=== PATIENT | female | born 1945 | race Caucasian/White ===

== ENCOUNTER 2018-12-01 14:40 | Inpatient (IN) | payer OTHER ==
[2018-12-01] MEDS ORDERED: ACETAMINOPHEN 1000 MG/100 ML VIAL (NON FORMULARY) IVPB ONE (16:19)
[2018-12-01] MEDS ORDERED: SODIUM CHLORIDE 0.9% 500 ML INFUS.BAG IV ONE (16:19)
--- NOTE | 2018-12-01 16:27 | PDOC ---
History of Present Illness - General Chief Complaint: Headache Stated Complaint: Headache Time Seen by Provider: 12/01/18 16:02 History Source: Patient Exam Limitations: No Limitations - History of Present Illness Initial Comments: 12/01/18 16:21 [id number] with h/o colon CA (s/p resection in 2003, last f/u colonoscopy with Dr. Pritchard 3 years ago was normal), HTN (on metoprolol 50 mg irregularly and did take it this morning), HLD, and prior abdominal surgeries (nothing recently) who p/w progressive nighttime headache worsening over the past 2 months. She notes the pain increases to 10/10 at the top right portion of her head and is particularly worse when she lays down flat. Denies any recent f/c/n/v/d/c, chest pain, SOB, abdominal pain, bloody/black stool, back pain, weight loss, swollen lymph nodes, or other sxs. Has not taken medication today for the pain. Currently has minimal residual headache but nowhere near as bad as overnight. Past History - Past Medical History Allergies/Adverse Reactions: Allergies Allergy/AdvReac Type Severity Reaction Status Date / Time No Known Allergies Allergy Verified 12/01/18 15:54 Home Medications: Ambulatory Orders Metoprolol Succinate [Toprol Xl] 50 mg PO DAILY 12/01/18 Simvastatin 1 tab PO HS 12/01/18 COPD: No HTN: Yes - Suicide/Smoking/Psychosocial Hx Smoking History: Never smoked Have you smoked in the past 12 months: No Information on smoking cessation initiated: No Hx Alcohol Use: No Drug/Substance Use Hx: No Review of Systems - Review of Systems Able to Perform ROS?: Yes Comments:: 12/01/18 16:28 GEN: no fever, chills, malaise, generalized weakness, or weight change HEENT: no ear pain, sore throat, vision change, or eye pain CV: no chest pain, palpitations, lightheadedness, syncope, or edema RESP: no cough, wheezing, or SOB GI: no abdominal pain, nausea, vomiting, diarrhea, constipation, or white/black/ bloody stool : no dysuria, hematuria, incontinence, retention, bleeding, or discharge MSK: no neck/back pain, muscle weakness/pain, or joint swelling/pain NEURO: headache, no seizure, vertigo, numbness, tingling, or focal weakness PSYCH: no substance use, no behavior change SKIN: no jaundice, no rash ROS otherwise negative except as noted in HPI *Physical Exam - Vital Signs Last Vital Signs Temp Pulse Resp BP Pulse Ox 98.3 F 73 16 205/111 H 100 12/01/18 15:50 12/01/18 15:50 12/01/18 15:50 12/01/18 15:50 12/01/18 15:50 - Physical Exam Comments: 12/01/18 16:28 GENERAL: very pleasant, thin, nontoxic-appearing, A/Ox4, no distress, answers questions appropriately although very tangential, a bit pressured speech and forgetful HEENT: PERRLA, EOMI, moist mucous membranes NECK/BACK: no midline ttp, no spinal stepoff or deformity, no hematoma, full ROM , neck supple CARDIOVASCULAR: regular rate/rhythm, normal S1S2, no MGR, strong peripheral pulses, capillary refill <2 seconds, extremities wwp, no edema LUNGS/RESPIRATORY: no respiratory distress, CTAB GI/ABDOMEN: symmetric [id number], normoactive BS, soft, no ttp, no midline pulsatile masses : no CVA tenderness EXTREMITIES: no muscle atrophy, no acute deformity SKIN: warm and dry, no pallor, no jaundice, no rash, no bruising, no skin breakdown, no cuts, no lesions NEUROLOGICAL: GCS 15, CN II-XII grossly intact, 5/5 strength proximally and distally, no facial droop ED Treatment Course - LABORATORY CBC & Chemistry Diagram: 12/05/18 07:30 12/05/18 07:30 - RADIOLOGY Radiology Studies Ordered: Category Date Time Status HEAD CT WITHOUT CONTRAST [CT] Stat CT Scan 12/01/18 16:19 Ordered Medical Decision Making - Medical Decision Making 12/01/18 16:25 Elderly Pt p/w headache, no reported mechanism for injury, no new red flag symptoms (see HPI). JACK not worse on awakening in the AM, no B symptoms, trauma, fever, vision loss, syncope, n/t/w focally, sudden onset, etc. Initial Vital Signs Temp Pulse Resp BP Pulse Ox 98.3 F 73 16 205/111 H 100 12/01/18 15:50 12/01/18 15:50 12/01/18 15:50 12/01/18 15:50 12/01/18 15:50 Exam: As noted in Physical Exam section. DDX IBNLT: Concern is for malignancy or other intracranial process given the fact that this is progressive and mostly present at night. Primary JACK syndrome ( tension/cluster/migraine), trigeminal neuralgia, zoster, SAH (mali. sudden onset) , subdural or epidural hematoma (mali. after trauma), ruptured/acutely expanded aneurysm, encephalitis, meningitis, glaucoma, atypical PNA, idiopathic intracranial hypertension (uncommon in males), GCA (mlai. new onset JACK >50 yo female), mass lesion, brain metastasis (mali. known CA patients and/or JACK with increasing severity/frequency), brain abscess (mali. immunocompromised patients) , other infection (e.g. UTI/pyelonephritis), DKA, etc W/U ordered: Head CT, EKG, labs as noted below TX ordered: Ofirmev, IVF, Reglan, Benadryl, Metoprolol 12/01/18 16:27 EKG: Reviewed; results as noted in ECG Review section. Head CT: Laboratory Tests 12/01/18 12/01/18 12/01/18 16:43 16:43 16:43 WBC 7.6 RBC 3.47 L Hgb 8.6 L Hct 26.1 L MCV 75.2 L MCH 24.8 L MCHC 33.0 RDW 17.1 H Plt Count 178 MPV 7.3 L Absolute Neuts (auto) 5.6 Neutrophils % 74.0 Lymphocytes % 15.8 Monocytes % 7.9 Eosinophils % 1.4 Basophils % 0.9 Nucleated RBC % 0 ESR 37 H Sodium 136 Potassium 3.9 Chloride 100 Carbon Dioxide 29 Anion Gap 7 L BUN 39.9 H Creatinine 2.9 H Est GFR (CKD-EPI)AfAm 17.62 Est GFR (CKD-EPI)NonAf 15.20 Random Glucose 96 Calcium 8.7 Total Bilirubin 1.0 AST 11 L ALT 9 L Alkaline Phosphatase 97 Troponin I 0.04 Total Protein 6.5 Albumin 3.3 L Urine Color Urine Appearance Urine pH Ur Specific Sheridan Urine Protein Urine Glucose (UA) Urine Ketones Urine Blood Urine Nitrite Urine Bilirubin Urine Urobilinogen Ur Leukocyte Esterase Urine WBC (Auto) Urine RBC (Auto) Urine Casts (Auto) U Epithel Cells (Auto) Urine Bacteria (Auto) 12/01/18 17:33 WBC RBC Hgb Hct MCV MCH MCHC RDW Plt Count MPV Absolute Neuts (auto) Neutrophils % Lymphocytes % Monocytes % Eosinophils % Basophils % Nucleated RBC % ESR Sodium Potassium Chloride Carbon Dioxide Anion Gap BUN Creatinine Est GFR (CKD-EPI)AfAm Est GFR (CKD-EPI)NonAf Random Glucose Calcium Total Bilirubin AST ALT Alkaline Phosphatase Troponin I Total Protein Albumin Urine Color Yellow Urine Appearance Clear Urine pH 7.5 Ur Specific Sheridan 1.012 Urine Protein 2+ H Urine Glucose (UA) Negative Urine Ketones Negative Urine Blood Trace Urine Nitrite Negative Urine Bilirubin Negative Urine Urobilinogen 0.2 Ur Leukocyte Esterase Trace Urine WBC (Auto) 35 Urine RBC (Auto) 4 Urine Casts (Auto) 4 U Epithel Cells (Auto) 0.1 Urine Bacteria (Auto) 1483.3 CT/HEAD CT WITHOUT CONTRAST Cranial CT without contrast Clinical information: headache Multiplanar imaging was performed. Intravenous contrast was not administered. No prior imaging studies are available at this facility for direct comparison. No intraparenchymal hemorrhage is seen. There is no CT evidence of acute subarachnoid hemorrhage. Correlate clinically. No extra-axial fluid collection is noted. There is no obvious mass lesion on noncontrast imaging. No discrete infarct is identified within the limitations of CT. Mild to moderate periventricular and subcortical white matter low-attenuation is noted probably on the basis of microvascular ischemic gliosis given the patient' s chronologic age. Correlate clinically. The ventricles and cisterns appear unremarkable. A partly empty sella turcica is visualized which is usually of no clinical significance. No discrete calvarial defect is noted. The partially imaged paranasal sinuses demonstrate no opacification. A 2 x 1.3 cm left occipital subcutaneous partially calcified structure is seen probably representing a sebaceous cyst. A similar smaller right parietal subcutaneous structure is also visualized. Impression: No definite CT evidence of acute intracranial pathology. Mild to moderate bilateral periventricular and subcortical white matter hypodensity is seen without mass effect probably on the basis of chronic microvascular ischemic changes. Correlate clinically. Patient states minimal residual pain. Vital Signs Temperature 98.0 F 12/01/18 17:47 Pulse Rate 72 12/01/18 17:47 Respiratory Rate 16 12/01/18 17:47 Blood Pressure 205/98 H 12/01/18 17:47 O2 Sat by Pulse Oximetry (%) 98 12/01/18 17:47 12/01/18 18:44 Second IV Push metoprolol 5 mg is ordered. The Pt is unsafe for discharge at this time. They require further hospital observation, workup, and treatment. Microblog sent to [facility] for admission. Blank Decision to Admit order is placed per ED protocol. 12/01/18 19:05 Spoke with admitting team promotional representative, in agreement Pt to be admitted. Decision to Admit order corrected with Dr. Vera's name. *DC/Admit/Observation/Transfer Diagnosis at time of Disposition: GENOVEVA (acute kidney injury), Headache, High blood pressure, UTI (urinary tract infection) - Discharge Dispostion Condition at time of disposition: Guarded Decision to Admit order: Yes - Referrals - Patient Instructions - Post Discharge Activity
[2018-12-01] MEDS ORDERED: ACETAMINOPHEN INJECTION 100 ML IVPB ONE (16:53)
[2018-12-01] MEDS ORDERED: METOPROLOL TARTRATE 5 MG/5 ML VIAL IVPUSH ONE ×2 (16:56→18:48)
[2018-12-01 17:06] LABS: BASO % 0.9 % (0-2.0); EOS % 1.4 % (0-4.5); HEMATOCRIT 26.1 % (32.4-45.2); HEMOGLOBIN 8.6 GM/dL (10.7-15.3); LYMPH % 15.8 % (8-40); MCH 24.8 pg (25.7-33.7); MEAN CELL VOLUME 75.2 fl (80-96); MEAN PLT VOLUME 7.3 fl (7.5-11.1); MONO % 7.9 % (3.8-10.2); PLATELET COUNT 178 K/MM3 (134-434); RBC 3.47 M/mm3 (3.60-5.2); RDW 17.1 % (11.6-15.6); WHITE BLOOD COUNT 7.6 K/mm3 (4.0-10.0)
[2018-12-01] MEDS ORDERED: METOPROLOL TARTRATE 5 MG/5 ML VIAL ONE ×2 (17:15→18:57)
[2018-12-01 17:27] LABS: ALBUMIN 3.3 g/dl (3.4-5.0); BLOOD UREA NITROGEN 39.9 mg/dL (7-18); CALCIUM 8.7 mg/dL (8.5-10.1); CREATININE 2.9 mg/dL (0.55-1.3); POTASSIUM 3.9 mmol/L (3.5-5.1); TOT PROT 6.5 g/dl (6.4-8.2)
--- NOTE | 2018-12-01 17:31 | PDOC ---
Documentation entered by Allen Whaley SCRIBE, acting as scribe for Joanie Atkins MD. Joanie Atkins MD: This documentation has been prepared by the Judd moraes Joel, SCRIBE, under my direction and personally reviewed by me in its entirety. I confirm that the documentation accurately reflects all work, treatment, procedures, and medical decision making performed by me. Attending Attestation - Resident Resident Name: Laure James - ED Attending Attestation I have performed the following: I have examined & evaluated the patient, The case was reviewed & discussed with the resident, I agree w/resident's findings & plan, Exceptions are as noted - HPI HPI: 12/01/18 17:10 The patient is a 73 year old female with a significant PMH of colon CA (s/p resection), HTN, and hyperlipidemia who presents to the emergency department for evaluation of a worsening nighttime headache over the past 2 months. She describes her headache as an intermittent pain localized in the right upper region, which is aggravated by lying down. The patient denies any blurry vision or dizziness. The patient denies chest pain and shortness of breath. Denies fever, chills, nausea, vomit, diarrhea and constipation. Denies dysuria, frequency, urgency and hematuria. Allergies: NKA Past surgical history: None reported. Social history: No reported cigarette, alcohol, or drug use. PCP: Dr. Goff - Physicial Exam PE: GENERAL: Awake, alert, and fully oriented, in no acute distress HEAD: No signs of trauma EYES: PERRLA, EOMI, sclera anicteric, conjunctiva clear ENT: Auricles normal inspection, hearing grossly normal, nares patent, oropharynx clear without exudates. Moist mucosa NECK: Normal ROM, supple, no lymphadenopathy, JVD, or masses LUNGS: Breath sounds equal, clear to auscultation bilaterally. No wheezes, and no crackles HEART: Regular rate and rhythm, normal S1 and S2, no murmurs, rubs or gallops ABDOMEN: Soft, nontender, normoactive bowel sounds. No guarding, no rebound. No masses EXTREMITIES: Normal range of motion, no edema. No clubbing or cyanosis. No cords, erythema, or tenderness NEUROLOGICAL: Cranial nerves II through XII grossly intact. Normal speech, normal gait. Motor and sensation intact SKIN: Warm, dry, normal turgor, no rashes or lesions noted. - Medical Decision Making No neuro deficits on exam, however, the complaint is concerning for poss mass. CTH obtained-without contrast, as she has renal insufficiency- unclear if acute or chronic. No acute findings on CT. Labs show renal insufficiency and UTI. Will admit.
[2018-12-01 17:51] LABS: EPI CELLS 0.1 /HPF (0-5/HPF); HYALINE CASTS 4 /lpf (0-8); PH,URINE 7.5 (5.0-8.0); URINE APPEARANCE CLEAR; URINE BACTERIA 1483.3 /hpf (NEGATIVE); URINE BILIRUBIN NEGATIVE (NEGATIVE); URINE COLOR YELLOW; URINE GLUCOSE (UA) NEGATIVE (NEGATIVE); URINE KETONE NEGATIVE (NEGATIVE); URINE LEUK ESTERASE TRACE (NEGATIVE); URINE NITRITE NEGATIVE (NEGATIVE); URINE PROTEIN 2+ (NEGATIVE); URINE RBC 4 /hpf (0-4); URINE UROBILINOGEN 0.2 mg/dL (0.2-1.0); URINE WBC 35 /hpf (0-5)
[2018-12-01] MEDS ORDERED: CEFTRIAXONE 1,000 MG in DEXTROSE 5%-WATER - 50 ML IVPB ONE (18:43)
[2018-12-01] MEDS ORDERED: CEFTRIAXONE 1 GM/50 ML BAG ONE (18:48)
[2018-12-01] MEDS ORDERED: POLYETHYLENE GLYCOL 3350 119 GM BTL PO PRN (19:06)
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
[2018-12-01] MEDS ORDERED: hydrALAZINE HCL 10 MG TABLET PO SCH (22:00)
[2018-12-01] MEDS: DOCUSATE SODIUM 100 MG CAPSULE (FP) PO SCH (22:38)
[2018-12-01] MEDS: SENNOSIDES 8.6MG TABLET (FP) PO SCH (22:38)
[2018-12-01] MEDS ORDERED: DOCUSATE SODIUM 100 MG CAPSULE (FP) PO ONE (22:41)
[2018-12-02] MEDS ORDERED: hydrALAZINE HCL 25 MG TABLET (FP) PO ONE (01:16)
[2018-12-02] MEDS: HEPARIN NA (PORCINE) 5,000 UNITS/ML 1ML VIAL SQ SCH ×3 (06:25→21:24)
[2018-12-02] MEDS: hydrALAZINE HCL 25 MG TABLET (FP) PO SCH ×3 (06:25→21:24)
[2018-12-02 07:59] LABS: BASO % 0.9 % (0-2.0); EOS % 2.7 % (0-4.5); HEMATOCRIT 25.4 % (32.4-45.2); HEMOGLOBIN 8.3 GM/dL (10.7-15.3); LYMPH % 18.2 % (8-40); MCH 24.7 pg (25.7-33.7); MCHC 32.7 g/dl (32.0-36.0); MEAN CELL VOLUME 75.8 fl (80-96); MEAN PLT VOLUME 7.5 fl (7.5-11.1); MONO % 9.5 % (3.8-10.2); NEUT % 68.7 % (42.8-82.8); RBC 3.35 M/mm3 (3.60-5.2); RDW 17.1 % (11.6-15.6); WHITE BLOOD COUNT 5.9 K/mm3 (4.0-10.0)
[2018-12-02 08:10] LABS: INR 1.03 (0.83-1.09); PROTHROMBIN TIME (PATIENT) 12.2 SEC (9.7-13.0)
[2018-12-02 08:12] LABS: ACTIVATED PTT 29.4 SECONDS (25.2-36.5)
[2018-12-02] MEDS: DOCUSATE SODIUM 100 MG CAPSULE (FP) PO SCH (09:10)
[2018-12-02 09:25] LABS: ALBUMIN 2.8 g/dl (3.4-5.0); BILIRUBIN,TOTAL 0.5 mg/dL (0.2-1); BLOOD UREA NITROGEN 40.1 mg/dL (7-18); CALCIUM 8.2 mg/dL (8.5-10.1); CREATININE 2.8 mg/dL (0.55-1.3); MAGNESIUM 2.1 mg/dL (1.8-2.4); N-TERMINAL BNP 83396.4 pg/ml (5-450); POTASSIUM 3.6 mmol/L (3.5-5.1); TOT PROT 5.8 g/dl (6.4-8.2)
--- NOTE | 2018-12-02 09:33 | PN ---
Progress Note, Physician - Current Medication List Current Medications: Active Medications Acetaminophen (Tylenol -) 650 mg PO Q6H PRN PRN Reason: PAIN LEVEL 4 - 6 Docusate Sodium (Colace -) 100 mg PO BID [facility] Last Admin: 12/02/18 09:10 Dose: 100 mg Heparin Sodium (Porcine) (Heparin -) 5,000 unit SQ TID [facility] Last Admin: 12/02/18 06:25 Dose: 5,000 unit Hydralazine HCl (Apresoline -) 25 mg PO TID [facility] Last Admin: 12/02/18 06:25 Dose: 25 mg Metoprolol Succinate (Toprol Xl -) 50 mg PO DAILY [facility] Pantoprazole Sodium (Protonix -) 20 mg PO DAILY [facility] Last Admin: 12/02/18 09:10 Dose: 20 mg Polyethylene Glycol (Miralax (For Daily Use) -) 17 gm PO DAILY PRN PRN Reason: CONSTIPATION Senna (Senna -) 2 tab PO [facility] Last Admin: 12/01/18 22:38 Dose: 2 tab - Objective Vital Signs: Vital Signs Temperature 98.0 F 12/02/18 06:00 Pulse Rate 61 12/02/18 06:00 Respiratory Rate 18 12/02/18 06:00 Blood Pressure 198/82 H 12/02/18 06:00 O2 Sat by Pulse Oximetry (%) 100 12/01/18 23:50 Cardiovascular: Yes: Regular Rate and Rhythm Respiratory: Yes: Regular, CTA Bilaterally Gastrointestinal: Yes: Normal Bowel Sounds, Soft. No: Tenderness Neurological: Yes: Alert, Oriented Labs: CBC, BMP 12/02/18 07:05 INR, PTT INR 1.03 (0.83-1.09) 12/02/18 07:05 Problem List - Problems (1) Hypertensive urgency Assessment/Plan: - -start norvasc 10 now - hydralazine 10mg TID - continue toprol XL 50mg - Echo ordered -cards consult Code(s): I16.0 - HYPERTENSIVE URGENCY (2) Anemia Assessment/Plan: bowel regimen with senna and colace SC heparin TID with close monitoring of cbc PPI once daily tylenol PRN pain trend H/H send stool for hemoccult gi consult Code(s): D64.9 - ANEMIA, UNSPECIFIED (3) Colon cancer Code(s): C18.9 - MALIGNANT NEOPLASM OF COLON, UNSPECIFIED (4) GENOVEVA (acute kidney injury) Assessment/Plan: -renal sono ordered - renal consulted -trend creatinine and electrolytes -monitor intake and output Code(s): N17.9 - ACUTE KIDNEY FAILURE, UNSPECIFIED
[2018-12-02 09:35] LABS: PLATELET COUNT 159 K/MM3 (134-434)
[2018-12-02] MEDS: amLODIPine BESYLATE 10 MG TABLET (FP) PO SCH (09:44)
[2018-12-02] MEDS ORDERED: PANTOPRAZOLE 20 MG TABLET (FP) PO SCH (10:00)
--- NOTE | 2018-12-02 13:29 | CONSULT ---
Consult Consult Specialty:: Nephrology Reason for Consultation:: GENOVEVA - History of Present Illness Chief Complaint: headache History of Present Illness: Pt is a 73 year old female with pmhx of colon cancer, htn, and hld who presents to the ER complaining of headaches. She was found to have elevated creatinine and I was called to evaluate her. She denies chest pain or shortness of breath. She denies dysuria or hematuria. She denies history of CKD. She denies nsaid use. She feels that her headache is improved. - History Source History Provided By: Patient, Medical Record - Past Medical History Cardio/Vascular: Yes: HTN, Hyperlipdemia Musculoskeletal: Yes: Other (right elbow bursitis) - Alcohol/Substance Use Hx Alcohol Use: No History of Substance Use: reports: None - Smoking History Smoking history: Former smoker Have you smoked in the past 12 months: No If you are a former smoker, when did you quit?: 20 years ago - Social History ADL: Independent History of Recent Travel: No Home Medications - Allergies Allergies/Adverse Reactions: Allergies Allergy/AdvReac Type Severity Reaction Status Date / Time No Known Allergies Allergy Verified 12/01/18 15:54 - Home Medications Home Medications: Ambulatory Orders Metoprolol Succinate [Toprol Xl] 50 mg PO DAILY 12/01/18 Simvastatin 1 tab PO HS 12/01/18 Family Disease History - Family Disease History Family Disease History: Other: Father ( (78) CAD), Mother ( (80 ) rectal cancer), Brother ( (88) resp failure), Sister (alive (90)) Other Family History: brother (92) unknown cause Review of Systems - Review of Systems Constitutional: reports: Malaise Eyes: reports: No Symptoms HENT: reports: No Symptoms Neck: reports: No Symptoms Cardiovascular: reports: No Symptoms Respiratory: reports: No Symptoms Gastrointestinal: reports: No Symptoms Genitourinary: reports: No Symptoms Musculoskeletal: reports: No Symptoms Integumentary: reports: No Symptoms Neurological: reports: Headache Endocrine: reports: No Symptoms Hematology/Lymphatic: reports: No Symptoms Psychiatric: reports: No Symptoms Physical Exam Vital Signs: Vital Signs Temperature 98.0 F 12/02/18 10:00 Pulse Rate 60 12/02/18 10:00 Respiratory Rate 18 12/02/18 10:00 Blood Pressure 204/100 H 12/02/18 10:00 O2 Sat by Pulse Oximetry (%) 100 12/02/18 09:00 Constitutional: Yes: Calm Eyes: Yes: Conjunctiva Clear HENT: Yes: Atraumatic Neck: Yes: Supple Cardiovascular: Yes: S1, S2 Respiratory: Yes: CTA Bilaterally Gastrointestinal: Yes: Soft Renal/: Yes: WNL Musculoskeletal: Yes: WNL Edema: No Neurological: Yes: Oriented Psychiatric: Yes: Oriented Labs: CBC, BMP 12/02/18 07:05 12/02/18 07:05 Imaging - Results Cat Scan: Report Reviewed Ultrasound: Report Reviewed Problem List - Problems (1) GENOVEVA (acute kidney injury) Code(s): N17.9 - ACUTE KIDNEY FAILURE, UNSPECIFIED (2) Colon cancer Code(s): C18.9 - MALIGNANT NEOPLASM OF COLON, UNSPECIFIED (3) Headache Code(s): R51 - HEADACHE Assessment/Plan Current Medications Generic Name Dose Route Start Last Admin Trade Name Freq PRN Reason Stop Dose Admin Acetaminophen 650 mg 12/01/18 19:06 Tylenol - PO Q6H PRN PAIN LEVEL 4 - 6 Amlodipine Besylate 10 mg 12/02/18 10:00 12/02/18 09:44 Norvasc - PO 10 mg DAILY NILAM Administration Docusate Sodium 100 mg 12/01/18 22:00 12/02/18 09:10 Colace - PO 100 mg BID NILAM Administration Heparin Sodium (Porcine) 5,000 unit 12/02/18 06:00 12/02/18 13:26 Heparin - SQ 5,000 unit TID NLIAM Administration Hydralazine HCl 25 mg 12/02/18 06:00 12/02/18 13:26 Apresoline - PO 25 mg TID NILAM Administration Metoprolol Succinate 50 mg 12/02/18 12:00 12/02/18 11:40 Toprol Xl - PO 50 mg DAILY NILAM Administration Pantoprazole Sodium 20 mg 12/02/18 10:00 12/02/18 09:10 Protonix - PO 20 mg DAILY NILAM Administration Polyethylene Glycol 17 gm 12/01/18 19:06 Miralax (For Daily Use) - PO DAILY PRN CONSTIPATION Senna 2 tab 12/01/18 22:00 12/01/18 22:38 Senna - PO 2 tab HS NILAM Administration Impression 1. GENOVEVA 2. HTN uncontrolled 3. HLD 4. headache Plan - renal ultrasound reviewed - check ua - repeat bp is 160/92 - cont with metoprolol, hydralazine and amlodipine - can tritrate up the dose of metoprolol or hydralazine as needed - follow echo report - will need to obtain outpt labs to evaluate baseline ultrasound supervisor
--- NOTE | 2018-12-02 14:41 | EKG ---
Test Reason : Blood Pressure : / mmHG Vent. Rate : 067 BPM Atrial Rate : 067 BPM P-R Int : 148 ms QRS Dur : 080 ms QT Int : 448 ms P-R-T Axes : 052 -14 137 degrees QTc Int : 473 ms SINUS RHYTHM WITH OCCASIONAL PREMATURE VENTRICULAR COMPLEXES MINIMAL VOLTAGE CRITERIA FOR LVH, MAY BE NORMAL VARIANT NONSPECIFIC T WAVE ABNORMALITY PROLONGED QT ABNORMAL ECG WHEN COMPARED WITH ECG OF 01-DEC-2018 20:14, PREMATURE VENTRICULAR COMPLEXES ARE NOW PRESENT Confirmed by Edson Boo MD ([id number]) on 12/02/2018 2:40:55 PM Referred By: Eligio HOFFMAN Confirmed By:Edson Boo MD
--- NOTE | 2018-12-02 14:43 | EKG ---
Test Reason : Blood Pressure : / mmHG Vent. Rate : 072 BPM Atrial Rate : 072 BPM P-R Int : 148 ms QRS Dur : 078 ms QT Int : 400 ms P-R-T Axes : 049 -14 059 degrees QTc Int : 438 ms NORMAL SINUS RHYTHM POSSIBLE LEFT ATRIAL ENLARGEMENT LEFT VENTRICULAR HYPERTROPHY NONSPECIFIC ST AND T WAVE ABNORMALITY ABNORMAL ECG WHEN COMPARED WITH ECG OF 03-SEP-2006 19:00, NONSPECIFIC T WAVE ABNORMALITY, IMPROVED IN INFERIOR LEADS Confirmed by Edson Boo MD ([id number]) on 12/02/2018 2:43:01 PM Referred By: Confirmed By:Edson Boo MD
--- NOTE | 2018-12-02 16:07 | ECHO ---
Version: 1 Name: LE MEHTA Exam: Adult Echocardiogram Study Date: 12/02/2018, 10:47 AM Age: 73 Years MMode/2D Measurements & Calculations IVSd: 0.91 cm LVIDs: 3.7 cm LVIDd: 5.5 cm LVPWd: 0.83 cm LVOT diam: 1.94 cm Ao root diam: 2.9 cm LA dimension: 3.7 cm Doppler Measurements & Calculations MV E max armando: 45.5 cm/sec Med E/e': 12.8 MV A max armando: 92.2 cm/sec Med Peak E' Armando: 3.5 cm/sec MV E/A: 0.49 Lat E/e': 13.1 Lat Peak E' Armando: 3.5 cm/sec MR max P.8 mmHg Ao max P.8 mmHg MATTHEW(I,D): 2.33 cm Ao mean P.4 mmHg LV V1 mean: 65.4 cm/sec Ao V2 max: 130.3 cm/sec LV V1 mean P.91 mmHg AI P1/2t: 478.6 msec TR max armando: 241.8 cm/sec TR max P.4 mmHg Left Ventricle The left ventricle is borderline dilated. Left ventricular systolic function is low normal. Ejection Fraction = 50-55. E/A reversal consistent with but not diagnostic of poor LV compliance. Right Ventricle The right ventricle is normal in size and function. Atria Normal left and right atrial size and function. Mitral Valve There is mild mitral annular calcification. There is mild mitral regurgitation. Tricuspid Valve The tricuspid valve is not well visualized, but is grossly normal. There is mild to moderate tricusp id regurgitation. Aortic Valve There is moderate aortic sclerosis.;. No hemodynamically significant valvular aortic stenosis. Pulmonic Valve The pulmonic valve is not well visualized. Great Vessels The aortic root is normal size. Pericardium/Pleura There is no pericardial effusion. Summary Statements The left ventricle is borderline dilated. Left ventricular systolic function is low normal. Ejection Fraction = 50-55. The right ventricle is normal in size and function. Normal left and right atrial size and function. There is moderate aortic sclerosis.; No hemodynamically significant valvular aortic stenosis. There is mild mitral annular calcification. There is mild mitral regurgitation. 12/02/2018, 3:06 MD Annie Butts PM Ordering Physician: Graciela Palafox Referring Physician: WILL CALLOWAY Performed By: Priscilla Ortiz
--- NOTE | 2018-12-02 16:07 | CON.CARD ---
Consult Consult Specialty:: Cardiology Referred by:: Chuy Reason for Consultation:: HTN - History of Present Illness Chief Complaint: Headaches History of Present Illness: 73 year old female with a pmhx of colon cancer s/p resection, htn, and hld presenting with headaches for 2 months. BP elevated on admission. Cr 2.9. Ex-tobacco use. No chest pain, sob, or palpitations. No pnd, orthopnea, or edema. CXR no chf CT head neg EKG: sinus rhythm, pvc's, nonspecific T wave abnormalities. - Past Medical History Cardio/Vascular: Yes: HTN, Hyperlipdemia Musculoskeletal: Yes: Other (right elbow bursitis) - Alcohol/Substance Use Hx Alcohol Use: No History of Substance Use: reports: None - Smoking History Smoking history: Former smoker Have you smoked in the past 12 months: No If you are a former smoker, when did you quit?: 20 years ago - Social History ADL: Independent History of Recent Travel: No Home Medications - Allergies Allergies/Adverse Reactions: Allergies Allergy/AdvReac Type Severity Reaction Status Date / Time No Known Allergies Allergy Verified 12/01/18 15:54 - Home Medications Home Medications: Ambulatory Orders Metoprolol Succinate [Toprol Xl] 50 mg PO DAILY 12/01/18 Simvastatin 1 tab PO HS 12/01/18 Family Disease History - Family Disease History Family Disease History: Other: Father ( (78) CAD), Mother ( (80 ) rectal cancer), Brother ( (88) resp failure), Sister (alive (90)) Other Family History: brother (92) unknown cause Vital Signs: Vital Signs Temperature 98.0 F 12/02/18 14:11 Pulse Rate 75 12/02/18 14:11 Respiratory Rate 18 12/02/18 14:11 Blood Pressure 163/93 12/02/18 14:11 O2 Sat by Pulse Oximetry (%) 100 12/02/18 09:00 Constitutional: Yes: No Distress Neck: Yes: Supple Respiratory: Yes: CTA Bilaterally Gastrointestinal: Yes: Soft Cardiovascular: Yes: Regular Rate and Rhythm JVD: No Carotid Bruit: No PMI: Non-Displaced Heart Sounds: Yes: S1, S2 Murmur: No: Systolic Murmur Musculoskeletal: Yes: WNL Extremities: Yes: WNL Edema: No - Other Data Labs, Other Data: CBC, BMP 12/02/18 07:05 12/02/18 07:05 INR, PTT INR 1.03 (0.83-1.09) 12/02/18 07:05 Troponin, BNP 12/01/18 12/02/18 16:43 07:05 Troponin I 0.04 0.04 B-Natriuretic Peptide 42271.4 H Troponin, BNP 12/01/18 12/02/18 16:43 07:05 Troponin I 0.04 0.04 B-Natriuretic Peptide 52856.4 H Imaging - Results Chest X-ray: Report Reviewed EKG: Image Reviewed Problem List - Problems (1) High blood pressure Code(s): I10 - ESSENTIAL (PRIMARY) HYPERTENSION Assessment/Plan 73 year old female with a pmhx of colon cancer s/p resection, htn, and hld presenting with headaches for 2 months. BP elevated on admission. Cr 2.9. Ex-tobacco use. No chest pain, sob, or palpitations. No pnd, orthopnea, or edema. CXR no chf CT head neg EKG: sinus rhythm, pvc's, nonspecific T wave abnormalities 1) HTN possibly causing headaches Continued on home metoprolol xl Started on amlodipine today by pmd. BP improving. Will trend bp. Planned for echo.
[2018-12-02] MEDS: ACETAMINOPHEN 325 MG TABLET (FP) PO PRN (17:12)
[2018-12-02 17:19] LABS: EPI CELLS 22.2 /HPF (0-5/HPF); HYALINE CASTS 11 /lpf (0-8); URINE APPEARANCE TURBID; URINE BACTERIA 118.9 /hpf (NEGATIVE); URINE BILIRUBIN NEGATIVE (NEGATIVE); URINE COLOR YELLOW; URINE GLUCOSE (UA) NEGATIVE (NEGATIVE); URINE KETONE NEGATIVE (NEGATIVE); URINE LEUK ESTERASE 3+ (NEGATIVE); URINE NITRITE NEGATIVE (NEGATIVE); URINE PROTEIN 2+ (NEGATIVE); URINE UROBILINOGEN 0.2 mg/dL (0.2-1.0); URINE WBC 488 /hpf (0-5)
--- NOTE | 2018-12-02 17:32 | CON.GI ---
Consult Consult Specialty:: Gastroenterology Referred by:: Dr Vera Reason for Consultation:: Anemia - History of Present Illness Chief Complaint: Progressively worsening headaches History of Present Illness: 73F is admitted for progressively worsening headaches and for management of hypertension. She is found to have a microcytic anemia but denies any overt GI bleeding or bowel difficulties. She had a Ouray A colon cancer resected by Dr Polo at [facility] in 2002. Her mother of rectal cancer at age 85. Gale had a colonosocpy with Dr Pritchard on 10/09/16 when a rectal tubulovillous adenoma was removed. She had an EGD and a colonoscopy with im in 2005 when a descending colon villotubular adenomas was removed. Her EGD revealed a mild H. pylori gastritis. She does take aspirin and NSAIDs semiregularly but denies abdominal pain, early satiety, dysphagia or narrowed stools. - History Source History Provided By: Patient Limitations to Obtaining History: Poor Historian - Past Medical History Cardio/Vascular: Yes: HTN, Hyperlipdemia Gastrointestinal: Yes: Cancer (Ouray A colon cancer resected 2002), Gastritis ( H. pylori gastritis 2005 on EGD), Other (colon adenomas removed 2005, 2016) Renal/: Yes: Renal Inusuff Heme/Onc: Yes: Anemia (h/o pernicious anemia) Musculoskeletal: Yes: Other (right elbow bursitis, recent right ankle fracture repair) - Past Surgical History Past Surgical History: Yes: Colectomy (partial colectomy for Ouray A cancer), Colonoscopy, Hysterectomy, Tonsillectomy, Upper Endoscopy Additional Surgical History: right ankle fracture surgery - Alcohol/Substance Use Hx Alcohol Use: Yes (on holidays) History of Substance Use: reports: None - Smoking History Smoking history: Former smoker Have you smoked in the past 12 months: No If you are a former smoker, when did you quit?: 1984 - Social History Usual Living Arrangement: Alone (never ) ADL: Independent Occupation: retired fom recording industry Place of : [employer] History of Recent Travel: No Home Medications - Allergies Allergies/Adverse Reactions: Allergies Allergy/AdvReac Type Severity Reaction Status Date / Time No Known Allergies Allergy Verified 12/01/18 15:54 - Home Medications Home Medications: Ambulatory Orders Metoprolol Succinate [Toprol Xl] 50 mg PO DAILY 12/01/18 Simvastatin 1 tab PO HS 12/01/18 Family Disease History - Family Disease History Family Disease History: Other: Father ( (78) CAD), Mother ( (80 ) rectal cancer), Brother ( (88) resp failure), Sister (alive (90)) Other Family History: brother (92) unknown cause Review of Systems - Review of Systems Constitutional: reports: No Symptoms Eyes: reports: No Symptoms HENT: reports: No Symptoms Neck: reports: No Symptoms Cardiovascular: reports: No Symptoms Respiratory: reports: No Symptoms Gastrointestinal: reports: No Symptoms Genitourinary: reports: No Symptoms Musculoskeletal: reports: Joint Pain (right ankle) Neurological: reports: Headache Physical Exam-GI Vital Signs: Vital Signs Temperature 98.0 F 12/02/18 14:11 Pulse Rate 75 12/02/18 14:11 Respiratory Rate 18 12/02/18 14:11 Blood Pressure 163/93 12/02/18 14:11 O2 Sat by Pulse Oximetry (%) 100 12/02/18 09:00 CBC,CMP WBC 5.9 K/mm3 (4.0-10.0) 12/02/18 07:05 RBC 3.35 M/mm3 (3.60-5.2) L 12/02/18 07:05 Hgb 8.3 GM/dL (10.7-15.3) L 12/02/18 07:05 Hct 25.4 % (32.4-45.2) L 12/02/18 07:05 MCV 75.8 fl (80-96) L 12/02/18 07:05 MCH 24.7 pg (25.7-33.7) L 12/02/18 07:05 MCHC 32.7 g/dl (32.0-36.0) 12/02/18 07:05 RDW 17.1 % (11.6-15.6) H 12/02/18 07:05 Plt Count 159 K/MM3 (134-434) 12/02/18 07:05 MPV 7.5 fl (7.5-11.1) 12/02/18 07:05 Absolute Neuts (auto) 4.0 K/mm3 (1.5-8.0) 12/02/18 07:05 Neutrophils % 68.7 % (42.8-82.8) 12/02/18 07:05 Lymphocytes % 18.2 % (8-40) 12/02/18 07:05 Monocytes % 9.5 % (3.8-10.2) 12/02/18 07:05 Eosinophils % 2.7 % (0-4.5) D 12/02/18 07:05 Basophils % 0.9 % (0-2.0) 12/02/18 07:05 Nucleated RBC % 0 % (0-0) 12/02/18 07:05 ESR 37 mm/hr (0-30) H 12/01/18 16:43 Sodium 138 mmol/L (136-145) 12/02/18 07:05 Potassium 3.6 mmol/L (3.5-5.1) 12/02/18 07:05 Chloride 103 mmol/L (98-107) 12/02/18 07:05 Carbon Dioxide 29 mmol/L (21-32) 12/02/18 07:05 Anion Gap 6 MMOL/L (8-16) L 12/02/18 07:05 BUN 40.1 mg/dL (7-18) H 12/02/18 07:05 Creatinine 2.8 mg/dL (0.55-1.3) H 12/02/18 07:05 Est GFR (CKD-EPI)AfAm 18.38 12/02/18 07:05 Est GFR (CKD-EPI)NonAf 15.86 12/02/18 07:05 Random Glucose 80 mg/dL (74-106) 12/02/18 07:05 Hemoglobin A1c % < 5.0 % (4.2-6.3) 12/02/18 07:05 Calcium 8.2 mg/dL (8.5-10.1) L 12/02/18 07:05 Phosphorus 4.0 mg/dL (2.5-4.9) 12/02/18 07:05 Magnesium 2.1 mg/dL (1.8-2.4) 12/02/18 07:05 Total Bilirubin 0.5 mg/dL (0.2-1) 12/02/18 07:05 AST 9 U/L (15-37) L 12/02/18 07:05 ALT 8 U/L (13-61) L 12/02/18 07:05 Alkaline Phosphatase 87 U/L (45-117) 12/02/18 07:05 Creatine Kinase 28 U/L (26-192) 12/02/18 07:05 Troponin I 0.04 ng/ml (0.00-0.05) 12/02/18 07:05 B-Natriuretic Peptide 52550.4 pg/ml (5-450) H 12/02/18 07:05 Total Protein 5.8 g/dl (6.4-8.2) L 12/02/18 07:05 Albumin 2.8 g/dl (3.4-5.0) L 12/02/18 07:05 Triglycerides 67 mg/dL (0-150) 12/02/18 07:05 Cholesterol 124 mg/dL (50-200) 12/02/18 07:05 Total LDL Cholesterol 59 mg/dL (5-100) 12/02/18 07:05 HDL Cholesterol 51 mg/dL (40-60) 12/02/18 07:05 TSH 1.95 uIU/ml (0.358-3.74) 12/02/18 07:05 Current Medications Generic Name Dose Route Start Last Admin Trade Name Freq PRN Reason Stop Dose Admin Acetaminophen 650 mg 12/01/18 19:06 12/02/18 17:12 Tylenol - PO 650 mg Q6H PRN Administration PAIN LEVEL 4 - 6 Amlodipine Besylate 10 mg 12/02/18 10:00 12/02/18 09:44 Norvasc - PO 10 mg DAILY NILAM Administration Docusate Sodium 100 mg 12/01/18 22:00 12/02/18 09:10 Colace - PO 100 mg BID NILAM Administration Heparin Sodium (Porcine) 5,000 unit 12/02/18 06:00 12/02/18 13:26 Heparin - SQ 5,000 unit TID NILAM Administration Hydralazine HCl 25 mg 12/02/18 06:00 12/02/18 13:26 Apresoline - PO 25 mg TID NILAM Administration Metoprolol Succinate 50 mg 12/02/18 12:00 12/02/18 11:40 Toprol Xl - PO 50 mg DAILY NILAM Administration Pantoprazole Sodium 20 mg 12/02/18 10:00 12/02/18 09:10 Protonix - PO 20 mg DAILY NILAM Administration Polyethylene Glycol 17 gm 12/01/18 19:06 Miralax (For Daily Use) - PO DAILY PRN CONSTIPATION Senna 2 tab 07/15/19 22:00 12/01/18 22:38 Senna - PO 2 tab HS NILAM Administration Constitutional: Yes: Anxious Eyes: Yes: Conjunctiva Clear HENT: Yes: Atraumatic Neck: Yes: Supple Cardiovascular: Yes: Regular Rate and Rhythm Respiratory: Yes: CTA Bilaterally Gastrointestinal Inspection: Yes: Scars (healed vertical right suprapubic incision) ...Auscultate: Yes: Normoactive Bowel Sounds ...Palpate: Yes: Soft, Other (nontender) ...Rectal Exam: Yes: Guaiac Negative (no masses, brown guaiac negative stool) Labs: CBC, BMP 12/02/18 07:05 12/02/18 07:05 INR, PTT INR 1.03 (0.83-1.09) 12/02/18 07:05 Problem List - Problems (1) Anemia Code(s): D64.9 - ANEMIA, UNSPECIFIED Qualifiers: Iron deficiency anemia type: unspecified iron deficiency (2) Colon cancer Code(s): C18.9 - MALIGNANT NEOPLASM OF COLON, UNSPECIFIED (3) Renal insufficiency Code(s): N28.9 - DISORDER OF KIDNEY AND URETER, UNSPECIFIED (4) Colon adenomas Code(s): D12.6 - BENIGN NEOPLASM OF COLON, UNSPECIFIED (5) History of Helicobacter pylori infection Code(s): Z86.19 - PERSONAL HISTORY OF OTHER INFECTIOUS AND PARASITIC DISEASES (6) Gastritis due to Helicobacter species Code(s): K29.70 - GASTRITIS, UNSPECIFIED, WITHOUT BLEEDING; B96.81 - HELICOBACTER PYLORI [facility] (7) Headache Code(s): R51 - HEADACHE (8) High blood pressure Code(s): I10 - ESSENTIAL (PRIMARY) HYPERTENSION Assessment/Plan Assessment: -- Microcytic anemia suggest indolent GI blood loss. Given her h/o colon cancer , recurring colon adenomas, HP gastritis and NSAID usage I have proposed that Chitra undergo both an EGD and a colonoscopy. I have discussed both procedures in detail and informed her of the potential for such complications as perforation and hemorrhage. She has granted an informed consent. I have scheduled them for 12/05 to allow for BP management and a bowel prep. -- Personal h/o pernicious anemia Plan: -- I will check iron/TBC, ferritin, retic and Vit B12 levels -- PPI empirically -- Bowel prep for EGD and colonoscopy on 12/05
[2018-12-02 19:01] LABS: URINE RBC 6.2 /hpf (0-4)
[2018-12-02] MEDS: SENNOSIDES 8.6MG TABLET (FP) PO SCH ×2 (21:24→21:27)
[2018-12-02] MEDS: POLYETHYLENE GLYCOL 3350 119 GM BTL PO SCH ×2 (21:25→21:26)
[2018-12-03] MEDS: ACETAMINOPHEN 325 MG TABLET (FP) PO PRN ×2 (03:52→15:41)
[2018-12-03] MEDS: hydrALAZINE HCL 25 MG TABLET (FP) PO SCH ×3 (06:39→23:36)
[2018-12-03] MEDS: HEPARIN NA (PORCINE) 5,000 UNITS/ML 1ML VIAL SQ SCH ×3 (06:39→23:36)
[2018-12-03] MEDS: POLYETHYLENE GLYCOL 3350 119 GM BTL PO SCH ×3 (06:39→23:35)
--- NOTE | 2018-12-03 08:27 | PN ---
Progress Note, Physician - Current Medication List Current Medications: Active Medications Acetaminophen (Tylenol -) 650 mg PO Q6H PRN PRN Reason: PAIN LEVEL 4 - 6 Last Admin: 12/03/18 03:52 Dose: 650 mg Amlodipine Besylate (Norvasc -) 10 mg PO DAILY [facility] Last Admin: 12/02/18 09:44 Dose: 10 mg Bisacodyl (Dulcolax -) 20 mg PO ONCE ONE Stop: 12/04/18 18:01 Heparin Sodium (Porcine) (Heparin -) 5,000 unit SQ TID [facility] Last Admin: 12/03/18 06:39 Dose: 5,000 unit Hydralazine HCl (Apresoline -) 50 mg PO TID [facility] Metoprolol Succinate (Toprol Xl -) 50 mg PO DAILY [facility] Last Admin: 12/02/18 11:40 Dose: 50 mg Pantoprazole Sodium (Protonix -) 40 mg PO DAILY [facility] Polyethylene Glycol (Miralax (For Daily Use) -) 17 gm PO TID [facility] Last Admin: 12/03/18 06:39 Dose: Not Given Polyethylene Glycol/Electrolytes (Golytely Solution -) 4,000 ml PO ONCE ONE Stop: 12/04/18 09:01 Senna (Senna -) 2 tab PO HS [facility] Last Admin: 12/02/18 21:27 Dose: Not Given - Objective Vital Signs: Vital Signs Temperature 97.7 F 12/03/18 06:00 Pulse Rate 76 12/03/18 06:00 Respiratory Rate 20 12/03/18 06:00 Blood Pressure 165/91 12/03/18 06:00 O2 Sat by Pulse Oximetry (%) 98 12/02/18 21:00 Cardiovascular: Yes: Regular Rate and Rhythm Respiratory: Yes: Regular, CTA Bilaterally Gastrointestinal: Yes: Normal Bowel Sounds, Soft. No: Tenderness Labs: INR, PTT INR 1.03 (0.83-1.09) 12/02/18 07:05 Problem List - Problems (1) Hypertensive urgency Assessment/Plan: - - norvasc 10 now - hydralazine 50 mg TID - continue toprol XL 50mg - Echo noted -cards consult noted Code(s): I16.0 - HYPERTENSIVE URGENCY (2) Anemia Assessment/Plan: bowel regimen with senna and colace SC heparin TID with close monitoring of cbc PPI once daily tylenol PRN pain trend H/H send stool for hemoccult gi consult--EGD AND COLON Code(s): D64.9 - ANEMIA, UNSPECIFIED Qualifiers: Iron deficiency anemia type: unspecified iron deficiency (3) Colon cancer Code(s): C18.9 - MALIGNANT NEOPLASM OF COLON, UNSPECIFIED (4) GENOVEVA (acute kidney injury) Assessment/Plan: -renal sono ordered - renal consulted -trend creatinine and electrolytes -monitor intake and output Code(s): N17.9 - ACUTE KIDNEY FAILURE, UNSPECIFIED
[2018-12-03 08:31] LABS: BASO % 0.5 % (0-2.0); EOS % 2.5 % (0-4.5); HEMATOCRIT 26.3 % (32.4-45.2); HEMOGLOBIN 8.6 GM/dL (10.7-15.3); LYMPH % 13.6 % (8-40); MCH 24.8 pg (25.7-33.7); MCHC 32.7 g/dl (32.0-36.0); MEAN PLT VOLUME 7.5 fl (7.5-11.1); MONO % 5.4 % (3.8-10.2); PLATELET COUNT 188 K/MM3 (134-434); RBC 3.46 M/mm3 (3.60-5.2); RDW 16.9 % (11.6-15.6); WHITE BLOOD COUNT 7.8 K/mm3 (4.0-10.0)
[2018-12-03 09:18] LABS: ALBUMIN 2.8 g/dl (3.4-5.0); BILIRUBIN,TOTAL 0.4 mg/dL (0.2-1); BLOOD UREA NITROGEN 40.8 mg/dL (7-18); CALCIUM 8.2 mg/dL (8.5-10.1); CREATININE 2.8 mg/dL (0.55-1.3); TOT PROT 5.7 g/dl (6.4-8.2)
[2018-12-03 10:04] LABS: RATIO URIN PROTEIN/URIN CREAT 1.8 MG/DL
[2018-12-03] MEDS: amLODIPine BESYLATE 10 MG TABLET (FP) PO SCH (10:27)
[2018-12-03] MEDS: PANTOPRAZOLE 20 MG TABLET (FP) PO SCH (10:27)
--- NOTE | 2018-12-03 12:16 | PN ---
Progress Note, Physician History of Present Illness: Pt seen and examined at bedside. She is awake and alert. She denies shortness of breath. She denies dysuria. - Current Medication List Current Medications: Active Medications Acetaminophen (Tylenol -) 650 mg PO Q6H PRN PRN Reason: PAIN LEVEL 4 - 6 Last Admin: 12/03/18 03:52 Dose: 650 mg Amlodipine Besylate (Norvasc -) 10 mg PO DAILY [facility] Last Admin: 12/03/18 10:27 Dose: 10 mg Bisacodyl (Dulcolax -) 20 mg PO ONCE ONE Stop: 12/04/18 18:01 Heparin Sodium (Porcine) (Heparin -) 5,000 unit SQ TID [facility] Last Admin: 12/03/18 06:39 Dose: 5,000 unit Hydralazine HCl (Apresoline -) 50 mg PO TID [facility] Metoprolol Succinate (Toprol Xl -) 50 mg PO DAILY [facility] Last Admin: 12/03/18 10:27 Dose: 50 mg Pantoprazole Sodium (Protonix -) 40 mg PO DAILY [facility] Last Admin: 12/03/18 10:27 Dose: 40 mg Polyethylene Glycol (Miralax (For Daily Use) -) 17 gm PO TID [facility] Last Admin: 12/03/18 06:39 Dose: Not Given Polyethylene Glycol/Electrolytes (Golytely Solution -) 4,000 ml PO ONCE ONE Stop: 12/04/18 09:01 Senna (Senna -) 2 tab PO HS [facility] Last Admin: 12/02/18 21:27 Dose: Not Given - Objective Vital Signs: Vital Signs Temperature 97.6 F 12/03/18 09:00 Pulse Rate 76 12/03/18 09:00 Respiratory Rate 20 12/03/18 09:00 Blood Pressure 188/100 H 12/03/18 09:00 O2 Sat by Pulse Oximetry (%) 98 12/02/18 21:00 Constitutional: Yes: Calm Eyes: Yes: Conjunctiva Clear HENT: Yes: Atraumatic Neck: Yes: Supple Cardiovascular: Yes: S1, S2 Respiratory: Yes: CTA Bilaterally Gastrointestinal: Yes: Soft Genitourinary: Yes: WNL Musculoskeletal: Yes: WNL Edema: No Neurological: Yes: Oriented Psychiatric: Yes: Oriented Labs: CBC, BMP 12/03/18 07:30 12/03/18 07:30 INR, PTT INR 1.03 (0.83-1.09) 12/02/18 07:05 Problem List - Problems (1) GENOVEVA (acute kidney injury) Code(s): N17.9 - ACUTE KIDNEY FAILURE, UNSPECIFIED (2) Colon cancer Code(s): C18.9 - MALIGNANT NEOPLASM OF COLON, UNSPECIFIED (3) Headache Code(s): R51 - HEADACHE Assessment/Plan Current Medications Generic Name Dose Route Start Last Admin Trade Name Freq PRN Reason Stop Dose Admin Acetaminophen 650 mg 12/01/18 19:06 12/03/18 03:52 Tylenol - PO 650 mg Q6H PRN Administration PAIN LEVEL 4 - 6 Amlodipine Besylate 10 mg 12/02/18 10:00 12/03/18 10:27 Norvasc - PO 10 mg DAILY [facility] Administration Bisacodyl 20 mg 12/04/18 18:00 Dulcolax - PO 12/04/18 18:01 ONCE ONE Heparin Sodium (Porcine) 5,000 unit 12/02/18 06:00 12/03/18 06:39 Heparin - SQ 5,000 unit TID [facility] Administration Hydralazine HCl 50 mg 12/03/18 14:00 Apresoline - PO TID [facility] Metoprolol Succinate 50 mg 12/02/18 12:00 12/03/18 10:27 Toprol Xl - PO 50 mg DAILY [facility] Administration Pantoprazole Sodium 40 mg 12/02/18 17:59 12/03/18 10:27 Protonix - PO 40 mg DAILY [facility] Administration Polyethylene Glycol 17 gm 12/02/18 22:00 12/03/18 06:39 Miralax (For Daily Use) - PO Not Given TID [facility] Polyethylene Glycol/Electrolytes 4,000 ml 12/04/18 09:00 Golytely Solution - PO 12/04/18 09:01 ONCE ONE Senna 2 tab 12/01/18 22:00 12/02/18 21:27 Senna - PO Not Given [facility] Laboratory Tests 12/03/18 09:00 Protein/Creatinin Ratio 1.800 Selected Entries 12/03/18 12/03/18 12/03/18 03:56 06:00 09:00 Blood Pressure 170/96 165/91 188/100 H Impression 1. GENOVEVA 2. HTN uncontrolled 3. HLD 4. headache 5. proteinuria Plan - renal function is not changed - monitor bp - titrate up metoprolol as needed - cont to monitor renal function - will send prelim renal workup, however will need outpt follow up
--- NOTE | 2018-12-03 14:40 | PN ---
Progress Note (short form) - Note Progress Note: PULMONARY CONSULTATION DICTATED 12/03/18 IMP HYPERTENSIVE URGENCY HEADACHES ANEMIA ACUTE ON CHRONIC KIDNEY DISEASE H/O COLON CA S/P RESECTION H/O PULMONARY NODULE H/O TOBACCO USE PLAN TITRATE BP MEDS MONITOR RENAL FUNCTION,H+H NORMAL TRANSFUSION THRESHOLD CHEST CT GI W/U IN PROGRESS DR ZEPEDA Problem List - Problems (1) [id number] kidney injury Code(s): N17.9 - ACUTE KIDNEY FAILURE, UNSPECIFIED; N18.9 - CHRONIC KIDNEY DISEASE, UNSPECIFIED (2) GENOVEVA (acute kidney injury) Code(s): N17.9 - ACUTE KIDNEY FAILURE, UNSPECIFIED (3) Colon adenomas Code(s): D12.6 - BENIGN NEOPLASM OF COLON, UNSPECIFIED (4) Headache Code(s): R51 - HEADACHE (5) Hypertensive urgency Code(s): I16.0 - HYPERTENSIVE URGENCY (6) Renal insufficiency Code(s): N28.9 - DISORDER OF KIDNEY AND URETER, UNSPECIFIED (7) Pulmonary nodule Code(s): R91.1 - SOLITARY PULMONARY NODULE (8) History of smoking at least 1 pack per day for at least 30 years Code(s): Z87.891 - PERSONAL HISTORY OF NICOTINE DEPENDENCE
--- NOTE | 2018-12-03 15:18 | PN ---
Progress Note, Physician Chief Complaint: No complaints History of Present Illness: 73 year old female with a pmhx of colon cancer s/p resection, htn, and hld presenting with headaches for 2 months. BP elevated on admission. Cr 2.9. Ex-tobacco use. No chest pain, sob, or palpitations. No pnd, orthopnea, or edema. CXR no chf CT head neg EKG: sinus rhythm, pvc's, nonspecific T wave abnormalities. - Current Medication List Current Medications: Active Medications Acetaminophen (Tylenol -) 650 mg PO Q6H PRN PRN Reason: PAIN LEVEL 4 - 6 Last Admin: 12/03/18 03:52 Dose: 650 mg Amlodipine Besylate (Norvasc -) 10 mg PO DAILY [facility] Last Admin: 12/03/18 10:27 Dose: 10 mg Bisacodyl (Dulcolax -) 20 mg PO ONCE ONE Stop: 12/04/18 18:01 Heparin Sodium (Porcine) (Heparin -) 5,000 unit SQ TID [facility] Last Admin: 12/03/18 06:39 Dose: 5,000 unit Hydralazine HCl (Apresoline -) 50 mg PO TID [facility] Metoprolol Succinate (Toprol Xl -) 50 mg PO DAILY [facility] Last Admin: 12/03/18 10:27 Dose: 50 mg Pantoprazole Sodium (Protonix -) 40 mg PO DAILY [facility] Last Admin: 12/03/18 10:27 Dose: 40 mg Polyethylene Glycol (Miralax (For Daily Use) -) 17 gm PO TID [facility] Last Admin: 12/03/18 06:39 Dose: Not Given Polyethylene Glycol/Electrolytes (Golytely Solution -) 4,000 ml PO ONCE ONE Stop: 12/04/18 09:01 Senna (Senna -) 2 tab PO HS [facility] Last Admin: 12/02/18 21:27 Dose: Not Given - Objective Vital Signs: Vital Signs Temperature 97.6 F 12/03/18 09:00 Pulse Rate 76 12/03/18 09:00 Respiratory Rate 20 12/03/18 09:00 Blood Pressure 188/100 H 12/03/18 09:00 O2 Sat by Pulse Oximetry (%) 98 12/02/18 21:00 Constitutional: Yes: No Distress Neck: Yes: Trachea Midline Cardiovascular: Yes: Regular Rate and Rhythm. No: JVD Respiratory: Yes: CTA Bilaterally Gastrointestinal: Yes: Soft Edema: No Labs: CBC, BMP 12/03/18 07:30 12/03/18 07:30 INR, PTT INR 1.03 (0.83-1.09) 12/02/18 07:05 Problem List - Problems (1) High blood pressure Code(s): I10 - ESSENTIAL (PRIMARY) HYPERTENSION Assessment/Plan 73 year old female with a pmhx of colon cancer s/p resection, htn, and hld presenting with headaches for 2 months. BP elevated on admission. Cr 2.9. Ex-tobacco use. No chest pain, sob, or palpitations. No pnd, orthopnea, or edema. CXR no chf CT head neg EKG: sinus rhythm, pvc's, nonspecific T wave abnormalities 1) HTN possibly causing headaches Continued on home metoprolol xl Started on amlodipine today by pmd. BP improving. Increase hydralazine as needed LVEF 50-55% with mild MR Will sign off at this time. Please call with questions
--- NOTE | 2018-12-03 18:00 | CONS ---
PULMONARY CONSULTATION DATE OF CONSULTATION: 12/03/2018 REFERRING PHYSICIAN: Jeff Vera MD HISTORY: The patient is a 73-year-old white female with past medical history of colon CA status post resection years ago, hypertension, hyperlipidemia, longstanding history of tobacco use approximately 2-3 packs for many years, quit many years ago. Admitted to [facility] with complaint of persistent headaches for 2 months. Patient on admission was noted to be markedly hypertensive with a blood pressure of 201/90. She was admitted with the above. She was started on antihypertensive medications. Of note, she was also noted to be anemic as well as likely acute on chronic kidney failure. She was evaluated by Dr. Gilliam for Renal consultation and Dr. Becker for GI consultation. Patient was scheduled to undergo colonoscopy, EGD this Saturday. Patient hospitalization, patient denies any complaint of shortness of breath, chest pains, chronic cough, or hemoptysis. Denies any weight loss or night sweats. Denies any history of COPD or asthma in the past. There is no recent travel. There is no history of occupational exposure to chemicals or fumes. PAST MEDICAL HISTORY: Again includes colon CA status post resection, hypertension, hyperlipidemia, anemia likely chronic, chronic kidney disease. REVIEW OF SYSTEMS: No orthopnea, no PND. Positive headache. No chest pain, no palpitations, no shortness of breath, no hemoptysis, no cough, no wheezing, no abdominal pain, no lower extremity edema. CURRENT MEDICATIONS: Include metoprolol, heparin subcutaneous, MiraLAX, GoLYTELY, Senna, Norvasc, Apresoline, and Protonix. PHYSICAL EXAMINATION: General: The patient is an elderly white female awake, alert in no acute distress. Vital Signs: She is currently afebrile. Blood pressure 188/100, respiratory rate is 20, heart rate is 106, O2 saturation is 98% on room air. HEENT: Normocephalic, atraumatic. Neck: Supple. Heart: Regular with S1, S2. Chest: Clear. Abdomen: Soft. Bowel sounds are positive. Extremities: No cyanosis or edema. LABORATORIES: WBCs 7.8, hemoglobin 8.6, hematocrit 26.3 with a platelet count of 188,000, BUN 40.8, creatinine 2.8. BNP 83,396. Chest x-ray: No infiltrates, no effusions. Chest CT from 2017 reveals a tiny right lower lobe nodule and tiny pleural-based nodule in the right middle lobe. IMPRESSION: 1. hypertensive urgency. 2. Headaches, likely secondary to severe hypertension. 3. Anemia, rule out possible recurrent colon cancer. 4. Acute on chronic kidney disease. 5. History of colon cancer status post resection. 6. History of pulmonary nodule. 7. History of tobacco abuse. PLAN: Titrate BP medications as per Cardiology and Renal. Monitor renal function, hemoglobin and hematocrit. Normal transfusion threshold. Obtain CT scan of the chest. GI workup in progress. ALDO ZEPEDA M.D. [facility]/[id number]
--- NOTE | 2018-12-03 19:04 | PN.GI ---
GI Progress Note Subjective: GI NOte: No overt bleeding. No pain - Objective Vital Signs: Vital Signs Temperature 98.3 F 12/03/18 18:00 Pulse Rate 78 12/03/18 18:00 Respiratory Rate 20 12/03/18 18:00 Blood Pressure 155/74 12/03/18 18:00 O2 Sat by Pulse Oximetry (%) 98 12/03/18 09:00 Laboratory Tests 12/02/18 12/03/18 12/03/18 07:05 07:30 07:30 Hgb 8.3 L 8.6 L Hct 25.4 L 26.3 L Retic Count 1.55 H Constitutional: Calm ...Auscultate: Yes: Normoactive Bowel Sounds ...Palpate: Yes: Soft, Other (nontender) Labs: CBC, BMP 12/03/18 07:30 12/03/18 07:30 INR, PTT INR 1.03 (0.83-1.09) 12/02/18 07:05 Assessment/Plan Assessment: -- Microcytic anemia suggests indolent GI blood loss. Given her h/o colon cancer , recurring colon adenomas, HP gastritis and NSAID usage both an EGD and a colonoscopy will be undertaken. I have scheduled them for 12/05 to allow for BP management and a bowel prep. -- Personal h/o pernicious anemia Plan: -- Pending iron/TBC, ferritin and Vit B12 levels. Retic is 1.5 only -- PPI empirically -- Bowel prep for EGD and colonoscopy on 12/05 Problem List - Problems (1) Anemia Code(s): D64.9 - ANEMIA, UNSPECIFIED Qualifiers: Iron deficiency anemia type: unspecified iron deficiency (2) Colon cancer Code(s): C18.9 - MALIGNANT NEOPLASM OF COLON, UNSPECIFIED (3) Renal insufficiency Code(s): N28.9 - DISORDER OF KIDNEY AND URETER, UNSPECIFIED (4) Colon adenomas Code(s): D12.6 - BENIGN NEOPLASM OF COLON, UNSPECIFIED (5) History of Helicobacter pylori infection Code(s): Z86.19 - PERSONAL HISTORY OF OTHER INFECTIOUS AND PARASITIC DISEASES (6) Gastritis due to Helicobacter species Code(s): K29.70 - GASTRITIS, UNSPECIFIED, WITHOUT BLEEDING; B96.81 - HELICOBACTER PYLORI THE CAUSE OF DISEASES CLASSD ELSWHR (7) Headache Code(s): R51 - HEADACHE (8) High blood pressure Code(s): I10 - ESSENTIAL (PRIMARY) HYPERTENSION
[2018-12-03] MEDS: SENNOSIDES 8.6MG TABLET (FP) PO SCH (23:35)
[2018-12-04] MEDS: ACETAMINOPHEN 325 MG TABLET (FP) PO PRN ×2 (04:06→15:36)
[2018-12-04] MEDS: hydrALAZINE HCL 25 MG TABLET (FP) PO SCH ×3 (06:50→22:00)
[2018-12-04] MEDS: POLYETHYLENE GLYCOL 3350 119 GM BTL PO SCH ×3 (06:50→21:59)
[2018-12-04] MEDS: HEPARIN NA (PORCINE) 5,000 UNITS/ML 1ML VIAL SQ SCH (06:50)
[2018-12-04 08:06] LABS: SERUM IRON SATURATION 11 % (15-55); TOTAL IRON BINDING CAPACITY 187 ug/dL (250-450)
--- NOTE | 2018-12-04 08:13 | PN ---
Progress Note, Physician - Current Medication List Current Medications: Active Medications Acetaminophen (Tylenol -) 650 mg PO Q6H PRN PRN Reason: PAIN LEVEL 4 - 6 Last Admin: 12/04/18 04:06 Dose: 650 mg Bisacodyl (Dulcolax -) 20 mg PO ONCE ONE Stop: 12/04/18 18:01 Heparin Sodium (Porcine) (Heparin -) 5,000 unit SQ TID [facility] Last Admin: 12/04/18 06:50 Dose: 5,000 unit Hydralazine HCl (Apresoline -) 50 mg PO TID [facility] Last Admin: 12/04/18 06:50 Dose: 50 mg Pantoprazole Sodium (Protonix -) 40 mg PO DAILY [facility] Last Admin: 12/03/18 10:27 Dose: 40 mg Polyethylene Glycol (Miralax (For Daily Use) -) 17 gm PO TID [facility] Last Admin: 12/04/18 06:50 Dose: Not Given Polyethylene Glycol/Electrolytes (Golytely Solution -) 4,000 ml PO ONCE ONE Stop: 12/04/18 09:01 Senna (Senna -) 2 tab PO HS [facility] Last Admin: 12/03/18 23:35 Dose: Not Given - Objective Vital Signs: Vital Signs Temperature 98.2 F 12/04/18 06:00 Pulse Rate 82 12/04/18 06:00 Respiratory Rate 20 12/04/18 06:00 Blood Pressure 180/98 H 12/04/18 06:00 O2 Sat by Pulse Oximetry (%) 98 12/03/18 21:00 Cardiovascular: Yes: Regular Rate and Rhythm Respiratory: Yes: Regular, CTA Bilaterally Gastrointestinal: Yes: Normal Bowel Sounds, Soft Labs: CBC, BMP 12/03/18 07:30 12/03/18 07:30 INR, PTT INR 1.03 (0.83-1.09) 12/02/18 07:05 Problem List - Problems (1) Hypertensive urgency Assessment/Plan: - - norvasc 10 --DC START PROCARDIA 60 - hydralazine 50 mg TID - continue toprol XL 50mg--TO BID - Echo noted -cards consult noted Code(s): I16.0 - HYPERTENSIVE URGENCY (2) Anemia Assessment/Plan: bowel regimen with senna and colace SC heparin TID with close monitoring of cbc PPI once daily tylenol PRN pain trend H/H send stool for hemoccult gi consult--EGD AND COLON Code(s): D64.9 - ANEMIA, UNSPECIFIED Qualifiers: Iron deficiency anemia type: unspecified iron deficiency (3) Colon cancer Code(s): C18.9 - MALIGNANT NEOPLASM OF COLON, UNSPECIFIED (4) GENOVEVA (acute kidney injury) Assessment/Plan: -renal sono ordered - renal consulted -trend creatinine and electrolytes -monitor intake and output Code(s): N17.9 - ACUTE KIDNEY FAILURE, UNSPECIFIED
[2018-12-04] MEDS ORDERED: PEG 3350/NA SULF BICARB CL/KCL 4000 ML SOLN.RECON PO ONE (09:00)
--- NOTE | 2018-12-04 09:29 | PN ---
Progress Note (short form) - Note Progress Note: PULMONARY VSS/AFEBRILE ANICTERIC CLEAR BILATERAL BREATH SOUNDS S1S2 BS+ NONTENDER NO EDEMA LABS/MEDS/NOTES/IMAGES REVIEWED IMP HYPERTENSIVE URGENCY HEADACHES ANEMIA ACUTE ON CHRONIC KIDNEY DISEASE H/O COLON CA S/P RESECTION H/O PULMONARY NODULE H/O TOBACCO USE PLAN TITRATE BP MEDS MONITOR RENAL FUNCTION,H+H NORMAL TRANSFUSION THRESHOLD CHEST CT PENDING GI W/U IN PROGRESS Anil AGUILAR MD
[2018-12-04] MEDS: PANTOPRAZOLE 20 MG TABLET (FP) PO SCH (09:57)
[2018-12-04] MEDS ORDERED: NIFEdipine E.R 60 MG TABLET (UD) PO SCH (10:00)
[2018-12-04] MEDS ORDERED: NIFEdipine E.R. 90 MG TABLET (FP) PO SCH (14:59)
--- NOTE | 2018-12-04 14:59 | PN ---
Progress Note, Physician History of Present Illness: Pt seen and examined at bedside. She is awake and appears comfortable. - Current Medication List Current Medications: Active Medications Acetaminophen (Tylenol -) 650 mg PO Q6H PRN PRN Reason: PAIN LEVEL 4 - 6 Last Admin: 12/04/18 04:06 Dose: 650 mg Bisacodyl (Dulcolax -) 20 mg PO ONCE ONE Stop: 12/04/18 18:01 Heparin Sodium (Porcine) (Heparin -) 5,000 unit SQ TID [facility] Last Admin: 12/04/18 06:50 Dose: 5,000 unit Hydralazine HCl (Apresoline -) 50 mg PO TID [facility] Last Admin: 12/04/18 13:13 Dose: 50 mg Metoprolol Succinate (Toprol Xl -) 50 mg PO BID [facility] Last Admin: 12/04/18 09:56 Dose: 50 mg Nifedipine (Procardia Xl -) 60 mg PO DAILY [facility] Last Admin: 12/04/18 09:58 Dose: 60 mg Pantoprazole Sodium (Protonix -) 40 mg PO DAILY [facility] Last Admin: 12/04/18 09:57 Dose: 40 mg Polyethylene Glycol (Miralax (For Daily Use) -) 17 gm PO TID [facility] Last Admin: 12/04/18 13:11 Dose: Not Given Senna (Senna -) 2 tab PO HS [facility] Last Admin: 12/03/18 23:35 Dose: Not Given - Objective Vital Signs: Vital Signs Temperature 97.6 F 12/04/18 09:17 Pulse Rate 82 12/04/18 09:17 Respiratory Rate 20 12/04/18 09:17 Blood Pressure 189/94 H 12/04/18 09:17 O2 Sat by Pulse Oximetry (%) 99 12/04/18 09:00 Constitutional: Yes: Calm Eyes: Yes: Conjunctiva Clear HENT: Yes: Atraumatic Cardiovascular: Yes: S1, S2 Respiratory: Yes: CTA Bilaterally Gastrointestinal: Yes: Soft Genitourinary: Yes: WNL Musculoskeletal: Yes: WNL Edema: No Integumentary: Yes: WNL Neurological: Yes: Oriented Labs: CBC, BMP 12/03/18 07:30 12/03/18 07:30 INR, PTT INR 1.03 (0.83-1.09) 12/02/18 07:05 Problem List - Problems (1) GENOVEVA (acute kidney injury) Code(s): N17.9 - ACUTE KIDNEY FAILURE, UNSPECIFIED (2) Colon cancer Code(s): C18.9 - MALIGNANT NEOPLASM OF COLON, UNSPECIFIED (3) Headache Code(s): R51 - HEADACHE Assessment/Plan Current Medications Generic Name Dose Route Start Last Admin Trade Name Freq PRN Reason Stop Dose Admin Acetaminophen 650 mg 12/01/18 19:06 12/04/18 04:06 Tylenol - PO 650 mg Q6H PRN Administration PAIN LEVEL 4 - 6 Bisacodyl 20 mg 12/04/18 18:00 Dulcolax - PO 12/04/18 18:01 ONCE ONE Heparin Sodium (Porcine) 5,000 unit 12/02/18 06:00 12/04/18 06:50 Heparin - SQ 5,000 unit TID [facility] Administration Hydralazine HCl 50 mg 12/03/18 14:00 12/04/18 13:13 Apresoline - PO 50 mg TID [facility] Administration Metoprolol Succinate 50 mg 12/04/18 10:00 12/04/18 09:56 Toprol Xl - PO 50 mg BID [facility] Administration Nifedipine 60 mg 12/04/18 10:00 12/04/18 09:58 Procardia Xl - PO 60 mg DAILY [facility] Administration Pantoprazole Sodium 40 mg 12/02/18 17:59 12/04/18 09:57 Protonix - PO 40 mg DAILY [facility] Administration Polyethylene Glycol 17 gm 12/02/18 22:00 12/04/18 13:11 Miralax (For Daily Use) - PO Not Given TID [facility] Senna 2 tab 12/01/18 22:00 12/03/18 23:35 Senna - PO Not Given HS [facility] Impression 1. GENOVEVA 2. HTN uncontrolled 3. HLD 4. headache 5. 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
[2018-12-04 15:09] LABS: TRANSGLUTAMINASE IGA < 2 U/mL (0-3); TRANSGLUTAMINASE IGG < 2 U/mL (0-5)
--- NOTE | 2018-12-04 16:10 | EKG ---
Test Reason : Blood Pressure : / mmHG Vent. Rate : 051 BPM Atrial Rate : 051 BPM P-R Int : 150 ms QRS Dur : 078 ms QT Int : 484 ms P-R-T Axes : 043 -12 035 degrees QTc Int : 446 ms SINUS BRADYCARDIA NONSPECIFIC ST AND T WAVE ABNORMALITY ABNORMAL ECG WHEN COMPARED WITH ECG OF 01-DEC-2018 15:56, INVERTED T WAVES HAVE REPLACED NONSPECIFIC T WAVE ABNORMALITY IN INFERIOR LEADS INVERTED T WAVES HAVE REPLACED NONSPECIFIC T WAVE ABNORMALITY IN LATERAL LEADS Confirmed by MARYBEL DEE MD ([id number]) on 12/04/2018 4:10:08 PM Referred By: Confirmed By:MARYBEL DEE MD
[2018-12-04] MEDS ORDERED: BISACODYL 5 MG TABLET.DR (FP) PO ONE (18:00)
--- NOTE | 2018-12-04 21:50 | PN.GI ---
GI Progress Note Subjective: GI NOte: Chitra tells me that she completed her Golytely but now has nausea and dry heaving. - Objective Vital Signs: Vital Signs Temperature 97.8 F 12/04/18 18:00 Pulse Rate 89 12/04/18 18:00 Respiratory Rate 20 12/04/18 18:00 Blood Pressure 124/77 12/04/18 18:00 O2 Sat by Pulse Oximetry (%) 99 12/04/18 09:00 Constitutional: Anxious ...Auscultate: Yes: Hyperactive Bowel Sounds ...Palpate: Yes: Soft, Other (nontender) Labs: CBC, BMP 12/03/18 07:30 12/03/18 07:30 INR, PTT INR 1.03 (0.83-1.09) 12/02/18 07:05 Assessment/Plan Assessment: -- Microcytic anemia suggests indolent GI blood loss. Given her h/o colon cancer , recurring colon adenomas, HP gastritis and NSAID usage both an EGD and a colonoscopy will be undertaken. I have scheduled them for 12/05 to allow for BP management and a bowel prep. -- Personal h/o pernicious anemia Plan: --Reglan tonight -- Pending iron/TBC, ferritin and Vit B12 levels. Retic is 1.5 only -- PPI empirically -- For EGD and colonoscopy tomorrow Problem List - Problems (1) Anemia Code(s): D64.9 - ANEMIA, UNSPECIFIED Qualifiers: Iron deficiency anemia type: unspecified iron deficiency (2) Colon cancer Code(s): C18.9 - MALIGNANT NEOPLASM OF COLON, UNSPECIFIED (3) Renal insufficiency Code(s): N28.9 - DISORDER OF KIDNEY AND URETER, UNSPECIFIED (4) Colon adenomas Code(s): D12.6 - BENIGN NEOPLASM OF COLON, UNSPECIFIED (5) History of Helicobacter pylori infection Code(s): Z86.19 - PERSONAL HISTORY OF OTHER INFECTIOUS AND PARASITIC DISEASES (6) Gastritis due to Helicobacter species Code(s): K29.70 - GASTRITIS, UNSPECIFIED, WITHOUT BLEEDING; B96.81 - HELICOBACTER PYLORI THE CAUSE OF DISEASES CLASSD ELSWHR (7) Headache Code(s): R51 - HEADACHE (8) High blood pressure Code(s): I10 - ESSENTIAL (PRIMARY) HYPERTENSION
[2018-12-04] MEDS: SENNOSIDES 8.6MG TABLET (FP) PO SCH (21:59)
[2018-12-05] MEDS: ACETAMINOPHEN 325 MG TABLET (FP) PO PRN ×2 (01:22→21:40)
[2018-12-05] MEDS: hydrALAZINE HCL 25 MG TABLET (FP) PO SCH ×3 (06:17→21:41)
[2018-12-05] MEDS: POLYETHYLENE GLYCOL 3350 119 GM BTL PO SCH ×3 (06:17→21:41)
[2018-12-05 08:07] LABS: BASO % 0.4 % (0-2.0); EOS % 0.4 % (0-4.5); HEMOGLOBIN 8.3 GM/dL (10.7-15.3); LYMPH % 14.5 % (8-40); MCH 24.9 pg (25.7-33.7); MCHC 33.2 g/dl (32.0-36.0); MEAN CELL VOLUME 74.9 fl (80-96); MONO % 5.8 % (3.8-10.2); NEUT % 78.9 % (42.8-82.8); PLATELET COUNT 236 K/MM3 (134-434); RBC 3.34 M/mm3 (3.60-5.2); RDW 17.9 % (11.6-15.6); WHITE BLOOD COUNT 7.9 K/mm3 (4.0-10.0)
[2018-12-05 08:27] LABS: ALBUMIN 2.7 g/dl (3.4-5.0); BILIRUBIN,TOTAL 0.4 mg/dL (0.2-1); BLOOD UREA NITROGEN 40.7 mg/dL (7-18); CALCIUM 8.5 mg/dL (8.5-10.1); CREATININE 2.9 mg/dL (0.55-1.3); POTASSIUM 3.2 mmol/L (3.5-5.1); TOT PROT 5.6 g/dl (6.4-8.2)
[2018-12-05] MEDS ORDERED: POTASSIUM CHLORIDE TABS 20 MEQ TABLET.ER (FP) PO ONE (08:51)
[2018-12-05] MEDS: PANTOPRAZOLE 20 MG TABLET (FP) PO SCH (11:31)
[2018-12-05] MEDS: NIFEdipine E.R 60 MG TABLET (UD) PO SCH (11:33)
[2018-12-05] MEDS: FERROUS SO4 325 MG TABLET (FP) PO SCH ×2 (11:33→21:41)
--- NOTE | 2018-12-05 11:39 | PN ---
Progress Note, Physician Chief Complaint: GENOVEVA Anemia History of Present Illness: Previous notes and events reviewed awake and alert NAD patient returned from EGD/Colonoscopy today--denies complaints of pain - Current Medication List Current Medications: Active Medications Acetaminophen (Tylenol -) 650 mg PO Q6H PRN PRN Reason: PAIN LEVEL 4 - 6 Last Admin: 12/05/18 01:22 Dose: 650 mg Ferrous Sulfate (Feosol -) 325 mg PO BID [facility] Heparin Sodium (Porcine) (Heparin -) 5,000 unit SQ TID [facility] Last Admin: 12/04/18 06:50 Dose: 5,000 unit Hydralazine HCl (Apresoline -) 50 mg PO TID [facility] Last Admin: 12/05/18 06:17 Dose: Not Given Metoprolol Succinate (Toprol Xl -) 50 mg PO BID [facility] Last Admin: 12/04/18 22:00 Dose: 50 mg Nifedipine (Procardia Xl -) 60 mg PO DAILY [facility] Pantoprazole Sodium (Protonix -) 40 mg PO DAILY [facility] Last Admin: 12/04/18 09:57 Dose: 40 mg Polyethylene Glycol (Miralax (For Daily Use) -) 17 gm PO TID [facility] Last Admin: 12/05/18 06:17 Dose: Not Given Senna (Senna -) 2 tab PO HS [facility] Last Admin: 12/04/18 21:59 Dose: 2 tab - Objective Vital Signs: Vital Signs Temperature 98.9 F 12/05/18 11:19 Pulse Rate 82 12/05/18 11:19 Respiratory Rate 14 12/05/18 11:19 Blood Pressure 158/75 12/05/18 11:19 O2 Sat by Pulse Oximetry (%) 100 12/05/18 11:19 Constitutional: Yes: No Distress, Calm Eyes: Yes: Conjunctiva Clear HENT: Yes: Atraumatic Cardiovascular: Yes: Regular Rate and Rhythm Respiratory: Yes: Regular, CTA Bilaterally Gastrointestinal: Yes: Normal Bowel Sounds, Soft Genitourinary: Yes: Incontinence Musculoskeletal: Yes: Muscle Weakness Extremities: Yes: WNL Edema: No Neurological: Yes: Alert, Oriented Psychiatric: Yes: Alert, Oriented Labs: CBC, BMP 12/05/18 07:30 12/05/18 07:30 INR, PTT INR 1.03 (0.83-1.09) 12/02/18 07:05 Microbiology 12/01/18 17:33 Urine - Urine Clean Catch Urine Culture - Final Escherichia Coli Problem List - Problems (1) GENOVEVA (acute kidney injury) Assessment/Plan: -Renal on board -BUN/Cr 4.07/2.9 -monitor renal function daily -Renal US shows no hydronephrosis, left kidney appears small measuring 8.3cm Code(s): N17.9 - ACUTE KIDNEY FAILURE, UNSPECIFIED (2) Anemia Assessment/Plan: -Hg 8.3 -monitor Hg daily -transfuse for Hg <7.0 -s/p EGD and Colonoscopy with polpectomy -GI on board -Pantoprazole -Ferrous Sulfate Code(s): D64.9 - ANEMIA, UNSPECIFIED Qualifiers: Iron deficiency anemia type: unspecified iron deficiency (3) Colon cancer Assessment/Plan: -GI on board -s/p colonoscopy with polypectomy Code(s): C18.9 - MALIGNANT NEOPLASM OF COLON, UNSPECIFIED (4) HTN (hypertension) Assessment/Plan: -Nifedipine, MEtoprolol, Hydralazine -low Na diet Code(s): I10 - ESSENTIAL (PRIMARY) HYPERTENSION Assessment/Plan see problem list dvt ppx
--- NOTE | 2018-12-05 12:28 | PN ---
Progress Note (short form) - Note Progress Note: GI Procedures Note: Please see EGD and colonoscopy reports. EGD was unremarkable. Colonoscopy led to the removal of multiple polyps including a large friable rectal polyp that I suspect was the cause of her anemia. No recurrence of cancer was found at her anastomosis. No GI objections to discharge. Avoid anticoagulants for 10 days. Problem List - Problems (1) Anemia Code(s): D64.9 - ANEMIA, UNSPECIFIED Qualifiers: Iron deficiency anemia type: unspecified iron deficiency (2) Colon cancer Code(s): C18.9 - MALIGNANT NEOPLASM OF COLON, UNSPECIFIED (3) Renal insufficiency Code(s): N28.9 - DISORDER OF KIDNEY AND URETER, UNSPECIFIED (4) Colon adenomas Code(s): D12.6 - BENIGN NEOPLASM OF COLON, UNSPECIFIED (5) History of Helicobacter pylori infection Code(s): Z86.19 - PERSONAL HISTORY OF OTHER INFECTIOUS AND PARASITIC DISEASES (6) Gastritis due to Helicobacter species Code(s): K29.70 - GASTRITIS, UNSPECIFIED, WITHOUT BLEEDING; B96.81 - HELICOBACTER PYLORI THE CAUSE OF DISEASES CLASSD ELSWHR (7) Headache Code(s): R51 - HEADACHE (8) High blood pressure Code(s): I10 - ESSENTIAL (PRIMARY) HYPERTENSION
--- NOTE | 2018-12-05 13:19 | PN ---
Progress Note (short form) - Note Progress Note: PULMONARY VSS/AFEBRILE APPESRS STABLE POST COLONOSCOPY ANICTERIC CLEAR BILATERAL BREATH SOUNDS S1S2 BS+ NONTENDER NO EDEMA LABS/MEDS/NOTES/IMAGES REVIEWED IMP HYPERTENSIVE URGENCY RESOLVED HEADACHES ANEMIA 2/2 LARGE FRIABLE RECTAL POLYP ACUTE ON CHRONIC KIDNEY DISEASE H/O COLON CA S/P RESECTION H/O PULMONARY NODULE H/O TOBACCO USE PLAN BP MEDS MONITOR RENAL FUNCTION,H+H NORMAL TRANSFUSION THRESHOLD CHEST CT REVIEWED/WILL NEED OUTPATIENT REPEAT TESTING Anil AGUILAR MD
--- NOTE | 2018-12-05 15:52 | PN ---
Progress Note, Physician History of Present Illness: Pt seen and examined at bedside. She is awake and alert. She denies shortness of breath. She went for endoscopy today. - Current Medication List Current Medications: Active Medications Acetaminophen (Tylenol -) 650 mg PO Q6H PRN PRN Reason: PAIN LEVEL 4 - 6 Last Admin: 12/05/18 01:22 Dose: 650 mg Ferrous Sulfate (Feosol -) 325 mg PO BID [facility] Last Admin: 12/05/18 11:33 Dose: 325 mg Heparin Sodium (Porcine) (Heparin -) 5,000 unit SQ TID [facility] Last Admin: 12/04/18 06:50 Dose: 5,000 unit Hydralazine HCl (Apresoline -) 50 mg PO TID [facility] Last Admin: 12/05/18 14:14 Dose: 50 mg Metoprolol Succinate (Toprol Xl -) 50 mg PO BID [facility] Last Admin: 12/05/18 11:33 Dose: 50 mg Nifedipine (Procardia Xl -) 60 mg PO DAILY [facility] Last Admin: 12/05/18 11:33 Dose: 60 mg Pantoprazole Sodium (Protonix -) 40 mg PO DAILY [facility] Last Admin: 12/05/18 11:31 Dose: 40 mg Polyethylene Glycol (Miralax (For Daily Use) -) 17 gm PO TID [facility] Last Admin: 12/05/18 14:15 Dose: Not Given Senna (Senna -) 2 tab PO HS [facility] Last Admin: 12/04/18 21:59 Dose: 2 tab - Objective Vital Signs: Vital Signs Temperature 97.5 F L 12/05/18 14:00 Pulse Rate 95 H 12/05/18 14:00 Respiratory Rate 18 12/05/18 14:00 Blood Pressure 115/69 12/05/18 14:00 O2 Sat by Pulse Oximetry (%) 100 12/05/18 11:19 Constitutional: Yes: Calm Eyes: Yes: Conjunctiva Clear HENT: Yes: Atraumatic Cardiovascular: Yes: S1, S2 Respiratory: Yes: CTA Bilaterally Gastrointestinal: Yes: Soft Genitourinary: Yes: WNL Musculoskeletal: Yes: WNL Edema: No Neurological: Yes: Oriented Psychiatric: Yes: Oriented Labs: CBC, BMP 12/05/18 07:30 12/05/18 07:30 INR, PTT INR 1.03 (0.83-1.09) 12/02/18 07:05 Problem List - Problems (1) GENOVEVA (acute kidney injury) Code(s): N17.9 - ACUTE KIDNEY FAILURE, UNSPECIFIED (2) Colon cancer Code(s): C18.9 - MALIGNANT NEOPLASM OF COLON, UNSPECIFIED (3) Headache Code(s): R51 - HEADACHE Assessment/Plan Current Medications Generic Name Dose Route Start Last Admin Trade Name Freq PRN Reason Stop Dose Admin Acetaminophen 650 mg 12/01/18 19:06 12/05/18 01:22 Tylenol - PO 650 mg Q6H PRN Administration PAIN LEVEL 4 - 6 Ferrous Sulfate 325 mg 12/05/18 10:00 12/05/18 11:33 Feosol - PO 325 mg BID NILAM Administration Heparin Sodium (Porcine) 5,000 unit 12/02/18 06:00 12/04/18 06:50 Heparin - SQ 5,000 unit TID NILAM Administration Hydralazine HCl 50 mg 12/03/18 14:00 12/05/18 14:14 Apresoline - PO 50 mg TID NILAM Administration Metoprolol Succinate 50 mg 12/04/18 10:00 12/05/18 11:33 Toprol Xl - PO 50 mg BID NILAM Administration Nifedipine 60 mg 12/05/18 07:30 12/05/18 11:33 Procardia Xl - PO 60 mg DAILY [facility] Administration Pantoprazole Sodium 40 mg 12/02/18 17:59 12/05/18 11:31 Protonix - PO 40 mg DAILY [facility] Administration Polyethylene Glycol 17 gm 12/02/18 22:00 12/05/18 14:15 Miralax (For Daily Use) - PO Not Given TID NILAM Senna 2 tab 12/01/18 22:00 12/04/18 21:59 Senna - PO 2 tab HS NILAM Administration Laboratory Tests 12/02/18 12/03/18 12/03/18 16:10 07:30 09:00 Urine Protein 2+ H Protein/Creatinin Ratio 1.800 YO M-Sav Not observed HARSHA Screen c-ANCA Proteinase 3 (PR3) p-ANCA Atypical p-ANCA Myeloperoxidase Ab Double Strand DNA Ab Glomerular Base Memb Ab 12/04/18 12/05/18 07:30 13:15 Urine Protein Protein/Creatinin Ratio YO M-Sav HARSHA Screen Pending c-ANCA Pending Proteinase 3 (PR3) Pending p-ANCA Pending Atypical p-ANCA Pending Myeloperoxidase Ab Pending Double Strand DNA Ab Pending Glomerular Base Memb Ab Pending Impression 1. GENOVEVA 2. HTN uncontrolled 3. HLD 4. headache 5. 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
[2018-12-05] MEDS: SENNOSIDES 8.6MG TABLET (FP) PO SCH (21:41)
[2018-12-06] MEDS: POLYETHYLENE GLYCOL 3350 119 GM BTL PO SCH ×3 (06:23→22:44)
[2018-12-06] MEDS: hydrALAZINE HCL 25 MG TABLET (FP) PO SCH ×3 (06:27→22:45)
[2018-12-06] MEDS: PANTOPRAZOLE 20 MG TABLET (FP) PO SCH (09:09)
[2018-12-06] MEDS: FERROUS SO4 325 MG TABLET (FP) PO SCH ×2 (09:09→22:45)
[2018-12-06] MEDS: NIFEdipine E.R 60 MG TABLET (UD) PO SCH (09:10)
--- NOTE | 2018-12-06 11:19 | PN ---
Progress Note, Physician Chief Complaint: AWAKE ALERT EVENTS AND NOTES REVIEWED TOLERATED BREAKFAST - Current Medication List Current Medications: Active Medications Acetaminophen (Tylenol -) 650 mg PO Q6H PRN PRN Reason: PAIN LEVEL 4 - 6 Last Admin: 12/05/18 21:40 Dose: 650 mg Ferrous Sulfate (Feosol -) 325 mg PO BID [facility] Last Admin: 12/06/18 09:09 Dose: 325 mg Heparin Sodium (Porcine) (Heparin -) 5,000 unit SQ TID [facility] Last Admin: 12/04/18 06:50 Dose: 5,000 unit Hydralazine HCl (Apresoline -) 50 mg PO TID [facility] Last Admin: 12/06/18 06:27 Dose: 50 mg Metoprolol Succinate (Toprol Xl -) 50 mg PO BID [facility] Last Admin: 12/06/18 09:09 Dose: 50 mg Nifedipine (Procardia Xl -) 60 mg PO DAILY [facility] Last Admin: 12/06/18 09:10 Dose: 60 mg Pantoprazole Sodium (Protonix -) 40 mg PO DAILY [facility] Last Admin: 12/06/18 09:09 Dose: 40 mg Polyethylene Glycol (Miralax (For Daily Use) -) 17 gm PO TID [facility] Last Admin: 12/06/18 06:23 Dose: Not Given Senna (Senna -) 2 tab PO HS [facility] Last Admin: 12/05/18 21:41 Dose: 2 tab - Objective Vital Signs: Vital Signs Temperature 98.6 F 12/06/18 08:59 Pulse Rate 94 H 12/06/18 08:59 Respiratory Rate 20 12/06/18 08:59 Blood Pressure 177/92 H 12/06/18 08:59 O2 Sat by Pulse Oximetry (%) 96 12/05/18 21:00 Constitutional: Yes: No Distress Eyes: Yes: WNL HENT: Yes: WNL Neck: Yes: WNL Cardiovascular: Yes: Regular Rate and Rhythm Respiratory: Yes: WNL Gastrointestinal: Yes: Normal Bowel Sounds Genitourinary: Yes: WNL Musculoskeletal: Yes: Muscle Weakness Extremities: Yes: WNL Edema: No Peripheral Pulses WNL: Yes Integumentary: Yes: WNL Wound/Incision: Yes: Clean/Dry Neurological: Yes: Pre-Existing Deficit Psychiatric: Yes: Other Labs: CBC, BMP 12/05/18 07:30 12/05/18 07:30 INR, PTT INR 1.03 (0.83-1.09) 12/02/18 07:05 Problem List - Problems (1) [id number] kidney injury Code(s): N17.9 - ACUTE KIDNEY FAILURE, UNSPECIFIED; N18.9 - CHRONIC KIDNEY DISEASE, UNSPECIFIED (2) Anemia Code(s): D64.9 - ANEMIA, UNSPECIFIED Qualifiers: Iron deficiency anemia type: unspecified iron deficiency (3) Colon adenomas Code(s): D12.6 - BENIGN NEOPLASM OF COLON, UNSPECIFIED (4) Colon cancer Code(s): C18.9 - MALIGNANT NEOPLASM OF COLON, UNSPECIFIED (5) Elevated serum creatinine Code(s): R79.89 - OTHER SPECIFIED ABNORMAL FINDINGS OF BLOOD CHEMISTRY (6) HTN (hypertension) Code(s): I10 - ESSENTIAL (PRIMARY) HYPERTENSION (7) Headache Code(s): R51 - HEADACHE (8) History of smoking at least 1 pack per day for at least 30 years Code(s): Z87.891 - PERSONAL HISTORY OF NICOTINE DEPENDENCE (9) Hypertensive urgency Code(s): I16.0 - HYPERTENSIVE URGENCY Assessment/Plan BP SLOWLY BEING CONTROLLED CONTINUE MEDS MONITOR H/H REPEAT CBC/BMP ORDERED PT EVAL OOB TO CHAIR TOLERATING MEALS PPI AC ON HOLD FOR 10 DAYS PER GI DVT BOOTS
[2018-12-06 12:10] LABS: HEMATOCRIT 27.1 % (32.4-45.2); HEMOGLOBIN 8.7 GM/dL (10.7-15.3); MCH 24.5 pg (25.7-33.7); MCHC 32.2 g/dl (32.0-36.0); MEAN CELL VOLUME 76.1 fl (80-96); MEAN PLT VOLUME 6.8 fl (7.5-11.1); PLATELET COUNT 272 K/MM3 (134-434); RBC 3.56 M/mm3 (3.60-5.2); RDW 17.9 % (11.6-15.6); WHITE BLOOD COUNT 10.4 K/mm3 (4.0-10.0)
[2018-12-06 12:37] LABS: BLOOD UREA NITROGEN 41.9 mg/dL (7-18); CALCIUM 8.4 mg/dL (8.5-10.1); CREATININE 3.2 mg/dL (0.55-1.3); MAGNESIUM 1.9 mg/dL (1.8-2.4); PHOSPHOROUS 2.6 mg/dL (2.5-4.9); POTASSIUM 3.7 mmol/L (3.5-5.1)
--- NOTE | 2018-12-06 13:05 | PN ---
Progress Note (short form) - Note Progress Note: Resting in NAD. No acute events overnight. Intake & Output 12/03/18 12/04/18 12/05/18 12/06/18 23:59 23:59 23:59 23:59 Intake Total 770 1080 1035 100 Balance 770 1080 1035 100 Weight 106 lb Last Vital Signs Temp Pulse Resp BP Pulse Ox 98.6 F 94 H 20 177/92 H 96 12/06/18 08:59 12/06/18 08:59 12/06/18 08:59 12/06/18 08:59 12/05/18 21:00 Active Medications Acetaminophen (Tylenol -) 650 mg PO Q6H PRN PRN Reason: PAIN LEVEL 4 - 6 Last Admin: 12/05/18 21:40 Dose: 650 mg Ferrous Sulfate (Feosol -) 325 mg PO BID [facility] Last Admin: 12/06/18 09:09 Dose: 325 mg Hydralazine HCl (Apresoline -) 50 mg PO TID [facility] Last Admin: 12/06/18 06:27 Dose: 50 mg Metoprolol Succinate (Toprol Xl -) 50 mg PO BID [facility] Last Admin: 12/06/18 09:09 Dose: 50 mg Nifedipine (Procardia Xl -) 60 mg PO DAILY [facility] Last Admin: 12/06/18 09:10 Dose: 60 mg Pantoprazole Sodium (Protonix -) 40 mg PO DAILY [facility] Last Admin: 12/06/18 09:09 Dose: 40 mg Polyethylene Glycol (Miralax (For Daily Use) -) 17 gm PO TID [facility] Last Admin: 12/06/18 06:23 Dose: Not Given Senna (Senna -) 2 tab PO HS [facility] Last Admin: 12/05/18 21:41 Dose: 2 tab Constitutional: Yes: No Distress Eyes: Yes: WNL HENT: Yes: WNL Neck: Yes: WNL Cardiovascular: Yes: Regular Rate and Rhythm Respiratory: Yes: WNL Gastrointestinal: Yes: Normal Bowel Sounds Genitourinary: Yes: WNL Musculoskeletal: Yes: Muscle Weakness Extremities: Yes: WNL Edema: No Peripheral Pulses WNL: Yes Integumentary: Yes: WNL Wound/Incision: Yes: Clean/Dry Neurological: Yes: Pre-Existing Deficit Psychiatric: Yes: Other Labs: Laboratory Results - last 24 hr 12/04/18 12/06/1819 07:30 11:55 11:55 WBC 10.4 H RBC 3.56 L Hgb 8.7 L Hct 27.1 L MCV 76.1 L MCH 24.5 L MCHC 32.2 RDW 17.9 H Plt Count 272 MPV 6.8 L Sodium 136 Potassium 3.7 Chloride 100 Carbon Dioxide 29 Anion Gap 7 L BUN 41.9 H Creatinine 3.2 H Est GFR (CKD-EPI)AfAm 15.64 Est GFR (CKD-EPI)NonAf 13.49 Random Glucose 117 H Calcium 8.4 L Phosphorus 2.6 Magnesium 1.9 HARSHA Screen Negative Problem List - Problems (1) Ekleo-by-dwltktu kidney injury Code(s): N17.9 - ACUTE KIDNEY FAILURE, UNSPECIFIED; N18.9 - CHRONIC KIDNEY DISEASE, UNSPECIFIED (2) GENOVEVA (acute kidney injury) Code(s): N17.9 - ACUTE KIDNEY FAILURE, UNSPECIFIED (3) Colon adenomas Code(s): D12.6 - BENIGN NEOPLASM OF COLON, UNSPECIFIED (4) Headache Code(s): R51 - HEADACHE (5) Hypertensive urgency Code(s): I16.0 - HYPERTENSIVE URGENCY (6) Renal insufficiency Code(s): N28.9 - DISORDER OF KIDNEY AND URETER, UNSPECIFIED (7) Pulmonary nodule Code(s): R91.1 - SOLITARY PULMONARY NODULE (8) History of smoking at least 1 pack per day for at least 30 years Code(s): Z87.891 - PERSONAL HISTORY OF NICOTINE DEPENDENCE IMP HYPERTENSIVE URGENCY HEADACHES ANEMIA ACUTE ON CHRONIC KIDNEY DISEASE H/O COLON CA S/P RESECTION H/O PULMONARY NODULE H/O TOBACCO USE PLAN TITRATE BP MEDS MONITOR RENAL FUNCTION NORMAL TRANSFUSION THRESHOLD WILL NEED FOLLOW UP CHEST CT AN OUTPATIENT DR FLYNN
[2018-12-06] MEDS: ACETAMINOPHEN 325 MG TABLET (FP) PO PRN (15:31)
[2018-12-06] MEDS: SENNOSIDES 8.6MG TABLET (FP) PO SCH (22:45)
[2018-12-07] MEDS: ACETAMINOPHEN 325 MG TABLET (FP) PO PRN ×3 (02:07→19:17)
[2018-12-07] MEDS ORDERED: PT OWN MED DRAWER 7, Y5N ONE (04:43)
[2018-12-07] MEDS: POLYETHYLENE GLYCOL 3350 119 GM BTL PO SCH ×3 (06:53→21:42)
[2018-12-07] MEDS: hydrALAZINE HCL 25 MG TABLET (FP) PO SCH ×3 (06:54→21:41)
[2018-12-07 07:37] LABS: HEMATOCRIT 26.4 % (32.4-45.2); HEMOGLOBIN 8.5 GM/dL (10.7-15.3); MCH 24.7 pg (25.7-33.7); MCHC 32.4 g/dl (32.0-36.0); MEAN CELL VOLUME 76.3 fl (80-96); MEAN PLT VOLUME 7.1 fl (7.5-11.1); PLATELET COUNT 267 K/MM3 (134-434); RBC 3.46 M/mm3 (3.60-5.2); RDW 18.1 % (11.6-15.6); WHITE BLOOD COUNT 9.4 K/mm3 (4.0-10.0)
--- NOTE | 2018-12-07 07:54 | PN ---
Progress Note, Physician Chief Complaint: AWAKE CONFUSED BASELINE UNEVENTFUL OVERNIGHT - Current Medication List Current Medications: Active Medications Acetaminophen (Tylenol -) 650 mg PO Q6H PRN PRN Reason: PAIN LEVEL 4 - 6 Last Admin: 12/07/18 02:07 Dose: 650 mg Ferrous Sulfate (Feosol -) 325 mg PO BID [facility] Last Admin: 12/06/18 22:45 Dose: 325 mg Hydralazine HCl (Apresoline -) 50 mg PO TID [facility] Last Admin: 12/07/18 06:54 Dose: 50 mg Metoprolol Succinate (Toprol Xl -) 50 mg PO BID [facility] Last Admin: 12/06/18 22:45 Dose: 50 mg Nifedipine (Procardia Xl -) 60 mg PO DAILY [facility] Last Admin: 12/06/18 09:10 Dose: 60 mg Pantoprazole Sodium (Protonix -) 40 mg PO DAILY [facility] Last Admin: 12/06/18 09:09 Dose: 40 mg Polyethylene Glycol (Miralax (For Daily Use) -) 17 gm PO TID [facility] Last Admin: 12/07/18 06:53 Dose: Not Given Senna (Senna -) 2 tab PO HS [facility] Last Admin: 12/06/18 22:45 Dose: Not Given - Objective Vital Signs: Vital Signs Temperature 98.9 F 12/07/18 06:55 Pulse Rate 91 H 12/07/18 06:55 Respiratory Rate 20 12/07/18 06:55 Blood Pressure 165/68 12/07/18 06:55 O2 Sat by Pulse Oximetry (%) 96 12/06/18 21:00 Constitutional: Yes: No Distress Cardiovascular: Yes: Regular Rate and Rhythm Respiratory: Yes: WNL Gastrointestinal: Yes: Soft Genitourinary: Yes: Incontinence Musculoskeletal: Yes: Muscle Weakness Edema: No Integumentary: Yes: WNL Neurological: Yes: Pre-Existing Deficit Psychiatric: Yes: Other Labs: CBC, BMP 12/07/18 07:00 INR, PTT INR 1.03 (0.83-1.09) 12/02/18 07:05 Problem List - Problems (1) [id number] kidney injury Code(s): N17.9 - ACUTE KIDNEY FAILURE, UNSPECIFIED; N18.9 - CHRONIC KIDNEY DISEASE, UNSPECIFIED (2) Anemia Code(s): D64.9 - ANEMIA, UNSPECIFIED Qualifiers: Iron deficiency anemia type: unspecified iron deficiency (3) Colon adenomas Code(s): D12.6 - BENIGN NEOPLASM OF COLON, UNSPECIFIED (4) Colon cancer Code(s): C18.9 - MALIGNANT NEOPLASM OF COLON, UNSPECIFIED (5) Elevated serum creatinine Code(s): R79.89 - OTHER SPECIFIED ABNORMAL FINDINGS OF BLOOD CHEMISTRY (6) HTN (hypertension) Code(s): I10 - ESSENTIAL (PRIMARY) HYPERTENSION (7) Headache Code(s): R51 - HEADACHE (8) History of smoking at least 1 pack per day for at least 30 years Code(s): Z87.891 - PERSONAL HISTORY OF NICOTINE DEPENDENCE (9) Hypertensive urgency Code(s): I16.0 - HYPERTENSIVE URGENCY Assessment/Plan BP SLOWLY BEING CONTROLLED CONTINUE MEDS MONITOR H/H REPEAT CBC/BMP ORDERED PT EVAL OOB TO CHAIR TOLERATING MEALS PPI AC ON HOLD FOR 10 DAYS PER GI FROM 12/03/18 -12/12/18 DVT PATRICIA HUGHES PLANNING TOMORROW
[2018-12-07 08:01] LABS: CALCIUM 8.1 mg/dL (8.5-10.1); CREATININE 3.3 mg/dL (0.55-1.3); POTASSIUM 4.3 mmol/L (3.5-5.1)
[2018-12-07] MEDS: PANTOPRAZOLE 20 MG TABLET (FP) PO SCH (09:05)
[2018-12-07] MEDS: NIFEdipine E.R 60 MG TABLET (UD) PO SCH (09:06)
[2018-12-07] MEDS: FERROUS SO4 325 MG TABLET (FP) PO SCH ×2 (09:06→21:41)
[2018-12-07 10:07] LABS: EPI CELLS 0.8 /HPF (0-5/HPF); HYALINE CASTS 1 /lpf (0-8); URINE APPEARANCE CLEAR; URINE BACTERIA 3.4 /hpf (NEGATIVE); URINE BILIRUBIN NEGATIVE (NEGATIVE); URINE COLOR YELLOW; URINE GLUCOSE (UA) NEGATIVE (NEGATIVE); URINE KETONE NEGATIVE (NEGATIVE); URINE LEUK ESTERASE NEGATIVE (NEGATIVE); URINE NITRITE NEGATIVE (NEGATIVE); URINE PROTEIN 1+ (NEGATIVE); URINE RBC 1 /hpf (0-4); URINE UROBILINOGEN 0.2 mg/dL (0.2-1.0); URINE WBC 2 /hpf (0-5)
--- NOTE | 2018-12-07 12:22 | PN ---
Progress Note (short form) - Note Progress Note: Resting in NAD. Confused. No acute events overnight. Intake & Output 12/04/18 12/05/18 12/06/18 12/07/18 23:59 23:59 23:59 23:59 Intake Total 1080 1035 100 Balance 1080 1035 100 Weight 104 lb 12.8 oz Last Vital Signs Temp Pulse Resp BP Pulse Ox 98.4 F 90 21 H 151/91 93 L 12/07/18 09:55 12/07/18 09:55 12/07/18 09:55 12/07/18 09:55 12/07/18 08:05 Active Medications Acetaminophen (Tylenol -) 650 mg PO Q6H PRN PRN Reason: PAIN LEVEL 4 - 6 Last Admin: 12/07/18 02:07 Dose: 650 mg Ferrous Sulfate (Feosol -) 325 mg PO BID [facility] Last Admin: 12/07/18 09:06 Dose: 325 mg Hydralazine HCl (Apresoline -) 50 mg PO TID [facility] Last Admin: 12/07/18 06:54 Dose: 50 mg Metoprolol Succinate (Toprol Xl -) 50 mg PO BID [facility] Last Admin: 12/07/18 09:05 Dose: 50 mg Nifedipine (Procardia Xl -) 60 mg PO DAILY [facility] Last Admin: 12/07/18 09:06 Dose: 60 mg Pantoprazole Sodium (Protonix -) 40 mg PO DAILY [facility] Last Admin: 12/07/18 09:05 Dose: 40 mg Polyethylene Glycol (Miralax (For Daily Use) -) 17 gm PO TID [facility] Last Admin: 12/07/18 06:53 Dose: Not Given Senna (Senna -) 2 tab PO HS [facility] Last Admin: 12/06/18 22:45 Dose: Not Given Constitutional: Yes: No Distress Eyes: Yes: WNL HENT: Yes: WNL Neck: Yes: WNL Cardiovascular: Yes: Regular Rate and Rhythm Respiratory: Yes: few rhonchi Gastrointestinal: Yes: Normal Bowel Sounds Genitourinary: Yes: WNL Musculoskeletal: Yes: Muscle Weakness Extremities: Yes: WNL Edema: No Peripheral Pulses WNL: Yes Integumentary: Yes: WNL Wound/Incision: Yes: Clean/Dry Neurological: Yes: Pre-Existing Deficit Psychiatric: Yes: Other Labs: Laboratory Results - last 24 hr 12/06/18 12/06/18 12/07/18 11:55 11:55 07:00 WBC 10.4 H 9.4 RBC 3.56 L 3.46 L Hgb 8.7 L 8.5 L Hct 27.1 L 26.4 L MCV 76.1 L 76.3 L MCH 24.5 L 24.7 L MCHC 32.2 32.4 RDW 17.9 H 18.1 H Plt Count 272 267 MPV 6.8 L 7.1 L Sodium 136 Potassium 3.7 Chloride 100 Carbon Dioxide 29 Anion Gap 7 L BUN 41.9 H Creatinine 3.2 H Est GFR (CKD-EPI)AfAm 15.64 Est GFR (CKD-EPI)NonAf 13.49 Random Glucose 117 H Calcium 8.4 L Phosphorus 2.6 Magnesium 1.9 Urine Color Urine Appearance Urine pH Ur Specific [place] Urine Protein Urine Glucose (UA) Urine Ketones Urine Blood Urine Nitrite Urine Bilirubin Urine Urobilinogen Ur Leukocyte Esterase Urine WBC (Auto) Urine RBC (Auto) Urine Casts (Auto) U Epithel Cells (Auto) Urine Bacteria (Auto) 12/07/18 12/07/18 07:00 09:00 WBC RBC Hgb Hct MCV MCH MCHC RDW Plt Count MPV Sodium 139 Potassium 4.3 Chloride 104 Carbon Dioxide 25 Anion Gap 10 BUN 55.0 H Creatinine 3.3 H Est GFR (CKD-EPI)AfAm 15.07 Est GFR (CKD-EPI)NonAf 13.00 Random Glucose 103 Calcium 8.1 L Phosphorus Magnesium Urine Color Yellow Urine Appearance Clear Urine pH 8.0 Ur Specific [place] 1.012 Urine Protein 1+ H Urine Glucose (UA) Negative Urine Ketones Negative Urine Blood Negative Urine Nitrite Negative Urine Bilirubin Negative Urine Urobilinogen 0.2 Ur Leukocyte Esterase Negative Urine WBC (Auto) 2 Urine RBC (Auto) 1 Urine Casts (Auto) 1 U Epithel Cells (Auto) 0.8 Urine Bacteria (Auto) 3.4 Problem List - Problems (1) Daepw-cg-ylocndc kidney injury Code(s): N17.9 - ACUTE KIDNEY FAILURE, UNSPECIFIED; N18.9 - CHRONIC KIDNEY DISEASE, UNSPECIFIED (2) GENOVEVA (acute kidney injury) Code(s): N17.9 - ACUTE KIDNEY FAILURE, UNSPECIFIED (3) Colon adenomas Code(s): D12.6 - BENIGN NEOPLASM OF COLON, UNSPECIFIED (4) Headache Code(s): R51 - HEADACHE (5) Hypertensive urgency Code(s): I16.0 - HYPERTENSIVE URGENCY (6) Renal insufficiency Code(s): N28.9 - DISORDER OF KIDNEY AND URETER, UNSPECIFIED (7) Pulmonary nodule Code(s): R91.1 - SOLITARY PULMONARY NODULE (8) History of smoking at least 1 pack per day for at least 30 years Code(s): Z87.891 - PERSONAL HISTORY OF NICOTINE DEPENDENCE IMP HYPERTENSIVE URGENCY HEADACHES ANEMIA ACUTE ON CHRONIC KIDNEY DISEASE H/O COLON CA S/P RESECTION H/O PULMONARY NODULE H/O TOBACCO USE PLAN TITRATE BP MEDS MONITOR RENAL FUNCTION NORMAL TRANSFUSION THRESHOLD CAN FOLLOW CHEST CT AN OUTPATIENT DR FLYNN
[2018-12-07] MEDS: SENNOSIDES 8.6MG TABLET (FP) PO SCH (21:42)
[2018-12-08] MEDS: POLYETHYLENE GLYCOL 3350 119 GM BTL PO SCH ×3 (06:28→21:28)
[2018-12-08] MEDS: hydrALAZINE HCL 25 MG TABLET (FP) PO SCH ×3 (06:35→21:28)
[2018-12-08 07:15] LABS: HEMATOCRIT 27.2 % (32.4-45.2); HEMOGLOBIN 8.8 GM/dL (10.7-15.3); MCH 24.6 pg (25.7-33.7); MCHC 32.5 g/dl (32.0-36.0); MEAN CELL VOLUME 75.8 fl (80-96); MEAN PLT VOLUME 6.8 fl (7.5-11.1); PLATELET COUNT 319 K/MM3 (134-434); RBC 3.59 M/mm3 (3.60-5.2); RDW 18.4 % (11.6-15.6); WHITE BLOOD COUNT 8.4 K/mm3 (4.0-10.0)
[2018-12-08 07:42] LABS: CALCIUM 8.5 mg/dL (8.5-10.1); CREATININE 3.1 mg/dL (0.55-1.3); POTASSIUM 3.8 mmol/L (3.5-5.1)
[2018-12-08 10:07] LABS: ANTIGLOMERULAR BASEMENT MEN.AB 4 units (0-20)
--- NOTE | 2018-12-08 10:37 | PN ---
Progress Note, Physician Chief Complaint: GENOVEVA Anemia History of Present Illness: Previous notes and events reviewed awake and alert NAD denies complaints chest pain or SOB UC prelim positive needs PT eval - Current Medication List Current Medications: Active Medications Acetaminophen (Tylenol -) 650 mg PO Q6H PRN PRN Reason: PAIN LEVEL 4 - 6 Last Admin: 12/07/18 19:17 Dose: 650 mg Ferrous Sulfate (Feosol -) 325 mg PO BID [facility] Last Admin: 12/07/18 21:41 Dose: 325 mg Hydralazine HCl (Apresoline -) 50 mg PO TID [facility] Last Admin: 12/08/18 06:35 Dose: 50 mg Metoprolol Succinate (Toprol Xl -) 50 mg PO BID [facility] Last Admin: 12/07/18 21:41 Dose: 50 mg Nifedipine (Procardia Xl -) 60 mg PO DAILY [facility] Last Admin: 12/07/18 09:06 Dose: 60 mg Pantoprazole Sodium (Protonix -) 40 mg PO DAILY [facility] Last Admin: 12/07/18 09:05 Dose: 40 mg Polyethylene Glycol (Miralax (For Daily Use) -) 17 gm PO TID [facility] Last Admin: 12/08/18 06:28 Dose: Not Given Senna (Senna -) 2 tab PO HS [facility] Last Admin: 12/07/18 21:42 Dose: Not Given - Objective Vital Signs: Vital Signs Temperature 98.1 F 12/08/18 06:00 Pulse Rate 85 12/08/18 06:00 Respiratory Rate 20 12/08/18 06:00 Blood Pressure 164/90 12/08/18 06:00 O2 Sat by Pulse Oximetry (%) 95 12/07/18 21:00 Constitutional: Yes: No Distress, Calm Eyes: Yes: Conjunctiva Clear HENT: Yes: Atraumatic Cardiovascular: Yes: Regular Rate and Rhythm Respiratory: Yes: Regular, CTA Bilaterally Gastrointestinal: Yes: Normal Bowel Sounds, Soft Musculoskeletal: Yes: Muscle Weakness Extremities: Yes: WNL Edema: No Neurological: Yes: Alert, Oriented Psychiatric: Yes: Alert, Oriented Labs: CBC, BMP 12/08/18 06:46 12/08/18 06:46 INR, PTT INR 1.03 (0.83-1.09) 12/02/18 07:05 Microbiology 12/07/18 09:00 Urine - Urine Clean Catch Urine Culture - Preliminary Group D Strep Or Entero Coccus Staphylococcus Species 12/01/18 17:33 Urine - Urine Clean Catch Urine Culture - Final Escherichia Coli Problem List - Problems (1) GENOVEVA (acute kidney injury) Assessment/Plan: -Renal on board -BUN/Cr 49/3.1 -monitor renal function daily -Renal US shows no hydronephrosis, left kidney appears small measuring 8.3cm Code(s): N17.9 - ACUTE KIDNEY FAILURE, UNSPECIFIED (2) Anemia Assessment/Plan: -Hg 8.8 -monitor Hg daily -transfuse for Hg <7.0 -s/p EGD and Colonoscopy with polpectomy -GI on board -Pantoprazole -Ferrous Sulfate -AC on hold for 10 days s/p colonoscopy, will resume on 12/12/18 Code(s): D64.9 - ANEMIA, UNSPECIFIED Qualifiers: Iron deficiency anemia type: unspecified iron deficiency (3) Colon cancer Assessment/Plan: -GI on board -s/p colonoscopy with polypectomy Code(s): C18.9 - MALIGNANT NEOPLASM OF COLON, UNSPECIFIED (4) HTN (hypertension) Assessment/Plan: -Nifedipine, MEtoprolol, Hydralazine -low Na diet Code(s): I10 - ESSENTIAL (PRIMARY) HYPERTENSION (5) UTI (urinary tract infection) Assessment/Plan: -UC prelim positive -ID consult -no leukocytosis -afebrile Code(s): N39.0 - URINARY TRACT INFECTION, SITE NOT SPECIFIED Assessment/Plan see problem list dvt ppx needs PT eval prior to discharge--SNF vs home care services
[2018-12-08] MEDS: FERROUS SO4 325 MG TABLET (FP) PO SCH ×2 (11:01→21:28)
[2018-12-08] MEDS: NIFEdipine E.R 60 MG TABLET (UD) PO SCH (11:01)
[2018-12-08] MEDS: PANTOPRAZOLE 20 MG TABLET (FP) PO SCH (11:01)
[2018-12-08] MEDS: ACETAMINOPHEN 325 MG TABLET (FP) PO PRN ×2 (11:02→21:27)
[2018-12-08 11:34] VITALS: BMI 20.2
--- NOTE | 2018-12-08 12:18 | PN ---
Progress Note (short form) - Note Progress Note: ID consult dictated imp/reccd 73 yo female admitted 12/01 with headache, uncontrolled HTN , GENOVEVA asked to see for positive urine culture denies fevers, dysuria, no suprapubic or back pain UA is negative for WBC urine culture with low colony count 2 different organsims, suggestive of contamination no need to treat no need to repeat ua or urine culture at this time please call back if needed Problem List - Problems (1) Contamination of urine culture Code(s): R82.90 - UNSPECIFIED ABNORMAL FINDINGS IN URINE
--- NOTE | 2018-12-08 13:00 | PN ---
Progress Note, Physician History of Present Illness: PULMONARY ALERT,OOB-CHAIR,-CP,-SOB - Current Medication List Current Medications: Active Medications Acetaminophen (Tylenol -) 650 mg PO Q6H PRN PRN Reason: PAIN LEVEL 4 - 6 Last Admin: 12/08/18 11:02 Dose: 650 mg Ferrous Sulfate (Feosol -) 325 mg PO BID [facility] Last Admin: 12/08/18 11:01 Dose: 325 mg Hydralazine HCl (Apresoline -) 50 mg PO TID [facility] Last Admin: 12/08/18 06:35 Dose: 50 mg Metoprolol Succinate (Toprol Xl -) 50 mg PO BID [facility] Last Admin: 12/08/18 11:01 Dose: 50 mg Nifedipine (Procardia Xl -) 60 mg PO DAILY [facility] Last Admin: 12/08/18 11:01 Dose: 60 mg Pantoprazole Sodium (Protonix -) 40 mg PO DAILY [facility] Last Admin: 12/08/18 11:01 Dose: 40 mg Polyethylene Glycol (Miralax (For Daily Use) -) 17 gm PO TID [facility] Last Admin: 12/08/18 06:28 Dose: Not Given Senna (Senna -) 2 tab PO HS [facility] Last Admin: 12/07/18 21:42 Dose: Not Given - Objective Vital Signs: Vital Signs Temperature 98.5 F 12/08/18 10:55 Pulse Rate 89 12/08/18 10:55 Respiratory Rate 20 12/08/18 10:55 Blood Pressure 161/96 12/08/18 10:55 O2 Sat by Pulse Oximetry (%) 95 12/07/18 21:00 Constitutional: Yes: Calm Eyes: Yes: WNL HENT: Yes: WNL Neck: Yes: WNL Cardiovascular: Yes: Regular Rate and Rhythm, S1, S2 Respiratory: Yes: CTA Bilaterally Gastrointestinal: Yes: Normal Bowel Sounds, Soft Extremities: Yes: WNL Edema: No Labs: CBC, BMP 12/08/18 06:46 12/08/18 06:46 INR, PTT INR 1.03 (0.83-1.09) 12/02/18 07:05 Problem List - Problems (1) Qnkqk-ka-fcxpqrr kidney injury Code(s): N17.9 - ACUTE KIDNEY FAILURE, UNSPECIFIED; N18.9 - CHRONIC KIDNEY DISEASE, UNSPECIFIED (2) GENOVEVA (acute kidney injury) Code(s): N17.9 - ACUTE KIDNEY FAILURE, UNSPECIFIED (3) Colon adenomas Code(s): D12.6 - BENIGN NEOPLASM OF COLON, UNSPECIFIED (4) Headache Code(s): R51 - HEADACHE (5) Hypertensive urgency Code(s): I16.0 - HYPERTENSIVE URGENCY (6) Renal insufficiency Code(s): N28.9 - DISORDER OF KIDNEY AND URETER, UNSPECIFIED (7) Pulmonary nodule Code(s): R91.1 - SOLITARY PULMONARY NODULE (8) History of smoking at least 1 pack per day for at least 30 years Code(s): Z87.891 - PERSONAL HISTORY OF NICOTINE DEPENDENCE Assessment/Plan IMP S/P HYPERTENSIVE URGENCY HEADACHES IMPROVED ANEMIA ACUTE ON CHRONIC KIDNEY DISEASE H/O COLON CA S/P RESECTION PULMONARY NODULES H/O TOBACCO USE PLAN TITRATE BP MEDS MONITOR RENAL FUNCTION,H+H F/U CHEST CT OUTPATIENT DR ZEPEDA Problem List - Problems (1) Mbxnj-bp-lwbggix kidney injury Code(s): N17.9 - ACUTE KIDNEY FAILURE, UNSPECIFIED; N18.9 - CHRONIC KIDNEY DISEASE, UNSPECIFIED (2) GENOVEVA (acute kidney injury) Code(s): N17.9 - ACUTE KIDNEY FAILURE, UNSPECIFIED (3) Colon adenomas Code(s): D12.6 - BENIGN NEOPLASM OF COLON, UNSPECIFIED (4) Headache Code(s): R51 - HEADACHE (5) Hypertensive urgency Code(s): I16.0 - HYPERTENSIVE URGENCY (6) Renal insufficiency Code(s): N28.9 - DISORDER OF KIDNEY AND URETER, UNSPECIFIED (7) Pulmonary nodule Code(s): R91.1 - SOLITARY PULMONARY NODULE (8) History of smoking at least 1 pack per day for at least 30 years Code(s): Z87.891 - PERSONAL HISTORY OF NICOTINE DEPENDENCE
--- NOTE | 2018-12-08 16:33 | PN ---
Progress Note, Physician History of Present Illness: Pt seen and examined at bedside. She is awake and alert. She denies shortness of breath. - Current Medication List Current Medications: Active Medications Acetaminophen (Tylenol -) 650 mg PO Q6H PRN PRN Reason: PAIN LEVEL 4 - 6 Last Admin: 12/08/18 11:02 Dose: 650 mg Ferrous Sulfate (Feosol -) 325 mg PO BID [facility] Last Admin: 12/08/18 11:01 Dose: 325 mg Hydralazine HCl (Apresoline -) 50 mg PO TID [facility] Last Admin: 12/08/18 14:43 Dose: 50 mg Metoprolol Succinate (Toprol Xl -) 50 mg PO BID [facility] Last Admin: 12/08/18 11:01 Dose: 50 mg Nifedipine (Procardia Xl -) 60 mg PO DAILY [facility] Last Admin: 12/08/18 11:01 Dose: 60 mg Pantoprazole Sodium (Protonix -) 40 mg PO DAILY [facility] Last Admin: 12/08/18 11:01 Dose: 40 mg Polyethylene Glycol (Miralax (For Daily Use) -) 17 gm PO TID [facility] Last Admin: 12/08/18 14:43 Dose: Not Given Senna (Senna -) 2 tab PO HS [facility] Last Admin: 12/07/18 21:42 Dose: Not Given - Objective Vital Signs: Vital Signs Temperature 98.1 F 12/08/18 14:38 Pulse Rate 85 12/08/18 14:38 Respiratory Rate 20 12/08/18 14:38 Blood Pressure 130/70 12/08/18 14:38 O2 Sat by Pulse Oximetry (%) 95 12/07/18 21:00 Constitutional: Yes: Calm Eyes: Yes: Conjunctiva Clear HENT: Yes: Atraumatic Neck: Yes: Supple Cardiovascular: Yes: S1, S2 Respiratory: Yes: CTA Bilaterally Gastrointestinal: Yes: Normal Bowel Sounds, Soft Genitourinary: Yes: WNL Musculoskeletal: Yes: WNL Edema: No Neurological: Yes: Oriented Psychiatric: Yes: Oriented Labs: CBC, BMP 12/08/18 06:46 12/08/18 06:46 INR, PTT INR 1.03 (0.83-1.09) 12/02/18 07:05 Problem List - Problems (1) GENOVEVA (acute kidney injury) Code(s): N17.9 - ACUTE KIDNEY FAILURE, UNSPECIFIED (2) Colon cancer Code(s): C18.9 - MALIGNANT NEOPLASM OF COLON, UNSPECIFIED (3) Headache Code(s): R51 - HEADACHE Assessment/Plan Current Medications Generic Name Dose Route Start Last Admin Trade Name Esther PRN Reason Stop Dose Admin Acetaminophen 650 mg 12/01/18 19:06 12/08/18 11:02 Tylenol - PO 650 mg Q6H PRN Administration PAIN LEVEL 4 - 6 Ferrous Sulfate 325 mg 12/05/18 10:00 12/08/18 11:01 Feosol - PO 325 mg BID [facility] Administration Hydralazine HCl 50 mg 12/03/18 14:00 12/08/18 14:43 Apresoline - PO 50 mg TID [facility] Administration Metoprolol Succinate 50 mg 12/04/18 10:00 12/08/18 11:01 Toprol Xl - PO 50 mg BID [facility] Administration Nifedipine 60 mg 12/05/18 07:30 12/08/18 11:01 Procardia Xl - PO 60 mg DAILY [facility] Administration Pantoprazole Sodium 40 mg 12/02/18 17:59 12/08/18 11:01 Protonix - PO 40 mg DAILY [facility] Administration Polyethylene Glycol 17 gm 12/02/18 22:00 12/08/18 14:43 Miralax (For Daily Use) - PO Not Given TID [facility] Senna 2 tab 12/01/18 22:00 12/07/18 21:42 Senna - PO Not Given HS [facility] Laboratory Tests 12/03/18 12/03/18 12/04/18 07:30 09:00 07:30 Protein/Creatinin Ratio 1.800 YO M-Sav Not observed HARSHA Screen Negative c-ANCA Proteinase 3 (PR3) p-ANCA Atypical p-ANCA Myeloperoxidase Ab Double Strand DNA Ab Glomerular Base Memb Ab 12/05/18 13:15 Protein/Creatinin Ratio YO M-Sav HARSHA Screen c-ANCA Pending Proteinase 3 (PR3) Pending p-ANCA Pending Atypical p-ANCA Pending Myeloperoxidase Ab Pending Double Strand DNA Ab 1 Glomerular Base Memb Ab 4 Impression 1. GENOVEVA 2. HTN uncontrolled 3. HLD 4. headache 5. 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
--- NOTE | 2018-12-08 20:30 | CONS ---
INFECTIOUS DISEASE CONSULTATION DATE OF CONSULTATION: DATE OF DICTATION: 12/08/2018 REQUESTING PHYSICIAN: Jeff Vera MD This is a 73-year-old woman who was originally admitted December 01 with headache. She was noted to have uncontrolled hypertension and acute kidney injury. She has been evaluated for this in the hospital. She was noted to have a positive urine culture; for which, we are being asked to see her. In the course of admission, she has been evaluated by Cardiology as well as Nephrology for her kidney illness. She was seen by GI, and she underwent a colonoscopy as well. She has no dysuria. She has no fevers or chills. She has no nausea or vomiting. She is feeling well and eating lunch. She has no suprapubic or back pain. PAST MEDICAL HISTORY: Notable for a history of hypertension, hyperlipidemia, colon cancer resected in 2002, gastritis, renal insufficiency, anemia. She has had right elbow bursitis. SURGICAL HISTORY: Notable for a right ankle fracture repair. She has had a partial colectomy for colon cancer. She has had a hysterectomy, tonsillectomy in the past as well. SOCIAL HISTORY: She lives alone. She is independent. She was [place] She is a former smoker. She quit in 1984 and rarely drinks any alcohol. No history of substance use. ALLERGIES: She has no known drug allergies. MEDICATIONS: She takes metoprolol and simvastatin as an outpatient. FAMILY HISTORY: Notable for coronary artery disease. REVIEW OF SYSTEMS: She has no fevers or chills. No dysuria. No hematuria. She is voiding well. PHYSICAL EXAMINATION: General: She is awake and alert. Vital Signs: Temperature is 98.5. Pulse 89. Blood pressure 161/96. Respiratory rate is 20. She is saturating 95%. HEENT: She is normocephalic. Her eyes are anicteric. Neck: Supple. Lungs: Clear to auscultation. Heart: Regular rate and rhythm. Abdomen: Soft, nontender. Extremities: Without edema. She has a well-healed scar on her right ankle. LABORATORY DATA: Her labs are notable for a white count of 8.4, hemoglobin 8.8, platelets are 319. BUN is 49 and creatinine 3. LFTs are normal. Urinalysis has 2 white cells, and urine culture is growing group D enterococcus and staphylococcus, both at 30,000-40,000 colony forming units. In summary, this is a 73-year-old woman with headache, uncontrolled hypertension, acute kidney injury, and anemia, who has a positive urine culture that is consistent with contamination. The UA is negative for white cells. There is no need to treat her. There is also no need to repeat a UA or urine culture at this time. Please call back if needed. MARCO GUDINO M.D. [id number]
[2018-12-08 21:07] LABS: HEP B CORE AB, TOT Negative (Negative)
[2018-12-08] MEDS: SENNOSIDES 8.6MG TABLET (FP) PO SCH (21:28)
[2018-12-09] MEDS: hydrALAZINE HCL 25 MG TABLET (FP) PO SCH ×2 (06:22→14:31)
[2018-12-09] MEDS: POLYETHYLENE GLYCOL 3350 119 GM BTL PO SCH ×2 (06:22→14:31)
[2018-12-09 07:39] LABS: HEMATOCRIT 27.6 % (32.4-45.2); MCH 24.8 pg (25.7-33.7); MCHC 32.5 g/dl (32.0-36.0); MEAN CELL VOLUME 76.3 fl (80-96); MEAN PLT VOLUME 6.9 fl (7.5-11.1); PLATELET COUNT 346 K/MM3 (134-434); RBC 3.62 M/mm3 (3.60-5.2); RDW 18.7 % (11.6-15.6); WHITE BLOOD COUNT 7.7 K/mm3 (4.0-10.0)
[2018-12-09 08:18] LABS: POTASSIUM 4.1 mmol/L (3.5-5.1)
--- NOTE | 2018-12-09 08:29 | DS ---
Physical Examination Vital Signs: Vital Signs Temperature 98.3 F 12/09/18 08:19 Pulse Rate 88 12/09/18 08:19 Respiratory Rate 21 H 12/09/18 08:19 Blood Pressure 165/104 H 12/09/18 08:19 O2 Sat by Pulse Oximetry (%) 95 12/08/18 21:00 Cardiovascular: Yes: Regular Rate and Rhythm Respiratory: Yes: Regular, CTA Bilaterally Gastrointestinal: Yes: Normal Bowel Sounds Musculoskeletal: Yes: Muscle Weakness Edema: No Neurological: Yes: Alert, Oriented, Unsteady Gait, Weakness Labs: CBC, BMP 12/09/18 06:25 12/09/18 06:25 Discharge Summary Reason For Visit: ACUTE KIDNEY INJURY Current Active Problems GENOVEVA (acute kidney injury) (Acute) Uilaz-kv-cprmllk kidney injury (Acute) Anemia (Acute) Asymptomatic bacteriuria (Acute) Colon adenomas (Acute) Colon cancer (Acute) Contamination of urine culture (Acute) Elevated serum creatinine (Acute) Gastritis due to Helicobacter species (Acute) HTN (hypertension) (Acute) Headache (Acute) High blood pressure (Acute) History of Helicobacter pylori infection (Acute) History of smoking at least 1 pack per day for at least 30 years (Acute) Hypertensive urgency (Acute) Prophylactic measure (Acute) Pulmonary nodule (Acute) Renal insufficiency (Acute) UTI (urinary tract infection) (Acute) Hospital Course: - Problems (1) GENOVEVA (acute kidney injury) Assessment/Plan: -Renal on board -BUN/Cr 49/3.1 -monitor renal function daily -Renal US shows no hydronephrosis, left kidney appears small measuring 8.3cm Code(s): N17.9 - ACUTE KIDNEY FAILURE, UNSPECIFIED (2) Anemia Assessment/Plan: -Hg 8.8 -monitor Hg daily -transfuse for Hg <7.0 -s/p EGD and Colonoscopy with polpectomy -GI on board -Pantoprazole -Ferrous Sulfate -AC on hold for 10 days s/p colonoscopy, will resume on 12/12/18 Code(s): D64.9 - ANEMIA, UNSPECIFIED Qualifiers: Iron deficiency anemia type: unspecified iron deficiency (3) Colon cancer Assessment/Plan: -GI on board -s/p colonoscopy with polypectomy Code(s): C18.9 - MALIGNANT NEOPLASM OF COLON, UNSPECIFIED (4) HTN (hypertension) Assessment/Plan: -Nifedipine, MEtoprolol, Hydralazine -low Na diet Code(s): I10 - ESSENTIAL (PRIMARY) HYPERTENSION (5) UTI (urinary tract infection) Assessment/Plan: -UC prelim positive -ID consult -no leukocytosis -afebrile Code(s): N39.0 - URINARY TRACT INFECTION, SITE NOT SPECIFIED Assessment/Plan see problem list dvt ppx needs PT and--SNF D/W PT Condition: Stable - Instructions Disposition: [facility] - Home Medications Comprehensive Discharge Medication List: Ambulatory Orders Simvastatin 1 tab PO HS 12/01/18 Acetaminophen [Tylenol .Regular Strength -] 650 mg PO Q6H PRN tablet 12/09/18 Ferrous Sulfate [Feosol] 325 mg PO BID ud 12/09/18 Metoprolol Succinate [Toprol XL -] 50 mg PO BID tab.sr.24h 12/09/18 Nifedipine ER [Procardia XL -] 60 mg PO DAILY tab.er.24 12/09/18 Pantoprazole Sodium [Protonix -] 40 mg PO DAILY tablet.ec 12/09/18 Polyethylene Glycol 3350 [Miralax 119 gm Btl -] 17 gm PO TID bottle 12/09/18 Sennosides [Senna -] 2 tab PO HS tablet 12/09/18 hydrALAZINE HCL [Apresoline -] 50 mg PO TID tablet 12/09/18
[2018-12-09 08:48] LABS: ALBUMIN 2.6 g/dl (3.4-5.0); BILIRUBIN,TOTAL 0.3 mg/dL (0.2-1); BLOOD UREA NITROGEN 54.6 mg/dL (7-18); TOT PROT 5.8 g/dl (6.4-8.2)
[2018-12-09 08:59] LABS: CALCIUM 8.6 mg/dL (8.5-10.1)
[2018-12-09] MEDS: PANTOPRAZOLE 20 MG TABLET (FP) PO SCH (10:59)
[2018-12-09] MEDS: NIFEdipine E.R 60 MG TABLET (UD) PO SCH (10:59)
[2018-12-09] MEDS: FERROUS SO4 325 MG TABLET (FP) PO SCH (11:17)
--- NOTE | 2018-12-09 12:40 | PN ---
Progress Note, Physician History of Present Illness: pulmonary alert,comfortable,-resp distress - Current Medication List Current Medications: Active Medications Acetaminophen (Tylenol -) 650 mg PO Q6H PRN PRN Reason: PAIN LEVEL 4 - 6 Last Admin: 12/08/18 21:27 Dose: 650 mg Ferrous Sulfate (Feosol -) 325 mg PO BID [facility] Last Admin: 12/09/18 11:17 Dose: 325 mg Hydralazine HCl (Apresoline -) 50 mg PO TID [facility] Last Admin: 12/09/18 06:22 Dose: 50 mg Metoprolol Succinate (Toprol Xl -) 50 mg PO BID [facility] Last Admin: 12/09/18 11:16 Dose: 50 mg Nifedipine (Procardia Xl -) 60 mg PO DAILY [facility] Last Admin: 12/09/18 10:59 Dose: 60 mg Pantoprazole Sodium (Protonix -) 40 mg PO DAILY [facility] Last Admin: 12/09/18 10:59 Dose: 40 mg Polyethylene Glycol (Miralax (For Daily Use) -) 17 gm PO TID [facility] Last Admin: 12/09/18 06:22 Dose: Not Given Senna (Senna -) 2 tab PO HS [facility] Last Admin: 12/08/18 21:28 Dose: Not Given - Objective Vital Signs: Vital Signs Temperature 98.3 F 12/09/18 08:19 Pulse Rate 88 12/09/18 08:19 Respiratory Rate 21 H 12/09/18 08:19 Blood Pressure 165/104 H 12/09/18 08:19 O2 Sat by Pulse Oximetry (%) 96 12/09/18 09:00 Constitutional: Yes: Calm, Thin Eyes: Yes: WNL HENT: Yes: WNL Neck: Yes: WNL Cardiovascular: Yes: Regular Rate and Rhythm, S1, S2 Respiratory: Yes: CTA Bilaterally Gastrointestinal: Yes: Normal Bowel Sounds, Soft Extremities: Yes: WNL Edema: No Labs: CBC, BMP 12/09/18 06:25 12/09/18 06:25 INR, PTT INR 1.03 (0.83-1.09) 12/02/18 07:05 Problem List - Problems (1) Mkrmo-jd-sfpanlv kidney injury Code(s): N17.9 - ACUTE KIDNEY FAILURE, UNSPECIFIED; N18.9 - CHRONIC KIDNEY DISEASE, UNSPECIFIED (2) GENOVEVA (acute kidney injury) Code(s): N17.9 - ACUTE KIDNEY FAILURE, UNSPECIFIED (3) Colon adenomas Code(s): D12.6 - BENIGN NEOPLASM OF COLON, UNSPECIFIED (4) Headache Code(s): R51 - HEADACHE (5) Hypertensive urgency Code(s): I16.0 - HYPERTENSIVE URGENCY (6) Renal insufficiency Code(s): N28.9 - DISORDER OF KIDNEY AND URETER, UNSPECIFIED (7) Pulmonary nodule Code(s): R91.1 - SOLITARY PULMONARY NODULE (8) History of smoking at least 1 pack per day for at least 30 years Code(s): Z87.891 - PERSONAL HISTORY OF NICOTINE DEPENDENCE Assessment/Plan IMP S/P HYPERTENSIVE URGENCY HEADACHES IMPROVED ANEMIA ACUTE ON CHRONIC KIDNEY DISEASE H/O COLON CA S/P RESECTION PULMONARY NODULES H/O TOBACCO USE PLAN TITRATE BP MEDS MONITOR RENAL FUNCTION,H+H F/U CHEST CT OUTPATIENT DR ZEPEDA Problem List - Problems (1) Fnwrl-rv-pjqpfcz kidney injury Code(s): N17.9 - ACUTE KIDNEY FAILURE, UNSPECIFIED; N18.9 - CHRONIC KIDNEY DISEASE, UNSPECIFIED (2) GENOVEVA (acute kidney injury) Code(s): N17.9 - ACUTE KIDNEY FAILURE, UNSPECIFIED (3) Colon adenomas Code(s): D12.6 - BENIGN NEOPLASM OF COLON, UNSPECIFIED (4) Headache Code(s): R51 - HEADACHE (5) Hypertensive urgency Code(s): I16.0 - HYPERTENSIVE URGENCY (6) Renal insufficiency Code(s): N28.9 - DISORDER OF KIDNEY AND URETER, UNSPECIFIED (7) Pulmonary nodule Code(s): R91.1 - SOLITARY PULMONARY NODULE (8) History of smoking at least 1 pack per day for at least 30 years Code(s): Z87.891 - PERSONAL HISTORY OF NICOTINE DEPENDENCE
--- NOTE | 2018-12-09 13:12 | PN ---
Progress Note (short form) - Note Progress Note: Renal follow up for GENOVEVA/CKD Pt seen and examined at the bedside awake and alert offers no acute complaints making urine no sob, cp, abd pain, fever or chills has preserved appetite Vital Signs Temperature 98.3 F 12/09/18 08:19 Pulse Rate 88 12/09/18 08:19 Respiratory Rate 21 H 12/09/18 08:19 Blood Pressure 165/104 H 12/09/18 08:19 O2 Sat by Pulse Oximetry (%) 96 12/09/18 09:00 Intake & Output 12/06/18 12/07/18 12/08/18 12/09/18 23:59 23:59 23:59 23:59 Intake Total 100 410 640 Balance 100 410 640 Weight 47.536 kg NAD awake and alert RRR CTA no LE edema CBC, BMP 12/09/18 06:25 12/09/18 06:25 Current Medications Acetaminophen (Tylenol -) 650 mg PO Q6H PRN PRN Reason: PAIN LEVEL 4 - 6 Last Admin: 12/08/18 21:27 Dose: 650 mg Ferrous Sulfate (Feosol -) 325 mg PO BID [facility] Last Admin: 12/09/18 11:17 Dose: 325 mg Hydralazine HCl (Apresoline -) 50 mg PO TID [facility] Last Admin: 12/09/18 06:22 Dose: 50 mg Metoprolol Succinate (Toprol Xl -) 50 mg PO BID [facility] Last Admin: 12/09/18 11:16 Dose: 50 mg Nifedipine (Procardia Xl -) 60 mg PO DAILY [facility] Last Admin: 12/09/18 10:59 Dose: 60 mg Pantoprazole Sodium (Protonix -) 40 mg PO DAILY [facility] Last Admin: 12/09/18 10:59 Dose: 40 mg Polyethylene Glycol (Miralax (For Daily Use) -) 17 gm PO TID [facility] Last Admin: 12/09/18 06:22 Dose: Not Given Senna (Senna -) 2 tab PO HS [facility] Last Admin: 12/08/18 21:28 Dose: Not Given 73 year old woman with history of hypertension, hyperlipideima presented with headaches and found to have GENOVEVA/CKD with Cr ~3 and uncontrolled hypertension. #GENOVEVA/CKD #Anemia #Hypertension Renal function stable thus far this admission Urine studies show subnephrotic proteinura w/o active urinary sediment Renal US showed no obstruction in flow Hgb stable Serologic studies noted, SPEP is pending stable for discharge with outpatient follow up continue Metoprolol, nifedpine Thee Tse DO
[2018-12-09 15:12] LABS: ATYPICAL pANCA <1:20 titer (Neg:<1:20); C-ANCA <1:20 titer (Neg:<1:20)
--- NOTE | 2018-12-09 15:31 | PATH ---
Surgical Pathology Report Patient Name: LE MEHTA [facility]. Rec. #: [id number] /Age/Gender: 1945 (Age: 73) / F Account: [id number] Location: [address] [place] [address] Taken: 12/05/2018 Received: 12/05/2018 Reported: 12/09/2018 Physicians: Terry Becker M.D. Specimen(s) Received A: SECOND PORTION OF DUODENUM AND DUODENAL BULB B: ANTRUM C: DISTAL ESOPHAGUS D: RECTAL POLYP E: ANASTOMOSIS F: PROXIMAL TRANSVERSE COLON POLYPS (3) G: SIGMOID POLPS (2) Clinical History Anemia, occult GI bleed, history of colon cancer Postoperative diagnosis: Hiatal hernia, colon polyps Final Diagnosis A. SECOND PORTION OF DUODENUM AND DUODENAL BULB, BIOPSY: DUODENAL MUCOSA WITH NO PATHOLOGIC FINDINGS. B. ANTRUM, BIOPSY: MODERATE CHRONIC GASTRITIS WITH INTESTINAL METAPLASIA. IMMUNOSTAIN IS NEGATIVE FOR H. PYLORI ORGANISMS. C. DISTAL ESOPHAGUS, BIOPSY: ESOPHAGEAL (SQUAMOUS) MUCOSA WITH NO PATHOLOGIC FINDINGS. NO COLUMNAR EPITHELIUM/INTESTINAL METAPLASIA IS IDENTIFIED. D. RECTAL POLYP, POLYPECTOMY: TUBULAR ADENOMA. E. ANASTOMOSIS, BIOPSY: A. COLONIC MUCOSA WITH NO PATHOLOGIC FINDINGS. F. PROXIMAL TRANSVERSE COLON, POLYPS (3), POLYPECTOMY: TUBULAR ADENOMAS (3). G. SIGMOID, POLYPS (2): TUBULAR ADENOMAS (2). Electronically Signed Mireille Mcguire M.D. Gross Description A. Received in formalin, labeled "biopsy second portion of duodenum and duodenal bulb" are 3 kan, irregular portions of soft tissue averaging 0.4 cm. in greatest dimension. The specimens are submitted in toto in one cassette. B. Received in formalin, labeled "biopsy antrum" are 2 kan, irregular portions of soft tissue measuring 0.2 and 0.5 cm. in greatest dimension. The specimens are submitted in toto in one cassette. C. Received in formalin, labeled "biopsy distal esophagus" are 2 kan, irregular portions of soft tissue measuring 0.2 and 0.4 cm. in greatest dimension. The specimens are submitted in toto in one cassette. D. Received in formalin labeled "rectal polyp," is a 0.8 x 0.6 x 0.6 cm kan, polypoid portion of soft tissue. The specimen is bisected and entirely submitted in one cassette. E. Received in formalin, labeled "biopsy anastomosis" are 4 kan, irregular portions of soft tissue ranging from 0.3-0.5] cm. in greatest dimension. The specimens are submitted in toto in one cassette. F. Received in formalin, labeled "biopsy proximal transverse colon polyps" are 4 kan, irregular portions of soft tissue ranging from 0.2-0.5 cm. in greatest dimension. The specimens are submitted in toto in one cassette. G. Received in formalin, labeled "biopsy sigmoid polyps" are 2 kan, irregular portions of soft tissue measuring 0.2 and 0.3 cm. in greatest dimension. The specimens are submitted in toto in one cassette. 12/05/2018 [facility]12/05/2018
--- NOTE | 2018-12-09 17:28 | PN.GI ---
GI Progress Note Subjective: GI NOte: Informed Chayo and her niece Rose Mary that the anastomosis biopsies revealed no cancer and that all of her polyps were tubular adenomas without malignant change. Advised repeat colonoscopy in 2 years - Objective Vital Signs: Vital Signs Temperature 98.6 F 12/09/18 13:00 Pulse Rate 94 H 12/09/18 13:00 Respiratory Rate 18 12/09/18 13:00 Blood Pressure 140/69 12/09/18 13:00 O2 Sat by Pulse Oximetry (%) 96 12/09/18 09:00 Laboratory Tests 12/08/18 12/09/18 12/09/18 06:46 06:25 06:25 Hgb 8.8 L 9.0 L Total Bilirubin 0.3 AST 23 ALT 34 Alkaline Phosphatase 97 Constitutional: Calm ...Auscultate: Yes: Normoactive Bowel Sounds ...Palpate: Yes: Soft, Other (nontender) Labs: CBC, BMP 12/09/18 06:25 12/09/18 06:25 INR, PTT INR 1.03 (0.83-1.09) 12/02/18 07:05 Assessment/Plan Assessment: -- Microcytic anemia suggested indolent GI blood loss but now appears to be due to CKD. -- Personal h/o colon cancer -- Recurring colon adenomas. -- Personal h/o pernicious anemia Plan: -- No GI objections to discharge. -- F/U in our office to consider capsule endoscopy if occult bleeding persists after the removal of multiple adenomas Problem List - Problems (1) Colon adenomas Assessment/Plan: Recurring multiples adenomas mandate repeat colonoscopy in 2 years Code(s): D12.6 - BENIGN NEOPLASM OF COLON, UNSPECIFIED (2) Anemia Code(s): D64.9 - ANEMIA, UNSPECIFIED Qualifiers: Iron deficiency anemia type: unspecified iron deficiency (3) Colon cancer Code(s): C18.9 - MALIGNANT NEOPLASM OF COLON, UNSPECIFIED (4) Renal insufficiency Code(s): N28.9 - DISORDER OF KIDNEY AND URETER, UNSPECIFIED (5) History of Helicobacter pylori infection Code(s): Z86.19 - PERSONAL HISTORY OF OTHER INFECTIOUS AND PARASITIC DISEASES (6) Gastritis due to Helicobacter species Code(s): K29.70 - GASTRITIS, UNSPECIFIED, WITHOUT BLEEDING; B96.81 - HELICOBACTER PYLORI THE CAUSE OF DISEASES CLASSD [id number] (7) Headache Code(s): R51 - HEADACHE (8) High blood pressure Code(s): I10 - ESSENTIAL (PRIMARY) HYPERTENSION
[2018-12-09] MEDS: ACETAMINOPHEN 325 MG TABLET (FP) PO PRN (17:47)
[2018-12-09 18:03] VITALS: BP 114/66; PULSE 86; TEMP 98.4
== END 2018-12-09 20:20 | DRG 683 ==
LOC: JER 14:40 → JERBED 18:46 → J5S 12-02 00:39
PROVIDERS: ADMIT Family Medicine; ATTEND Family Medicine
PROC: 0DB68ZX Excision of Stomach, Via Natural or Artificial Opening Endoscopic, Diagnostic (ICD-10-PCS; 2018-12-05)
PROC: 0DBP8ZX Excision of Rectum, Via Natural or Artificial Opening Endoscopic, Diagnostic (ICD-10-PCS; 2018-12-05)
PROC: 0DBL8ZX Excision of Transverse Colon, Via Natural or Artificial Opening Endoscopic, Diagnostic (ICD-10-PCS; 2018-12-05)
PROC: 0DB58ZX Excision of Esophagus, Via Natural or Artificial Opening Endoscopic, Diagnostic (ICD-10-PCS; principal; 2018-12-05 09:30)
DX: N17.9 Acute kidney failure, unspecified (principal); R64 Cachexia; I16.0 Hypertensive urgency; E78.5 Hyperlipidemia, unspecified; M71.521 Other bursitis, not elsewhere classified, right elbow; R79.89 Other specified abnormal findings of blood chemistry; D50.9 Iron deficiency anemia, unspecified; R80.9 Proteinuria, unspecified; R91.1 Solitary pulmonary nodule; I12.9 Hypertensive chronic kidney disease with stage 1 through stage 4 chronic kidney disease, or unspecified chronic kidney disease; N18.9 Chronic kidney disease, unspecified; R26.81 Unsteadiness on feet; K21.9 Gastro-esophageal reflux disease without esophagitis; D12.6 Benign neoplasm of colon, unspecified; K44.9 Diaphragmatic hernia without obstruction or gangrene; D63.8 Anemia in other chronic diseases classified elsewhere; K57.30 Diverticulosis of large intestine without perforation or abscess without bleeding; D12.3 Benign neoplasm of transverse colon; K62.1 Rectal polyp; Z87.891 Personal history of nicotine dependence; Z85.038 Personal history of other malignant neoplasm of large intestine; Z86.19 Personal history of other infectious and parasitic diseases; Z68.20 Body mass index [BMI] 20.0-20.9, adult
CPT/HCPCS: 36415; 70450-TC; 71046-TC-FY; 71250-TC; 76775-TC; 80048; 80053; 80061; 81003; 82436; 82550; 82565; 82570; 82607; 82728; 82746; 83036; 83516; 83520; 83540; 83550; 83721; 83735; 83880; 84100; 84133; 84155; 84156; 84165; 84300; 84443; 84484; 85025; 85027; 85044; 85610; 85651; 85730; 86038; 86225; 86256; 86704; 86706; 86707; 86708; 86709; 87077; 87086; 87186; 87340; 87522; 88305-TC; 93005; 93010; 93306-TC; 97116-GP; 97161-GP; 99284-25; J0131; J1644

== ENCOUNTER 2018-12-16 00:30 | Inpatient (IN) | payer OTHER ==
--- NOTE | 2018-12-16 01:05 | PDOC ---
History of Present Illness - General Stated Complaint: DIFFICULTYBREATHING History Source: Patient Exam Limitations: No Limitations - History of Present Illness Initial Comments: 12/16/18 01:04 73 yo F with h/o recent admission for renal injury, h/o colon ca, htn hld, anemia, here with concerns for sob, increased work of breathing and cough. Past History - Past Medical History Allergies/Adverse Reactions: Allergies Allergy/AdvReac Type Severity Reaction Status Date / Time No Known Allergies Allergy Verified 12/01/18 15:54 Home Medications: Ambulatory Orders Simvastatin 1 tab PO HS 12/01/18 Acetaminophen [Tylenol .Regular Strength -] 650 mg PO Q6H PRN tablet 12/09/18 Ferrous Sulfate [Feosol] 325 mg PO BID ud 12/09/18 Metoprolol Succinate [Toprol XL -] 50 mg PO BID tab.sr.24h 12/09/18 Nifedipine ER [Procardia XL -] 60 mg PO DAILY tab.er.24 12/09/18 Pantoprazole Sodium [Protonix -] 40 mg PO DAILY tablet.ec 12/09/18 Polyethylene Glycol 3350 [Miralax 119 gm Btl -] 17 gm PO TID bottle 12/09/18 Sennosides [Senna -] 2 tab PO HS tablet 12/09/18 hydrALAZINE HCL [Apresoline -] 50 mg PO TID tablet 12/09/18 COPD: No HTN: Yes - Suicide/Smoking/Psychosocial Hx Smoking History: Never smoked Have you smoked in the past 12 months: No If you are a former smoker, when did you quit?: 1984 Hx Alcohol Use: No Drug/Substance Use Hx: No ED Treatment Course - LABORATORY CBC & Chemistry Diagram: 12/16/18 02:23 12/16/18 02:23 - RADIOLOGY Radiology Studies Ordered: Category Date Time Status CXRPORT [CHEST X-RAY PORTABLE*] [RAD] Stat Radiology 12/16/18 01:02 Ordered *DC/Admit/Observation/Transfer Diagnosis at time of Disposition: Pneumonia - Discharge Dispostion Decision to Admit order: Yes - Referrals - Patient Instructions - Post Discharge Activity
[2018-12-16] MEDS ORDERED: ALBUTEROL SO4 2.5/IPRATROPIUM 0.5 INH SOL 3 ML VIAL.NEB. NEB ONE (01:59)
[2018-12-16 02:40] LABS: VENOUS PC02 42.4 mmHg (41-51); VENOUS PH 7.33 (7.31-7.41); VENOUS PO2 83.7 mmHg (30-40)
[2018-12-16 02:50] LABS: EOS % 0.4 % (0-4.5); HEMATOCRIT 28.6 % (32.4-45.2); HEMOGLOBIN 9.2 GM/dL (10.7-15.3); MCHC 32.1 g/dl (32.0-36.0)
[2018-12-16 02:55] LABS: BASO % 0.4 % (0-2.0); LYMPH % 5.1 % (8-40); MCH 24.9 pg (25.7-33.7); MEAN CELL VOLUME 77.5 fl (80-96); MEAN PLT VOLUME 7.1 fl (7.5-11.1); MONO % 3.3 % (3.8-10.2); NEUT % 90.8 % (42.8-82.8); PLATELET COUNT 463 K/MM3 (134-434); RBC 3.69 M/mm3 (3.60-5.2); RDW 19.1 % (11.6-15.6)
[2018-12-16 03:13] LABS: ALBUMIN 3.2 g/dl (3.4-5.0); BILIRUBIN,TOTAL 0.4 mg/dL (0.2-1); BLOOD UREA NITROGEN 65.9 mg/dL (7-18); CALCIUM 8.6 mg/dL (8.5-10.1); CREATININE 3.2 mg/dL (0.55-1.3); POTASSIUM 4.2 mmol/L (3.5-5.1)
[2018-12-16] MEDS ORDERED: VANCOMYCIN 1 GM in D5W (PRE-DOCKED) 1,000 MG/250 ML IVPB ONE (03:32)
[2018-12-16] MEDS ORDERED: PIPERACILLIN/TAZOB 3.375 GM 3.375 GM in DEXTROSE 5%-WATER - 50 ML IVPB ONE (03:33)
[2018-12-16 03:35] LABS: N-TERMINAL BNP 47093.6 pg/ml (5-450)
[2018-12-16] MEDS ORDERED: VANCOMYCIN 1 GRAM (PRE-DOCKED) 1,000 MG/250 ML BAG IVPB ONE (03:35)
[2018-12-16] MEDS ORDERED: PIPERACILLIN/TAZOB 3.375 GM 3.375 GM/50 ML BAG IVPB ONE (03:36)
--- NOTE | 2018-12-16 05:01 | HP ---
CHIEF COMPLAINT: SOB, cough PCP: Dr. Vrea HISTORY OF PRESENT ILLNESS: 73 year old female with PMHx of Colon Ca, HTN, HLD, Anemia arrived to ED from [place] for evaluaiton of SOB and cough. last admitted on 12/01 for treatment of headache, HTN and GENOVEVA. Patient denies chest pain, fever, chills, nausea, vomit, diarrhea and constipation. Denies dysuria, frequency, urgency and hematuria. ER course was notable for: vanco and zosyn X1 nebulizer treatment Recent Travel:no PAST MEDICAL HISTORY: Colon Ca, HTN, HLD, Anemia PAST SURGICAL HISTORY: 1979 partial hysterectomy 2003 sebaceous cyst removal from scalp 2003 partial colectomy and appendectomy due to colon cancer 2019 Right ankle and foot ORIF 06/21 fracture. Social History: Smoking: Former smoker (1PPD x 18yrs, then 3PPD x 2yrs) Alcohol:no Drugs: no Family Disease History: Other: Father ( (78) CAD), Mother ( (80 ) rectal cancer), Brother ( (88) resp failure), Sister (alive (90)) Other Family History: brother (92) unknown cause Allergies: No Known Allergies Allergy (Verified 12/01/18 15:54) HOME MEDICATIONS: Home Medications Medication Instructions Recorded Simvastatin 1 tab PO HS 12/01/18 Acetaminophen [Tylenol .Regular 650 mg PO Q6H PRN tablet 12/09/18 Strength -] Ferrous Sulfate [Feosol] 325 mg PO BID ud 12/09/18 Metoprolol Succinate [Toprol XL -] 50 mg PO BID tab.sr.24h 12/09/18 Nifedipine ER [Procardia XL -] 60 mg PO DAILY tab.er.24 12/09/18 Pantoprazole Sodium [Protonix -] 40 mg PO DAILY tablet.ec 12/09/18 Polyethylene Glycol 3350 [Miralax 17 gm PO TID bottle 12/09/18 119 gm Btl -] Sennosides [Senna -] 2 tab PO HS tablet 12/09/18 hydrALAZINE HCL [Apresoline -] 50 mg PO TID tablet 12/09/18 REVIEW OF SYSTEMS CONSTITUTIONAL: Absent: fever, chills, diaphoresis, generalized weakness, malaise, loss of appetite, weight change HEENT: Absent: rhinorrhea, nasal congestion, throat pain, throat swelling, difficulty swallowing, mouth swelling, ear pain, eye pain, visual changes CARDIOVASCULAR: Absent: chest pain, syncope, palpitations, irregular heart rate , lightheadedness, peripheral edema RESPIRATORY: +cough, shortness of breath GASTROINTESTINAL: Absent: abdominal pain, abdominal distension, nausea, vomiting , diarrhea, constipation, melena, hematochezia GENITOURINARY: Absent: dysuria, frequency, urgency, hesitancy, hematuria, flank pain, genital pain MUSCULOSKELETAL: Absent: myalgia, arthralgia, joint swelling, back pain, neck pain SKIN: Absent: rash, itching, pallor NEUROLOGIC: Absent: headache, focal weakness or paresthesias, dizziness, unsteady gait, seizure, mental status changes, bladder or bowel incontinence PHYSICAL EXAMINATION Vital Signs - 24 hr 12/16/18 12/16/18 01:20 02:16 Temperature 97.7 F Pulse Rate 94 H Respiratory 17 Rate Blood Pressure 169/111 H O2 Sat by Pulse 98 99 Oximetry (%) GENERAL: Awake, alert, and fully oriented, + BIPAP in place HEENT: NC/AT, EOMI, PERRLA, NO JVD LUNGS: air entry equal, + crackles right side HEART: Regular rate and rhythm, normal S1 and S2, no murmurs, rubs or gallop ABDOMEN: Soft, nontender, normoactive bowel sounds. No guarding, no rebound. No masses EXTREMITIES: Normal range of motion, no edema. No clubbing or cyanosis. NEUROLOGICAL: Cranial nerves II through XII grossly intact. Normal speech SKIN: Warm, dry Laboratory Results - last 24 hr 12/16/18 12/16/18 12/16/18 02:23 02:23 02:23 WBC 19.0 H RBC 3.69 Hgb 9.2 L Hct 28.6 L MCV 77.5 L MCH 24.9 L MCHC 32.1 RDW 19.1 H Plt Count 463 H D MPV 7.1 L Absolute Neuts (auto) 17.3 H Neutrophils % 90.8 H Lymphocytes % 5.1 L D Monocytes % 3.3 L Eosinophils % 0.4 Basophils % 0.4 Nucleated RBC % 0 VBG pH POC VBG pCO2 POC VBG pO2 VBG HCO3 VBG O2 Sat (Eric) VBG Base Excess Sodium Potassium Chloride Carbon Dioxide Anion Gap BUN Creatinine Est GFR (CKD-EPI)AfAm Est GFR (CKD-EPI)NonAf Random Glucose Lactic Acid 1.4 Calcium Total Bilirubin AST ALT Alkaline Phosphatase Creatine Kinase 35 Troponin I < 0.02 B-Natriuretic Peptide 70759.6 H Total Protein Albumin 12/16/18 12/16/18 02:23 02:29 WBC RBC Hgb Hct MCV MCH MCHC RDW Plt Count MPV Absolute Neuts (auto) Neutrophils % Lymphocytes % Monocytes % Eosinophils % Basophils % Nucleated RBC % VBG pH 7.33 POC VBG pCO2 42.4 POC VBG pO2 83.7 H VBG HCO3 21.9 L VBG O2 Sat (Eric) 95.4 H VBG Base Excess -3.2 L Sodium 136 Potassium 4.2 Chloride 103 Carbon Dioxide 23 Anion Gap 10 BUN 65.9 H Creatinine 3.2 H Est GFR (CKD-EPI)AfAm 15.64 Est GFR (CKD-EPI)NonAf 13.49 Random Glucose 133 H Lactic Acid Calcium 8.6 Total Bilirubin 0.4 AST 26 ALT 38 Alkaline Phosphatase 124 H Creatine Kinase Troponin I B-Natriuretic Peptide Total Protein 7.0 Albumin 3.2 L ASSESSMENT/PLAN: 73 year old female with PMHx of Colon Ca, HTN, HLD, Anemia arrived to ED from [place] for evaluation of SOB and cough. # pneumonia CXR with + infiltrate - wbc: 19.0 - BNP: 70034.6 - in ED given Vanco and zosyn x1 - continue with BiPAP then transition to mask if Spo2 greater than 90% - continue with nebulizer - continue with vanco and zosyn -Id follow up - trend cbc #HTN - Continue with Hyralazine - Continue with Procardia XL - continue wiht Toprol XL #HLD - continue with Lipitor # Anemia - continue with Feso4 # GERD - continue with PPI Problem List - Problem (1) Pneumonia Code(s): J18.9 - PNEUMONIA, UNSPECIFIED ORGANISM (2) Pgsyc-ap-uegwmzn kidney injury Code(s): N17.9 - ACUTE KIDNEY FAILURE, UNSPECIFIED; N18.9 - CHRONIC KIDNEY DISEASE, UNSPECIFIED (3) GERD (gastroesophageal reflux disease) Code(s): K21.9 - GASTRO-ESOPHAGEAL REFLUX DISEASE WITHOUT ESOPHAGITIS (4) HLD (hyperlipidemia) Code(s): E78.5 - HYPERLIPIDEMIA, UNSPECIFIED (5) Anemia Code(s): D64.9 - ANEMIA, UNSPECIFIED Qualifiers: Iron deficiency anemia type: unspecified iron deficiency (6) HTN (hypertension) Code(s): I10 - ESSENTIAL (PRIMARY) HYPERTENSION Visit type - Emergency Visit Emergency Visit: Yes Care time: The patient presented to the Emergency Department on the above date and was hospitalized for further evaluation of their emergent condition. - New Patient This patient is new to me today: Yes Date on this admission: 12/16/18 - Critical Care Critical Care patient: No
[2018-12-16] MEDS ORDERED: ALBUTEROL SO4 0.083% IH SOL 2.5 MG/3 ML VIAL.NEB. NEB PRN (05:03)
[2018-12-16] MEDS ORDERED: IPRATROPIUM BR 0.02% 0.5 MG/2.5 ML VIAL.NEB. NEB PRN (05:03)
[2018-12-16] MEDS ORDERED: SODIUM CHLORIDE 0.45% 1,000 ML IV SCH (05:15)
[2018-12-16] MEDS: hydrALAZINE HCL 25 MG TABLET (FP) PO SCH ×3 (06:12→23:44)
[2018-12-16 08:19] VITALS: BMI 16.9
--- NOTE | 2018-12-16 09:28 | EKG ---
Test Reason : Blood Pressure : / mmHG Vent. Rate : 090 BPM Atrial Rate : 090 BPM P-R Int : 174 ms QRS Dur : 086 ms QT Int : 416 ms P-R-T Axes : 060 015 062 degrees QTc Int : 508 ms POOR DATA QUALITY, INTERPRETATION MAY BE ADVERSELY AFFECTED SINUS RHYTHM WITH PREMATURE ATRIAL COMPLEXES POSSIBLE LEFT ATRIAL ENLARGEMENT LEFT VENTRICULAR HYPERTROPHY WITH REPOLARIZATION ABNORMALITY PROLONGED QT ABNORMAL ECG Confirmed by Edson Boo MD ([id number]) on 12/16/2018 9:28:07 AM Referred By: Confirmed By:Edson Boo MD
[2018-12-16] MEDS: FERROUS SO4 325 MG TABLET (FP) PO SCH ×2 (09:36→23:44)
[2018-12-16] MEDS: PANTOPRAZOLE 20 MG TABLET (FP) PO SCH (09:36)
[2018-12-16] MEDS: NIFEdipine E.R 60 MG TABLET (UD) PO SCH (09:36)
[2018-12-16] MEDS: HEPARIN NA (PORCINE) 5,000 UNITS/ML 1ML VIAL SQ SCH ×2 (09:37→23:45)
--- NOTE | 2018-12-16 10:57 | PN ---
Progress Note, Physician Chief Complaint: SOB History of Present Illness: NAD in bed - Current Medication List Current Medications: Active Medications Acetaminophen (Tylenol -) 650 mg PO Q4H PRN PRN Reason: FEVER Albuterol Sulfate (Ventolin 0.083% Nebulizer Soln -) 1 amp NEB Q6H PRN PRN Reason: SHORT OF BREATH/WHEEZING Atorvastatin Calcium (Lipitor -) 10 mg PO DAILY [facility] Ferrous Sulfate (Feosol -) 325 mg PO BID [facility] Last Admin: 12/16/18 09:36 Dose: 325 mg Heparin Sodium (Porcine) (Heparin -) 5,000 unit SQ BID [facility] Last Admin: 12/16/18 09:37 Dose: 5,000 unit Hydralazine HCl (Apresoline -) 50 mg PO TID [facility] Last Admin: 12/16/18 06:12 Dose: 50 mg Sodium Chloride (1/2 Normal Saline) 1,000 mls @ 75 mls/hr IV ASDIR [facility] Last Admin: 12/16/18 06:12 Dose: 75 mls/hr Ipratropium [place] (Atrovent 0.02% Nebulizer -) 1 amp NEB Q6H PRN PRN Reason: WHEEZING Metoprolol Succinate (Toprol Xl -) 50 mg PO BID [facility] Last Admin: 12/16/18 09:36 Dose: 50 mg Nifedipine (Procardia Xl -) 60 mg PO DAILY [facility] Last Admin: 12/16/18 09:36 Dose: 60 mg Pantoprazole Sodium (Protonix -) 40 mg PO DAILY [facility] Last Admin: 12/16/18 09:36 Dose: 40 mg Senna (Senna -) 2 tab PO [facility] - Objective Vital Signs: Vital Signs Temperature 97.7 F 12/16/18 07:48 Pulse Rate 90 12/16/18 07:48 Respiratory Rate 18 12/16/18 07:48 Blood Pressure 162/96 12/16/18 07:48 O2 Sat by Pulse Oximetry (%) 98 12/16/18 07:59 Constitutional: Yes: No Distress, Calm, Cachectic Cardiovascular: Yes: Regular Rate and Rhythm Respiratory: Yes: Regular, On Nasal O2, Rales (BLLE) Genitourinary: Yes: WNL Musculoskeletal: Yes: Muscle Weakness Extremities: Yes: WNL Edema: No Peripheral Pulses WNL: Yes Neurological: Yes: Alert, Oriented Psychiatric: Yes: Alert, Oriented Labs: CBC, BMP 12/16/18 02:23 12/16/18 02:23 Problem List - Problems (1) SOB (shortness of breath) Assessment/Plan: -CHF vs PNE -ID and pulmonary on board -Cardiology consult -Bronchodilators -Nasal O2 -D/C fluids -IV abx -BIPAP at bedside PRN -BNP unreliable due to CKD Code(s): R06.02 - SHORTNESS OF BREATH (2) CKD (chronic kidney disease) Assessment/Plan: -Cr close to her baseline Code(s): N18.9 - CHRONIC KIDNEY DISEASE, UNSPECIFIED (3) Anemia Assessment/Plan: -Chronic -previously low in iron -on Ferrous sulfate -Stool OB -Monitor trend Code(s): D64.9 - ANEMIA, UNSPECIFIED Qualifiers: Iron deficiency anemia type: unspecified iron deficiency (4) Malnourished Assessment/Plan: -add multivitamin daily -Added ensure tid Code(s): E46 - UNSPECIFIED PROTEIN-CALORIE MALNUTRITION Assessment/Plan see problem list Physical therapy DVT prophylaxis
--- NOTE | 2018-12-16 12:17 | PN ---
Progress Note (short form) - Note Progress Note: IMP ACUTE RESPIRATORY DISTRESS LIKELY ACUTE CHF ? PNEUMONIA HTN HEADACHES ANEMIA ACUTE ON CHRONIC KIDNEY DISEASE H/O COLON CA S/P RESECTION H/O PULMONARY NODULE H/O TOBACCO USE PLAN LASIX O2 ABX PER ID F/U CHEST X-RAYS MONITOR BP TITRATE BP MEDS MONITOR RENAL FUNCTION,H+H NORMAL TRANSFUSION THRESHOLD DR ZEPEDA Problem List - Problems (1) Bqscn-rw-phngmtx kidney injury Code(s): N17.9 - ACUTE KIDNEY FAILURE, UNSPECIFIED; N18.9 - CHRONIC KIDNEY DISEASE, UNSPECIFIED (6) Renal insufficiency Code(s): N28.9 - DISORDER OF KIDNEY AND URETER, UNSPECIFIED (7) Pulmonary nodule Code(s): R91.1 - SOLITARY PULMONARY NODULE (8) History of smoking at least 1 pack per day for at least 30 years Code(s): Z87.891 - PERSONAL HISTORY OF NICOTINE DEPENDENCE Problem List - Problems (1) Pneumonia Code(s): J18.9 - PNEUMONIA, UNSPECIFIED ORGANISM (2) Jqxpu-as-ksdvsre kidney injury Code(s): N17.9 - ACUTE KIDNEY FAILURE, UNSPECIFIED; N18.9 - CHRONIC KIDNEY DISEASE, UNSPECIFIED (3) Anemia Code(s): D64.9 - ANEMIA, UNSPECIFIED Qualifiers: Iron deficiency anemia type: unspecified iron deficiency (4) HTN (hypertension) Code(s): I10 - ESSENTIAL (PRIMARY) HYPERTENSION (5) Pulmonary nodule Code(s): R91.1 - SOLITARY PULMONARY NODULE (6) CHF (congestive heart failure) Code(s): I50.9 - HEART FAILURE, UNSPECIFIED
--- NOTE | 2018-12-16 13:03 | PN ---
Progress Note (short form) - Note Progress Note: ID CONSULT DICTATED R/O HCAP ? CHF LEUKOCYTOSIS CKD PENDING CULTURES EMPIRIC ZOSYN, ADJUSTED FOR CKD
--- NOTE | 2018-12-16 13:48 | CONS ---
INFECTIOUS DISEASE CONSULTATION DATE OF CONSULTATION: DATE OF DICTATION: 12/16/2018. REASON FOR CONSULTATION: The patient is a 73-year-old female who was evaluated for pneumonia. HISTORY OF PRESENT ILLNESS: She is a 73-year-old [place] resident. She was recently admitted from December 01 through December 09 for renal insufficiency. She now returns with reports of increasing shortness of breath and cough. The patient states that she was exposed to a roommate who had upper respiratory tract symptoms. She has worsening shortness of breath and cough which is productive of clear sputum. She denies any chest pain or hemoptysis. She denies any associated fever or chills. She was evaluated in the emergency room where a chest x-ray shows new bibasilar infiltrates. She was empirically treated with vancomycin and Zosyn. She was given nebulizer treatment. As part of her initial evaluation her BNP returned at 47,000. At the present time she is awake and alert. She has no complaints of shortness of breath on nasal cannula at rest. She describes ill contacts as noted. Has recently been hospitalized. She is a former smoker, stopped several years ago; however, has history of heavy tobacco use. She reports she is up-to-date with respect to pneumococcal and influenza vaccines. No recent travel. PAST MEDICAL HISTORY: Positive for hypertension, hyperlipidemia, chronic anemia, gastroesophageal reflux, colon cancer, migraine headaches and renal insufficiency. PAST SURGICAL HISTORY: Status post hysterectomy, colectomy, appendectomy, ORIF of the lower extremity. ALLERGIES: None known. MEDICATIONS: Include Tylenol, albuterol, Lipitor, hydralazine, metoprolol, nifedipine, Protonix, vancomycin, Zosyn. SOCIAL HISTORY: As per HPI. REVIEW OF SYSTEMS: Neurologic: No loss of consciousness, seizure activity, focal weakness. Cardiac: Negative chest pain or palpitations. Respiratory: As per HPI. Gastrointestinal: Negative for vomiting or diarrhea. Genitourinary: Positive for chronic kidney disease. LABORATORY DATA: White count 19.0, 90 neutrophils, 5 lymphocytes, 3 monocytes, hematocrit 28.6, platelet count 463. BUN 65, creatinine 3.2. Urinalysis 2 white cells. PHYSICAL EXAMINATION:General: She is awake and alert. She is not acutely toxic-appearing, thin female. Vital Signs: Temperature 97.7, blood pressure 162/91, pulse 90 and regular, respirations 18 per minute. HEENT: Sclerae are anicteric. Heart Sounds: S1, S2. Lungs: Diminished breath sounds bilaterally. Abdomen: Soft, nontender. Extremities: Negative for edema. IMPRESSION: 1. Rule out healthcare-acquired pneumonia. 2. Congestive heart failure. 3. Leukocytosis. 4. Chronic kidney disease. PLAN: Pending sepsis workup, would empirically cover for healthcare-acquired pulmonary pathogens with doses adjusted for renal insufficiency. Cardiology and Pulmonary followup. Further recommendations pending cultures. Will follow. Thank you for the kind referral. KAMI SOLARES M.D. [id number]
[2018-12-16] MEDS: MULTIVITAMINS (DAILY MVI) TABLET (FP) PO SCH (14:59)
--- NOTE | 2018-12-16 15:36 | CONS ---
DATE OF CONSULTATION: 12/16/2018 REFERRING PHYSICIAN: Jeff Vera M.D. HISTORY OF PRESENT ILLNESS: Patient is a 73-year-old white female known to me from previous hospitalization with a past medical history of colon cancer, status post resection many years ago, hypertension, hyperlipidemia, long standing history of tobacco use 2 to 3 packs per day for many years, quit many years ago, anemia, chronic kidney disease, recently discharged from [facility] post hypertensive urgency and headaches. The patient was discharged home in stable condition. Patient was readmitted last night with the complaint of acute onset of shortness of breath. Patient states that last night she had a verbal disagreement with her roommate, apparently started developing increasing shortness of breath, cough productive of clear sputum, no fever, no chills, no hemoptysis. She presented to the emergency department. In the ER, she was noted to be in moderate respiratory distress. She was placed on BIPAP with good clinical response. Of note, she had a chest x-ray performed, which revealed evidence of bilateral infiltrates consolidations. She was placed on broad spectrum antibiotics. Patient denies any fevers, denies any hemoptysis. She denies any chest pains or palpitations. She denies any nausea or vomiting. PAST MEDICAL HISTORY: Again includes colon cancer, status post resection, history of tobacco use many years ago, hypertension, recent headaches, history of pulmonary nodules stable, hyperlipidemia, anemia, chronic kidney disease. REVIEW OF SYSTEMS: Positive orthopnea. Positive dyspnea. Positive mild cough. No chest pain, no palpitations, no fever, no chills, no hemoptysis, no abdominal pain. MEDICATIONS: Current medications include heparin, albuterol, Senna, Procardia, Atrovent. Lipito, normal saline. PHYSICAL EXAMINATION: General: On physical examination, patient is an elderly white female thin, wide awake, alert, in no acute distress. Vitals: She is currently afebrile. Her blood pressure is 162/96, respiratory rate is 18, O2 saturation is 99% on room air. HEENT: Exam is normocephalic, atraumatic. Neck: Supple. Heart: Regular with S1, S2. Chest: Bibasilar crackles. Abdomen: Soft. Bowel sounds are positive. Extremities: No cyanosis, edema. LABORATORY STUDIES: BUN is 65 with creatinine 3.2. WBC is 19, hemoglobin 9.2, hematocrit 28.6 with a platelet count of 463,000. Blood gas: pH 7.33, pCO2 of 42 with pO2 of 83, bicarbonate of 21, saturating 95. Chest x-ray: Bilateral consolidations. Bilateral pleural effusions, which are new from previous exam. Chest CT from prior admission: There is a 3-mm apical nodule. There is 1-mm subpleural nodule at the apex of the right lung, unchanged from previous film August 2016. There is a new nodule 7.8 mm nodule in the right lower lobe. IMPRESSION: 1. Acute respiratory distress with bilateral consolidations. Rule out likely acute on chronic congestive heart failure. 2. Pneumonia. 3. Hypertension. 4. History of headaches. 5. Anemia. 6. Acute on chronic kidney disease. 7. History of colon cancer, status post resection. 8. Pulmonary nodules. 9. History of tobacco use. PLAN: Lasix, antibiotics as per Infectious Disease, supplement O2, follow up chest x-ray, monitor blood pressure, titrate BP medications, monitor renal function, hemoglobin and hematocrit, normal transfusion threshold. ALDO ZEPEDA M.D. [id number] MTDD
--- NOTE | 2018-12-16 16:19 | CON.CARD ---
Consult Consult Specialty:: Cardiology Reason for Consultation:: SOB - History of Present Illness Chief Complaint: SOB History of Present Illness: This is a 73 year old female with a PMH of colon Ca, HTN, HLD, and anemia. She presents from the OR for SOB and a cough. In the ED she received: vanco/zosyn and nebulizer treatment. She was last admitted on 12/01/18 for treatment of headache, HTN and GENOVEVA. Trop neg x1 BNP 47,093 CXR showed CHF with bilateral effusions and basilar atelectasis. EKG NSR at 90 BPM with LVH, normal intervals, normal axis, and NSSTTW changes. ECHOCARDIOGRAM 12/02/18: EF 50 - 55% [place] LV dilatation Normal RV size and function Mild MR Mild to moderate TR - Past Medical History Cardio/Vascular: Yes: HTN, Hyperlipdemia Gastrointestinal: Yes: Cancer (Giles A colon cancer resected 2002), Gastritis ( H. pylori gastritis 2005 on EGD), Other (colon adenomas removed 2005, 2016) Renal/: Yes: Renal Inusuff ...: No Musculoskeletal: Yes: Other (right elbow bursitis, recent right ankle fracture repair) - Past Surgical History Past Surgical History: Yes: Colectomy (partial colectomy for Giles A cancer), Colonoscopy, Hysterectomy, Tonsillectomy, Upper Endoscopy - Alcohol/Substance Use Hx Alcohol Use: No History of Substance Use: reports: None - Smoking History Smoking history: Never smoked Have you smoked in the past 12 months: No If you are a former smoker, when did you quit?: 1984 - Social History Usual Living Arrangement: Alone (never ) ADL: Independent Occupation: retired fom recording industry History of Recent Travel: No Home Medications - Allergies Allergies/Adverse Reactions: Allergies Allergy/AdvReac Type Severity Reaction Status Date / Time No Known Allergies Allergy Verified 12/01/18 15:54 - Home Medications Home Medications: Ambulatory Orders Simvastatin 1 tab PO HS 12/01/18 Acetaminophen [Tylenol .Regular Strength -] 650 mg PO Q6H PRN tablet 12/09/18 Ferrous Sulfate [Feosol] 325 mg PO BID ud 12/09/18 Metoprolol Succinate [Toprol XL -] 50 mg PO BID tab.sr.24h 12/09/18 Nifedipine ER [Procardia XL -] 60 mg PO DAILY tab.er.24 12/09/18 Pantoprazole Sodium [Protonix -] 40 mg PO DAILY tablet.ec 12/09/18 Polyethylene Glycol 3350 [Miralax 119 gm Btl -] 17 gm PO TID bottle 12/09/18 Sennosides [Senna -] 2 tab PO HS tablet 12/09/18 hydrALAZINE HCL [Apresoline -] 50 mg PO TID tablet 12/09/18 Family Disease History - Family Disease History Family Disease History: Other: Father ( (78) CAD), Mother ( (80 ) rectal cancer), Brother ( (88) resp failure), Sister (alive (90)) Vital Signs: Vital Signs Temperature 98.5 F 12/16/18 14:00 Pulse Rate 79 12/16/18 14:00 Respiratory Rate 18 12/16/18 13:00 Blood Pressure 160/93 12/16/18 14:00 O2 Sat by Pulse Oximetry (%) 99 12/16/18 09:00 Constitutional: Yes: No Distress Eyes: Yes: WNL HENT: Yes: WNL, Tonsillar Exudate Respiratory: Yes: Rales (Bibasilar) Gastrointestinal: Yes: Soft Cardiovascular: Yes: Regular Rate and Rhythm JVD: No Heart Sounds: Yes: S1, S2 Edema: LLE: Trace, RLE: Trace Neurological: Yes: Alert, Oriented - Other Data Labs, Other Data: CBC, BMP 12/16/18 02:23 12/16/18 02:23 Troponin, BNP 12/16/18 02:23 Troponin I < 0.02 B-Natriuretic Peptide 28011.6 H Troponin, BNP 12/16/18 02:23 Troponin I < 0.02 B-Natriuretic Peptide 22506.6 H Assessment/Plan 73 year old female with a PMH of colon Ca, HTN, HLD, and anemia. She presents from the OR for SOB and a cough. In the ED she received: vanco/zosyn and nebulizer treatment. She was last admitted on 12/01/18 for treatment of headache, HTN and GENOVEVA. Trop neg x1 BNP 47,093 CXR showed CHF with bilateral effusions and basilar atelectasis. EKG NSR at 90 BPM with LVH, normal intervals, normal axis, and NSSTTW changes. ECHOCARDIOGRAM 12/02/18: EF 50 - 55% CHF Acute on chronic diastolic BNP ^ and CXR c/w CHF Would give Lasix 40 mg IVSS Daily Follow I's/O's/Wt's/Lytes HTN/HLD Continue Nifedipine 60 mgh XL po daily Continue Lipitor 10 mg po daily
[2018-12-16] MEDS ORDERED: PIPERACILLIN/TAZOBACTAM 2.25 GM VIAL IVPB ONE (16:47)
[2018-12-16] MEDS ORDERED: DEXTROSE 5%-WATER - 50 ML IVPB ONE (16:48)
[2018-12-16] MEDS: PIPERACILLIN/TAZOB 2.25 GM 2.25 GM in DEXTROSE 5%-WATER - 50 ML IVPB SCH (17:19)
[2018-12-16] MEDS ORDERED: SIMVASTATIN PO SCH (22:00)
[2018-12-16] MEDS: ACETAMINOPHEN 325 MG TABLET (FP) PO PRN (23:42)
[2018-12-16] MEDS: SENNOSIDES 8.6MG TABLET (FP) PO SCH (23:44)
[2018-12-16] MEDS: ATORVASTATIN CA 10 MG TABLET (FP) PO SCH (23:44)
[2018-12-17] MEDS ORDERED: PIPERACILLIN/TAZOBACTAM 2.25 GM VIAL IVPB ONE ×3 (02:26→17:30)
[2018-12-17] MEDS ORDERED: DEXTROSE 5%-WATER - 50 ML IVPB ONE ×3 (02:26→17:30)
[2018-12-17] MEDS: PIPERACILLIN/TAZOB 2.25 GM 2.25 GM in DEXTROSE 5%-WATER - 50 ML IVPB SCH ×3 (03:02→17:32)
[2018-12-17] MEDS: hydrALAZINE HCL 25 MG TABLET (FP) PO SCH ×3 (05:42→22:53)
[2018-12-17 06:56] LABS: BASO % 0.9 % (0-2.0); EOS % 3.9 % (0-4.5); HEMATOCRIT 26.2 % (32.4-45.2); HEMOGLOBIN 8.6 GM/dL (10.7-15.3); LYMPH % 18.1 % (8-40); MCH 25.4 pg (25.7-33.7); MEAN CELL VOLUME 76.9 fl (80-96); MEAN PLT VOLUME 7.3 fl (7.5-11.1); MONO % 7.2 % (3.8-10.2); NEUT % 69.9 % (42.8-82.8); PLATELET COUNT 336 K/MM3 (134-434); RBC 3.41 M/mm3 (3.60-5.2); RDW 19.9 % (11.6-15.6); WHITE BLOOD COUNT 8.4 K/mm3 (4.0-10.0)
[2018-12-17 07:41] LABS: ALBUMIN 2.8 g/dl (3.4-5.0); BILIRUBIN,TOTAL 0.6 mg/dL (0.2-1); BLOOD UREA NITROGEN 57.6 mg/dL (7-18); CALCIUM 8.6 mg/dL (8.5-10.1); CREATININE 2.9 mg/dL (0.55-1.3); TOT PROT 6.2 g/dl (6.4-8.2)
[2018-12-17] MEDS: PANTOPRAZOLE 20 MG TABLET (FP) PO SCH (09:24)
[2018-12-17] MEDS: MULTIVITAMINS (DAILY MVI) TABLET (FP) PO SCH (09:25)
[2018-12-17] MEDS: FERROUS SO4 325 MG TABLET (FP) PO SCH ×2 (09:25→22:52)
[2018-12-17] MEDS: ATORVASTATIN CA 10 MG TABLET (FP) PO SCH (09:25)
[2018-12-17] MEDS: HEPARIN NA (PORCINE) 5,000 UNITS/ML 1ML VIAL SQ SCH ×2 (09:26→22:53)
[2018-12-17] MEDS: NIFEdipine E.R 60 MG TABLET (UD) PO SCH (09:28)
--- NOTE | 2018-12-17 11:01 | PN ---
Progress Note, Physician History of Present Illness: pulmonary alert,feeling better,less dyspneic - Current Medication List Current Medications: Active Medications Acetaminophen (Tylenol -) 650 mg PO Q4H PRN PRN Reason: FEVER Last Admin: 12/16/18 23:42 Dose: 650 mg Albuterol Sulfate (Ventolin 0.083% Nebulizer Soln -) 1 amp NEB Q6H PRN PRN Reason: SHORT OF BREATH/WHEEZING Atorvastatin Calcium (Lipitor -) 10 mg PO DAILY [facility] Last Admin: 12/17/18 09:25 Dose: 10 mg Ferrous Sulfate (Feosol -) 325 mg PO BID [facility] Last Admin: 12/17/18 09:25 Dose: 325 mg Heparin Sodium (Porcine) (Heparin -) 5,000 unit SQ BID [facility] Last Admin: 12/17/18 09:26 Dose: 5,000 unit Hydralazine HCl (Apresoline -) 50 mg PO TID [facility] Last Admin: 12/17/18 05:42 Dose: 50 mg Piperacillin Sod/Tazobactam (Sod 2.25 gm/ Dextrose) 50 mls @ 100 mls/hr IVPB Q8H-IV [facility]; Protocol Last Admin: 12/17/18 09:25 Dose: 100 mls/hr Ipratropium [place] (Atrovent 0.02% Nebulizer -) 1 amp NEB Q6H PRN PRN Reason: WHEEZING Metoprolol Succinate (Toprol Xl -) 50 mg PO BID [facility] Last Admin: 12/17/18 09:25 Dose: 50 mg Multivitamins/Minerals/Vitamin C (Tab-A-Vit -) 1 tab PO DAILY [facility] Last Admin: 12/17/18 09:25 Dose: 1 tab Nifedipine (Procardia Xl -) 60 mg PO DAILY [facility] Last Admin: 12/17/18 09:28 Dose: 60 mg Pantoprazole Sodium (Protonix -) 40 mg PO DAILY [facility] Last Admin: 12/17/18 09:24 Dose: 40 mg Senna (Senna -) 2 tab PO HS [facility] Last Admin: 12/16/18 23:44 Dose: 2 tab - Objective Vital Signs: Vital Signs Temperature 98.0 F 12/17/18 10:00 Pulse Rate 90 12/17/18 10:00 Respiratory Rate 20 12/17/18 10:00 Blood Pressure 162/86 12/17/18 10:00 O2 Sat by Pulse Oximetry (%) 97 12/17/18 09:00 Constitutional: Yes: Calm, Thin Eyes: Yes: WNL HENT: Yes: WNL Neck: Yes: WNL Cardiovascular: Yes: Regular Rate and Rhythm, S1, S2 Respiratory: Yes: Rales (bibasialar rales) Gastrointestinal: Yes: Normal Bowel Sounds, Soft Extremities: Yes: WNL Edema: No Labs: CBC, BMP 12/17/18 05:45 12/17/18 05:45 - ....Imaging Chest X-ray: Report Reviewed, Image Reviewed (improving congestion) Problem List - Problems (1) Pneumonia Code(s): J18.9 - PNEUMONIA, UNSPECIFIED ORGANISM (2) [id number] kidney injury Code(s): N17.9 - ACUTE KIDNEY FAILURE, UNSPECIFIED; N18.9 - CHRONIC KIDNEY DISEASE, UNSPECIFIED (3) Anemia Code(s): D64.9 - ANEMIA, UNSPECIFIED Qualifiers: Iron deficiency anemia type: unspecified iron deficiency (4) HTN (hypertension) Code(s): I10 - ESSENTIAL (PRIMARY) HYPERTENSION (5) Pulmonary nodule Code(s): R91.1 - SOLITARY PULMONARY NODULE (6) CHF (congestive heart failure) Code(s): I50.9 - HEART FAILURE, UNSPECIFIED Assessment/Plan IMP ACUTE RESPIRATORY DISTRESS IMPROVED LIKELY ACUTE CHF ? PNEUMONIA HTN HEADACHES ANEMIA ACUTE ON CHRONIC KIDNEY DISEASE H/O COLON CA S/P RESECTION H/O PULMONARY NODULE H/O TOBACCO USE PLAN LASIX O2 ABX PER ID F/U CHEST X-RAYS MONITOR BP TITRATE BP MEDS MONITOR RENAL FUNCTION,H+H NORMAL TRANSFUSION THRESHOLD DR ZEPEDA Problem List - Problems (1) Qrelb-vm-[id number] kidney injury Code(s): N17.9 - ACUTE KIDNEY FAILURE, UNSPECIFIED; N18.9 - CHRONIC KIDNEY DISEASE, UNSPECIFIED (6) Renal insufficiency Code(s): N28.9 - DISORDER OF KIDNEY AND URETER, UNSPECIFIED (7) Pulmonary nodule Code(s): R91.1 - SOLITARY PULMONARY NODULE (8) History of smoking at least 1 pack per day for at least 30 years Code(s): Z87.891 - PERSONAL HISTORY OF NICOTINE DEPENDENCE Problem List - Problems (1) Pneumonia Code(s): J18.9 - PNEUMONIA, UNSPECIFIED ORGANISM (2) Qjhiv-zh-zumdeqc kidney injury Code(s): N17.9 - ACUTE KIDNEY FAILURE, UNSPECIFIED; N18.9 - CHRONIC KIDNEY DISEASE, UNSPECIFIED (3) Anemia Code(s): D64.9 - ANEMIA, UNSPECIFIED Qualifiers: Iron deficiency anemia type: unspecified iron deficiency (4) HTN (hypertension) Code(s): I10 - ESSENTIAL (PRIMARY) HYPERTENSION (5) Pulmonary nodule Code(s): R91.1 - SOLITARY PULMONARY NODULE (6) CHF (congestive heart failure) Code(s): I50.9 - HEART FAILURE, UNSPECIFIED
--- NOTE | 2018-12-17 11:25 | PN ---
Progress Note, Physician Chief Complaint: SOB History of Present Illness: NAD in bed Leukocytosis resolved seen by Pulmonary, Cardiology and ID Started on Zosyn pending cultures - Current Medication List Current Medications: Active Medications Acetaminophen (Tylenol -) 650 mg PO Q4H PRN PRN Reason: FEVER Last Admin: 12/16/18 23:42 Dose: 650 mg Albuterol Sulfate (Ventolin 0.083% Nebulizer Soln -) 1 amp NEB Q6H PRN PRN Reason: SHORT OF BREATH/WHEEZING Atorvastatin Calcium (Lipitor -) 10 mg PO DAILY [facility] Last Admin: 12/17/18 09:25 Dose: 10 mg Ferrous Sulfate (Feosol -) 325 mg PO BID [facility] Last Admin: 12/17/18 09:25 Dose: 325 mg Heparin Sodium (Porcine) (Heparin -) 5,000 unit SQ BID [facility] Last Admin: 12/17/18 09:26 Dose: 5,000 unit Hydralazine HCl (Apresoline -) 50 mg PO TID [facility] Last Admin: 12/17/18 05:42 Dose: 50 mg Piperacillin Sod/Tazobactam (Sod 2.25 gm/ Dextrose) 50 mls @ 100 mls/hr IVPB Q8H-IV [facility]; Protocol Last Admin: 12/17/18 09:25 Dose: 100 mls/hr Ipratropium [place] (Atrovent 0.02% Nebulizer -) 1 amp NEB Q6H PRN PRN Reason: WHEEZING Metoprolol Succinate (Toprol Xl -) 50 mg PO BID [facility] Last Admin: 12/17/18 09:25 Dose: 50 mg Multivitamins/Minerals/Vitamin C (Tab-A-Vit -) 1 tab PO DAILY [facility] Last Admin: 12/17/18 09:25 Dose: 1 tab Nifedipine (Procardia Xl -) 60 mg PO DAILY [facility] Last Admin: 12/17/18 09:28 Dose: 60 mg Pantoprazole Sodium (Protonix -) 40 mg PO DAILY [facility] Last Admin: 12/17/18 09:24 Dose: 40 mg Senna (Senna -) 2 tab PO HS [facility] Last Admin: 12/16/18 23:44 Dose: 2 tab - Objective Vital Signs: Vital Signs Temperature 98.0 F 12/17/18 10:00 Pulse Rate 90 12/17/18 10:00 Respiratory Rate 20 12/17/18 10:00 Blood Pressure 162/86 12/17/18 10:00 O2 Sat by Pulse Oximetry (%) 97 12/17/18 09:00 Constitutional: Yes: No Distress, Calm, Cachectic Cardiovascular: Yes: Regular Rate and Rhythm Respiratory: Yes: On Nasal O2, SOB on Exertion Gastrointestinal: Yes: Normal Bowel Sounds, Soft Genitourinary: Yes: Incontinence Musculoskeletal: Yes: Muscle Weakness Extremities: Yes: WNL Edema: No Peripheral Pulses WNL: Yes Neurological: Yes: Alert, Oriented Psychiatric: Yes: Alert, Oriented Labs: CBC, BMP 12/17/18 05:45 12/17/18 05:45 Problem List - Problems (1) SOB (shortness of breath) Assessment/Plan: -CHF vs PNE -ID and pulmonary on board -Cardiology consult -Bronchodilators -Nasal O2 -D/C fluids -IV abx -BIPAP at bedside PRN -BNP unreliable due to CKD Code(s): R06.02 - SHORTNESS OF BREATH (2) CKD (chronic kidney disease) Assessment/Plan: -Cr close to her baseline -nephrology consult Code(s): N18.9 - CHRONIC KIDNEY DISEASE, UNSPECIFIED (3) Anemia Assessment/Plan: -Chronic -previously low in iron -on Ferrous sulfate -Stool OB -Monitor trend Code(s): D64.9 - ANEMIA, UNSPECIFIED Qualifiers: Iron deficiency anemia type: unspecified iron deficiency (4) Malnourished Assessment/Plan: -add multivitamin daily -Added ensure tid Code(s): E46 - UNSPECIFIED PROTEIN-CALORIE MALNUTRITION (5) Acute on chronic diastolic (congestive) heart failure Assessment/Plan: -Seen by cardiology -Tele monitor -Started on IV furosemide Code(s): I50.33 - ACUTE ON CHRONIC DIASTOLIC (CONGESTIVE) HEART FAILURE Assessment/Plan see problem list Physical therapy
--- NOTE | 2018-12-17 15:18 | CONSULT ---
Consult - text type - Consultation Consultation Note: Renal consult for GENOVEVA This is a 73 year old woman with history of Colon Ca, hypertension who presented [place] with SOB and admitted for PNA/CHF with abnormal renal function. Pt was seen by our service on a prior admission for GENOVEVA. Pt seen and examined at the bedside. Reports improvement but not resolution of SOB. Has cough wit sputum production. Denies any chest pain, abd pain, fever or chills. Reports making urine. Denies any NSAID use, flank pain, frequency, urgency or dysuria. PMhx: as above Allergies: NKDA Family Hx: [place] Social Hx: No T/A/D ROS: as per HPI, all other pertinent ros negative Home Medications Medication Instructions Recorded Simvastatin 1 tab PO HS 12/01/18 Acetaminophen [Tylenol .Regular 650 mg PO Q6H PRN tablet 12/09/18 Strength -] Ferrous Sulfate [Feosol] 325 mg PO BID ud 12/09/18 Metoprolol Succinate [Toprol XL -] 50 mg PO BID tab.sr.24h 12/09/18 Nifedipine ER [Procardia XL -] 60 mg PO DAILY tab.er.24 12/09/18 Pantoprazole Sodium [Protonix -] 40 mg PO DAILY tablet.ec 12/09/18 Polyethylene Glycol 3350 [Miralax 17 gm PO TID bottle 12/09/18 119 gm Btl -] Sennosides [Senna -] 2 tab PO HS tablet 12/09/18 hydrALAZINE HCL [Apresoline -] 50 mg PO TID tablet 12/09/18 Vital Signs Temperature 98.2 F 12/17/18 14:00 Pulse Rate 84 12/17/18 14:00 Respiratory Rate 20 12/17/18 14:00 Blood Pressure 107/62 12/17/18 14:00 O2 Sat by Pulse Oximetry (%) 97 12/17/18 09:00 Intake & Output 12/14/18 12/15/18 12/16/18 12/17/18 23:59 23:59 23:59 23:59 Intake Total 1595 110 Balance 1595 110 Weight 47.809 kg NAD awake and alert neck supple, no JVD RRR, no M/R Dec BS, mild rales soft NT/ND no LE edema CBC, BMP 12/17/18 05:45 12/17/18 05:45 Current Medications Acetaminophen (Tylenol -) 650 mg PO Q4H PRN PRN Reason: FEVER Last Admin: 12/16/18 23:42 Dose: 650 mg Albuterol Sulfate (Ventolin 0.083% Nebulizer Soln -) 1 amp NEB Q6H PRN PRN Reason: SHORT OF BREATH/WHEEZING Atorvastatin Calcium (Lipitor -) 10 mg PO DAILY [facility] Last Admin: 12/17/18 09:25 Dose: 10 mg Ferrous Sulfate (Feosol -) 325 mg PO BID [facility] Last Admin: 12/17/18 09:25 Dose: 325 mg Heparin Sodium (Porcine) (Heparin -) 5,000 unit SQ BID [facility] Last Admin: 12/17/18 09:26 Dose: 5,000 unit Hydralazine HCl (Apresoline -) 50 mg PO TID [facility] Last Admin: 12/17/18 14:37 Dose: 50 mg Piperacillin Sod/Tazobactam (Sod 2.25 gm/ Dextrose) 50 mls @ 100 mls/hr IVPB Q8H-IV [facility]; Protocol Last Admin: 12/17/18 09:25 Dose: 100 mls/hr Ipratropium [place] (Atrovent 0.02% Nebulizer -) 1 amp NEB Q6H PRN PRN Reason: WHEEZING Metoprolol Succinate (Toprol Xl -) 50 mg PO BID [facility] Last Admin: 12/17/18 09:25 Dose: 50 mg Multivitamins/Minerals/Vitamin C (Tab-A-Vit -) 1 tab PO DAILY [facility] Last Admin: 12/17/18 09:25 Dose: 1 tab Nifedipine (Procardia Xl -) 60 mg PO DAILY [facility] Last Admin: 12/17/18 09:28 Dose: 60 mg Pantoprazole Sodium (Protonix -) 40 mg PO DAILY [facility] Last Admin: 12/17/18 09:24 Dose: 40 mg Senna (Senna -) 2 tab PO HS [facility] Last Admin: 12/16/18 23:44 Dose: 2 tab 73 year old woman with history of Colon Ca, hypertension who presented [place] with SOB and admitted for PNA/CHF with abnormal renal function #Acute Kidney Injury/Resolving GENOVEVA #CKD #SOB/Cough r/o PNA vs. HF #Anemia Renal function slightly improved from discharge but not yet at baseline Cr of < 2 Check urine studies for FeNa, FeUrea, UPCR Prior work up showed UPCR of 1.8, Non-obstructed kidneys, Negative ANCA, HARSHA, SPEP CXR consistent with HF, would start Lasix 40mg IV daily check iron studies Cardiology follow up Abx as per primary team Thank you Thee Tse DO
[2018-12-17] MEDS: ACETAMINOPHEN 325 MG TABLET (FP) PO PRN ×2 (16:07→22:52)
[2018-12-17] MEDS: FUROSEMIDE 40 MG/4 ML INJECTABLE VIAL IVPUSH SCH (16:07)
--- NOTE | 2018-12-17 16:41 | PN ---
Progress Note, Physician Chief Complaint: SOB History of Present Illness: This is a 73 year old female with a PMH of colon Ca, HTN, HLD, and anemia. [place] from the [place] for [place] and a cough. In the ED she received: vanco/zosyn and nebulizer treatment. She was last admitted on 12/01/18 for treatment of headache, HTN and GENOVEVA. Trop neg x1 BNP 47,093 CXR showed CHF with bilateral effusions and basilar atelectasis. EKG NSR at 90 BPM with LVH, normal intervals, normal axis, and NSSTTW changes. ECHOCARDIOGRAM 12/02/18: EF 50 - 55% [place] LV dilatation Normal RV size and function Mild MR Mild to moderate TR - Current Medication List Current Medications: Active Medications Acetaminophen (Tylenol -) 650 mg PO Q4H PRN PRN Reason: FEVER Last Admin: 12/17/18 16:07 Dose: 650 mg Albuterol Sulfate (Ventolin 0.083% Nebulizer Soln -) 1 amp NEB Q6H PRN PRN Reason: SHORT OF BREATH/WHEEZING Atorvastatin Calcium (Lipitor -) 10 mg PO DAILY [facility] Last Admin: 12/17/18 09:25 Dose: 10 mg Ferrous Sulfate (Feosol -) 325 mg PO BID [facility] Last Admin: 12/17/18 09:25 Dose: 325 mg Furosemide (Lasix Injection -) 40 mg IVPUSH DAILY [facility] Last Admin: 12/17/18 16:07 Dose: 40 mg Heparin Sodium (Porcine) (Heparin -) 5,000 unit SQ BID [facility] Last Admin: 12/17/18 09:26 Dose: 5,000 unit Hydralazine HCl (Apresoline -) 50 mg PO TID [facility] Last Admin: 12/17/18 14:37 Dose: 50 mg Piperacillin Sod/Tazobactam (Sod 2.25 gm/ Dextrose) 50 mls @ 100 mls/hr IVPB Q8H-IV [facility]; Protocol Last Admin: 12/17/18 09:25 Dose: 100 mls/hr Ipratropium [place] (Atrovent 0.02% Nebulizer -) 1 amp NEB Q6H PRN PRN Reason: WHEEZING Metoprolol Succinate (Toprol Xl -) 50 mg PO BID [facility] Last Admin: 12/17/18 09:25 Dose: 50 mg Multivitamins/Minerals/Vitamin C (Tab-A-Vit -) 1 tab PO DAILY [facility] Last Admin: 12/17/18 09:25 Dose: 1 tab Nifedipine (Procardia Xl -) 60 mg PO DAILY [facility] Last Admin: 12/17/18 09:28 Dose: 60 mg Pantoprazole Sodium (Protonix -) 40 mg PO DAILY [facility] Last Admin: 12/17/18 09:24 Dose: 40 mg Senna (Senna -) 2 tab PO HS [facility] Last Admin: 12/16/18 23:44 Dose: 2 tab - Objective Vital Signs: Vital Signs Temperature 98.2 F 12/17/18 14:00 Pulse Rate 84 12/17/18 14:00 Respiratory Rate 20 12/17/18 14:00 Blood Pressure 107/62 12/17/18 14:00 O2 Sat by Pulse Oximetry (%) 97 12/17/18 09:00 Constitutional: Yes: No Distress Eyes: Yes: WNL HENT: Yes: WNL Neck: Yes: WNL Cardiovascular: Yes: Regular Rate and Rhythm, S1, S2 Respiratory: Yes: Rales (Bibasliar) Gastrointestinal: Yes: Soft Edema: LLE: Trace, RLE: Trace Labs: CBC, BMP 12/17/18 05:45 12/17/18 05:45 Assessment/Plan 73 year old female with a PMH of colon Ca, HTN, HLD, and anemia. [place] the [place] for [place] and a cough. In the ED she received: vanco/zosyn and nebulizer treatment. She was last admitted on 12/01/18 for treatment of headache, HTN and GENOVEVA. Trop neg x1 BNP 47,093 CXR showed CHF with bilateral effusions and basilar atelectasis. EKG NSR at 90 BPM with LVH, normal intervals, normal axis, and NSSTTW changes. ECHOCARDIOGRAM 12/02/18: EF 50 - 55% CHF Acute on chronic diastolic BNP ^ and CXR c/w CHF Continue Lasix 40 mg IVSS Daily Follow I's/O's/Wt's/Lytes HTN/HLD Continue Nifedipine 60 mgh XL po daily Continue Lipitor 10 mg po daily
[2018-12-17 19:24] LABS: EPI CELLS 4.6 /HPF (0-5/HPF); HYALINE CASTS 2 /lpf (0-8); PH,URINE 5.5 (5.0-8.0); URINE APPEARANCE CLEAR; URINE BACTERIA 0.8 /hpf (NEGATIVE); URINE BILIRUBIN NEGATIVE (NEGATIVE); URINE COLOR YELLOW; URINE GLUCOSE (UA) NEGATIVE (NEGATIVE); URINE KETONE NEGATIVE (NEGATIVE); URINE LEUK ESTERASE NEGATIVE (NEGATIVE); URINE NITRITE NEGATIVE (NEGATIVE); URINE PROTEIN 1+ (NEGATIVE); URINE RBC 5 /hpf (0-4); URINE UROBILINOGEN 0.2 mg/dL (0.2-1.0); URINE WBC 3 /hpf (0-5)
[2018-12-17] MEDS: SENNOSIDES 8.6MG TABLET (FP) PO SCH (22:52)
[2018-12-18] MEDS ORDERED: PIPERACILLIN/TAZOBACTAM 2.25 GM VIAL IVPB ONE ×2 (01:08→20:58)
[2018-12-18] MEDS ORDERED: DEXTROSE 5%-WATER - 50 ML IVPB ONE ×2 (01:08→20:58)
[2018-12-18] MEDS: PIPERACILLIN/TAZOB 2.25 GM 2.25 GM in DEXTROSE 5%-WATER - 50 ML IVPB SCH ×5 (03:57→21:02)
[2018-12-18] MEDS: hydrALAZINE HCL 25 MG TABLET (FP) PO SCH ×3 (05:24→21:02)
[2018-12-18 07:01] LABS: BASO % 1.2 % (0-2.0); HEMATOCRIT 24.7 % (32.4-45.2); HEMOGLOBIN 8.1 GM/dL (10.7-15.3); LYMPH % 19.6 % (8-40); MCH 25.4 pg (25.7-33.7); MCHC 32.8 g/dl (32.0-36.0); MEAN CELL VOLUME 77.2 fl (80-96); MEAN PLT VOLUME 7.2 fl (7.5-11.1); MONO % 6.8 % (3.8-10.2); NEUT % 67.4 % (42.8-82.8); PLATELET COUNT 333 K/MM3 (134-434); RBC 3.19 M/mm3 (3.60-5.2); RDW 20.2 % (11.6-15.6)
[2018-12-18 07:04] LABS: ALBUMIN 2.8 g/dl (3.4-5.0); BILIRUBIN,TOTAL 0.4 mg/dL (0.2-1); CALCIUM 8.6 mg/dL (8.5-10.1); CREATININE 2.9 mg/dL (0.55-1.3); MAGNESIUM 2.1 mg/dL (1.8-2.4); PHOSPHOROUS 3.3 mg/dL (2.5-4.9); POTASSIUM 3.8 mmol/L (3.5-5.1); TOT PROT 6.1 g/dl (6.4-8.2)
[2018-12-18] MEDS: FERROUS SO4 325 MG TABLET (FP) PO SCH ×2 (09:10→21:02)
[2018-12-18] MEDS: HEPARIN NA (PORCINE) 5,000 UNITS/ML 1ML VIAL SQ SCH ×2 (09:10→21:02)
[2018-12-18] MEDS: MULTIVITAMINS (DAILY MVI) TABLET (FP) PO SCH (09:10)
[2018-12-18] MEDS: PANTOPRAZOLE 20 MG TABLET (FP) PO SCH (09:10)
[2018-12-18] MEDS: FUROSEMIDE 40 MG/4 ML INJECTABLE VIAL IVPUSH SCH (09:10)
[2018-12-18] MEDS: ATORVASTATIN CA 10 MG TABLET (FP) PO SCH (09:10)
[2018-12-18] MEDS: NIFEdipine E.R 60 MG TABLET (UD) PO SCH (09:10)
--- NOTE | 2018-12-18 13:22 | PN ---
Progress Note, Physician Chief Complaint: patient seen and examined - Current Medication List Current Medications: Active Medications Acetaminophen (Tylenol -) 650 mg PO Q4H PRN PRN Reason: FEVER Last Admin: 12/17/18 22:52 Dose: 650 mg Albuterol Sulfate (Ventolin 0.083% Nebulizer Soln -) 1 amp NEB Q6H PRN PRN Reason: SHORT OF BREATH/WHEEZING Atorvastatin Calcium (Lipitor -) 10 mg PO DAILY [facility] Last Admin: 12/18/18 09:10 Dose: 10 mg Ferrous Sulfate (Feosol -) 325 mg PO BID [facility] Last Admin: 12/18/18 09:10 Dose: 325 mg Furosemide (Lasix Injection -) 40 mg IVPUSH DAILY [facility] Last Admin: 12/18/18 09:10 Dose: 40 mg Heparin Sodium (Porcine) (Heparin -) 5,000 unit SQ BID [facility] Last Admin: 12/18/18 09:10 Dose: 5,000 unit Hydralazine HCl (Apresoline -) 50 mg PO TID [facility] Last Admin: 12/18/18 05:24 Dose: 50 mg Piperacillin Sod/Tazobactam (Sod 2.25 gm/ Dextrose) 50 mls @ 100 mls/hr IVPB Q8H-IV [facility]; Protocol Last Admin: 12/18/18 11:01 Dose: 100 mls/hr Ipratropium [place] (Atrovent 0.02% Nebulizer -) 1 amp NEB Q6H PRN PRN Reason: WHEEZING Metoprolol Succinate (Toprol Xl -) 50 mg PO BID [facility] Last Admin: 12/18/18 09:11 Dose: 50 mg Multivitamins/Minerals/Vitamin C (Tab-A-Vit -) 1 tab PO DAILY [facility] Last Admin: 12/18/18 09:10 Dose: 1 tab Nifedipine (Procardia Xl -) 60 mg PO DAILY [facility] Last Admin: 12/18/18 09:10 Dose: 60 mg Pantoprazole Sodium (Protonix -) 40 mg PO DAILY [facility] Last Admin: 12/18/18 09:10 Dose: 40 mg Senna (Senna -) 2 tab PO HS [facility] Last Admin: 12/17/18 22:52 Dose: 2 tab - Objective Vital Signs: Vital Signs Temperature 98.4 F 12/18/18 06:00 Pulse Rate 84 12/18/18 10:00 Respiratory Rate 20 12/18/18 10:00 Blood Pressure 172/86 H 12/18/18 10:00 O2 Sat by Pulse Oximetry (%) 98 12/18/18 09:00 Constitutional: Yes: Calm, Thin Cardiovascular: Yes: Regular Rate and Rhythm, S1 Respiratory: Yes: On Nasal O2, Rales Gastrointestinal: Yes: Normal Bowel Sounds, Soft Edema: No Labs: CBC, BMP 12/18/18 05:33 12/18/18 05:33 Problem List - Problems (1) Acute on chronic diastolic (congestive) heart failure Assessment/Plan: iv lasix Code(s): I50.33 - ACUTE ON CHRONIC DIASTOLIC (CONGESTIVE) HEART FAILURE (2) HLD (hyperlipidemia) Assessment/Plan: statin lipitor Code(s): E78.5 - HYPERLIPIDEMIA, UNSPECIFIED (3) HTN (hypertension) Assessment/Plan: nifedipine hdralazine Code(s): I10 - ESSENTIAL (PRIMARY) HYPERTENSION (4) SOB (shortness of breath) Assessment/Plan: r/o HCAP on iv abx zosyn for now Code(s): R06.02 - SHORTNESS OF BREATH (5) Anemia Assessment/Plan: check iron studies Code(s): D64.9 - ANEMIA, UNSPECIFIED Qualifiers: Iron deficiency anemia type: unspecified iron deficiency
--- NOTE | 2018-12-18 14:11 | PN ---
Progress Note (short form) - Note Progress Note: PULMONARY States breathing is improving. Less cough and wheezing. Vital Signs Period Temp Pulse Resp BP Sys/Roland Pulse Ox Last 24 Hr 98.1 F-98.5 F 83-89 20-20 114-172/71-94 98-98 Gen: NAD at rest Heart: RRR Lung: scattered rhonchi Abd: soft, nontender Ext: no edema CBC, BMP 12/18/18 05:33 12/18/18 05:33 Active Medications Acetaminophen (Tylenol -) 650 mg PO Q4H PRN PRN Reason: FEVER Last Admin: 12/17/18 22:52 Dose: 650 mg Albuterol Sulfate (Ventolin 0.083% Nebulizer Soln -) 1 amp NEB Q6H PRN PRN Reason: SHORT OF BREATH/WHEEZING Atorvastatin Calcium (Lipitor -) 10 mg PO DAILY [facility] Last Admin: 12/18/18 09:10 Dose: 10 mg Ferrous Sulfate (Feosol -) 325 mg PO BID [facility] Last Admin: 12/18/18 09:10 Dose: 325 mg Furosemide (Lasix Injection -) 40 mg IVPUSH DAILY [facility] Last Admin: 12/18/18 09:10 Dose: 40 mg Heparin Sodium (Porcine) (Heparin -) 5,000 unit SQ BID [facility] Last Admin: 12/18/18 09:10 Dose: 5,000 unit Hydralazine HCl (Apresoline -) 50 mg PO TID [facility] Last Admin: 12/18/18 13:17 Dose: 50 mg Piperacillin Sod/Tazobactam (Sod 2.25 gm/ Dextrose) 50 mls @ 100 mls/hr IVPB Q8H-IV [facility]; Protocol Last Admin: 12/18/18 11:01 Dose: 100 mls/hr Ipratropium [place] (Atrovent 0.02% Nebulizer -) 1 amp NEB Q6H PRN PRN Reason: WHEEZING Metoprolol Succinate (Toprol Xl -) 50 mg PO BID [facility] Last Admin: 12/18/18 09:11 Dose: 50 mg Multivitamins/Minerals/Vitamin C (Tab-A-Vit -) 1 tab PO DAILY [facility] Last Admin: 12/18/18 09:10 Dose: 1 tab Nifedipine (Procardia Xl -) 60 mg PO DAILY [facility] Last Admin: 12/18/18 09:10 Dose: 60 mg Pantoprazole Sodium (Protonix -) 40 mg PO DAILY [facility] Last Admin: 12/18/18 09:10 Dose: 40 mg Senna (Senna -) 2 tab PO [facility] Last Admin: 12/17/18 22:52 Dose: 2 tab A/P Acute on Chronic Diastolic Heart Failure Pneumonia Acute on Chronic Renal Failure HTN Anemia - continue lasix - monitor urine output, creatinine - continue antibiotics - O2 ot keep SpO2 >90% - DVT prophylaxis
--- NOTE | 2018-12-18 15:28 | PN ---
Progress Note (short form) - Note Progress Note: Renal follow up for GENOVEVA Pt seen and examined at the bedside awake and alert reports resolution of SOB denies any CP, Abd pain, N/V/D making urine Vital Signs Temperature 98.4 F 12/18/18 06:00 Pulse Rate 84 12/18/18 10:00 Respiratory Rate 20 12/18/18 10:00 Blood Pressure 172/86 H 12/18/18 10:00 O2 Sat by Pulse Oximetry (%) 98 12/18/18 09:00 Intake & Output 12/15/18 12/16/18 12/17/18 12/18/18 23:59 23:59 23:59 23:59 Intake Total 1595 820 120 Balance 1595 820 120 Weight 47.809 kg 47.627 kg NAD awake and alert neck supple, no JVD RRR, no M/R Dec BS, mild rales soft NT/ND no LE edema CBC, BMP 12/18/18 05:33 12/18/18 05:33 Current Medications Acetaminophen (Tylenol -) 650 mg PO Q4H PRN PRN Reason: FEVER Last Admin: 12/17/18 22:52 Dose: 650 mg Albuterol Sulfate (Ventolin 0.083% Nebulizer Soln -) 1 amp NEB Q6H PRN PRN Reason: SHORT OF BREATH/WHEEZING Atorvastatin Calcium (Lipitor -) 10 mg PO DAILY [facility] Last Admin: 12/18/18 09:10 Dose: 10 mg Ferrous Sulfate (Feosol -) 325 mg PO BID [facility] Last Admin: 12/18/18 09:10 Dose: 325 mg Furosemide (Lasix Injection -) 40 mg IVPUSH DAILY [facility] Last Admin: 12/18/18 09:10 Dose: 40 mg Heparin Sodium (Porcine) (Heparin -) 5,000 unit SQ BID [facility] Last Admin: 12/18/18 09:10 Dose: 5,000 unit Hydralazine HCl (Apresoline -) 50 mg PO TID [facility] Last Admin: 12/18/18 13:17 Dose: 50 mg Piperacillin Sod/Tazobactam (Sod 2.25 gm/ Dextrose) 50 mls @ 100 mls/hr IVPB Q8H-IV [facility]; Protocol Last Admin: 12/18/18 11:01 Dose: 100 mls/hr Ipratropium [place] (Atrovent 0.02% Nebulizer -) 1 amp NEB Q6H PRN PRN Reason: WHEEZING Metoprolol Succinate (Toprol Xl -) 50 mg PO BID [facility] Last Admin: 12/18/18 09:11 Dose: 50 mg Multivitamins/Minerals/Vitamin C (Tab-A-Vit -) 1 tab PO DAILY [facility] Last Admin: 12/18/18 09:10 Dose: 1 tab Nifedipine (Procardia Xl -) 60 mg PO DAILY [facility] Last Admin: 12/18/18 09:10 Dose: 60 mg Pantoprazole Sodium (Protonix -) 40 mg PO DAILY [facility] Last Admin: 12/18/18 09:10 Dose: 40 mg Senna (Senna -) 2 tab PO HS [facility] Last Admin: 12/17/18 22:52 Dose: 2 tab 73 year old woman with history of Colon Ca, hypertension who [place] and admitted for PNA/CHF with abnormal renal function #Acute Kidney Injury/Resolving GENOVEVA #CKD #SOB/Cough r/o PNA vs. 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
--- NOTE | 2018-12-18 16:39 | PN ---
Progress Note, Physician Chief Complaint: Clinically improved History of Present Illness: This is a 73 year old female with a PMH of colon Ca, HTN, HLD, and anemia. [place] the [place] for [place] and a [place]. In the ED she received: vanco/zosyn and nebulizer treatment. She was last admitted on 12/01/18 for treatment of headache, HTN and GENOVEVA. Trop neg x1 BNP 47,093 CXR showed CHF with bilateral effusions and basilar atelectasis. EKG NSR at 90 BPM with LVH, normal intervals, normal axis, and NSSTTW changes. ECHOCARDIOGRAM 12/02/18: EF 50 - 55% [place] LV dilatation Normal RV size and function Mild MR Mild to moderate TR - Current Medication List Current Medications: Active Medications Acetaminophen (Tylenol -) 650 mg PO Q4H PRN PRN Reason: FEVER Last Admin: 12/17/18 22:52 Dose: 650 mg Albuterol Sulfate (Ventolin 0.083% Nebulizer Soln -) 1 amp NEB Q6H PRN PRN Reason: SHORT OF BREATH/WHEEZING Atorvastatin Calcium (Lipitor -) 10 mg PO DAILY [facility] Last Admin: 12/18/18 09:10 Dose: 10 mg Ferrous Sulfate (Feosol -) 325 mg PO BID [facility] Last Admin: 12/18/18 09:10 Dose: 325 mg Furosemide (Lasix Injection -) 40 mg IVPUSH DAILY [facility] Last Admin: 12/18/18 09:10 Dose: 40 mg Heparin Sodium (Porcine) (Heparin -) 5,000 unit SQ BID [facility] Last Admin: 12/18/18 09:10 Dose: 5,000 unit Hydralazine HCl (Apresoline -) 50 mg PO TID [facility] Last Admin: 12/18/18 13:17 Dose: 50 mg Piperacillin Sod/Tazobactam (Sod 2.25 gm/ Dextrose) 50 mls @ 100 mls/hr IVPB Q8H-IV [facility]; Protocol Last Admin: 12/18/18 11:01 Dose: 100 mls/hr Ipratropium [place] (Atrovent 0.02% Nebulizer -) 1 amp NEB Q6H PRN PRN Reason: WHEEZING Metoprolol Succinate (Toprol Xl -) 50 mg PO BID [facility] Last Admin: 12/18/18 09:11 Dose: 50 mg Multivitamins/Minerals/Vitamin C (Tab-A-Vit -) 1 tab PO DAILY [facility] Last Admin: 12/18/18 09:10 Dose: 1 tab Nifedipine (Procardia Xl -) 60 mg PO DAILY [facility] Last Admin: 12/18/18 09:10 Dose: 60 mg Pantoprazole Sodium (Protonix -) 40 mg PO DAILY [facility] Last Admin: 12/18/18 09:10 Dose: 40 mg Senna (Senna -) 2 tab PO HS [facility] Last Admin: 12/17/18 22:52 Dose: 2 tab - Objective Vital Signs: Vital Signs Temperature 98.2 F 12/18/18 14:00 Pulse Rate 96 H 12/18/18 14:00 Respiratory Rate 20 12/18/18 14:00 Blood Pressure 121/79 12/18/18 14:00 O2 Sat by Pulse Oximetry (%) 98 12/18/18 09:00 Constitutional: Yes: No Distress Eyes: Yes: WNL HENT: Yes: WNL Neck: Yes: WNL Cardiovascular: Yes: WNL, Regular Rate and Rhythm, S1, S2 Respiratory: Yes: CTA Bilaterally (minimal scattered), Rhonchi Gastrointestinal: Yes: Soft Extremities: Yes: WNL Edema: No Neurological: Yes: Alert, Oriented Labs: CBC, BMP 12/18/18 05:33 12/18/18 05:33 Assessment/Plan 73 year old female with a PMH of colon Ca, HTN, HLD, and anemia. [place]. In the ED she received: vanco/zosyn and nebulizer treatment. She was last admitted on 12/01/18 for treatment of headache, HTN and GENOVEVA. Trop neg x1 BNP 47,093 CXR showed CHF with bilateral effusions and basilar atelectasis. EKG NSR at 90 BPM with LVH, normal intervals, normal axis, and NSSTTW changes. ECHOCARDIOGRAM 12/02/18: EF 50 - 55% CHF Acute on chronic diastolic BNP ^ and CXR c/w CHF Would change to PO Lasix 40 mg daily HTN/HLD Continue Nifedipine 60 mgh XL po daily Continue Lipitor 10 mg po daily Call prn
--- NOTE | 2018-12-18 19:58 | PN ---
Progress Note, Physician History of Present Illness: C/O HEADACHE NO C/O CHEST PAIN/ DYSPNEA/ COUGH AFEBRILE WBC WNL - Current Medication List Current Medications: Active Medications Acetaminophen (Tylenol -) 650 mg PO Q4H PRN PRN Reason: FEVER Last Admin: 12/17/18 22:52 Dose: 650 mg Albuterol Sulfate (Ventolin 0.083% Nebulizer Soln -) 1 amp NEB Q6H PRN PRN Reason: SHORT OF BREATH/WHEEZING Atorvastatin Calcium (Lipitor -) 10 mg PO DAILY [facility] Last Admin: 12/18/18 09:10 Dose: 10 mg Ferrous Sulfate (Feosol -) 325 mg PO BID [facility] Last Admin: 12/18/18 09:10 Dose: 325 mg Furosemide (Lasix Injection -) 40 mg IVPUSH DAILY [facility] Last Admin: 12/18/18 09:10 Dose: 40 mg Heparin Sodium (Porcine) (Heparin -) 5,000 unit SQ BID [facility] Last Admin: 12/18/18 09:10 Dose: 5,000 unit Hydralazine HCl (Apresoline -) 50 mg PO TID [facility] Last Admin: 12/18/18 13:17 Dose: 50 mg Piperacillin Sod/Tazobactam (Sod 2.25 gm/ Dextrose) 50 mls @ 100 mls/hr IVPB Q8H-IV [facility]; Protocol Last Admin: 12/18/18 17:30 Dose: Not Given Ipratropium [place] (Atrovent 0.02% Nebulizer -) 1 amp NEB Q6H PRN PRN Reason: WHEEZING Metoprolol Succinate (Toprol Xl -) 50 mg PO BID [facility] Last Admin: 12/18/18 09:11 Dose: 50 mg Multivitamins/Minerals/Vitamin C (Tab-A-Vit -) 1 tab PO DAILY [facility] Last Admin: 12/18/18 09:10 Dose: 1 tab Nifedipine (Procardia Xl -) 60 mg PO DAILY [facility] Last Admin: 12/18/18 09:10 Dose: 60 mg Pantoprazole Sodium (Protonix -) 40 mg PO DAILY [facility] Last Admin: 12/18/18 09:10 Dose: 40 mg Senna (Senna -) 2 tab PO HS [facility] Last Admin: 12/17/18 22:52 Dose: 2 tab - Objective Vital Signs: Vital Signs Temperature 98.4 F 12/18/18 17:00 Pulse Rate 83 12/18/18 17:00 Respiratory Rate 20 12/18/18 17:00 Blood Pressure 121/51 L 12/18/18 17:00 O2 Sat by Pulse Oximetry (%) 98 12/18/18 09:00 Constitutional: Yes: No Distress Cardiovascular: Yes: Regular Rate and Rhythm, S1, S2 Respiratory: Yes: Diminished Gastrointestinal: Yes: Normal Bowel Sounds, Soft Edema: No Labs: CBC, BMP 12/18/18 05:33 12/18/18 05:33 Assessment/Plan R/O HCAP CHF LEUKOCYTOSIS RESOLVED CKD CONTINUE ZOSYN
[2018-12-18] MEDS: SENNOSIDES 8.6MG TABLET (FP) PO SCH (21:02)
[2018-12-18] MEDS: ACETAMINOPHEN 325 MG TABLET (FP) PO PRN (23:54)
[2018-12-19] MEDS: PIPERACILLIN/TAZOB 2.25 GM 2.25 GM in DEXTROSE 5%-WATER - 50 ML IVPB SCH ×3 (04:00→11:38)
[2018-12-19] MEDS: hydrALAZINE HCL 25 MG TABLET (FP) PO SCH ×3 (06:31→22:40)
[2018-12-19] MEDS: ACETAMINOPHEN 325 MG TABLET (FP) PO PRN (06:32)
[2018-12-19 08:09] LABS: BASO % 1.1 % (0-2.0); EOS % 5.3 % (0-4.5); HEMATOCRIT 25.4 % (32.4-45.2); HEMOGLOBIN 8.4 GM/dL (10.7-15.3); LYMPH % 15.9 % (8-40); MCH 25.4 pg (25.7-33.7); MCHC 32.9 g/dl (32.0-36.0); MEAN CELL VOLUME 77.2 fl (80-96); MEAN PLT VOLUME 7.2 fl (7.5-11.1); MONO % 7.1 % (3.8-10.2); NEUT % 70.6 % (42.8-82.8); RBC 3.29 M/mm3 (3.60-5.2); RDW 20.6 % (11.6-15.6); WHITE BLOOD COUNT 7.5 K/mm3 (4.0-10.0)
[2018-12-19 08:16] LABS: ALBUMIN 2.7 g/dl (3.4-5.0); BILIRUBIN,TOTAL 0.4 mg/dL (0.2-1); BLOOD UREA NITROGEN 57.5 mg/dL (7-18); CALCIUM 8.8 mg/dL (8.5-10.1); POTASSIUM 3.7 mmol/L (3.5-5.1)
[2018-12-19 09:16] LABS: PLATELET COUNT 342 K/MM3 (134-434)
[2018-12-19] MEDS: ATORVASTATIN CA 10 MG TABLET (FP) PO SCH (09:53)
[2018-12-19] MEDS: NIFEdipine E.R 60 MG TABLET (UD) PO SCH (09:53)
[2018-12-19] MEDS: FERROUS SO4 325 MG TABLET (FP) PO SCH ×2 (09:54→22:40)
[2018-12-19] MEDS: HEPARIN NA (PORCINE) 5,000 UNITS/ML 1ML VIAL SQ SCH ×2 (09:54→22:40)
[2018-12-19] MEDS: PANTOPRAZOLE 20 MG TABLET (FP) PO SCH (09:54)
[2018-12-19] MEDS: MULTIVITAMINS (DAILY MVI) TABLET (FP) PO SCH (09:54)
[2018-12-19] MEDS: FUROSEMIDE 40 MG/4 ML INJECTABLE VIAL IVPUSH SCH (09:54)
[2018-12-19 12:02] LABS: ANISOCYTOSIS 1+; MACROCYTOSIS 0; PLATELET ESTIMATE NORMAL
--- NOTE | 2018-12-19 12:05 | PN ---
Progress Note, Physician History of Present Illness: AWAKE, ALERT OOB IN CHAIR NO C/O CHEST PAIN/ DYSPNEA/ COUGH AFEBRILE WBC WNL - Current Medication List Current Medications: Active Medications Acetaminophen (Tylenol -) 650 mg PO Q4H PRN PRN Reason: FEVER Last Admin: 12/19/18 06:32 Dose: 650 mg Albuterol Sulfate (Ventolin 0.083% Nebulizer Soln -) 1 amp NEB Q6H PRN PRN Reason: SHORT OF BREATH/WHEEZING Last Admin: 12/18/18 20:45 Dose: 1 amp Atorvastatin Calcium (Lipitor -) 10 mg PO DAILY [facility] Last Admin: 12/19/18 09:53 Dose: 10 mg Ferrous Sulfate (Feosol -) 325 mg PO BID [facility] Last Admin: 12/19/18 09:54 Dose: 325 mg Furosemide (Lasix Injection -) 40 mg IVPUSH DAILY [facility] Last Admin: 12/19/18 09:54 Dose: 40 mg Heparin Sodium (Porcine) (Heparin -) 5,000 unit SQ BID [facility] Last Admin: 12/19/18 09:54 Dose: 5,000 unit Hydralazine HCl (Apresoline -) 50 mg PO TID [facility] Last Admin: 12/19/18 06:31 Dose: 50 mg Piperacillin Sod/Tazobactam (Sod 2.25 gm/ Dextrose) 50 mls @ 100 mls/hr IVPB Q8H-IV [facility]; Protocol Last Admin: 12/19/18 11:38 Dose: 100 mls/hr Ipratropium [place] (Atrovent 0.02% Nebulizer -) 1 amp NEB Q6H PRN PRN Reason: WHEEZING Last Admin: 12/18/18 20:45 Dose: 1 amp Metoprolol Succinate (Toprol Xl -) 50 mg PO BID [facility] Last Admin: 12/19/18 09:54 Dose: 50 mg Multivitamins/Minerals/Vitamin C (Tab-A-Vit -) 1 tab PO DAILY [facility] Last Admin: 12/19/18 09:54 Dose: 1 tab Nifedipine (Procardia Xl -) 60 mg PO DAILY [facility] Last Admin: 12/19/18 09:53 Dose: 60 mg Pantoprazole Sodium (Protonix -) 40 mg PO DAILY [facility] Last Admin: 12/19/18 09:54 Dose: 40 mg Senna (Senna -) 2 tab PO HS [facility] Last Admin: 12/18/18 21:02 Dose: 2 tab - Objective Vital Signs: Vital Signs Temperature 97.8 F 12/19/18 05:55 Pulse Rate 101 H 12/19/18 08:51 Respiratory Rate 20 12/19/18 08:51 Blood Pressure 164/79 12/19/18 08:51 O2 Sat by Pulse Oximetry (%) 98 12/19/18 08:50 Constitutional: Yes: No Distress Cardiovascular: Yes: Regular Rate and Rhythm, S1, S2 Respiratory: Yes: Diminished Gastrointestinal: Yes: Normal Bowel Sounds, Soft. No: Tenderness Labs: CBC, BMP 12/19/18 06:46 12/19/18 06:46 Assessment/Plan R/O HCAP CHF LEUKOCYTOSIS RESOLVED CKD [facility] AUGMENTIN, ADJUSTED FOR CKD
--- NOTE | 2018-12-19 14:42 | PN ---
Progress Note (short form) - Note Progress Note: Renal follow up for GENOVEVA Pt seen and examined at the bedside awake and alert reports resolution of SOB no acute complaints Vital Signs Temperature 97.8 F 12/19/18 05:55 Pulse Rate 101 H 12/19/18 08:51 Respiratory Rate 20 12/19/18 08:51 Blood Pressure 164/79 12/19/18 08:51 O2 Sat by Pulse Oximetry (%) 98 12/19/18 08:50 Intake & Output 12/16/18 12/17/18 12/18/18 12/19/18 23:59 23:59 23:59 23:59 Intake Total 1595 820 410 360 Balance 1595 820 410 360 Weight 47.809 kg 47.627 kg NAD awake and alert neck supple, no JVD RRR, no M/R Dec BS, mild rales soft NT/ND no LE edema CBC, BMP 12/19/18 06:46 12/19/18 06:46 Current Medications Acetaminophen (Tylenol -) 650 mg PO Q4H PRN PRN Reason: FEVER Last Admin: 12/19/18 06:32 Dose: 650 mg Albuterol Sulfate (Ventolin 0.083% Nebulizer Soln -) 1 amp NEB Q6H PRN PRN Reason: SHORT OF BREATH/WHEEZING Last Admin: 12/18/18 20:45 Dose: 1 amp Amoxicillin/Clavulanate Potassium (Augmentin - 500mg Tablet) 1 tab PO DAILY@ 0800 [facility] Atorvastatin Calcium (Lipitor -) 10 mg PO DAILY [facility] Last Admin: 12/19/18 09:53 Dose: 10 mg Ferrous Sulfate (Feosol -) 325 mg PO BID [facility] Last Admin: 12/19/18 09:54 Dose: 325 mg Furosemide (Lasix Injection -) 40 mg IVPUSH DAILY [facility] Last Admin: 12/19/18 09:54 Dose: 40 mg Heparin Sodium (Porcine) (Heparin -) 5,000 unit SQ BID [facility] Last Admin: 12/19/18 09:54 Dose: 5,000 unit Hydralazine HCl (Apresoline -) 50 mg PO TID [facility] Last Admin: 12/19/18 13:12 Dose: 50 mg Ipratropium [place] (Atrovent 0.02% Nebulizer -) 1 amp NEB Q6H PRN PRN Reason: WHEEZING Last Admin: 12/18/18 20:45 Dose: 1 amp Metoprolol Succinate (Toprol Xl -) 50 mg PO BID [facility] Last Admin: 12/19/18 09:54 Dose: 50 mg Multivitamins/Minerals/Vitamin C (Tab-A-Vit -) 1 tab PO DAILY [facility] Last Admin: 12/19/18 09:54 Dose: 1 tab Nifedipine (Procardia Xl -) 60 mg PO DAILY [facility] Last Admin: 12/19/18 09:53 Dose: 60 mg Pantoprazole Sodium (Protonix -) 40 mg PO DAILY [facility] Last Admin: 12/19/18 09:54 Dose: 40 mg Senna (Senna -) 2 tab PO HS [facility] Last Admin: 12/18/18 21:02 Dose: 2 tab 73 year old woman with history of Colon Ca, hypertension who [place] with SOB and admitted for PNA/CHF with abnormal renal function #Acute Kidney Injury/Resolving GENOVEVA #CKD #SOB/Cough r/o PNA vs. HF #Anemia Renal function stable, no acute need for BAG MAKER Baseline Cr is 1.16 as of October. Pt with likely ATN as cause of injury. Awaiting improvement no overt acidosis, hyperkalemia or refractory volume overload to warrant BAG MAKER FeUrea is 53.7% indicating tubular damage and UPCR is 1.7 (subnephrotic) Prior work up showed UPCR of 1.8, Non-obstructed kidneys, Negative ANCA, HARSHA, SPEP Continue IV Lasix daily for volume management Cardiology follow up Abx as per primary team s/p Luis Thank you Thee Tse DO
--- NOTE | 2018-12-19 14:43 | PN ---
Progress Note (short form) - Note Progress Note: Breathing is improving. Less cough and wheezing. No acute events overnight. Intake & Output 12/16/18 12/17/18 12/18/18 12/19/18 23:59 23:59 23:59 23:59 Intake Total 1595 820 410 360 Balance 1595 820 410 360 Weight 105 lb 6.4 oz 105 lb Last Vital Signs Temp Pulse Resp BP Pulse Ox 97.8 F 101 H 20 164/79 98 12/19/18 05:55 12/19/18 08:51 12/19/18 08:51 12/19/18 08:51 12/19/18 08:50 Active Medications Acetaminophen (Tylenol -) 650 mg PO Q4H PRN PRN Reason: FEVER Last Admin: 12/19/18 06:32 Dose: 650 mg Albuterol Sulfate (Ventolin 0.083% Nebulizer Soln -) 1 amp NEB Q6H PRN PRN Reason: SHORT OF BREATH/WHEEZING Last Admin: 12/18/18 20:45 Dose: 1 amp Amoxicillin/Clavulanate Potassium (Augmentin - 500mg Tablet) 1 tab PO DAILY@ 0800 [facility] Atorvastatin Calcium (Lipitor -) 10 mg PO DAILY [facility] Last Admin: 12/19/18 09:53 Dose: 10 mg Ferrous Sulfate (Feosol -) 325 mg PO BID [facility] Last Admin: 12/19/18 09:54 Dose: 325 mg Furosemide (Lasix Injection -) 40 mg IVPUSH DAILY [facility] Last Admin: 12/19/18 09:54 Dose: 40 mg Heparin Sodium (Porcine) (Heparin -) 5,000 unit SQ BID [facility] Last Admin: 12/19/18 09:54 Dose: 5,000 unit Hydralazine HCl (Apresoline -) 50 mg PO TID [facility] Last Admin: 12/19/18 13:12 Dose: 50 mg Ipratropium [place] (Atrovent 0.02% Nebulizer -) 1 amp NEB Q6H PRN PRN Reason: WHEEZING Last Admin: 12/18/18 20:45 Dose: 1 amp Metoprolol Succinate (Toprol Xl -) 50 mg PO BID [facility] Last Admin: 12/19/18 09:54 Dose: 50 mg Multivitamins/Minerals/Vitamin C (Tab-A-Vit -) 1 tab PO DAILY [facility] Last Admin: 12/19/18 09:54 Dose: 1 tab Nifedipine (Procardia Xl -) 60 mg PO DAILY [facility] Last Admin: 12/19/18 09:53 Dose: 60 mg Pantoprazole Sodium (Protonix -) 40 mg PO DAILY [facility] Last Admin: 12/19/18 09:54 Dose: 40 mg Senna (Senna -) 2 tab PO HS [facility] Last Admin: 12/18/18 21:02 Dose: 2 tab Gen: NAD at rest Heart: RRR Lung: scattered rhonchi Abd: soft, nontender Ext: no edema Laboratory Results - last 24 hr 12/18/18 12/19/18 12/19/18 05:33 06:46 06:46 WBC 7.5 RBC 3.29 L Hgb 8.4 L Hct 25.4 L MCV 77.2 L MCH 25.4 L MCHC 32.9 RDW 20.6 H Plt Count 342 MPV 7.2 L Absolute Neuts (auto) 5.3 Neutrophils % 70.6 Lymphocytes % 15.9 Monocytes % 7.1 Eosinophils % 5.3 H Basophils % 1.1 Nucleated RBC % 0 Hypochromia 0 Platelet Estimate Normal Polychromasia 0 Poikilocytosis 0 Basophilic Stippling 1+ Anisocytosis 1+ Microcytosis 1+ Macrocytosis 0 Sodium 139 137 Potassium 3.8 3.7 Chloride 103 99 Carbon Dioxide 27 29 Anion Gap 9 9 BUN 60.0 H 57.5 H Creatinine 2.9 H 3.0 H Est GFR (CKD-EPI)AfAm 17.62 16.91 Est GFR (CKD-EPI)NonAf 15.20 14.59 Random Glucose 92 92 Calcium 8.6 8.8 Phosphorus 3.3 Magnesium 2.1 Iron 27 L TIBC 215 L Iron Saturation 12 L Unsaturated IBC 188 L Total Bilirubin 0.4 0.4 AST 16 18 ALT 25 24 Alkaline Phosphatase 86 84 Total Protein 6.1 L 6.0 L Albumin 2.8 L 2.7 L A/P Acute on Chronic Diastolic Heart Failure Pneumonia Acute on Chronic Renal Failure HTN Anemia - PO ABX per ID - continue lasix - monitor urine output, creatinine - continue antibiotics - O2 as needed maintain saturation - DVT prophylaxis Dr Davis
--- NOTE | 2018-12-19 14:53 | PN ---
Progress Note, Physician Chief Complaint: patient is in chair no distress - Current Medication List Current Medications: Active Medications Acetaminophen (Tylenol -) 650 mg PO Q4H PRN PRN Reason: FEVER Last Admin: 12/19/18 06:32 Dose: 650 mg Albuterol Sulfate (Ventolin 0.083% Nebulizer Soln -) 1 amp NEB Q6H PRN PRN Reason: SHORT OF BREATH/WHEEZING Last Admin: 12/18/18 20:45 Dose: 1 amp Amoxicillin/Clavulanate Potassium (Augmentin - 500mg Tablet) 1 tab PO DAILY@ 0800 [facility] Atorvastatin Calcium (Lipitor -) 10 mg PO DAILY [facility] Last Admin: 12/19/18 09:53 Dose: 10 mg Ferrous Sulfate (Feosol -) 325 mg PO BID [facility] Last Admin: 12/19/18 09:54 Dose: 325 mg Furosemide (Lasix Injection -) 40 mg IVPUSH DAILY [facility] Last Admin: 12/19/18 09:54 Dose: 40 mg Heparin Sodium (Porcine) (Heparin -) 5,000 unit SQ BID [facility] Last Admin: 12/19/18 09:54 Dose: 5,000 unit Hydralazine HCl (Apresoline -) 50 mg PO TID [facility] Last Admin: 12/19/18 13:12 Dose: 50 mg Ipratropium [place] (Atrovent 0.02% Nebulizer -) 1 amp NEB Q6H PRN PRN Reason: WHEEZING Last Admin: 12/18/18 20:45 Dose: 1 amp Metoprolol Succinate (Toprol Xl -) 50 mg PO BID [facility] Last Admin: 12/19/18 09:54 Dose: 50 mg Multivitamins/Minerals/Vitamin C (Tab-A-Vit -) 1 tab PO DAILY [facility] Last Admin: 12/19/18 09:54 Dose: 1 tab Nifedipine (Procardia Xl -) 60 mg PO DAILY [facility] Last Admin: 12/19/18 09:53 Dose: 60 mg Pantoprazole Sodium (Protonix -) 40 mg PO DAILY [facility] Last Admin: 12/19/18 09:54 Dose: 40 mg Senna (Senna -) 2 tab PO HS [facility] Last Admin: 12/18/18 21:02 Dose: 2 tab - Objective Vital Signs: Vital Signs Temperature 97.8 F 12/19/18 05:55 Pulse Rate 101 H 08/02/19 08:51 Respiratory Rate 20 12/19/18 08:51 Blood Pressure 164/79 12/19/18 08:51 O2 Sat by Pulse Oximetry (%) 98 12/19/18 08:50 Constitutional: Yes: Calm, Thin Cardiovascular: Yes: Regular Rate and Rhythm, S1, S2 Respiratory: Yes: Diminished Gastrointestinal: Yes: Normal Bowel Sounds, Soft Edema: No Neurological: Yes: Alert Labs: CBC, BMP 12/19/18 06:46 12/19/18 06:46 Problem List - Problems (1) Acute on chronic diastolic (congestive) heart failure Assessment/Plan: iv lasix today will change to po lasix tmw Code(s): I50.33 - ACUTE ON CHRONIC DIASTOLIC (CONGESTIVE) HEART FAILURE (2) HLD (hyperlipidemia) Assessment/Plan: statin lipitor Code(s): E78.5 - HYPERLIPIDEMIA, UNSPECIFIED (3) HTN (hypertension) Assessment/Plan: nifedipine hdralazine Code(s): I10 - ESSENTIAL (PRIMARY) HYPERTENSION (4) SOB (shortness of breath) Assessment/Plan: r/o HCAP on iv abx zosyn now change to po augmetin 500mg daily for 7 days Code(s): R06.02 - SHORTNESS OF BREATH (5) Anemia Assessment/Plan: iron level noted started on venofer Code(s): D64.9 - ANEMIA, UNSPECIFIED Qualifiers: Iron deficiency anemia type: unspecified iron deficiency Assessment/Plan dc to [facility] in AM in breathing is better
--- NOTE | 2018-12-19 14:57 | DS ---
Physical Examination Vital Signs: Vital Signs Temperature 97.8 F 12/19/18 05:55 Pulse Rate 101 H 12/19/18 08:51 Respiratory Rate 20 12/19/18 08:51 Blood Pressure 164/79 12/19/18 08:51 O2 Sat by Pulse Oximetry (%) 98 12/19/18 08:50 Constitutional: Yes: Calm, Thin Cardiovascular: Yes: Regular Rate and Rhythm, S1, S2 Respiratory: Yes: Diminished Gastrointestinal: Yes: Normal Bowel Sounds, Soft Edema: No Neurological: Yes: Alert, Confusion Labs: CBC, BMP 12/19/18 06:46 12/19/18 06:46 Discharge Summary Reason For Visit: PNEUMONIA Current Active Problems Acute on chronic diastolic (congestive) heart failure (Acute) CHF (congestive heart failure) (Acute) CKD (chronic kidney disease) (Acute) GERD (gastroesophageal reflux disease) (Acute) HLD (hyperlipidemia) (Acute) Malnourished (Acute) Pneumonia (Acute) SOB (shortness of breath) (Acute) Hospital Course: 73 yr old female admittefor acute on chronic diastolic CHF- iv lasix 40mg and then change to po lasix daily HCAP on zosyn iv and then change to po augmentin 500mg po dily Condition: Improved - Instructions Diet, Activity, Other Instructions: to [facility] with augmetin daily for 7 days lasix 40mg po daily Disposition[facility] - Home Medications Comprehensive Discharge Medication List: Ambulatory Orders Simvastatin 1 tab PO HS 12/01/18 Acetaminophen [Tylenol .Regular Strength -] 650 mg PO Q6H PRN tablet 12/09/18 Ferrous Sulfate [Feosol] 325 mg PO BID ud 12/09/18 Metoprolol Succinate [Toprol XL -] 50 mg PO BID tab.sr.24h 12/09/18 Nifedipine ER [Procardia XL -] 60 mg PO DAILY tab.er.24 12/09/18 Pantoprazole Sodium [Protonix -] 40 mg PO DAILY tablet.ec 12/09/18 Polyethylene Glycol 3350 [Miralax 119 gm Btl -] 17 gm PO TID bottle 12/09/18 Sennosides [Senna -] 2 tab PO HS tablet 12/09/18 hydrALAZINE HCL [Apresoline -] 50 mg PO TID tablet 12/09/18 Amox-Tr/K Cl [Augmentin 500-125mg Tablet -] 1 tab PO DAILY@0800 #7 tablet Furosemide [Lasix] 40 mg PO DAILY #30 tablet 12/19/18
[2018-12-19] MEDS: SENNOSIDES 8.6MG TABLET (FP) PO SCH (22:40)
[2018-12-20] MEDS: ACETAMINOPHEN 325 MG TABLET (FP) PO PRN ×3 (06:36→23:10)
[2018-12-20] MEDS: hydrALAZINE HCL 25 MG TABLET (FP) PO SCH ×3 (06:37→23:11)
[2018-12-20 08:29] LABS: EOS % 5.9 % (0-4.5); HEMATOCRIT 25.7 % (32.4-45.2); HEMOGLOBIN 8.4 GM/dL (10.7-15.3); LYMPH % 15.6 % (8-40); MCH 25.4 pg (25.7-33.7); MCHC 32.6 g/dl (32.0-36.0); MEAN CELL VOLUME 77.9 fl (80-96); MEAN PLT VOLUME 7.3 fl (7.5-11.1); NEUT % 69.5 % (42.8-82.8); PLATELET COUNT 345 K/MM3 (134-434); RBC 3.31 M/mm3 (3.60-5.2); RDW 20.4 % (11.6-15.6); WHITE BLOOD COUNT 7.2 K/mm3 (4.0-10.0)
[2018-12-20 08:58] LABS: ALBUMIN 2.8 g/dl (3.4-5.0); BILIRUBIN,TOTAL 0.4 mg/dL (0.2-1); BLOOD UREA NITROGEN 58.6 mg/dL (7-18); CALCIUM 8.9 mg/dL (8.5-10.1); CREATININE 2.8 mg/dL (0.55-1.3); MAGNESIUM 2.3 mg/dL (1.8-2.4); PHOSPHOROUS 3.9 mg/dL (2.5-4.9); POTASSIUM 3.7 mmol/L (3.5-5.1); TOT PROT 6.2 g/dl (6.4-8.2)
[2018-12-20] MEDS: AMOX TR/POT CLAV 500MG/125MG TABLETS (FP) PO SCH (10:05)
[2018-12-20] MEDS: ATORVASTATIN CA 10 MG TABLET (FP) PO SCH (10:05)
[2018-12-20] MEDS: PANTOPRAZOLE 20 MG TABLET (FP) PO SCH (10:05)
[2018-12-20] MEDS: NIFEdipine E.R 60 MG TABLET (UD) PO SCH (10:05)
[2018-12-20] MEDS: FERROUS SO4 325 MG TABLET (FP) PO SCH ×2 (10:06→23:11)
[2018-12-20] MEDS: MULTIVITAMINS (DAILY MVI) TABLET (FP) PO SCH (10:06)
[2018-12-20] MEDS: HEPARIN NA (PORCINE) 5,000 UNITS/ML 1ML VIAL SQ SCH ×2 (10:11→23:11)
[2018-12-20] MEDS: FUROSEMIDE 40 MG/4 ML INJECTABLE VIAL IVPUSH SCH (10:11)
--- NOTE | 2018-12-20 12:15 | PN ---
Progress Note (short form) - Note Progress Note: RENAL Pt is awake and alert very talkative c/o some pain in her upper neck Last Vital Signs Temp Pulse Resp BP Pulse Ox 98.5 F 91 H 20 183/88 H 99 12/20/18 06:00 12/20/18 06:00 12/20/18 08:58 12/20/18 06:00 12/20/18 08:58 heent neck supple lungs clear cvs s1s2 rr abdf soft, not tender ext no edema CBC, BMP 12/20/18 06:34 12/20/18 06:34 Current Medications Generic Name Dose Route Start Last Admin Trade Name Freq PRN Reason Stop Dose Admin Acetaminophen 650 mg 12/16/18 05:03 12/20/18 10:05 Tylenol - PO 650 mg Q4H PRN Administration FEVER Albuterol Sulfate 1 amp 12/16/18 05:03 12/18/18 20:45 Ventolin 0.083% Nebulizer Soln - NEB 1 amp Q6H PRN Administration SHORT OF BREATH/WHEEZING Amoxicillin/Clavulanate Potassium 1 tab 12/20/18 08:00 12/20/18 10:05 Augmentin - 500mg Tablet PO 1 tab DAILY@0800 [facility] Administration Atorvastatin Calcium 10 mg 12/16/18 19:00 12/20/18 10:05 Lipitor - PO 10 mg DAILY [facility] Administration Ferrous Sulfate 325 mg 12/16/18 10:00 12/20/18 10:06 Feosol - PO 325 mg BID [facility] Administration Furosemide 40 mg 12/17/18 15:30 12/20/18 10:11 Lasix Injection - IVPUSH 40 mg DAILY [facility] Administration Heparin Sodium (Porcine) 5,000 unit 12/16/18 10:00 12/20/18 10:11 Heparin - SQ 5,000 unit BID [facility] Administration Hydralazine HCl 50 mg 12/16/18 06:00 12/20/18 06:37 Apresoline - PO 50 mg TID [facility] Administration Ipratropium [place] 1 amp 12/16/18 05:03 12/18/18 20:45 Atrovent 0.02% Nebulizer - NEB 1 amp Q6H PRN Administration WHEEZING Metoprolol Succinate 50 mg 12/16/18 10:00 12/20/18 10:05 Toprol Xl - PO 50 mg BID [facility] Administration Multivitamins/Minerals/Vitamin C 1 tab 12/16/18 14:15 12/20/18 10:06 Tab-A-Vit - PO 1 tab DAILY [facility] Administration Nifedipine 60 mg 12/16/18 10:00 12/20/18 10:05 Procardia Xl - PO 60 mg DAILY [facility] Administration Pantoprazole Sodium 40 mg 12/16/18 10:00 12/20/18 10:05 Protonix - PO 40 mg DAILY [facility] Administration Senna 2 tab 12/16/18 22:00 12/19/18 22:40 Senna - PO 2 tab HS [facility] Administration 73 year old woman with history of Colon Ca, hypertension who presented from [place] with SOB and admitted for PNA/CHF with abnormal renal function #Acute Kidney Injury/Resolving GENOVEVA #CKD #SOB/Cough r/o PNA vs. HF #Anemia Renal function slightly improved. She states she urinates a lot and is doing well. She does not meet clinical criteria for dialysis but does have an egfr that is probably an overestimation since she is so thin. For now would continue to monitor. Might consider holding diuretics and seeing if her renal function improves. Will need to redose MURRAY (if not in CHF) will follow MV
--- NOTE | 2018-12-20 15:17 | PN ---
Progress Note (short form) - Note Progress Note: PULMONARY States breathing is improving. Denies cough and wheezing. Vital Signs Period Temp Pulse Resp BP Sys/Roland Pulse Ox Last 24 Hr 97.8 F-98.6 F 83-91 18-20 133-183/75-94 99-99 Gen: NAD at rest Heart: RRR Lung: scattered rhonchi Abd: soft, nontender Ext: no edema CBC, BMP 12/20/18 06:34 12/20/18 06:34 Active Medications Acetaminophen (Tylenol -) 650 mg PO Q4H PRN PRN Reason: FEVER Last Admin: 12/20/18 10:05 Dose: 650 mg Albuterol Sulfate (Ventolin 0.083% Nebulizer Soln -) 1 amp NEB Q6H PRN PRN Reason: SHORT OF BREATH/WHEEZING Last Admin: 12/18/18 20:45 Dose: 1 amp Amoxicillin/Clavulanate Potassium (Augmentin - 500mg Tablet) 1 tab PO DAILY@ 0800 [facility] Last Admin: 12/20/18 10:05 Dose: 1 tab Atorvastatin Calcium (Lipitor -) 10 mg PO DAILY [facility] Last Admin: 12/20/18 10:05 Dose: 10 mg Ferrous Sulfate (Feosol -) 325 mg PO BID [facility] Last Admin: 12/20/18 10:06 Dose: 325 mg Furosemide (Lasix Injection -) 40 mg IVPUSH DAILY [facility] Last Admin: 12/20/18 10:11 Dose: 40 mg Heparin Sodium (Porcine) (Heparin -) 5,000 unit SQ BID [facility] Last Admin: 12/20/18 10:11 Dose: 5,000 unit Hydralazine HCl (Apresoline -) 50 mg PO TID [facility] Last Admin: 12/20/18 13:25 Dose: 50 mg Ipratropium [place] (Atrovent 0.02% Nebulizer -) 1 amp NEB Q6H PRN PRN Reason: WHEEZING Last Admin: 12/18/18 20:45 Dose: 1 amp Metoprolol Succinate (Toprol Xl -) 50 mg PO BID [facility] Last Admin: 12/20/18 10:05 Dose: 50 mg Multivitamins/Minerals/Vitamin C (Tab-A-Vit -) 1 tab PO DAILY [facility] Last Admin: 12/20/18 10:06 Dose: 1 tab Nifedipine (Procardia Xl -) 60 mg PO DAILY [facility] Last Admin: 12/20/18 10:05 Dose: 60 mg Pantoprazole Sodium (Protonix -) 40 mg PO DAILY [facility] Last Admin: 12/20/18 10:05 Dose: 40 mg Senna (Senna -) 2 tab PO HS [facility] Last Admin: 12/19/18 22:40 Dose: 2 tab A/P Acute on Chronic Diastolic Heart Failure Pneumonia Acute on Chronic Renal Failure HTN Anemia - continue lasix - monitor urine output, creatinine - continue antibiotics - O2 ot keep SpO2 >90% - DVT prophylaxis
[2018-12-20] MEDS ORDERED: NIFEdipine E.R. 90 MG TABLET (FP) PO SCH (16:14)
--- NOTE | 2018-12-20 16:20 | PN ---
Progress Note, Physician Chief Complaint: Cardioloy FU No dyspnea Comfortable Telem NSR - Current Medication List Current Medications: Active Medications Acetaminophen (Tylenol -) 650 mg PO Q4H PRN PRN Reason: FEVER Last Admin: 12/20/18 10:05 Dose: 650 mg Albuterol Sulfate (Ventolin 0.083% Nebulizer Soln -) 1 amp NEB Q6H PRN PRN Reason: SHORT OF BREATH/WHEEZING Last Admin: 12/18/18 20:45 Dose: 1 amp Amoxicillin/Clavulanate Potassium (Augmentin - 500mg Tablet) 1 tab PO DAILY@ 0800 [facility] Last Admin: 12/20/18 10:05 Dose: 1 tab Atorvastatin Calcium (Lipitor -) 10 mg PO DAILY [facility] Last Admin: 12/20/18 10:05 Dose: 10 mg Ferrous Sulfate (Feosol -) 325 mg PO BID [facility] Last Admin: 12/20/18 10:06 Dose: 325 mg Furosemide (Lasix Injection -) 40 mg IVPUSH DAILY [facility] Last Admin: 12/20/18 10:11 Dose: 40 mg Heparin Sodium (Porcine) (Heparin -) 5,000 unit SQ BID [facility] Last Admin: 12/20/18 10:11 Dose: 5,000 unit Hydralazine HCl (Apresoline -) 50 mg PO TID [facility] Last Admin: 12/20/18 13:25 Dose: 50 mg Ipratropium [place] (Atrovent 0.02% Nebulizer -) 1 amp NEB Q6H PRN PRN Reason: WHEEZING Last Admin: 12/18/18 20:45 Dose: 1 amp Metoprolol Succinate (Toprol Xl -) 50 mg PO BID [facility] Last Admin: 12/20/18 10:05 Dose: 50 mg Multivitamins/Minerals/Vitamin C (Tab-A-Vit -) 1 tab PO DAILY [facility] Last Admin: 12/20/18 10:06 Dose: 1 tab Nifedipine (Procardia Xl -) 90 mg PO DAILY [facility] Pantoprazole Sodium (Protonix -) 40 mg PO DAILY [facility] Last Admin: 12/20/18 10:05 Dose: 40 mg Senna (Senna -) 2 tab PO HS [facility] Last Admin: 12/19/18 22:40 Dose: 2 tab - Objective Vital Signs: Vital Signs Temperature 98.5 F 12/20/18 06:00 Pulse Rate 79 12/20/18 14:00 Respiratory Rate 18 12/20/18 14:00 Blood Pressure 167/40 L 12/20/18 14:00 O2 Sat by Pulse Oximetry (%) 99 12/20/18 08:58 Constitutional: Yes: Well Nourished, No Distress Eyes: Yes: Conjunctiva Clear HENT: Yes: Atraumatic, Normocephalic Neck: Yes: Supple, Trachea Midline Cardiovascular: Yes: Regular Rate and Rhythm, S1, S2. No: JVD Respiratory: Yes: Regular, CTA Bilaterally Extremities: Yes: WNL Edema: No Labs: CBC, BMP 12/20/18 06:34 12/20/18 06:34 Problem List - Problems (1) CHF (congestive heart failure) Code(s): I50.9 - HEART FAILURE, UNSPECIFIED (2) GENOVEVA (acute kidney injury) Code(s): N17.9 - ACUTE KIDNEY FAILURE, UNSPECIFIED Assessment/Plan Admitted with diastolic heart failure and renal insuficiency. Her heart failure has improved and she is comfortable. No edema and lung clear. BP elevated Rec increase nifedipine 90mg qd. Can consider trial off lasix to see if azotemia improves. Call with questions
--- NOTE | 2018-12-20 17:22 | PN ---
Progress Note, Physician Chief Complaint: SOB History of Present Illness: NAD in bed Leukocytosis resolved seen by Pulmonary, Cardiology and ID Switched PO abx - Current Medication List Current Medications: Active Medications Acetaminophen (Tylenol -) 650 mg PO Q4H PRN PRN Reason: FEVER Last Admin: 12/20/18 10:05 Dose: 650 mg Albuterol Sulfate (Ventolin 0.083% Nebulizer Soln -) 1 amp NEB Q6H PRN PRN Reason: SHORT OF BREATH/WHEEZING Last Admin: 12/18/18 20:45 Dose: 1 amp Amoxicillin/Clavulanate Potassium (Augmentin - 500mg Tablet) 1 tab PO DAILY@ 0800 [facility] Last Admin: 12/20/18 10:05 Dose: 1 tab Atorvastatin Calcium (Lipitor -) 10 mg PO DAILY [facility] Last Admin: 12/20/18 10:05 Dose: 10 mg Ferrous Sulfate (Feosol -) 325 mg PO BID [facility] Last Admin: 12/20/18 10:06 Dose: 325 mg Furosemide (Lasix Injection -) 40 mg IVPUSH DAILY [facility] Last Admin: 12/20/18 10:11 Dose: 40 mg Heparin Sodium (Porcine) (Heparin -) 5,000 unit SQ BID [facility] Last Admin: 12/20/18 10:11 Dose: 5,000 unit Hydralazine HCl (Apresoline -) 50 mg PO TID [facility] Last Admin: 12/20/18 13:25 Dose: 50 mg Ipratropium [place] (Atrovent 0.02% Nebulizer -) 1 amp NEB Q6H PRN PRN Reason: WHEEZING Last Admin: 12/18/18 20:45 Dose: 1 amp Metoprolol Succinate (Toprol Xl -) 50 mg PO BID [facility] Last Admin: 12/20/18 10:05 Dose: 50 mg Multivitamins/Minerals/Vitamin C (Tab-A-Vit -) 1 tab PO DAILY [facility] Last Admin: 12/20/18 10:06 Dose: 1 tab Nifedipine (Procardia Xl -) 90 mg PO DAILY [facility] Pantoprazole Sodium (Protonix -) 40 mg PO DAILY [facility] Last Admin: 12/20/18 10:05 Dose: 40 mg Senna (Senna -) 2 tab PO HS [facility] Last Admin: 12/19/18 22:40 Dose: 2 tab - Objective Vital Signs: Vital Signs Temperature 98.5 F 12/20/18 06:00 Pulse Rate 79 12/20/18 14:00 Respiratory Rate 18 12/20/18 14:00 Blood Pressure 167/40 L 12/20/18 14:00 O2 Sat by Pulse Oximetry (%) 99 12/20/18 08:58 Constitutional: Yes: No Distress, Calm, Cachectic Cardiovascular: Yes: Regular Rate and Rhythm Respiratory: Yes: On Nasal O2, Rales (BLL), SOB on Exertion Gastrointestinal: Yes: Normal Bowel Sounds, Soft Genitourinary: Yes: Incontinence Musculoskeletal: Yes: Muscle Weakness Extremities: Yes: WNL Edema: No Peripheral Pulses WNL: Yes Neurological: Yes: Alert, Oriented Psychiatric: Yes: Alert, Oriented Labs: CBC, BMP 12/20/18 06:34 12/20/18 06:34 Problem List - Problems (1) SOB (shortness of breath) Assessment/Plan: -CHF vs PNE -ID and pulmonary on board -Cardiology consult -Bronchodilators -Nasal O2 -IV abx-switched to PO -BIPAP at bedside PRN -BNP unreliable due to CKD Code(s): R06.02 - SHORTNESS OF BREATH (2) CKD (chronic kidney disease) Assessment/Plan: -Cr close to her baseline -nephrology consult Code(s): N18.9 - CHRONIC KIDNEY DISEASE, UNSPECIFIED (3) Anemia Assessment/Plan: -Chronic -previously low in iron -on Ferrous sulfate, increased to BID -Stool OB -Monitor trend Code(s): D64.9 - ANEMIA, UNSPECIFIED Qualifiers: Iron deficiency anemia type: unspecified iron deficiency (4) Malnourished Assessment/Plan: -add multivitamin daily -Added ensure tid Code(s): E46 - UNSPECIFIED PROTEIN-CALORIE MALNUTRITION Qualifiers: Protein-calorie malnutrition severity: severe (5) Acute on chronic diastolic (congestive) heart failure Assessment/Plan: -Seen by cardiology -Tele monitor -Furosemide Code(s): I50.33 - ACUTE ON CHRONIC DIASTOLIC (CONGESTIVE) HEART FAILURE (6) High blood pressure Assessment/Plan: -Seen by cardiology again today -Procardia increased to 90 mg po daily Code(s): I10 - ESSENTIAL (PRIMARY) HYPERTENSION Assessment/Plan If BP stable in AM, D/C back to [facility]
[2018-12-20] MEDS ORDERED: NIFEdipine E.R. 30 MG TABLET (FP) PO ONE (17:30)
[2018-12-20] MEDS: SENNOSIDES 8.6MG TABLET (FP) PO SCH (23:11)
[2018-12-21] MEDS: hydrALAZINE HCL 25 MG TABLET (FP) PO SCH ×2 (06:44→13:21)
[2018-12-21 08:17] LABS: EOS % 6.3 % (0-4.5); HEMATOCRIT 26.9 % (32.4-45.2); HEMOGLOBIN 8.9 GM/dL (10.7-15.3); LYMPH % 18.7 % (8-40); MCH 25.5 pg (25.7-33.7); MEAN CELL VOLUME 77.2 fl (80-96); MEAN PLT VOLUME 7.2 fl (7.5-11.1); MONO % 8.4 % (3.8-10.2); NEUT % 65.6 % (42.8-82.8); PLATELET COUNT 339 K/MM3 (134-434); RBC 3.48 M/mm3 (3.60-5.2); RDW 20.4 % (11.6-15.6); WHITE BLOOD COUNT 6.6 K/mm3 (4.0-10.0)
[2018-12-21 08:44] LABS: ALBUMIN 2.9 g/dl (3.4-5.0); BILIRUBIN,TOTAL 0.4 mg/dL (0.2-1); BLOOD UREA NITROGEN 66.8 mg/dL (7-18); CALCIUM 8.9 mg/dL (8.5-10.1); POTASSIUM 4.2 mmol/L (3.5-5.1); TOT PROT 6.5 g/dl (6.4-8.2)
[2018-12-21 08:47] VITALS: TEMP 98
[2018-12-21] MEDS: PANTOPRAZOLE 20 MG TABLET (FP) PO SCH (09:37)
[2018-12-21] MEDS: HEPARIN NA (PORCINE) 5,000 UNITS/ML 1ML VIAL SQ SCH (09:37)
[2018-12-21] MEDS: FERROUS SO4 325 MG TABLET (FP) PO SCH (09:38)
[2018-12-21] MEDS: ATORVASTATIN CA 10 MG TABLET (FP) PO SCH (09:38)
[2018-12-21] MEDS: AMOX TR/POT CLAV 500MG/125MG TABLETS (FP) PO SCH (09:38)
[2018-12-21] MEDS: MULTIVITAMINS (DAILY MVI) TABLET (FP) PO SCH (09:39)
[2018-12-21] MEDS: FUROSEMIDE 40 MG/4 ML INJECTABLE VIAL IVPUSH SCH (10:10)
--- NOTE | 2018-12-21 10:10 | PN ---
Progress Note (short form) - Note Progress Note: RENAL Pt is awake and alert comfortable but needs to have a BM no problems urinating Last Vital Signs Temp Pulse Resp BP Pulse Ox 98 F 78 18 158/94 100 12/21/18 08:47 12/21/18 08:47 12/21/18 08:47 12/21/18 08:47 12/20/18 22:00 heent neck supple lungs clear cvs s1s2 rr abdf soft, not tender ext no edema CBC, BMP 12/21/18 06:45 12/21/18 06:45 Current Medications Generic Name Dose Route Start Last Admin Trade Name Freq PRN Reason Stop Dose Admin Acetaminophen 650 mg 12/16/18 05:03 12/20/18 23:10 Tylenol - PO 650 mg Q4H PRN Administration FEVER Albuterol Sulfate 1 amp 12/16/18 05:03 12/18/18 20:45 Ventolin 0.083% Nebulizer Soln - NEB 1 amp Q6H PRN Administration SHORT OF BREATH/WHEEZING Amoxicillin/Clavulanate Potassium 1 tab 12/20/18 08:00 12/21/18 09:38 Augmentin - 500mg Tablet PO 1 tab DAILY@0800 [facility] Administration Atorvastatin Calcium 10 mg 12/16/18 19:00 12/21/18 09:38 Lipitor - PO 10 mg DAILY [facility] Administration Ferrous Sulfate 325 mg 12/16/18 10:00 12/21/18 09:38 Feosol - PO 325 mg BID [facility] Administration Furosemide 40 mg 12/17/18 15:30 12/20/18 10:11 Lasix Injection - IVPUSH 40 mg DAILY [facility] Administration Heparin Sodium (Porcine) 5,000 unit 12/16/18 10:00 12/21/18 09:37 Heparin - SQ 5,000 unit BID [facility] Administration Hydralazine HCl 50 mg 12/16/18 06:00 12/21/18 06:44 Apresoline - PO 50 mg TID [facility] Administration Ipratropium [place] 1 amp 12/16/18 05:03 12/18/18 20:45 Atrovent 0.02% Nebulizer - NEB 1 amp Q6H PRN Administration WHEEZING Metoprolol Succinate 50 mg 12/16/18 10:00 12/21/18 09:38 Toprol Xl - PO 50 mg BID [facility] Administration Multivitamins/Minerals/Vitamin C 1 tab 12/16/18 14:15 12/21/18 09:39 Tab-A-Vit - PO 1 tab DAILY [facility] Administration Nifedipine 90 mg 12/20/18 16:14 12/21/18 09:39 Procardia Xl - PO 90 mg DAILY [facility] Administration Pantoprazole Sodium 40 mg 12/16/18 10:00 12/21/18 09:37 Protonix - PO 40 mg DAILY [facility] Administration Senna 2 tab 12/16/18 22:00 12/20/18 23:11 Senna - PO 2 tab HS [facility] Administration 73 year old woman with history of Colon Ca, hypertension who presented from [place] with SOB and admitted for PNA/CHF with abnormal renal function #Acute Kidney Injury/Resolving GENOVEVA #CKD #SOB/Cough r/o PNA vs. HF #Anemia #HTN uncontrolled- its fluctuating Renal function essentially unchanged If creat rises again would consider stopping lasix temporarily urine eos would consider changing nifedipine to 60 bid which may be better controlling with less fluctuation MV
--- NOTE | 2018-12-21 11:39 | DS ---
Physical Examination Vital Signs: Vital Signs Temperature 98 F 12/21/18 08:47 Pulse Rate 78 12/21/18 08:47 Respiratory Rate 18 12/21/18 08:47 Blood Pressure 158/94 12/21/18 08:47 O2 Sat by Pulse Oximetry (%) 100 12/20/18 22:00 Findings/Remarks: 73 year old female with PMHx of Colon Ca, HTN, HLD, Anemia arrived to ED from [place] for evaluaiton of SOB and cough. last admitted on 12/01 for treatment of headache, HTN and GENOVEVA. Patient denies chest pain, fever, chills, nausea, vomit, diarrhea and constipation. Denies dysuria, frequency, urgency and hematuria. Constitutional: Yes: No Distress, Calm, Cachectic Cardiovascular: Yes: Regular Rate and Rhythm Respiratory: Yes: Regular, On Nasal O2 Gastrointestinal: Yes: WNL Musculoskeletal: Yes: Muscle Weakness Extremities: Yes: WNL Edema: No Peripheral Pulses WNL: Yes Neurological: Yes: Alert, Oriented Psychiatric: Yes: Alert, Oriented Labs: CBC, BMP 12/21/18 06:45 12/21/18 06:45 Discharge Summary Reason For Visit: PNEUMONIA Current Active Problems Acute on chronic diastolic (congestive) heart failure (Acute) CHF (congestive heart failure) (Acute) CKD (chronic kidney disease) (Acute) GERD (gastroesophageal reflux disease) (Acute) HLD (hyperlipidemia) (Acute) Malnourished (Acute) Pneumonia (Acute) SOB (shortness of breath) (Acute) Hospital Course: Laboratory Last Values WBC 6.6 K/mm3 (4.0-10.0) 12/21/18 06:45 RBC 3.48 M/mm3 (3.60-5.2) L 12/21/18 06:45 Hgb 8.9 GM/dL (10.7-15.3) L 12/21/18 06:45 Hct 26.9 % (32.4-45.2) L 12/21/18 06:45 MCV 77.2 fl (80-96) L 12/21/18 06:45 MCH 25.5 pg (25.7-33.7) L 12/21/18 06:45 MCHC 33.0 g/dl (32.0-36.0) 12/21/18 06:45 RDW 20.4 % (11.6-15.6) H 12/21/18 06:45 Plt Count 339 K/MM3 (134-434) 12/21/18 06:45 MPV 7.2 fl (7.5-11.1) L 12/21/18 06:45 Absolute Neuts (auto) 4.4 K/mm3 (1.5-8.0) 12/21/18 06:45 Neutrophils % 65.6 % (42.8-82.8) 12/21/18 06:45 Lymphocytes % 18.7 % (8-40) 12/21/18 06:45 Monocytes % 8.4 % (3.8-10.2) 12/21/18 06:45 Eosinophils % 6.3 % (0-4.5) H 12/21/18 06:45 Basophils % 1.0 % (0-2.0) 12/21/18 06:45 Nucleated RBC % 0 % (0-0) 12/21/18 06:45 Hypochromia 0 12/19/18 06:46 Platelet Estimate Normal 12/19/18 06:46 Polychromasia 0 12/19/18 06:46 Poikilocytosis 0 12/19/18 06:46 Basophilic Stippling 1+ 12/19/18 06:46 Anisocytosis 1+ 12/19/18 06:46 Microcytosis 1+ 12/19/18 06:46 Macrocytosis 0 12/19/18 06:46 VBG pH 7.33 (7.31-7.41) 12/16/18 02:29 POC VBG pCO2 42.4 mmHg (41-51) 12/16/18 02:29 POC VBG pO2 83.7 mmHg (30-40) H 12/16/18 02:29 VBG HCO3 21.9 mmol/L (23-29) L 12/16/18 02:29 VBG O2 Sat (Eric) 95.4 % (70-80) H 12/16/18 02:29 VBG Base Excess -3.2 meq/l (-2-2) L 12/16/18 02:29 Sodium 139 mmol/L (136-145) 12/21/18 06:45 Potassium 4.2 mmol/L (3.5-5.1) 12/21/18 06:45 Chloride 99 mmol/L (98-107) 12/21/18 06:45 Carbon Dioxide 30 mmol/L (21-32) 12/21/18 06:45 Anion Gap 10 MMOL/L (8-16) 12/21/18 06:45 BUN 66.8 mg/dL (7-18) H 12/21/18 06:45 Creatinine 3.0 mg/dL (0.55-1.3) H 12/21/18 06:45 Est GFR (CKD-EPI)AfAm 16.91 12/21/18 06:45 Est GFR (CKD-EPI)NonAf 14.59 12/21/18 06:45 Random Glucose 87 mg/dL (74-106) 12/21/18 06:45 Lactic Acid 1.4 mmol/L (0.4-2.0) 12/16/18 02:23 Calcium 8.9 mg/dL (8.5-10.1) 12/21/18 06:45 Phosphorus 3.9 mg/dL (2.5-4.9) 12/20/18 06:34 Magnesium 2.3 mg/dL (1.8-2.4) 12/20/18 06:34 Iron 27 ug/dL (50-175) L 12/18/18 05:33 TIBC 215 ug/dL (250-450) L 12/18/18 05:33 Iron Saturation 12 % (17.5-39) L 12/18/18 05:33 Unsaturated IBC 188 ug/dL (200-275) L 12/18/18 05:33 Total Bilirubin 0.4 mg/dL (0.2-1) 12/21/18 06:45 AST 52 U/L (15-37) H 12/21/18 06:45 ALT 53 U/L (13-61) 12/21/18 06:45 Alkaline Phosphatase 98 U/L (45-117) 12/21/18 06:45 Creatine Kinase 35 U/L (26-192) 12/16/18 02:23 Troponin I < 0.02 ng/ml (0.00-0.05) 12/16/18 02:23 B-Natriuretic Peptide 92433.6 pg/ml (5-450) H 12/16/18 02:23 Total Protein 6.5 g/dl (6.4-8.2) 12/21/18 06:45 Albumin 2.9 g/dl (3.4-5.0) L 12/21/18 06:45 Urine Color Yellow 12/17/18 16:40 Urine Appearance Clear 12/17/18 16:40 Urine pH 5.5 (5.0-8.0) D 12/17/18 16:40 Ur Specific [place] 1.014 (1.010-1.035) 12/17/18 16:40 Urine Protein 1+ (NEGATIVE) H 12/17/18 16:40 Urine Glucose (UA) Negative (NEGATIVE) 12/17/18 16:40 Urine Ketones Negative (NEGATIVE) 12/17/18 16:40 Urine Blood Negative (NEGATIVE) 12/17/18 16:40 Urine Nitrite Negative (NEGATIVE) 12/17/18 16:40 Urine Bilirubin Negative (NEGATIVE) 12/17/18 16:40 Urine Urobilinogen 0.2 mg/dL (0.2-1.0) 12/17/18 16:40 Ur Leukocyte Esterase Negative (NEGATIVE) 12/17/18 16:40 Urine WBC (Auto) 3 /hpf (0-5) 12/17/18 16:40 Urine RBC (Auto) 5 /hpf (0-4) 12/17/18 16:40 Urine Casts (Auto) 2 /lpf (0-8) 12/17/18 16:40 U Epithel Cells (Auto) 4.6 /HPF (0-5/HPF) 12/17/18 16:40 Urine Bacteria (Auto) 0.8 /hpf (NEGATIVE) 12/17/18 16:40 Urine Eosinophils None seen % (.) 12/17/18 16:40 Ur Random Creatinine 52.0 mg/dL (30-150) 12/17/18 16:40 U Random Total Protein 93.3 mg/dl (0-11.9) H 12/17/18 16:40 Ur Random Urea Nitrogn 549 mg/dL (350-1000) 12/17/18 16:40 Microbiology 12/16/18 02:23 Blood - Peripheral Venous Blood Culture - Final NO GROWTH AFTER 5 DAYS INCUBATION 12/16/18 02:23 Blood - Peripheral Venous Blood Culture - Final NO GROWTH AFTER 5 DAYS INCUBATION 12/17/18 16:40 Urine For Antigen Detection Legionella Antigen - Final 12/17/18 16:40 Urine For Antigen Detection Streptococcus pneumoniae Antigen (M - Final Vital Signs Temp 98 F 12/21/18 08:47 Pulse 78 12/21/18 08:47 Resp 18 12/21/18 08:47 BP 158/94 12/21/18 08:47 Pulse Ox 100 12/20/18 22:00 Intake & Output 12/20/18 12/20/18 12/21/18 11:59 23:59 11:59 Intake Total 10 210 10 Balance 10 210 10 Intake: IV 10 10 10 sl 10 10 10 Oral 200 Other: Voiding Method Diaper Indwelling Catheter # Unmeasured Voids Void 1 1 Bowel Movement No Condition: Stable - Instructions Diet, Activity, Other Instructions: to adira with augmetin daily for 7 days lasix 40mg po daily Disposition: [facility] - Home Medications Comprehensive Discharge Medication List: Ambulatory Orders Simvastatin 1 tab PO HS 12/01/18 Acetaminophen [Tylenol .Regular Strength -] 650 mg PO Q6H PRN tablet 12/09/18 Ferrous Sulfate [Feosol] 325 mg PO BID ud 12/09/18 Metoprolol Succinate [Toprol XL -] 50 mg PO BID tab.sr.24h 12/09/18 Nifedipine ER [Procardia XL -] 60 mg PO DAILY tab.er.24 12/09/18 Pantoprazole Sodium [Protonix -] 40 mg PO DAILY tablet.ec 12/09/18 Polyethylene Glycol 3350 [Miralax 119 gm Btl -] 17 gm PO TID bottle 12/09/18 Sennosides [Senna -] 2 tab PO HS tablet 12/09/18 hydrALAZINE HCL [Apresoline -] 50 mg PO TID tablet 12/09/18 Amox-Tr/K Cl [Augmentin 500-125mg Tablet -] 1 tab PO DAILY@0800 #7 tablet Furosemide [Lasix] 40 mg PO DAILY #30 tablet 12/19/18 Acetaminophen [Tylenol .Regular Strength -] 650 mg PO Q4H PRN tablet 12/21/18 Albuterol 0.083% Nebulizer [place] [Ventolin 0.083% Nebulizer Soln -] 1 amp NEB Q6H PRN amp 12/21/18 Heparin - 5,000 unit SQ BID vial 12/21/18 Ipratropium 0.02% Nebulizer [Atrovent 0.02% Nebulizer -] 1 amp NEB Q6H PRN amp 12/21/18 Multivitamins [Multivit ([facility] Form[facility])] 1 tab PO DAILY tab 12/21/18 Nifedipine ER [Procardia XL -] 90 mg PO DAILY tab.er.24 12/21/18
--- NOTE | 2018-12-21 13:51 | PN ---
Progress Note (short form) - Note Progress Note: PULMONARY Denies shortness of breath or chest pain. Denies cough and wheezing. Vital Signs Period Temp Pulse Resp BP Sys/Roland Pulse Ox Last 24 Hr 97.7 F-98.5 F 77-80 18-18 111-167/40-94 100-100 Gen: NAD at rest Heart: RRR Lung: decreased breath sounds at the bases Abd: soft, nontender Ext: no edema CBC, BMP 12/21/18 06:45 12/21/18 06:45 Active Medications Acetaminophen (Tylenol -) 650 mg PO Q4H PRN PRN Reason: FEVER Last Admin: 12/20/18 23:10 Dose: 650 mg Albuterol Sulfate (Ventolin 0.083% Nebulizer Soln -) 1 amp NEB Q6H PRN PRN Reason: SHORT OF BREATH/WHEEZING Last Admin: 12/18/18 20:45 Dose: 1 amp Amoxicillin/Clavulanate Potassium (Augmentin - 500mg Tablet) 1 tab PO DAILY@ 0800 [facility] Last Admin: 12/21/18 09:38 Dose: 1 tab Atorvastatin Calcium (Lipitor -) 10 mg PO DAILY [facility] Last Admin: 12/21/18 09:38 Dose: 10 mg Ferrous Sulfate (Feosol -) 325 mg PO BID [facility] Last Admin: 12/21/18 09:38 Dose: 325 mg Furosemide (Lasix Injection -) 40 mg IVPUSH DAILY [facility] Last Admin: 12/21/18 10:10 Dose: 40 mg Heparin Sodium (Porcine) (Heparin -) 5,000 unit SQ BID [facility] Last Admin: 12/21/18 09:37 Dose: 5,000 unit Hydralazine HCl (Apresoline -) 50 mg PO TID [facility] Last Admin: 12/21/18 13:21 Dose: 50 mg Ipratropium [place] (Atrovent 0.02% Nebulizer -) 1 amp NEB Q6H PRN PRN Reason: WHEEZING Last Admin: 12/18/18 20:45 Dose: 1 amp Metoprolol Succinate (Toprol Xl -) 50 mg PO BID [facility] Last Admin: 12/21/18 09:38 Dose: 50 mg Multivitamins/Minerals/Vitamin C (Tab-A-Vit -) 1 tab PO DAILY [facility] Last Admin: 12/21/18 09:39 Dose: 1 tab Nifedipine (Procardia Xl -) 90 mg PO DAILY [facility] Last Admin: 12/21/18 09:39 Dose: 90 mg Pantoprazole Sodium (Protonix -) 40 mg PO DAILY [facility] Last Admin: 12/21/18 09:37 Dose: 40 mg Senna (Senna -) 2 tab PO [facility] Last Admin: 12/20/18 23:11 Dose: 2 tab A/P Acute on Chronic Diastolic Heart Failure Pneumonia Acute on Chronic Renal Failure HTN Anemia - continue lasix - monitor urine output, creatinine - continue antibiotics - O2 ot keep SpO2 >90% - DVT prophylaxis
[2018-12-21 14:04] VITALS: BP 130/86; PULSE 70
== END 2018-12-21 14:35 | DRG 193 ==
LOC: JER 00:30 → JERBED 03:40 → J4W 05:44
PROVIDERS: ADMIT Family Medicine; ATTEND Family Medicine
DX: J18.9 Pneumonia, unspecified organism (principal); I50.33 Acute on chronic diastolic (congestive) heart failure; N17.0 Acute kidney failure with tubular necrosis; I13.0 Hypertensive heart and chronic kidney disease with heart failure and stage 1 through stage 4 chronic kidney disease, or unspecified chronic kidney disease; R64 Cachexia; Z68.1 Body mass index [BMI] 19.9 or less, adult; J98.11 Atelectasis; E46 Unspecified protein-calorie malnutrition; E78.5 Hyperlipidemia, unspecified; K21.9 Gastro-esophageal reflux disease without esophagitis; D72.829 Elevated white blood cell count, unspecified; Z85.038 Personal history of other malignant neoplasm of large intestine; Z87.891 Personal history of nicotine dependence; N18.9 Chronic kidney disease, unspecified; D50.9 Iron deficiency anemia, unspecified; R91.1 Solitary pulmonary nodule; I36.1 Nonrheumatic tricuspid (valve) insufficiency; Z90.49 Acquired absence of other specified parts of digestive tract; Z90.710 Acquired absence of both cervix and uterus
CPT/HCPCS: 36415; 71045-TC-FY; 80048; 80053; 81003; 82550; 82565; 82803; 83540; 83550; 83605; 83735; 83880; 84100; 84156; 84484; 84540; 85025; 87040; 87205; 87899; 93005; 93010; 94640; 94660; 97116-GP; 97161-GP; 99284-25; J1644

== ENCOUNTER 2019-02-24 03:38 | Inpatient (IN) | payer OTHER ==
--- NOTE | 2019-02-24 05:16 | PDOC ---
History of Present Illness - General Chief Complaint: Respiratory Distress Stated Complaint: DIFF BREATHING - History of Present Illness Initial Comments: The pt is a 73F w/ a history of CKD, HTN, COPD, CHF who presents from [facility] for shortness of breath. The pt reported feeling short of breath at [facility] prior to EMS arrival. She was placed on O2 by EMS and brought to the ED. Currently she feels as though her dyspnea has improved. Per NH paperwork, SpO2 84% as NH on RA. Pt denies fevers/chills, JACK, chest pain, cough, abdominal pain, N/V/D, dysuria, or blood in her stool or urine Pt denies current pain PCP: Dr. Vera 02/24/19 05:47 Past History - Past Medical History Allergies/Adverse Reactions: Allergies Allergy/AdvReac Type Severity Reaction Status Date / Time No Known Allergies Allergy Verified 12/01/18 15:54 Home Medications: Ambulatory Orders Simvastatin 1 tab PO HS 12/01/18 Acetaminophen [Tylenol .Regular Strength -] 650 mg PO Q6H PRN tablet 12/09/18 Ferrous Sulfate [Feosol] 325 mg PO BID ud 12/09/18 Metoprolol Succinate [Toprol XL -] 50 mg PO BID tab.sr.24h 12/09/18 Nifedipine ER [Procardia XL -] 60 mg PO DAILY tab.er.24 12/09/18 Pantoprazole Sodium [Protonix -] 40 mg PO DAILY tablet.ec 12/09/18 Polyethylene Glycol 3350 [Miralax 119 gm Btl -] 17 gm PO TID bottle 12/09/18 Sennosides [Senna -] 2 tab PO HS tablet 12/09/18 hydrALAZINE HCL [Apresoline -] 50 mg PO TID tablet 12/09/18 Amox-Tr/K Cl [Augmentin 500-125mg Tablet -] 1 tab PO DAILY@0800 #7 tablet Furosemide [Lasix] 40 mg PO DAILY #30 tablet 12/19/18 Acetaminophen [Tylenol .Regular Strength -] 650 mg PO Q4H PRN tablet 12/21/18 Albuterol 0.083% Nebulizer Mely [Ventolin 0.083% Nebulizer Soln -] 1 amp NEB Q6H PRN amp 12/21/18 Heparin - 5,000 unit SQ BID vial 12/21/18 Ipratropium 0.02% Nebulizer [Atrovent 0.02% Nebulizer -] 1 amp NEB Q6H PRN amp 12/21/18 Multivitamins [Multivit ([facility] Formulary)] 1 tab PO DAILY tab 12/21/18 Nifedipine ER [Procardia XL -] 90 mg PO DAILY tab.er.24 12/21/18 Anemia: Yes Asthma: No Cancer: Yes (colon cancer) Cardiac Disorders: Yes CVA: No COPD: Yes CHF: No Dementia: No Diabetes: No GI Disorders: No Disorders: No HTN: Yes Hypercholesterolemia: No Liver Disease: No Seizures: No Thyroid Disease: No - Surgical History Abdominal Surgery: Yes (colon resection for cancer 2003) Appendectomy: No Cardiac Surgery: No Cholecystectomy: No Lung Surgery: No Neurologic Surgery: No Orthopedic Surgery: Yes (right ankle/foot ORIF) - Immunization History Td Vaccination: Yes TDAP Vaccination: Yes Immunization Up to Date: Yes - Psycho Social/Smoking Cessation Hx Smoking History: Unknown if ever smoked Have you smoked in the past 12 months: No If you are a former smoker, when did you quit?: 1984 Information on smoking cessation initiated: No Hx Alcohol Use: No Drug/Substance Use Hx: No Substance Use Type: None Hx Substance Use Treatment: No Review of Systems - Review of Systems Able to Perform ROS?: Yes Comments:: GENERAL/CONSTITUTIONAL: No fever or chills. No weakness HEAD, EYES, EARS, NOSE AND THROAT: No change in vision. No change in hearing. No sore throat CARDIOVASCULAR: +SOB; No chest pain RESPIRATORY: Denies cough, hemoptysis GASTROINTESTINAL: No nausea, vomiting, diarrhea or constipation GENITOURINARY: No dysuria, frequency, or change in urination MUSCULOSKELETAL: No joint or muscle swelling or pain SKIN: No rash NEUROLOGIC: No headache, loss of consciousness, or change in strength/sensation ENDOCRINE: No increased thirst. No abnormal weight change HEMATOLOGIC/LYMPHATIC: No anemia or blood clots ALLERGIC/IMMUNOLOGIC: No hives or skin allergy 02/24/19 05:54 Is the patient limited [place]an proficient: No *Physical Exam - Vital Signs Last Vital Signs Temp Pulse Resp BP Pulse Ox 97.5 F L 89 21 H 201/108 H 99 02/24/19 04:26 02/24/19 04:26 02/24/19 04:26 02/24/19 04:26 02/24/19 04:31 - Physical Exam Comments: GENERAL: Awake, alert, and oriented to person/place/time, in no acute distress HEAD: No signs of trauma, normocephalic, atraumatic EYES: PERRLA, EOMI, sclera anicteric, conjunctiva clear ENT: Hearing grossly normal, nares patent, oropharynx clear without exudates. Moist mucosa LUNGS: No distress, 3L NC, diminished breath sounds on left HEART: Regular rate and rhythm, normal S1 and S2, no murmurs appreciated, peripheral pulses normal and equal bilaterally ABDOMEN: Soft, nontender, normoactive bowel sounds. No guarding, no rebound EXTREMITIES: Normal inspection, no edema NEUROLOGICAL: Cranial nerves II through XII grossly intact. Normal speech, no focal sensorimotor deficits SKIN: Warm, Dry 02/24/19 05:55 ED Treatment Course - LABORATORY CBC & Chemistry Diagram: 02/24/19 05:30 02/24/19 05:30 Medical Decision Making - Medical Decision Making The pt is a 73F w/ a history of HTN, CKD, COPD, CHF who presents from [facility] w/ dyspnea and was noted to be hypoxic to 84% on RA there ED Course Pt placed on O2 Labs sent ECG CXR ECG w/ NSR; HR 89; QTc 484; Left axis deviation; TABBY in V2 02/24/19 05:56 CXR w/ pulmonary vascular congestion Leukocytosis to 12.5 Mild anemia to 10.2, no indication to transfuse at this time Will give Lasix 60mg IV once and NTG paste 1/2 in for CHF exacerbation 02/24/19 06:53 Remainder of labs pending Pt signed out to day team Discharge - Discharge Information Problems reviewed: Yes Clinical Impression/Diagnosis: CHF exacerbation Qualifiers: Heart failure type: unspecified Qualified Code(s): I50.9 - Heart failure, unspecified Condition: Fair - Follow up/Referral - Patient Discharge Instructions - Post Discharge Activity
--- NOTE | 2019-02-24 05:41 | PDOC ---
Attending Attestation - Resident Resident Name: KorisusyAdy - ED Attending Attestation I have performed the following: I have examined & evaluated the patient, The case was reviewed & discussed with the resident, I agree w/resident's findings & plan - HPI HPI: 02/24/19 05:48 see resident hpi - Physicial Exam PE: 02/24/19 05:48 agree with resident exam - Medical Decision Making 02/24/19 05:48 73 yo female with SOB and history of pleural effusions and CHF Plan for labs, chest x-ray, EKG Diuresis as necessary Likely admission for observation and further management
[2019-02-24 06:27] LABS: BASO % 0.4 % (0-2.0); EOS % 0.2 % (0-4.5); HEMATOCRIT 30.9 % (32.4-45.2); HEMOGLOBIN 10.2 GM/dL (10.7-15.3); LYMPH % 3.4 % (8-40); MCH 27.6 pg (25.7-33.7); MCHC 33.2 g/dl (32.0-36.0); MEAN CELL VOLUME 83.2 fl (80-96); MEAN PLT VOLUME 6.8 fl (7.5-11.1); MONO % 1.3 % (3.8-10.2); NEUT % 94.7 % (42.8-82.8); PLATELET COUNT 269 K/MM3 (134-434); RBC 3.71 M/mm3 (3.60-5.2); WHITE BLOOD COUNT 12.5 K/mm3 (4.0-10.0)
[2019-02-24 06:35] LABS: INR 0.97 (0.83-1.09); PROTHROMBIN TIME (PATIENT) 11.4 SEC (9.7-13.0)
[2019-02-24] MEDS ORDERED: FUROSEMIDE 40 MG/4 ML INJECTABLE VIAL IVPUSH ONE (06:54)
[2019-02-24] MEDS ORDERED: NITROGLYCERIN 2% OINTMENT - 1GM PACKET TD ONE ×2 (06:54→07:02)
[2019-02-24] MEDS ORDERED: FUROSEMIDE 40 MG/4 ML INJECTABLE VIAL ONE (07:02)
[2019-02-24 07:04] LABS: ALK PHOS 92 U/L (45-117); ANION GAP 15 MMOL/L (8-16); BILIRUBIN,TOTAL 0.6 mg/dL (0.2-1); BLOOD UREA NITROGEN 75.7 mg/dL (7-18); CALCIUM 8.7 mg/dL (8.5-10.1); CHLORIDE 102 mmol/L (98-107); CO2 18 mmol/L (21-32); CREATININE 4.3 mg/dL (0.55-1.3); GLUCOSE,RANDOM 111 mg/dL (74-106); MAGNESIUM 2.1 mg/dL (1.8-2.4); N-TERMINAL BNP > 175000.0 pg/ml (5-450); POTASSIUM 4.5 mmol/L (3.5-5.1); SGOT/AST 14 U/L (15-37); SGPT/ALT 32 U/L (13-61); SODIUM 134 mmol/L (136-145); TOT PROT 6.5 g/dl (6.4-8.2)
--- NOTE | 2019-02-24 08:16 | PDOC ---
*Physical Exam - Vital Signs Last Vital Signs Temp Pulse Resp BP Pulse Ox 97.5 F L 84 14 185/95 H 96 02/24/19 06:16 02/24/19 06:16 02/24/19 06:16 02/24/19 06:16 02/24/19 06:16 ED Treatment Course - LABORATORY CBC & Chemistry Diagram: 02/24/19 05:30 02/24/19 05:30 - ADDITIONAL ORDERS Additional order review: Laboratory Results 02/24/19 02/24/19 05:30 05:30 PT with INR 11.40 INR 0.97 Sodium 134 L Potassium 4.5 Chloride 102 Carbon Dioxide 18 L Anion Gap 15 BUN 75.7 H Creatinine 4.3 H Est GFR (CKD-EPI)AfAm 10.94 Est GFR (CKD-EPI)NonAf 9.44 Random Glucose 111 H Calcium 8.7 Magnesium 2.1 Total Bilirubin 0.6 AST 14 L ALT 32 Alkaline Phosphatase 92 Creatine Kinase 41 Troponin I 0.06 H B-Natriuretic Peptide > 044256.0 H Total Protein 6.5 Albumin 3.0 L 02/24/19 05:30 RBC 3.71 MCV 83.2 D MCHC 33.2 RDW 19.0 H MPV 6.8 L Neutrophils % 94.7 H D Lymphocytes % 3.4 L D Monocytes % 1.3 L D Eosinophils % 0.2 D Basophils % 0.4 - Medications Given in the ED: ED Medications Discontinued Medications Generic Name Dose Route Start Last Admin Trade Name Freq PRN Reason Stop Dose Admin Furosemide 60 mg 02/24/19 06:54 02/24/19 07:04 Lasix Injection - IVPUSH 02/24/19 06:55 60 mg ONCE ONE Administration Nitroglycerin 0.5 inch 02/24/19 06:54 02/24/19 07:04 Nitro-Bid 2% Paste - TD 02/24/19 06:55 0.5 inch ONCE ONE Administration Medical Decision Making - Medical Decision Making 02/24/19 08:14 73y F with PMH CKD, HTN, COPD, CHF presenting from [facility] for SOB, hypoxic at [place] to mid 80s. labs significant for leukocytosis 12, hgb 10 (baseline) Cr 4 which is above baseline, trop 0.06 likely 2/2/ demand and elevated BNP. CXr shows vascular congestion. given 60mg iv lasix and 1/2in nitropaste. Called Dr. Vera service pending admission for CHF. karime accepted to tele Discharge - Discharge Information Problems reviewed: Yes Clinical Impression/Diagnosis: CHF exacerbation Qualifiers: Heart failure type: unspecified Qualified Code(s): I50.9 - Heart failure, unspecified Condition: Fair - Admission Yes - Follow up/Referral - Patient Discharge Instructions - Post Discharge Activity
[2019-02-24] MEDS ORDERED: ALBUTEROL SO4 0.083% IH SOL 2.5 MG/3 ML VIAL.NEB. NEB PRN (08:34)
[2019-02-24] MEDS ORDERED: IPRATROPIUM BR 0.02% 0.5 MG/2.5 ML VIAL.NEB. NEB PRN (08:34)
[2019-02-24] MEDS ORDERED: hydrALAZINE HCL 25 MG TABLET (FP) ONE (09:46)
[2019-02-24] MEDS ORDERED: PANTOPRAZOLE 40 MG TABLET (FP) ONE (09:46)
[2019-02-24] MEDS ORDERED: FERROUS SO4 325 MG TABLET (FP) ONE (09:46)
[2019-02-24] MEDS ORDERED: HEPARIN NA (PORCINE) 5,000 UNITS/ML 1ML VIAL ONE (09:47)
[2019-02-24] MEDS: FERROUS SO4 325 MG TABLET (FP) PO SCH ×2 (10:07→22:33)
[2019-02-24] MEDS: HEPARIN NA (PORCINE) 5,000 UNITS/ML 1ML VIAL SQ SCH ×2 (10:07→22:34)
[2019-02-24] MEDS: PANTOPRAZOLE 20 MG TABLET (FP) PO SCH (10:07)
[2019-02-24 10:53] LABS: ANISOCYTOSIS 1+; MACROCYTOSIS 0; OVALOCYTE 1+; PLATELET ESTIMATE NORMAL; TOXIC GRANULATION 1+
[2019-02-24] MEDS: MULTIVITAMINS (DAILY MVI) TABLET (FP) PO SCH (10:57)
--- NOTE | 2019-02-24 11:08 | CON.CARD ---
Consult Consult Specialty:: Cardiology Referred by:: Dr. Vera Reason for Consultation:: SOB, CHF - History of Present Illness Chief Complaint: SOB, constipation History of Present Illness: 73 year old woman with a PMH of colon Ca, HTN, HLD, and anemia, prior admissions for acute on chronic diastolic CHF admitted from [facility] with sob, hypoxia. pt seen and examined in the ER in [place]. states she is feeling better since coming to ER. denies sob. states she has been very constipated and this was her main issue, struggling to have a bm. denies any chest pain, palpitations, pnd, orthopnea, LE edema. ECHOCARDIOGRAM 12/02/18: EF 50 - 55% [place] LV dilatation Normal RV size and function Mild MR Mild to moderate TR - History Source History Provided By: Patient, Medical Record Limitations to Obtaining History: No Limitations - Past Medical History Cardio/Vascular: Yes: HTN, Hyperlipdemia Gastrointestinal: Yes: Cancer ([place] A colon cancer resected 2002), Gastritis ( H. pylori gastritis 2005 on EGD), Other (colon adenomas removed 2005, 2016) Renal/: Yes: Renal Inusuff Musculoskeletal: Yes: Other (right elbow bursitis, recent right ankle fracture repair) - Past Surgical History Past Surgical History: Yes: Colectomy (partial colectomy for [place] A cancer), Colonoscopy, Hysterectomy, Tonsillectomy, Upper Endoscopy - Alcohol/Substance Use Hx Alcohol Use: No History of Substance Use: reports: None - Smoking History Smoking history: Unknown if ever smoked Have you smoked in the past 12 months: No If you are a former smoker, when did you quit?: 1984 - Social History Usual Living Arrangement: Alone (never ) ADL: Independent Occupation: retired fom recording industry History of Recent Travel: No Home Medications - Allergies Allergies/Adverse Reactions: Allergies Allergy/AdvReac Type Severity Reaction Status Date / Time No Known Allergies Allergy Verified 12/01/18 15:54 - Home Medications Home Medications: Ambulatory Orders Simvastatin 1 tab PO HS 12/01/18 Acetaminophen [Tylenol .Regular Strength -] 650 mg PO Q6H PRN tablet 12/09/18 Ferrous Sulfate [Feosol] 325 mg PO BID ud 12/09/18 Metoprolol Succinate [Toprol XL -] 50 mg PO BID tab.sr.24h 12/09/18 Nifedipine ER [Procardia XL -] 60 mg PO DAILY tab.er.24 12/09/18 Pantoprazole Sodium [Protonix -] 40 mg PO DAILY tablet.ec 12/09/18 Polyethylene Glycol 3350 [Miralax 119 gm Btl -] 17 gm PO TID bottle 12/09/18 Sennosides [Senna -] 2 tab PO HS tablet 12/09/18 hydrALAZINE HCL [Apresoline -] 50 mg PO TID tablet 12/09/18 Amox-Tr/K Cl [Augmentin 500-125mg Tablet -] 1 tab PO DAILY@0800 #7 tablet Furosemide [Lasix] 40 mg PO DAILY #30 tablet 12/19/18 Acetaminophen [Tylenol .Regular Strength -] 650 mg PO Q4H PRN tablet 12/21/18 Albuterol 0.083% Nebulizer Mely [Ventolin 0.083% Nebulizer Soln -] 1 amp NEB Q6H PRN amp 12/21/18 Heparin - 5,000 unit SQ BID vial 12/21/18 Ipratropium 0.02% Nebulizer [Atrovent 0.02% Nebulizer -] 1 amp NEB Q6H PRN amp 12/21/18 Multivitamins [Multivit ([facility] Formul[facility])] 1 tab PO DAILY tab 12/21/18 Nifedipine ER [Procardia XL -] 90 mg PO DAILY tab.er.24 12/21/18 Review of Systems - Review of Systems Constitutional: denies: No Symptoms, Chills, Diaphoresis, Fever, Lethargy, Loss of Appetite, Malaise, Night Sweats, Unintentional Wgt. Loss, Weakness, Other Eyes: denies: No Symptoms, Blind Spots, Blurred Vision, Double Vision, Eye Pain , Floaters, Photophobia, Recent Change in Vision, Other HENT: denies: No Symptoms, Difficult Swallowing, Ear Discharge, Ear Pain, Epistaxis, Gingival Bleeding, Hearing Loss, Mouth Swelling, Nasal Congestion, Ocular Prosthesis, Throat Pain, Toothache, Ringing in Ears, Other Neck: denies: No Symptoms, Decreased ROM, Lumps, Pain on Movement, Stiffness, Swollen Glands, Tenderness, Other Cardiovascular: reports: Shortness of Breath. denies: No Symptoms, Chest Pain, Edema, Palpitations, Other Respiratory: reports: Cough, SOB. denies: No Symptoms, Exercise Intolerance, Hemoptysis, Orthopnea, PND, Snoring, SOB on Exertion, Wheezing, Other Gastrointestinal: denies: No Symptoms, Abdominal Pain, Bloating, Constipation, Diarrhea, Dysphagia, Indigestion, Melena, Nausea, Rectal Bleeding, Vomiting, Vomiting Blood, Other Genitourinary: denies: No Symptoms, Burning, Discharge, Dysuria, Flank Pain, Frequency, Hematuria, Incontinence, Lesions, Menses, Pain, Testicular Mass, Testicular Pain, Testicular Swelling, Urgency, Vaginal Bleeding, Other Breasts: denies: No Symptoms Reported, See HPI, Breast Implants, Discharge from Nipple, Lumps, Pain, Skin Changes, Other Musculoskeletal: denies: No Symptoms, Back Pain, Crepitus, Decreased ROM, Extremity Pain, Joint Pain, Joint Swelling, Muscle Pain, Muscle Cramps, Muscle Weakness, Other Integumentary: denies: No Symptoms, Blister, Bruising, Change in Color, Eczema, Erythema, Incision, Lesions, Lump, Pallor, Pruritis, Rash, Wound, Other Neurological: denies: No Symptoms, Change in LOC, Change in Speech, Confusion, Dizziness, Headache, Incoordination, Numbness, Parasthesia, Pre-Existing Deficit , Seizure, Syncope, Tremors, Unsteady Gait, Weakness, Other Endocrine: denies: No Symptoms, Excessive Sweating, Flushing, Increased Hunger, Increased Thirst, Intolerance to Cold, Intolerance to Heat, Unexplained Weight Gain, Unexplained Weight Loss, Other Hematology/Lymphatic: denies: No Symptoms, Easily Bruised, Excessive Bleeding, Swollen Glands, Other Psychiatric: denies: No Symptoms, Altered Sleep Pattern, Anxiety, Depression, Hallucinations, Panic, Paranoia, Suicidal, Other Vital Signs: Vital Signs Temperature 97.5 F L 02/24/19 06:16 Pulse Rate 84 02/24/19 06:16 Respiratory Rate 14 02/24/19 06:16 Blood Pressure 185/95 H 02/24/19 06:16 O2 Sat by Pulse Oximetry (%) 96 02/24/19 06:16 Constitutional: Yes: No Distress, Calm Eyes: Yes: Conjunctiva Clear, EOM Intact HENT: Yes: Atraumatic, Normocephalic Neck: Yes: Supple, Trachea Midline Respiratory: Yes: Regular, CTA Bilaterally. No: Rales, Rhonchi, Wheezes Gastrointestinal: Yes: Normal Bowel Sounds, Soft Cardiovascular: Yes: Regular Rate and Rhythm. No: Bradycardia, Tachycardia, Pulse Irregular, Gallop, Rub, Varicosities JVD: No Carotid Bruit: No PMI: Non-Displaced Heart Sounds: Yes: S1, S2. No: Split S2, S3, S4, Clicks, Gallop, Rub, Bruit Murmur: No: Systolic Murmur, Diastolic Murmur Musculoskeletal: Yes: WNL Extremities: Yes: WNL Edema: Yes Peripheral Pulses WNL: Yes Peripheral Pulses: 2+ Left Doralis Pedis, 2+ Right Dorsalis Pedis Neurological: Yes: Alert, Oriented Psychiatric: Yes: Alert, Oriented - Other Data Labs, Other Data: CBC, BMP 02/24/19 05:30 02/24/19 05:30 INR, PTT INR 0.97 (0.83-1.09) 02/24/19 05:30 Troponin, BNP 02/24/19 05:30 Troponin I 0.06 H B-Natriuretic Peptide > 823972.0 H Troponin, BNP 02/24/19 05:30 Troponin I 0.06 H B-Natriuretic Peptide > 881828.0 H not in emr Echo: Report Reviewed Imaging - Results Chest X-ray: Report Reviewed, Image Reviewed EKG: Report Reviewed, Image Reviewed Other: Report Reviewed, Image Reviewed Assessment/Plan 73 year old woman with a PMH of colon Ca, HTN, HLD, and anemia, prior admissions for acute on chronic diastolic CHF admitted from [facility] with sob, hypoxia. pt seen and examined in the ER in [place] [facility]. states she is feeling better since coming to ER. denies sob. states she has been very constipated and this was her main issue, struggling to have a bm. denies any chest pain, palpitations, pnd, orthopnea, LE edema. Acute on chronic diastolic CHF -similar admissions in the past, issues with GISSELLE on CKD when diuresed in the past -currently with pulmonary edema, no peripheral edema -uncontrolled HTN -reports severe constipation and straining, with uncontrolled HTN, possibly precipitated flash pulm edema -received Lasix 60mg IV x 1 in er and symptomatically improved. -BUn/creat up from baseline -needs HTN control to reduce afterload -cont Toprol XL, Hydralazine -add nifedipine ER 30mg bid and titrate as needed for HTN control -monitor strict I/Os and daily weights -monitor bun/creat, electrolytes and replete as needed. -dose additional Lasix prn ECHOCARDIOGRAM 12/02/18: EF 50 - 55% [place] LV dilatation Normal RV size and function Mild MR Mild to moderate TR
[2019-02-24] MEDS ORDERED: NIFEdipine E.R. 30 MG TABLET (FP) PO SCH (11:45)
--- NOTE | 2019-02-24 12:05 | EKG ---
Test Reason : Blood Pressure : / mmHG Vent. Rate : 089 BPM Atrial Rate : 089 BPM P-R Int : 180 ms QRS Dur : 084 ms QT Int : 398 ms P-R-T Axes : 046 -29 108 degrees QTc Int : 484 ms POOR DATA QUALITY, INTERPRETATION MAY BE ADVERSELY AFFECTED NORMAL SINUS RHYTHM POSSIBLE LEFT ATRIAL ENLARGEMENT NONSPECIFIC ST AND T WAVE ABNORMALITY ABNORMAL ECG WHEN COMPARED WITH ECG OF 16-DEC-2018 00:43, PREMATURE ATRIAL COMPLEXES ARE NO LONGER PRESENT QRS AXIS SHIFTED LEFT NONSPECIFIC T WAVE ABNORMALITY, WORSE IN LATERAL LEADS Confirmed by Ferdinand Martinez ([id number]) on 02/24/2019 12:04:49 PM Referred By: Confirmed By:Ferdinand Martinez
[2019-02-24] MEDS ORDERED: NIFEdipine E.R. 30 MG TABLET (FP) ONE (12:18)
--- NOTE | 2019-02-24 12:18 | CON.PULM ---
Consult Consult Specialty:: PULMONARY Referred by:: Dr Baldwin Reason for Consultation:: shortness of breath - History of Present Illness Chief Complaint: shortness of breath History of Present Illness: 73yo female with h/o HTN, hyperlipidemia, LV diastolic dysfunction, colon cancer who was transferred from the senior care for worsening shortness of breath. Denies chest pain or palpitations. No fevers, chills or sweats. Denies cough or wheezing. CXR showing congestive changes, was given lasix with improvement in symptoms. - History Source History Provided By: Patient, Medical Record Limitations to Obtaining History: No Limitations - Past Medical History Cardio/Vascular: Yes: HTN, Hyperlipdemia Gastrointestinal: Yes: Cancer ([place] A colon cancer resected 2002), Gastritis ( H. pylori gastritis 2005 on EGD), Other (colon adenomas removed 2005, 2016) Renal/: Yes: Renal Inusuff Musculoskeletal: Yes: Other (right elbow bursitis, recent right ankle fracture repair) - Past Surgical History Past Surgical History: Yes: Colectomy (partial colectomy for [place] A cancer), Colonoscopy, Hysterectomy, Tonsillectomy, Upper Endoscopy - Alcohol/Substance Use Hx Alcohol Use: No History of Substance Use: reports: None - Smoking History Smoking history: Unknown if ever smoked Have you smoked in the past 12 months: No If you are a former smoker, when did you quit?: 1984 - Social History Usual Living Arrangement: Alone (never ) ADL: Independent Occupation: retired fom recording industry History of Recent Travel: No Home Medications - Allergies Allergies/Adverse Reactions: Allergies Allergy/AdvReac Type Severity Reaction Status Date / Time No Known Allergies Allergy Verified 12/01/18 15:54 - Home Medications Home Medications: Ambulatory Orders Simvastatin 1 tab PO HS 12/01/18 Acetaminophen [Tylenol .Regular Strength -] 650 mg PO Q6H PRN tablet 12/09/18 Ferrous Sulfate [Feosol] 325 mg PO BID ud 12/09/18 Metoprolol Succinate [Toprol XL -] 50 mg PO BID tab.sr.24h 12/09/18 Nifedipine ER [Procardia XL -] 60 mg PO DAILY tab.er.24 12/09/18 Pantoprazole Sodium [Protonix -] 40 mg PO DAILY tablet.ec 12/09/18 Polyethylene Glycol 3350 [Miralax 119 gm Btl -] 17 gm PO TID bottle 12/09/18 Sennosides [Senna -] 2 tab PO HS tablet 12/09/18 hydrALAZINE HCL [Apresoline -] 50 mg PO TID tablet 12/09/18 Amox-Tr/K Cl [Augmentin 500-125mg Tablet -] 1 tab PO DAILY@0800 #7 tablet Furosemide [Lasix] 40 mg PO DAILY #30 tablet 12/19/18 Acetaminophen [Tylenol .Regular Strength -] 650 mg PO Q4H PRN tablet 12/21/18 Albuterol 0.083% Nebulizer Mely [Ventolin 0.083% Nebulizer Soln -] 1 amp NEB Q6H PRN amp 12/21/18 Heparin - 5,000 unit SQ BID vial 12/21/18 Ipratropium 0.02% Nebulizer [Atrovent 0.02% Nebulizer -] 1 amp NEB Q6H PRN amp 12/21/18 Multivitamins [Multivit ([facility] Formul[facility])] 1 tab PO DAILY tab 12/21/18 Nifedipine ER [Procardia XL -] 90 mg PO DAILY tab.er.24 12/21/18 Review of Systems - Review of Systems Constitutional: denies: Chills, Fever, Weakness Eyes: denies: Recent Change in Vision HENT: denies: Nasal Congestion, Throat Pain Neck: denies: Stiffness, Tenderness Cardiovascular: reports: Shortness of Breath. denies: Chest Pain Respiratory: denies: Cough, Wheezing Gastrointestinal: denies: Abdominal Pain, Nausea, Vomiting Genitourinary: denies: Dysuria, Hematuria Neurological: denies: Dizziness, Headache Endocrine: denies: Unexplained Weight Loss Physical Exam Vital Sings: Vital Signs Temperature 97.5 F L 02/24/19 06:16 Pulse Rate 84 02/24/19 06:16 Respiratory Rate 14 02/24/19 06:16 Blood Pressure 185/95 H 02/24/19 06:16 O2 Sat by Pulse Oximetry (%) 96 02/24/19 06:16 Constitutional: Yes: Calm Eyes: Yes: Conjunctiva Clear, EOM Intact HENT: Yes: Atraumatic, Normocephalic Neck: Yes: Supple, Trachea Midline Cardiovascular: Yes: Regular Rate and Rhythm Respiratory: Yes: Diminished (decreased breath sounds at the bases) ...Clubbing: No Gastrointestinal: Yes: Normal Bowel Sounds, Soft. No: Tenderness Edema: No Neurological: Yes: Alert, Oriented Labs: CBC, BMP 02/24/19 05:30 02/24/19 05:30 Imaging - Results Chest X-ray: Report Reviewed, Image Reviewed (pulmonary vascular congestion) Problem List - Problems (1) Acute on chronic diastolic (congestive) heart failure Code(s): I50.33 - ACUTE ON CHRONIC DIASTOLIC (CONGESTIVE) HEART FAILURE Assessment/Plan Acute on Chronic Diastolic Heart Failure Acute on Chronic Renal Failure +Troponins likely from above HTN Hyperlipidemia Colon Ca - IV lasix - monitor urine output, creatinine - O2 to keep Spo2 >90% - daily weights - monitor CXR with diuresis - BP control - BALBIR/ARB when renal function stabilized - DVT prophylaxis Thank you for this consult Oz Colon MD
--- NOTE | 2019-02-24 13:17 | CONSULT ---
Consult - text type - Consultation Consultation Note: Renal consult for GENOVEVA on CKD This is a 73 year old woman with history of CKD stage 4 (baseline cr as of last admission ~2.9, eGFR 16), hypertension, colon cancer presented from [place] with sob and found to have acute diastolic heart failure with Cr of 4. Pt reports feeling a little better today but has stomach upset and some nasuea. Denies any chest pain, fever, chills. Denies any flank pain, dysuira, frequency or urgency. No JACK, or confusion. No skin rash. Making urine. PMhx: as above Allergies: NKDA Family Hx: NC Social Hx: No T/A/D ROS: as per HPI, all other pertinent ros negative Home Medications Medication Instructions Recorded Simvastatin 1 tab PO HS 12/01/18 Acetaminophen [Tylenol .Regular 650 mg PO Q6H PRN tablet 12/09/18 Strength -] Ferrous Sulfate [Feosol] 325 mg PO BID ud 12/09/18 Metoprolol Succinate [Toprol XL -] 50 mg PO BID tab.sr.24h 12/09/18 Nifedipine ER [Procardia XL -] 60 mg PO DAILY tab.er.24 12/09/18 Pantoprazole Sodium [Protonix -] 40 mg PO DAILY tablet.ec 12/09/18 Polyethylene Glycol 3350 [Miralax 17 gm PO TID bottle 12/09/18 119 gm Btl -] Sennosides [Senna -] 2 tab PO HS tablet 12/09/18 hydrALAZINE HCL [Apresoline -] 50 mg PO TID tablet 12/09/18 Amox-Tr/K Cl [Augmentin 500-125mg 1 tab PO DAILY@0800 #7 tablet 12/19/18 Tablet -] Furosemide [Lasix] 40 mg PO DAILY #30 tablet 12/19/18 Acetaminophen [Tylenol .Regular 650 mg PO Q4H PRN tablet 12/21/18 Strength -] Albuterol 0.083% Nebulizer Mely 1 amp NEB Q6H PRN amp 12/21/18 [Ventolin 0.083% Nebulizer Soln -] Heparin - 5,000 unit SQ BID vial 12/21/18 Ipratropium 0.02% Nebulizer 1 amp NEB Q6H PRN amp 12/21/18 [Atrovent 0.02% Nebulizer -] Multivitamins [Multivit ([facility] 1 tab PO DAILY tab 12/21/18 Formulary)] Nifedipine ER [Procardia XL -] 90 mg PO DAILY tab.er.24 12/21/18 Vital Signs Temperature 97.5 F L 02/24/19 06:16 Pulse Rate 84 02/24/19 06:16 Respiratory Rate 14 02/24/19 06:16 Blood Pressure 185/95 H 02/24/19 06:16 O2 Sat by Pulse Oximetry (%) 96 02/24/19 06:16 Intake & Output 02/21/19 02/22/19 02/23/19 02/24/19 23:59 23:59 23:59 23:59 Weight 56.699 kg NAD awake and alert neck supple, no JVD RRR + rales right lung soft NT/ND, no heptomegaly no LE edema, clubbing or cyanosis no bladder distension CBC, BMP 02/24/19 05:30 02/24/19 05:30 Current Medications Albuterol Sulfate (Ventolin 0.083% Nebulizer Soln -) 1 amp NEB Q6H PRN PRN Reason: SHORT OF BREATH/WHEEZING Atorvastatin Calcium (Lipitor -) 10 mg PO HS [facility] Ferrous Sulfate (Feosol -) 325 mg PO BID [facility] Last Admin: 02/24/19 10:07 Dose: 325 mg Heparin Sodium (Porcine) (Heparin -) 5,000 unit SQ BID [facility] Last Admin: 02/24/19 10:07 Dose: 5,000 unit Hydralazine HCl (Apresoline -) 50 mg PO TID [facility] Ipratropium [place] (Atrovent 0.02% Nebulizer -) 1 amp NEB Q6H PRN PRN Reason: WHEEZING Metoprolol Succinate (Toprol Xl -) 50 mg PO BID [facility] Last Admin: 02/24/19 10:07 Dose: 50 mg Multivitamins/Minerals/Vitamin C (Tab-A-Vit -) 1 tab PO DAILY [facility] Last Admin: 02/24/19 10:57 Dose: 1 tab Nifedipine (Procardia Xl -) 30 mg PO BID [facility] Last Admin: 02/24/19 12:34 Dose: 30 mg Pantoprazole Sodium (Protonix -) 40 mg PO DAILY [facility] Last Admin: 02/24/19 10:07 Dose: 40 mg Polyethylene Glycol (Miralax (For Daily Use) -) 17 gm PO TID [facility] Senna (Senna -) 2 tab PO HS [facility] 73 year old woman with history of CKD stage 4 (baseline cr as of last admission ~2.9, eGFR 16), hypertension, colon cancer presented from [place] with sob and found to have acute diastolic heart failure with Cr of 4. 1. Acute kidney injury in setting of CHF and fluid overload 2. CKD stage 4 3. Diastolic HF 4. Hypertension 5. Hypervolemic hypernatremia 6. Metabolic acidosis 7. Anemia Suspect GENOVEVA due to renal hypoprofusion due to CHF. Check urine studies for FeUrea, UPCR, Urine eosinophils. Agree with IV Lasix Daily for now. Check renal US to access kidney size and structure Trend renal function and electrolyte daily salt restriction of 2g start sodium bicarb 650mg daily for metabolic acidosis Check iron studies for anemia Thank you Thee Tse DO
[2019-02-24] MEDS: POLYETHYLENE GLYCOL 3350 119 GM BTL PO SCH ×2 (13:42→22:34)
[2019-02-24] MEDS: hydrALAZINE HCL 25 MG TABLET (FP) PO SCH ×3 (13:42→22:33)
[2019-02-24] MEDS: SODIUM BICARBONATE 650 MG TABLET PO SCH (14:00)
--- NOTE | 2019-02-24 16:29 | HP ---
Admitting History and Physical - Primary Care Physician PCP: Jeff Vera - Admission Chief Complaint: SOB and hypoxia History of Present Illness: Patient is a 73 y/o female with past medical history of CKD, HTN, COPD, CHF. Patient presents from [facility] for SOB. In the [place] SpO2 84% on RA. Placed on O2 via NC in ER and SpO2 improve to 90s. History Source: Patient, Medical Record Limitations to Obtaining History: No Limitations - Past Medical History Cardiovascular: Yes: HTN, Hyperlipdemia Gastrointestinal: Yes: Cancer (Aiken A colon cancer resected 2002), Gastritis ( H. pylori gastritis 2005 on EGD), Other (colon adenomas removed 2005, 2016) Renal/: Yes: Renal Inusuff Heme/Onc: Yes: Anemia (h/o pernicious anemia) Musculoskeletal: Yes: Other (right elbow bursitis, recent right ankle fracture repair) - Past Surgical History Past Surgical History: Yes: Colectomy (partial colectomy for Aiken A cancer), Colonoscopy, Hysterectomy, Tonsillectomy, Upper Endoscopy - Smoking History Smoking history: Unknown if ever smoked Have you smoked in the past 12 months: No If you are a former smoker, when did you quit?: 1984 - Alcohol/Substance Use Hx Alcohol Use: No History of Substance Use: reports: None - Social History Usual Living Arrangement: Yes: Jail ADL: Independent Occupation: retired [employer] History of Recent Travel: No Home Medications - Allergies Allergies/Adverse Reactions: Allergies Allergy/AdvReac Type Severity Reaction Status Date / Time No Known Allergies Allergy Verified 12/01/18 15:54 - Home Medications Home Medications: Ambulatory Orders Simvastatin 1 tab PO HS 12/01/18 Acetaminophen [Tylenol .Regular Strength -] 650 mg PO Q6H PRN tablet 12/09/18 Ferrous Sulfate [Feosol] 325 mg PO BID ud 12/09/18 Metoprolol Succinate [Toprol XL -] 50 mg PO BID tab.sr.24h 12/09/18 Nifedipine ER [Procardia XL -] 60 mg PO DAILY tab.er.24 12/09/18 Pantoprazole Sodium [Protonix -] 40 mg PO DAILY tablet.ec 12/09/18 Polyethylene Glycol 3350 [Miralax 119 gm Btl -] 17 gm PO TID bottle 12/09/18 Sennosides [Senna -] 2 tab PO HS tablet 12/09/18 hydrALAZINE HCL [Apresoline -] 50 mg PO TID tablet 12/09/18 Amox-Tr/K Cl [Augmentin 500-125mg Tablet -] 1 tab PO DAILY@0800 #7 tablet Furosemide [Lasix] 40 mg PO DAILY #30 tablet 12/19/18 Acetaminophen [Tylenol .Regular Strength -] 650 mg PO Q4H PRN tablet 12/21/18 Albuterol 0.083% Nebulizer Mely [Ventolin 0.083% Nebulizer Soln -] 1 amp NEB Q6H PRN amp 12/21/18 Heparin - 5,000 unit SQ BID vial 12/21/18 Ipratropium 0.02% Nebulizer [Atrovent 0.02% Nebulizer -] 1 amp NEB Q6H PRN amp 12/21/18 Multivitamins [Multivit ([facility] Formulary)] 1 tab PO DAILY tab 12/21/18 Nifedipine ER [Procardia XL -] 90 mg PO DAILY tab.er.24 12/21/18 Review of Systems - Review of Systems Constitutional: reports: Loss of Appetite Eyes: reports: No Symptoms HENT: reports: No Symptoms Neck: reports: No Symptoms Cardiovascular: reports: Shortness of Breath Respiratory: reports: SOB Gastrointestinal: reports: No Symptoms Genitourinary: reports: No Symptoms Breasts: reports: No Symptoms Reported Musculoskeletal: reports: No Symptoms Integumentary: reports: No Symptoms Neurological: reports: No Symptoms Endocrine: reports: No Symptoms Hematology/Lymphatic: reports: No Symptoms Psychiatric: reports: No Symptoms Physical Examination Vital Signs: Vital Signs Temperature 97.5 F L 02/24/19 06:16 Pulse Rate 81 02/24/19 13:57 Respiratory Rate 17 02/24/19 13:57 Blood Pressure 129/59 L 02/24/19 13:57 O2 Sat by Pulse Oximetry (%) 99 02/24/19 13:57 Constitutional: Yes: No Distress, Calm, Cachectic Eyes: Yes: Conjunctiva Clear HENT: Yes: Atraumatic Neck: Yes: Supple Cardiovascular: Yes: Regular Rate and Rhythm Respiratory: Yes: Regular, Rhonchi Gastrointestinal: Yes: Normal Bowel Sounds, Soft Musculoskeletal: Yes: Muscle Weakness Extremities: Yes: WNL Edema: No Neurological: Yes: Alert Psychiatric: Yes: Alert Labs: CBC, BMP 02/24/19 05:30 02/24/19 05:30 Imaging - Results X-ray: Report Reviewed Problem List - Problems (1) Acute on chronic diastolic (congestive) heart failure Assessment/Plan: -Cardiology on board -daily weights -BNP >526019 -Strict I&Os -Lasix 60mg IVP in ER x 1 -Hold Furosemida due to renal function -Echo 12/05 with EF 50-55% Code(s): I50.33 - ACUTE ON CHRONIC DIASTOLIC (CONGESTIVE) HEART FAILURE (2) CKD (chronic kidney disease) Assessment/Plan: -Renal on board -BUN/Cr 75.7/4.3 -monitor renal function daily Code(s): N18.9 - CHRONIC KIDNEY DISEASE, UNSPECIFIED (3) GERD (gastroesophageal reflux disease) Assessment/Plan: -Pantoprazole Code(s): K21.9 - GASTRO-ESOPHAGEAL REFLUX DISEASE WITHOUT ESOPHAGITIS (4) HLD (hyperlipidemia) Assessment/Plan: -Atorvastatin Code(s): E78.5 - HYPERLIPIDEMIA, UNSPECIFIED (5) HTN (hypertension) Assessment/Plan: -Metoprolol, Nifedipine, Hydralazine -low Na diet Code(s): I10 - ESSENTIAL (PRIMARY) HYPERTENSION (6) Malnourished Assessment/Plan: -Dietary consult -Ensure -daily weights Code(s): E46 - UNSPECIFIED PROTEIN-CALORIE MALNUTRITION Qualifiers: Protein-calorie malnutrition severity: severe Assessment/Plan see problem list dvt ppx
[2019-02-24] MEDS: SENNOSIDES 8.6MG TABLET (FP) PO SCH (22:34)
[2019-02-24] MEDS: ATORVASTATIN CA 10 MG TABLET (FP) PO SCH (22:34)
[2019-02-25] MEDS ORDERED: hydrALAZINE HCL 25 MG TABLET (FP) PO ONE (00:24)
[2019-02-25] MEDS: POLYETHYLENE GLYCOL 3350 119 GM BTL PO SCH ×3 (05:39→21:17)
[2019-02-25] MEDS: hydrALAZINE HCL 25 MG TABLET (FP) PO SCH ×3 (05:54→21:17)
[2019-02-25 08:23] LABS: BASO % 0.7 % (0-2.0); EOS % 1.4 % (0-4.5); HEMATOCRIT 25.6 % (32.4-45.2); HEMOGLOBIN 8.6 GM/dL (10.7-15.3); LYMPH % 21.1 % (8-40); MCH 27.7 pg (25.7-33.7); MCHC 33.8 g/dl (32.0-36.0); MEAN CELL VOLUME 82.2 fl (80-96); MEAN PLT VOLUME 7.2 fl (7.5-11.1); MONO % 6.1 % (3.8-10.2); NEUT % 70.7 % (42.8-82.8); PLATELET COUNT 234 K/MM3 (134-434); RBC 3.11 M/mm3 (3.60-5.2); RDW 19.8 % (11.6-15.6); WHITE BLOOD COUNT 8.5 K/mm3 (4.0-10.0)
[2019-02-25 08:51] LABS: ALBUMIN 2.8 g/dl (3.4-5.0); ALK PHOS 82 U/L (45-117); ANION GAP 13 MMOL/L (8-16); BILIRUBIN,TOTAL 0.6 mg/dL (0.2-1); BLOOD UREA NITROGEN 80.2 mg/dL (7-18); CALCIUM 8.8 mg/dL (8.5-10.1); CHLORIDE 99 mmol/L (98-107); CHOLESTEROL 161 mg/dL (50-200); CO2 21 mmol/L (21-32); CREATININE 4.5 mg/dL (0.55-1.3); GLUCOSE,RANDOM 91 mg/dL (74-106); HDL CHOLESTEROL 63 mg/dL (40-60); LDL CHOLESTEROL (ONLY SJRH) 82 mg/dL (5-100); MAGNESIUM 2.2 mg/dL (1.8-2.4); N-TERMINAL BNP > 175000.0 pg/ml (5-450); PHOSPHOROUS 5.8 mg/dL (2.5-4.9); POTASSIUM 3.5 mmol/L (3.5-5.1); SGOT/AST 13 U/L (15-37); SGPT/ALT 25 U/L (13-61); SODIUM 134 mmol/L (136-145); TOT PROT 5.9 g/dl (6.4-8.2); TRIGLYCERIDES 122 mg/dL (0-150)
[2019-02-25] MEDS: FERROUS SO4 325 MG TABLET (FP) PO SCH ×2 (09:57→21:17)
[2019-02-25] MEDS: PANTOPRAZOLE 20 MG TABLET (FP) PO SCH (09:58)
[2019-02-25] MEDS: MULTIVITAMINS (DAILY MVI) TABLET (FP) PO SCH (09:58)
[2019-02-25] MEDS: SODIUM BICARBONATE 650 MG TABLET PO SCH (09:58)
[2019-02-25] MEDS: HEPARIN NA (PORCINE) 5,000 UNITS/ML 1ML VIAL SQ SCH ×2 (09:58→21:17)
[2019-02-25] MEDS ORDERED: NIFEdipine E.R. 30 MG TABLET (FP) PO SCH (10:00)
--- NOTE | 2019-02-25 12:03 | PN ---
Progress Note, Physician Chief Complaint: CHF Exacerbation CKD History of Present Illness: Previous notes and events reviewed awake and alert NAD BNP >175,000 trop 0.09~0.21 denies chest pain or SOB downtrend in Hg 10.2~8.6 - Current Medication List Current Medications: Active Medications Albuterol Sulfate (Ventolin 0.083% Nebulizer Soln -) 1 amp NEB Q6H PRN PRN Reason: SHORT OF BREATH/WHEEZING Atorvastatin Calcium (Lipitor -) 10 mg PO HS REPLACED BY [facility] Last Admin: 02/24/19 22:34 Dose: 10 mg Ferrous Sulfate (Feosol -) 325 mg PO BID REPLAC[facility] BY [facility] Last Admin: 02/25/19 09:57 Dose: 325 mg Heparin Sodium (Porcine) (Heparin -) 5,000 unit SQ BID REPLACED BY [facility] Last Admin: 02/25/19 09:58 Dose: 5,000 unit Hydralazine HCl (Apresoline -) 50 mg PO TID REPLACED BY [facility] Last Admin: 02/25/19 05:54 Dose: 50 mg Ipratropium [place] (Atrovent 0.02% Nebulizer -) 1 amp NEB Q6H PRN PRN Reason: WHEEZING Metoprolol Succinate (Toprol Xl -) 50 mg PO BID REPLACED BY [facility] Last Admin: 02/25/19 09:58 Dose: 50 mg Multivitamins/Minerals/Vitamin C (Tab-A-Vit -) 1 tab PO DAILY REPLACED BY [facility] Last Admin: 02/25/19 09:58 Dose: 1 tab Nifedipine (Procardia Xl -) 30 mg PO DAILY REPLACED BY [facility] Pantoprazole Sodium (Protonix -) 40 mg PO DAILY REPLACED BY [facility] Last Admin: 02/25/19 09:58 Dose: 40 mg Polyethylene Glycol (Miralax (For Daily Use) -) 17 gm PO TID REPLACED BY [facility] Last Admin: 02/25/19 05:39 Dose: Not Given Senna (Senna -) 2 tab PO HS REPLACED BY [facility] Last Admin: 02/24/19 22:34 Dose: 2 tab Sodium Bicarbonate (Sodium Bicarbonate -) 650 mg PO DAILY REPLACED BY [facility] Last Admin: 02/25/19 09:58 Dose: 650 mg - Objective Vital Signs: Vital Signs Temperature 98.5 F 02/25/19 05:34 Pulse Rate 83 02/25/19 07:04 Respiratory Rate 20 02/25/19 07:04 Blood Pressure 167/82 02/25/19 07:04 O2 Sat by Pulse Oximetry (%) 99 10/08/19 22:30 Constitutional: Yes: No Distress, Calm, Cachectic Eyes: Yes: Conjunctiva Clear HENT: Yes: Atraumatic Cardiovascular: Yes: Regular Rate and Rhythm Respiratory: Yes: Regular, Diminished, On Nasal O2 Gastrointestinal: Yes: Normal Bowel Sounds, Soft Genitourinary: Yes: Incontinence Musculoskeletal: Yes: Muscle Weakness Extremities: Yes: WNL Edema: No Neurological: Yes: Alert, Oriented Psychiatric: Yes: Alert, Oriented Labs: CBC, BMP 02/25/19 07:15 02/25/19 07:15 INR, PTT INR 0.97 (0.83-1.09) 02/24/19 05:30 Problem List - Problems (1) Acute on chronic diastolic (congestive) heart failure Assessment/Plan: -Cardiology on board -daily weights -BNP >133214 x 2, monitor for downtrend -1L fluid restriction -Strict I&Os -Echo 12/05 with EF 50-55% Code(s): I50.33 - ACUTE ON CHRONIC DIASTOLIC (CONGESTIVE) HEART FAILURE (2) CKD (chronic kidney disease) Assessment/Plan: -Renal on board -BUN/Cr 80.2/4.5 -monitor renal function daily Code(s): N18.9 - CHRONIC KIDNEY DISEASE, UNSPECIFIED (3) GERD (gastroesophageal reflux disease) Assessment/Plan: -Pantoprazole Code(s): K21.9 - GASTRO-ESOPHAGEAL REFLUX DISEASE WITHOUT ESOPHAGITIS (4) HLD (hyperlipidemia) Assessment/Plan: -Atorvastatin Code(s): E78.5 - HYPERLIPIDEMIA, UNSPECIFIED (5) HTN (hypertension) Assessment/Plan: -Metoprolol, Nifedipine, Hydralazine -low Na diet Code(s): I10 - ESSENTIAL (PRIMARY) HYPERTENSION (6) Malnourished Assessment/Plan: -Dietary consult -Ensure -daily weights Code(s): E46 - UNSPECIFIED PROTEIN-CALORIE MALNUTRITION Qualifiers: Protein-calorie malnutrition severity: severe (7) Anemia Assessment/Plan: -monitor Hg daily -downtrend in Hg 10.2~8.6 -Stool OB -Iron panel -transfuse for Hg <7.0 to avoid fluid overload Code(s): D64.9 - ANEMIA, UNSPECIFIED Qualifiers: Iron deficiency anemia type: unspecified iron deficiency Assessment/Plan see problem list dvt ppx
--- NOTE | 2019-02-25 12:14 | EKG ---
Test Reason : Blood Pressure : / mmHG Vent. Rate : 082 BPM Atrial Rate : 082 BPM P-R Int : 174 ms QRS Dur : 088 ms QT Int : 388 ms P-R-T Axes : 050 -24 146 degrees QTc Int : 453 ms NORMAL SINUS RHYTHM LEFT ATRIAL ENLARGEMENT LEFT VENTRICULAR HYPERTROPHY ABNORMAL ECG WHEN COMPARED WITH ECG OF 24-FEB-2019 05:38, NONSPECIFIC T WAVE ABNORMALITY NOW EVIDENT IN INFERIOR LEADS Confirmed by MATTI MIRELES, CAMERON ([id number]) on 02/25/2019 12:13:33 PM Referred By: EVANGELINA LEACH DR Confirmed By:CAMERON CHINO MD
--- NOTE | 2019-02-25 14:34 | PN ---
Progress Note (short form) - Note Progress Note: PULMONARY Denies shortness of breath or chest pain. Vital Signs Period Temp Pulse Resp BP Sys/Roland Pulse Ox Last 24 Hr 97.7 F-98.5 F 77-90 17-20 160-194/82-114 98-99 Intake & Output 02/22/19 02/23/19 02/24/19 02/25/19 23:59 23:59 23:59 23:59 Intake Total 300 300 Balance 300 300 Weight 43.261 kg Gen: NAD at rest Heart: RRR Lung: decreased breath sounds at the bases Abd: soft, nontender Ext: no edema CBC, BMP 02/25/19 07:15 02/25/19 07:15 Active Medications Albuterol Sulfate (Ventolin 0.083% Nebulizer Soln -) 1 amp NEB Q6H PRN PRN Reason: SHORT OF BREATH/WHEEZING Atorvastatin Calcium (Lipitor -) 10 mg PO HS [facility] Last Admin: 02/24/19 22:34 Dose: 10 mg Ferrous Sulfate (Feosol -) 325 mg PO BID [facility] Last Admin: 02/25/19 09:57 Dose: 325 mg Heparin Sodium (Porcine) (Heparin -) 5,000 unit SQ BID [facility] Last Admin: 02/25/19 09:58 Dose: 5,000 unit Hydralazine HCl (Apresoline -) 50 mg PO TID [facility] Last Admin: 02/25/19 05:54 Dose: 50 mg Ipratropium [place] (Atrovent 0.02% Nebulizer -) 1 amp NEB Q6H PRN PRN Reason: WHEEZING Metoprolol Succinate (Toprol Xl -) 50 mg PO BID [facility] Last Admin: 02/25/19 09:58 Dose: 50 mg Multivitamins/Minerals/Vitamin C (Tab-A-Vit -) 1 tab PO DAILY [facility] Last Admin: 02/25/19 09:58 Dose: 1 tab Nifedipine (Procardia Xl -) 30 mg PO DAILY [facility] Last Admin: 02/25/19 12:08 Dose: 30 mg Pantoprazole Sodium (Protonix -) 40 mg PO DAILY [facility] Last Admin: 02/25/19 09:58 Dose: 40 mg Polyethylene Glycol (Miralax (For Daily Use) -) 17 gm PO TID [facility] Last Admin: 02/25/19 05:39 Dose: Not Given Senna (Senna -) 2 tab PO HS [facility] Last Admin: 02/24/19 22:34 Dose: 2 tab Sodium Bicarbonate (Sodium Bicarbonate -) 650 mg PO DAILY [facility] Last Admin: 02/25/19 09:58 Dose: 650 mg A/P Acute on Chronic Diastolic Heart Failure Acute on Chronic Renal Failure +Troponins likely from above HTN Hyperlipidemia Colon Ca - would continue lasix - monitor urine output, creatinine - O2 to keep Spo2 >90% - daily weights - monitor CXR with diuresis - BP control - BALBIR/ARB when renal function stabilized - DVT prophylaxis Problem List - Problems (1) Acute on chronic diastolic (congestive) heart failure Code(s): I50.33 - ACUTE ON CHRONIC DIASTOLIC (CONGESTIVE) HEART FAILURE
[2019-02-25] MEDS ORDERED: FUROSEMIDE 40 MG/4 ML INJECTABLE VIAL IVPB ONE (15:23)
--- NOTE | 2019-02-25 15:23 | PN ---
Progress Note (short form) - Note Progress Note: Renal follow up for GENOVEVA on CKD Seen at the bedside says she feels as though she is in a bad mood because of the weather denies any sob no N/V/D making urine Vital Signs Temperature 97.9 F 02/25/19 14:52 Pulse Rate 81 02/25/19 14:52 Respiratory Rate 18 02/25/19 14:52 Blood Pressure 163/105 H 02/25/19 14:52 O2 Sat by Pulse Oximetry (%) 98 02/25/19 09:00 Intake & Output 02/22/19 02/23/19 02/24/19 02/25/19 23:59 23:59 23:59 23:59 Intake Total 300 300 Balance 300 300 Weight 43.261 kg 43.091 kg NAD awake and alert neck supple RRR CTA soft NT/ND no LE edema CBC, BMP 02/25/19 07:15 02/25/19 07:15 Current Medications Albuterol Sulfate (Ventolin 0.083% Nebulizer Soln -) 1 amp NEB Q6H PRN PRN Reason: SHORT OF BREATH/WHEEZING Atorvastatin Calcium (Lipitor -) 10 mg PO HS [facility] Last Admin: 02/24/19 22:34 Dose: 10 mg Ferrous Sulfate (Feosol -) 325 mg PO BID [facility] Last Admin: 02/25/19 09:57 Dose: 325 mg Heparin Sodium (Porcine) (Heparin -) 5,000 unit SQ BID [facility] Last Admin: 02/25/19 09:58 Dose: 5,000 unit Hydralazine HCl (Apresoline -) 50 mg PO TID [facility] Last Admin: 02/25/19 15:01 Dose: 50 mg Ipratropium [place] (Atrovent 0.02% Nebulizer -) 1 amp NEB Q6H PRN PRN Reason: WHEEZING Metoprolol Succinate (Toprol Xl -) 50 mg PO BID [facility] Last Admin: 02/25/19 09:58 Dose: 50 mg Multivitamins/Minerals/Vitamin C (Tab-A-Vit -) 1 tab PO DAILY [facility] Last Admin: 02/25/19 09:58 Dose: 1 tab Nifedipine (Procardia Xl -) 30 mg PO DAILY [facility] Last Admin: 02/25/19 12:08 Dose: 30 mg Pantoprazole Sodium (Protonix -) 40 mg PO DAILY [facility] Last Admin: 02/25/19 09:58 Dose: 40 mg Polyethylene Glycol (Miralax (For Daily Use) -) 17 gm PO TID [facility] Last Admin: 02/25/19 15:01 Dose: Not Given Senna (Senna -) 2 tab PO HS [facility] Last Admin: 02/24/19 22:34 Dose: 2 tab Sodium Bicarbonate (Sodium Bicarbonate -) 650 mg PO DAILY [facility] Last Admin: 02/25/19 09:58 Dose: 650 mg 73 year old woman with history of CKD stage 4 (baseline cr as of last admission ~2.9, eGFR 16), hypertension, colon cancer presented from [place] with sob and found to have acute diastolic heart failure with Cr of 4. 1. Acute kidney injury in setting of CHF and fluid overload 2. CKD stage 4 3. Diastolic HF 4. Hypertension 5. Hypervolemic hypernatremia 6. Metabolic acidosis 7. Anemia Renal function essentially unchanged. Give additional Lasix 60mg IVPB today Renal US consistent with CKD but no evidence of obstruction Trend renal function and electrolyte daily salt restriction of 2g start sodium bicarb 650mg daily for metabolic acidosis f/u iron studies Thank you Thee Tse DO
--- NOTE | 2019-02-25 16:40 | PN ---
Progress Note, Physician History of Present Illness: seen and examined today in nad. lying completely flat with no sob. no overnight events. no new complaints. - Current Medication List Current Medications: Active Medications Albuterol Sulfate (Ventolin 0.083% Nebulizer Soln -) 1 amp NEB Q6H PRN PRN Reason: SHORT OF BREATH/WHEEZING Atorvastatin Calcium (Lipitor -) 10 mg PO HS [facility] Last Admin: 02/24/19 22:34 Dose: 10 mg Ferrous Sulfate (Feosol -) 325 mg PO BID [facility] Last Admin: 02/25/19 09:57 Dose: 325 mg Heparin Sodium (Porcine) (Heparin -) 5,000 unit SQ BID [facility] Last Admin: 02/25/19 09:58 Dose: 5,000 unit Hydralazine HCl (Apresoline -) 50 mg PO TID [facility] Last Admin: 02/25/19 15:01 Dose: 50 mg Ipratropium [place] (Atrovent 0.02% Nebulizer -) 1 amp NEB Q6H PRN PRN Reason: WHEEZING Metoprolol Succinate (Toprol Xl -) 50 mg PO BID [facility] Last Admin: 02/25/19 09:58 Dose: 50 mg Multivitamins/Minerals/Vitamin C (Tab-A-Vit -) 1 tab PO DAILY [facility] Last Admin: 02/25/19 09:58 Dose: 1 tab Nifedipine (Procardia Xl -) 30 mg PO DAILY [facility] Last Admin: 02/25/19 12:08 Dose: 30 mg Pantoprazole Sodium (Protonix -) 40 mg PO DAILY [facility] Last Admin: 02/25/19 09:58 Dose: 40 mg Polyethylene Glycol (Miralax (For Daily Use) -) 17 gm PO TID [facility] Last Admin: 02/25/19 15:01 Dose: Not Given Senna (Senna -) 2 tab PO HS [facility] Last Admin: 02/24/19 22:34 Dose: 2 tab Sodium Bicarbonate (Sodium Bicarbonate -) 650 mg PO DAILY [facility] Last Admin: 02/25/19 09:58 Dose: 650 mg - Objective Vital Signs: Vital Signs Temperature 97.9 F 02/25/19 14:52 Pulse Rate 81 02/25/19 14:52 Respiratory Rate 18 02/25/19 14:52 Blood Pressure 163/105 H 02/25/19 14:52 O2 Sat by Pulse Oximetry (%) 98 02/25/19 09:00 Constitutional: Yes: No Distress, Calm Eyes: Yes: Conjunctiva Clear, EOM Intact, PERRL HENT: Yes: Atraumatic, Normocephalic Neck: Yes: Supple, Trachea Midline Cardiovascular: Yes: Regular Rate and Rhythm, S1, S2. No: Bradycardia, Tachycardia, Pulse Irregular, Bruit, JVD, Gallop, Murmur, Rub, S3, S4, Varicosities Respiratory: Yes: Regular, Diminished, On Nasal O2, Rales, Rhonchi. No: SOB, Wheezes Gastrointestinal: Yes: Normal Bowel Sounds, Soft Extremities: Yes: WNL Edema: No Neurological: Yes: Alert Psychiatric: Yes: Alert Labs: CBC, BMP 02/25/19 07:15 02/25/19 07:15 INR, PTT INR 0.97 (0.83-1.09) 02/24/19 05:30 - ....Imaging Chest X-ray: Report Reviewed, Image Reviewed EKG: Report Reviewed, Image Reviewed Other: Report Reviewed, Image Reviewed Assessment/Plan 73 year old woman with a PMH of colon Ca, HTN, HLD, and anemia, prior admissions for acute on chronic diastolic CHF admitted from [facility] with sob, hypoxia. pt seen and examined in the ER in [facility]. states she is feeling better since coming to ER. denies sob. states she has been very constipated and this was her main issue, struggling to have a bm. denies any chest pain, palpitations, pnd, orthopnea, LE edema. ECHOCARDIOGRAM 12/02/18: EF 50 - 55% [place] LV dilatation Normal RV size and function Mild MR Mild to moderate TR Acute on chronic diastolic CHF -similar admissions in the past, issues with GISSELLE on CKD when diuresed in the past -currently with pulmonary edema, no peripheral edema -uncontrolled HTN -reports severe constipation and straining, with uncontrolled HTN, possibly precipitated flash pulm edema -received Lasix 60mg IV x 1 in er and again today and symptomatically improved. -needs HTN control to reduce afterload -cont Toprol XL, Hydralazine -increased nifedipine ER to 30mg bid and titrate up as needed for HTN control -monitor strict I/Os and daily weights -monitor bun/creat, electrolytes and replete as needed. -can dose additional Lasix prn Elevated troponin -with normal CK level -troponin not significantly elevated and not significantly trending up -not c/w ACS pattern, more c/w CHF and uncontrolled HTN superimposed on CKD -would not pursue ischemic evaluation at this time
[2019-02-25 18:57] LABS: EPI CELLS 2.5 /HPF (0-5/HPF); HYALINE CASTS 11 /lpf (0-8); PH,URINE 5.5 (5.0-8.0); URINE APPEARANCE CLEAR; URINE BACTERIA 1148.8 /hpf (NEGATIVE); URINE BILIRUBIN NEGATIVE (NEGATIVE); URINE COLOR YELLOW; URINE GLUCOSE (UA) NEGATIVE (NEGATIVE); URINE KETONE NEGATIVE (NEGATIVE); URINE LEUK ESTERASE 3+ (NEGATIVE); URINE NITRITE NEGATIVE (NEGATIVE); URINE PROTEIN 1+ (NEGATIVE); URINE RBC 3 /hpf (0-4); URINE UROBILINOGEN 0.2 mg/dL (0.2-1.0); URINE WBC 55 /hpf (0-5)
[2019-02-25] MEDS: NIFEdipine E.R. 30 MG TABLET (FP) PO SCH (21:16)
[2019-02-25] MEDS: SENNOSIDES 8.6MG TABLET (FP) PO SCH (21:16)
[2019-02-25] MEDS: ATORVASTATIN CA 10 MG TABLET (FP) PO SCH (21:16)
[2019-02-26] MEDS ORDERED: MAG HYDROX/AL HYDROX/SIMETH -MYLANTA- ORAL SUSPENSION PO ONE (00:53)
[2019-02-26] MEDS ORDERED: MAG HYDROX/AL HYDROX/SIMETH 30 ML UNIT-DOSE CUP PO ONE (01:15)
[2019-02-26] MEDS: POLYETHYLENE GLYCOL 3350 119 GM BTL PO SCH ×3 (05:12→22:57)
[2019-02-26] MEDS: hydrALAZINE HCL 25 MG TABLET (FP) PO SCH ×3 (05:22→21:52)
[2019-02-26 07:00] LABS: BASO % 0.5 % (0-2.0); EOS % 3.1 % (0-4.5); HEMATOCRIT 30.5 % (32.4-45.2); HEMOGLOBIN 10.2 GM/dL (10.7-15.3); LYMPH % 17.5 % (8-40); MCH 27.6 pg (25.7-33.7); MCHC 33.5 g/dl (32.0-36.0); MEAN CELL VOLUME 82.4 fl (80-96); MEAN PLT VOLUME 6.7 fl (7.5-11.1); MONO % 6.2 % (3.8-10.2); NEUT % 72.7 % (42.8-82.8); PLATELET COUNT 268 K/MM3 (134-434); RBC 3.71 M/mm3 (3.60-5.2); RDW 19.1 % (11.6-15.6); WHITE BLOOD COUNT 9.4 K/mm3 (4.0-10.0)
[2019-02-26 08:10] LABS: ALBUMIN 3.2 g/dl (3.4-5.0); BILIRUBIN,TOTAL 0.7 mg/dL (0.2-1); BLOOD UREA NITROGEN 84.9 mg/dL (7-18); BLOOD UREA NITROGEN 85.2 mg/dL (7-18); CREATININE 4.6 mg/dL (0.55-1.3); MAGNESIUM 2.3 mg/dL (1.8-2.4); PHOSPHOROUS 4.1 mg/dL (2.5-4.9); POTASSIUM 3.4 mmol/L (3.5-5.1); POTASSIUM 3.5 mmol/L (3.5-5.1); TOT PROT 6.7 g/dl (6.4-8.2)
[2019-02-26] MEDS: NIFEdipine E.R. 30 MG TABLET (FP) PO SCH ×2 (09:15→22:57)
[2019-02-26] MEDS: MULTIVITAMINS (DAILY MVI) TABLET (FP) PO SCH (09:15)
[2019-02-26] MEDS: FERROUS SO4 325 MG TABLET (FP) PO SCH ×2 (09:15→21:52)
[2019-02-26] MEDS: SODIUM BICARBONATE 650 MG TABLET PO SCH (09:15)
[2019-02-26] MEDS: PANTOPRAZOLE 20 MG TABLET (FP) PO SCH (09:16)
[2019-02-26] MEDS: HEPARIN NA (PORCINE) 5,000 UNITS/ML 1ML VIAL SQ SCH ×2 (09:16→21:51)
--- NOTE | 2019-02-26 10:37 | PN ---
Progress Note (short form) - Note Progress Note: PULMONARY Denies shortness of breath or chest pain. No fevers recorded. Vital Signs Period Temp Pulse Resp BP Sys/Roland Pulse Ox Last 24 Hr 97.9 F-98.6 F 75-83 18-18 151-182/81-106 98 Gen: NAD at rest Heart: RRR Lung: decreased breath sounds at the bases Abd: soft, nontender Ext: no edema CBC, BMP 02/26/19 06:40 02/26/19 06:40 Active Medications Albuterol Sulfate (Ventolin 0.083% Nebulizer Soln -) 1 amp NEB Q6H PRN PRN Reason: SHORT OF BREATH/WHEEZING Atorvastatin Calcium (Lipitor -) 10 mg PO HS [facility] Last Admin: 02/25/19 21:16 Dose: 10 mg Ferrous Sulfate (Feosol -) 325 mg PO BID [facility] Last Admin: 02/26/19 09:15 Dose: 325 mg Heparin Sodium (Porcine) (Heparin -) 5,000 unit SQ BID [facility] Last Admin: 02/26/19 09:16 Dose: 5,000 unit Hydralazine HCl (Apresoline -) 50 mg PO TID [facility] Last Admin: 02/26/19 05:22 Dose: 50 mg Ipratropium [place] (Atrovent 0.02% Nebulizer -) 1 amp NEB Q6H PRN PRN Reason: WHEEZING Metoprolol Succinate (Toprol Xl -) 50 mg PO BID [facility] Last Admin: 02/26/19 09:15 Dose: 50 mg Multivitamins/Minerals/Vitamin C (Tab-A-Vit -) 1 tab PO DAILY [facility] Last Admin: 02/26/19 09:15 Dose: 1 tab Nifedipine (Procardia Xl -) 30 mg PO BID [facility] Last Admin: 02/26/19 09:15 Dose: 30 mg Pantoprazole Sodium (Protonix -) 40 mg PO DAILY [facility] Last Admin: 02/26/19 09:16 Dose: 40 mg Polyethylene Glycol (Miralax (For Daily Use) -) 17 gm PO TID [facility] Last Admin: 02/26/19 05:12 Dose: Not Given Senna (Senna -) 2 tab PO HS [facility] Last Admin: 02/25/19 21:16 Dose: 2 tab Sodium Bicarbonate (Sodium Bicarbonate -) 650 mg PO DAILY [facility] Last Admin: 02/26/19 09:15 Dose: 650 mg A/P Acute on Chronic Diastolic Heart Failure Acute on Chronic Renal Failure +Troponins likely from above HTN Hyperlipidemia Colon Ca - continue lasix - monitor urine output, creatinine - O2 to keep Spo2 >90% - daily weights - repeat CXR today - BP control - BALBIR/ARB when renal function stabilized - DVT prophylaxis Problem List - Problems (1) Acute on chronic diastolic (congestive) heart failure Code(s): I50.33 - ACUTE ON CHRONIC DIASTOLIC (CONGESTIVE) HEART FAILURE
--- NOTE | 2019-02-26 11:43 | PN ---
Progress Note, Physician Chief Complaint: CHF Exacerbation CKD History of Present Illness: Previous notes and events reviewed awake and alert NAD BNP >175,000 denies chest pain or SOB repeat CXR performed, results pending - Current Medication List Current Medications: Active Medications Albuterol Sulfate (Ventolin 0.083% Nebulizer Soln -) 1 amp NEB Q6H PRN PRN Reason: SHORT OF BREATH/WHEEZING Atorvastatin Calcium (Lipitor -) 10 mg PO HS [facility] Last Admin: 02/25/19 21:16 Dose: 10 mg Ferrous Sulfate (Feosol -) 325 mg PO BID [facility] Last Admin: 02/26/19 09:15 Dose: 325 mg Heparin Sodium (Porcine) (Heparin -) 5,000 unit SQ BID [facility] Last Admin: 02/26/19 09:16 Dose: 5,000 unit Hydralazine HCl (Apresoline -) 50 mg PO TID [facility] Last Admin: 02/26/19 05:22 Dose: 50 mg Ipratropium [place] (Atrovent 0.02% Nebulizer -) 1 amp NEB Q6H PRN PRN Reason: WHEEZING Metoprolol Succinate (Toprol Xl -) 50 mg PO BID [facility] Last Admin: 02/26/19 09:15 Dose: 50 mg Multivitamins/Minerals/Vitamin C (Tab-A-Vit -) 1 tab PO DAILY [facility] Last Admin: 02/26/19 09:15 Dose: 1 tab Nifedipine (Procardia Xl -) 30 mg PO BID [facility] Last Admin: 02/26/19 09:15 Dose: 30 mg Pantoprazole Sodium (Protonix -) 40 mg PO DAILY [facility] Last Admin: 02/26/19 09:16 Dose: 40 mg Polyethylene Glycol (Miralax (For Daily Use) -) 17 gm PO TID [facility] Last Admin: 02/26/19 05:12 Dose: Not Given Senna (Senna -) 2 tab PO HS [facility] Last Admin: 02/25/19 21:16 Dose: 2 tab Sodium Bicarbonate (Sodium Bicarbonate -) 650 mg PO DAILY [facility] Last Admin: 02/26/19 09:15 Dose: 650 mg - Objective Vital Signs: Vital Signs Temperature 98.1 F 02/26/19 06:00 Pulse Rate 77 02/26/19 06:00 Respiratory Rate 18 02/26/19 06:00 Blood Pressure 160/81 02/26/19 06:00 O2 Sat by Pulse Oximetry (%) 98 02/25/19 21:00 Constitutional: Yes: No Distress, Calm, Cachectic Eyes: Yes: Conjunctiva Clear HENT: Yes: Atraumatic Cardiovascular: Yes: Regular Rate and Rhythm Respiratory: Yes: Regular, Diminished Gastrointestinal: Yes: Normal Bowel Sounds, Soft Genitourinary: Yes: Incontinence Musculoskeletal: Yes: Muscle Weakness Extremities: Yes: WNL Edema: No Neurological: Yes: Alert, Pre-Existing Deficit Psychiatric: Yes: Alert, Oriented Labs: CBC, BMP 02/26/19 06:40 02/26/19 06:40 INR, PTT INR 0.97 (0.83-1.09) 02/24/19 05:30 Problem List - Problems (1) Acute on chronic diastolic (congestive) heart failure Assessment/Plan: -Cardiology on board -daily weights -BNP >100920 x 2, monitor for downtrend -1L fluid restriction -Strict I&Os -Echo 12/05 with EF 50-55% Code(s): I50.33 - ACUTE ON CHRONIC DIASTOLIC (CONGESTIVE) HEART FAILURE (2) CKD (chronic kidney disease) Assessment/Plan: -Renal on board -BUN/Cr 85.2/4.6 -monitor renal function daily Code(s): N18.9 - CHRONIC KIDNEY DISEASE, UNSPECIFIED (3) GERD (gastroesophageal reflux disease) Assessment/Plan: -Pantoprazole Code(s): K21.9 - GASTRO-ESOPHAGEAL REFLUX DISEASE WITHOUT ESOPHAGITIS (4) HLD (hyperlipidemia) Assessment/Plan: -Atorvastatin Code(s): E78.5 - HYPERLIPIDEMIA, UNSPECIFIED (5) HTN (hypertension) Assessment/Plan: -Metoprolol, Nifedipine, Hydralazine -low Na diet Code(s): I10 - ESSENTIAL (PRIMARY) HYPERTENSION (6) Malnourished Assessment/Plan: -Dietary consult -Ensure -daily weights Code(s): E46 - UNSPECIFIED PROTEIN-CALORIE MALNUTRITION Qualifiers: Protein-calorie malnutrition severity: severe (7) Anemia Assessment/Plan: -monitor Hg daily -downtrend in Hg 10.2 -Stool OB -Iron panel -transfuse for Hg <7.0 to avoid fluid overload Code(s): D64.9 - ANEMIA, UNSPECIFIED Qualifiers: Iron deficiency anemia type: unspecified iron deficiency Assessment/Plan see problem list dvt ppx
--- NOTE | 2019-02-26 14:48 | PN ---
Progress Note (short form) - Note Progress Note: Renal follow up for GENOVEVA on CKD Seen at the bedside awake and alert and offers no acute complaints denies any chest pain, fever or chills making urine Vital Signs Temperature 98.1 F 02/26/19 06:00 Pulse Rate 77 02/26/19 06:00 Respiratory Rate 18 02/26/19 06:00 Blood Pressure 160/81 02/26/19 06:00 O2 Sat by Pulse Oximetry (%) 98 02/25/19 21:00 Intake & Output 02/23/19 02/24/19 02/25/19 02/26/19 23:59 23:59 23:59 23:59 Intake Total 300 640 400 Balance 300 640 400 Weight 43.261 kg 43.091 kg NAD awake and alert neck supple RRR CTA soft NT/ND no LE edema CBC, BMP 02/26/19 06:40 02/26/19 06:40 Current Medications Albuterol Sulfate (Ventolin 0.083% Nebulizer Soln -) 1 amp NEB Q6H PRN PRN Reason: SHORT OF BREATH/WHEEZING Atorvastatin Calcium (Lipitor -) 10 mg PO HS [facility] Last Admin: 02/25/19 21:16 Dose: 10 mg Ferrous Sulfate (Feosol -) 325 mg PO BID [facility] Last Admin: 02/26/19 09:15 Dose: 325 mg Heparin Sodium (Porcine) (Heparin -) 5,000 unit SQ BID [facility] Last Admin: 02/26/19 09:16 Dose: 5,000 unit Hydralazine HCl (Apresoline -) 50 mg PO TID [facility] Last Admin: 02/26/19 14:04 Dose: 50 mg Ipratropium [place] (Atrovent 0.02% Nebulizer -) 1 amp NEB Q6H PRN PRN Reason: WHEEZING Metoprolol Succinate (Toprol Xl -) 50 mg PO BID [facility] Last Admin: 02/26/19 09:15 Dose: 50 mg Multivitamins/Minerals/Vitamin C (Tab-A-Vit -) 1 tab PO DAILY [facility] Last Admin: 02/26/19 09:15 Dose: 1 tab Nifedipine (Procardia Xl -) 30 mg PO BID [facility] Last Admin: 02/26/19 09:15 Dose: 30 mg Pantoprazole Sodium (Protonix -) 40 mg PO DAILY [facility] Last Admin: 02/26/19 09:16 Dose: 40 mg Polyethylene Glycol (Miralax (For Daily Use) -) 17 gm PO TID [facility] Last Admin: 02/26/19 14:04 Dose: Not Given Senna (Senna -) 2 tab PO HS [facility] Last Admin: 02/25/19 21:16 Dose: 2 tab Sodium Bicarbonate (Sodium Bicarbonate -) 650 mg PO DAILY [facility] Last Admin: 02/26/19 09:15 Dose: 650 mg 73 year old woman with history of CKD stage 4 (baseline cr as of last admission ~2.9, eGFR 16), hypertension, colon cancer presented from CT with sob and found to have acute diastolic heart failure with Cr of 4. 1. Acute kidney injury in setting of CHF and fluid overload 2. CKD stage 4 3. Diastolic HF 4. Hypertension 5. Hypervolemic hypernatremia 6. Metabolic acidosis 7. Anemia Renal function stable and without improvement CXR shows improvement of congestion but persistence of bilateral effusions Given she is not acutely short of breath would change diuretics to PO Torsemide and monitor clinical status Renal US consistent with CKD but no evidence of obstruction Trend renal function and electrolyte daily salt restriction of 2g Continue sodium bicarb 650mg daily for metabolic acidosis f/u iron studies serologic work up done in November shows negative HARSHA, Negative ANCA's, negative SPEP and negative Anti-GBM ab Thank you Thee Tse DO
--- NOTE | 2019-02-26 14:51 | PN ---
Progress Note, Physician Chief Complaint: Clinically improved History of Present Illness: This is a 73 year old woman with a PMH of colon Ca, HTN, HLD, and anemia, prior admissions for acute on chronic diastolic CHF admitted from [facility] with sob, hypoxia. S/P diuresis. - Current Medication List Current Medications: Active Medications Albuterol Sulfate (Ventolin 0.083% Nebulizer Soln -) 1 amp NEB Q6H PRN PRN Reason: SHORT OF BREATH/WHEEZING Atorvastatin Calcium (Lipitor -) 10 mg PO HS [facility] Last Admin: 02/25/19 21:16 Dose: 10 mg Ferrous Sulfate (Feosol -) 325 mg PO BID [facility] Last Admin: 02/26/19 09:15 Dose: 325 mg Heparin Sodium (Porcine) (Heparin -) 5,000 unit SQ BID [facility] Last Admin: 02/26/19 09:16 Dose: 5,000 unit Hydralazine HCl (Apresoline -) 50 mg PO TID [facility] Last Admin: 02/26/19 14:04 Dose: 50 mg Ipratropium [place] (Atrovent 0.02% Nebulizer -) 1 amp NEB Q6H PRN PRN Reason: WHEEZING Metoprolol Succinate (Toprol Xl -) 50 mg PO BID [facility] Last Admin: 02/26/19 09:15 Dose: 50 mg Multivitamins/Minerals/Vitamin C (Tab-A-Vit -) 1 tab PO DAILY [facility] Last Admin: 02/26/19 09:15 Dose: 1 tab Nifedipine (Procardia Xl -) 30 mg PO BID [facility] Last Admin: 02/26/19 09:15 Dose: 30 mg Pantoprazole Sodium (Protonix -) 40 mg PO DAILY [facility] Last Admin: 02/26/19 09:16 Dose: 40 mg Polyethylene Glycol (Miralax (For Daily Use) -) 17 gm PO TID [facility] Last Admin: 02/26/19 14:04 Dose: Not Given Senna (Senna -) 2 tab PO HS [facility] Last Admin: 02/25/19 21:16 Dose: 2 tab Sodium Bicarbonate (Sodium Bicarbonate -) 650 mg PO DAILY [facility] Last Admin: 02/26/19 09:15 Dose: 650 mg - Objective Vital Signs: Vital Signs Temperature 98.1 F 02/26/19 06:00 Pulse Rate 77 02/26/19 06:00 Respiratory Rate 18 02/26/19 06:00 Blood Pressure 160/81 02/26/19 06:00 O2 Sat by Pulse Oximetry (%) 98 02/25/19 21:00 Constitutional: Yes: Thin Eyes: Yes: WNL HENT: Yes: WNL Neck: Yes: WNL Cardiovascular: Yes: Regular Rate and Rhythm, S1, S2 Respiratory: Yes: CTA Bilaterally Gastrointestinal: Yes: Soft Extremities: Yes: WNL Edema: No Neurological: Yes: Alert, Oriented Labs: CBC, BMP 02/26/19 06:40 02/26/19 06:40 INR, PTT INR 0.97 (0.83-1.09) 02/24/19 05:30 Assessment/Plan 73 year old woman with a PMH of colon Ca, HTN, HLD, and anemia, prior admissions for acute on chronic diastolic CHF admitted from [facility] with sob, hypoxia. S/P diuresis. Acute on chronic diastolic CHF Now off diuretics Acute on chronic kidney injury Allow to equilibrate of diuretics Continue nifedipine ER to 30mg bid and titrate up as needed for HTN control
[2019-02-26] MEDS: TORSEMIDE 20 MG TABLET (FP) PO SCH (16:36)
[2019-02-26] MEDS: SENNOSIDES 8.6MG TABLET (FP) PO SCH (21:52)
[2019-02-26] MEDS: ATORVASTATIN CA 10 MG TABLET (FP) PO SCH (21:52)
[2019-02-27] MEDS: POLYETHYLENE GLYCOL 3350 119 GM BTL PO SCH ×3 (06:19→22:41)
[2019-02-27] MEDS: hydrALAZINE HCL 25 MG TABLET (FP) PO SCH ×3 (06:19→21:46)
[2019-02-27] MEDS ORDERED: PT OWN MED DRAWER 7, Y5N ONE ×2 (06:24→10:56)
[2019-02-27 08:22] LABS: HEMATOCRIT 29.7 % (32.4-45.2); MCH 27.6 pg (25.7-33.7); MCHC 33.5 g/dl (32.0-36.0); MEAN CELL VOLUME 82.5 fl (80-96); MEAN PLT VOLUME 6.8 fl (7.5-11.1); PLATELET COUNT 253 K/MM3 (134-434); RBC 3.61 M/mm3 (3.60-5.2); WHITE BLOOD COUNT 8.1 K/mm3 (4.0-10.0)
--- NOTE | 2019-02-27 08:32 | PN ---
Progress Note, Physician - Current Medication List Current Medications: Active Medications Albuterol Sulfate (Ventolin 0.083% Nebulizer Soln -) 1 amp NEB Q6H PRN PRN Reason: SHORT OF BREATH/WHEEZING Atorvastatin Calcium (Lipitor -) 10 mg PO HS [facility] Last Admin: 02/26/19 21:52 Dose: 10 mg Ferrous Sulfate (Feosol -) 325 mg PO BID [facility] Last Admin: 02/26/19 21:52 Dose: 325 mg Heparin Sodium (Porcine) (Heparin -) 5,000 unit SQ BID [facility] Last Admin: 02/26/19 21:51 Dose: 5,000 unit Hydralazine HCl (Apresoline -) 50 mg PO TID [facility] Last Admin: 02/27/19 06:19 Dose: 50 mg Ipratropium [place] (Atrovent 0.02% Nebulizer -) 1 amp NEB Q6H PRN PRN Reason: WHEEZING Metoprolol Succinate (Toprol Xl -) 50 mg PO BID [facility] Last Admin: 02/26/19 21:52 Dose: 50 mg Multivitamins/Minerals/Vitamin C (Tab-A-Vit -) 1 tab PO DAILY [facility] Last Admin: 02/26/19 09:15 Dose: 1 tab Nifedipine (Procardia Xl -) 30 mg PO BID [facility] Last Admin: 02/26/19 22:57 Dose: 30 mg Pantoprazole Sodium (Protonix -) 40 mg PO DAILY [facility] Last Admin: 02/26/19 09:16 Dose: 40 mg Polyethylene Glycol (Miralax (For Daily Use) -) 17 gm PO TID [facility] Last Admin: 02/27/19 06:19 Dose: Not Given Senna (Senna -) 2 tab PO HS [facility] Last Admin: 02/26/19 21:52 Dose: 2 tab Sodium Bicarbonate (Sodium Bicarbonate -) 650 mg PO DAILY [facility] Last Admin: 02/26/19 09:15 Dose: 650 mg Torsemide (Demadex -) 40 mg PO DAILY [facility] Last Admin: 02/26/19 16:36 Dose: 40 mg - Objective Vital Signs: Vital Signs Temperature 98.1 F 02/27/19 06:00 Pulse Rate 76 02/27/19 06:00 Respiratory Rate 20 02/27/19 06:00 Blood Pressure 143/88 02/27/19 06:00 O2 Sat by Pulse Oximetry (%) 97 02/26/19 21:00 Cardiovascular: Yes: Regular Rate and Rhythm Respiratory: Yes: Regular, CTA Bilaterally Gastrointestinal: Yes: Normal Bowel Sounds, Soft Labs: INR, PTT INR 0.97 (0.83-1.09) 02/24/19 05:30 Assessment/Plan Problems (1) Acute on chronic diastolic (congestive) heart failure Assessment/Plan: -Cardiology on board -daily weights -BNP >262268 x 2, monitor for downtrend -1L fluid restriction -Strict I&Os -Echo 12/05 with EF 50-55% Code(s): I50.33 - ACUTE ON CHRONIC DIASTOLIC (CONGESTIVE) HEART FAILURE (2) CKD (chronic kidney disease) Assessment/Plan: -Renal on board -BUN/Cr 85.2/4.6 -monitor renal function daily Code(s): N18.9 - CHRONIC KIDNEY DISEASE, UNSPECIFIED (3) GERD (gastroesophageal reflux disease) Assessment/Plan: -Pantoprazole Code(s): K21.9 - GASTRO-ESOPHAGEAL REFLUX DISEASE WITHOUT ESOPHAGITIS (4) HLD (hyperlipidemia) Assessment/Plan: -Atorvastatin Code(s): E78.5 - HYPERLIPIDEMIA, UNSPECIFIED (5) HTN (hypertension) Assessment/Plan: -Metoprolol, Nifedipine, Hydralazine -low Na diet Code(s): I10 - ESSENTIAL (PRIMARY) HYPERTENSION (6) Malnourished Assessment/Plan: -Dietary consult -Ensure -daily weights Code(s): E46 - UNSPECIFIED PROTEIN-CALORIE MALNUTRITION Qualifiers: Protein-calorie malnutrition severity: severe (7) Anemia Assessment/Plan: -monitor Hg daily -downtrend in Hg 10.2 -Stool OB -Iron panel -transfuse for Hg <7.0 to avoid fluid overload Code(s): D64.9 - ANEMIA, UNSPECIFIED Qualifiers: Iron deficiency anemia type: unspecified iron deficiency (8) UTI Assessment/Plan: -ID CONSULT Microbiology 02/25/19 18:30 Urine - Urine - Catheterized Urine Culture - Preliminary Lactose Fermenting Neg Bacilli
[2019-02-27 09:08] LABS: ALBUMIN 3.2 g/dl (3.4-5.0); ALK PHOS 91 U/L (45-117); ANION GAP 12 MMOL/L (8-16); BILIRUBIN,TOTAL 0.7 mg/dL (0.2-1); BLOOD UREA NITROGEN 78.1 mg/dL (7-18); CALCIUM 9.1 mg/dL (8.5-10.1); CHLORIDE 98 mmol/L (98-107); CO2 25 mmol/L (21-32); CREATININE 4.4 mg/dL (0.55-1.3); GLUCOSE,RANDOM 98 mg/dL (74-106); N-TERMINAL BNP > 175000.0 pg/ml (5-450); POTASSIUM 3.5 mmol/L (3.5-5.1); SGOT/AST 13 U/L (15-37); SGPT/ALT 21 U/L (13-61); SODIUM 135 mmol/L (136-145); TOT PROT 6.8 g/dl (6.4-8.2)
[2019-02-27] MEDS: HEPARIN NA (PORCINE) 5,000 UNITS/ML 1ML VIAL SQ SCH ×2 (10:26→22:41)
[2019-02-27] MEDS: SODIUM BICARBONATE 650 MG TABLET PO SCH (10:26)
[2019-02-27] MEDS: PANTOPRAZOLE 20 MG TABLET (FP) PO SCH (10:26)
[2019-02-27] MEDS: MULTIVITAMINS (DAILY MVI) TABLET (FP) PO SCH (10:26)
[2019-02-27] MEDS: TORSEMIDE 20 MG TABLET (FP) PO SCH (10:26)
[2019-02-27] MEDS: FERROUS SO4 325 MG TABLET (FP) PO SCH ×2 (10:26→21:46)
[2019-02-27] MEDS: NIFEdipine E.R. 30 MG TABLET (FP) PO SCH ×2 (10:58→22:41)
--- NOTE | 2019-02-27 14:50 | PN ---
Progress Note (short form) - Note Progress Note: Renal follow up for GENOVEVA on CKD Seen at the bedside offers no acute complaints denies any sob at rest. Denies any CP, abd pain, fever or chills tolerating oral diet. Making urine Vital Signs Temperature 98.4 F 02/27/19 10:35 Pulse Rate 75 02/27/19 10:35 Respiratory Rate 18 02/27/19 10:35 Blood Pressure 142/77 02/27/19 10:35 O2 Sat by Pulse Oximetry (%) 98 02/27/19 09:00 Intake & Output 02/24/19 02/25/19 02/26/19 02/27/19 23:59 23:59 23:59 23:59 Intake Total 300 640 880 0 Balance 300 640 880 0 Weight 43.261 kg 43.091 kg 39.944 kg NAD awake and alert neck supple RRR CTA soft NT/ND no LE edema CBC, BMP 02/27/19 07:55 02/27/19 07:55 Current Medications Albuterol Sulfate (Ventolin 0.083% Nebulizer Soln -) 1 amp NEB Q6H PRN PRN Reason: SHORT OF BREATH/WHEEZING Atorvastatin Calcium (Lipitor -) 10 mg PO HS [facility] Last Admin: 02/26/19 21:52 Dose: 10 mg Ferrous Sulfate (Feosol -) 325 mg PO BID [facility] Last Admin: 02/27/19 10:26 Dose: 325 mg Heparin Sodium (Porcine) (Heparin -) 5,000 unit SQ BID [facility] Last Admin: 02/27/19 10:26 Dose: 5,000 unit Hydralazine HCl (Apresoline -) 50 mg PO TID [facility] Last Admin: 02/27/19 06:19 Dose: 50 mg Ipratropium [place] (Atrovent 0.02% Nebulizer -) 1 amp NEB Q6H PRN PRN Reason: WHEEZING Metoprolol Succinate (Toprol Xl -) 50 mg PO BID [facility] Last Admin: 02/27/19 10:26 Dose: 50 mg Multivitamins/Minerals/Vitamin C (Tab-A-Vit -) 1 tab PO DAILY [facility] Last Admin: 02/27/19 10:26 Dose: 1 tab Nifedipine (Procardia Xl -) 30 mg PO BID [facility] Last Admin: 02/27/19 10:58 Dose: 30 mg Pantoprazole Sodium (Protonix -) 40 mg PO DAILY [facility] Last Admin: 02/27/19 10:26 Dose: 40 mg Polyethylene Glycol (Miralax (For Daily Use) -) 17 gm PO TID [facility] Last Admin: 02/27/19 06:19 Dose: Not Given Senna (Senna -) 2 tab PO HS [facility] Last Admin: 02/26/19 21:52 Dose: 2 tab Sodium Bicarbonate (Sodium Bicarbonate -) 650 mg PO DAILY [facility] Last Admin: 02/27/19 10:26 Dose: 650 mg Torsemide (Demadex -) 40 mg PO DAILY [facility] Last Admin: 02/27/19 10:26 Dose: 40 mg 73 year old woman with history of CKD stage 4 (baseline cr as of last admission ~2.9, eGFR 16), hypertension, colon cancer presented from [place] with sob and found to have acute diastolic heart failure with Cr of 4. 1. Acute kidney injury in setting of CHF and fluid overload 2. CKD stage 4 3. Diastolic HF 4. Hypertension 5. Hypervolemic hypernatremia 6. Metabolic acidosis 7. Anemia Renal function stable CXR shows improvement of congestion but persistence of bilateral effusions Continue PO Torsemide and monitor clinical status Renal US consistent with CKD but no evidence of obstruction Trend renal function and electrolyte daily salt restriction of 2g, fluid restriction Continue sodium bicarb 650mg daily for metabolic acidosis serologic work up done in November shows negative HARSHA, Negative ANCA's, negative SPEP and negative Anti-GBM ab Thank you Thee Tse DO
--- NOTE | 2019-02-27 14:56 | PN ---
Progress Note, Physician History of Present Illness: PULMONARY ALERT,COMFORTABLE,-RESP DISTRESS - Current Medication List Current Medications: Active Medications Albuterol Sulfate (Ventolin 0.083% Nebulizer Soln -) 1 amp NEB Q6H PRN PRN Reason: SHORT OF BREATH/WHEEZING Atorvastatin Calcium (Lipitor -) 10 mg PO HS [facility] Last Admin: 02/26/19 21:52 Dose: 10 mg Ferrous Sulfate (Feosol -) 325 mg PO BID [facility] Last Admin: 02/27/19 10:26 Dose: 325 mg Heparin Sodium (Porcine) (Heparin -) 5,000 unit SQ BID [facility] Last Admin: 02/27/19 10:26 Dose: 5,000 unit Hydralazine HCl (Apresoline -) 50 mg PO TID [facility] Last Admin: 02/27/19 06:19 Dose: 50 mg Ipratropium [place] (Atrovent 0.02% Nebulizer -) 1 amp NEB Q6H PRN PRN Reason: WHEEZING Metoprolol Succinate (Toprol Xl -) 50 mg PO BID [facility] Last Admin: 02/27/19 10:26 Dose: 50 mg Multivitamins/Minerals/Vitamin C (Tab-A-Vit -) 1 tab PO DAILY [facility] Last Admin: 02/27/19 10:26 Dose: 1 tab Nifedipine (Procardia Xl -) 30 mg PO BID [facility] Last Admin: 02/27/19 10:58 Dose: 30 mg Pantoprazole Sodium (Protonix -) 40 mg PO DAILY [facility] Last Admin: 02/27/19 10:26 Dose: 40 mg Polyethylene Glycol (Miralax (For Daily Use) -) 17 gm PO TID [facility] Last Admin: 02/27/19 06:19 Dose: Not Given Senna (Senna -) 2 tab PO HS [facility] Last Admin: 02/26/19 21:52 Dose: 2 tab Sodium Bicarbonate (Sodium Bicarbonate -) 650 mg PO DAILY [facility] Last Admin: 02/27/19 10:26 Dose: 650 mg Torsemide (Demadex -) 40 mg PO DAILY [facility] Last Admin: 02/27/19 10:26 Dose: 40 mg - Objective Vital Signs: Vital Signs Temperature 98.4 F 02/27/19 10:35 Pulse Rate 75 02/27/19 10:35 Respiratory Rate 18 02/27/19 10:35 Blood Pressure 142/77 02/27/19 10:35 O2 Sat by Pulse Oximetry (%) 98 02/27/19 09:00 Constitutional: Yes: Calm, Cachectic Eyes: Yes: WNL HENT: Yes: WNL Neck: Yes: WNL Cardiovascular: Yes: Regular Rate and Rhythm, S1, S2 Respiratory: Yes: Diminished Gastrointestinal: Yes: Normal Bowel Sounds, Soft Extremities: Yes: WNL Edema: No Labs: CBC, BMP 02/27/19 07:55 02/27/19 07:55 INR, PTT INR 0.97 (0.83-1.09) 02/24/19 05:30 - ....Imaging Chest X-ray: Report Reviewed, Image Reviewed (improving congestion) Problem List - Problems (1) Acute on chronic diastolic (congestive) heart failure Code(s): I50.33 - ACUTE ON CHRONIC DIASTOLIC (CONGESTIVE) HEART FAILURE (2) [id number] kidney injury Code(s): N17.9 - ACUTE KIDNEY FAILURE, UNSPECIFIED; N18.9 - CHRONIC KIDNEY DISEASE, UNSPECIFIED (3) CHF (congestive heart failure) Code(s): I50.9 - HEART FAILURE, UNSPECIFIED (4) CKD (chronic kidney disease) Code(s): N18.9 - CHRONIC KIDNEY DISEASE, UNSPECIFIED (5) Colon cancer Code(s): C18.9 - MALIGNANT NEOPLASM OF COLON, UNSPECIFIED (6) HLD (hyperlipidemia) Code(s): E78.5 - HYPERLIPIDEMIA, UNSPECIFIED (7) HTN (hypertension) Code(s): I10 - ESSENTIAL (PRIMARY) HYPERTENSION Assessment/Plan A/P Acute on Chronic Diastolic Heart Failure improving Acute on Chronic Renal Failure +Troponins likely from above HTN Hyperlipidemia Colon Ca - lasix - monitor urine output, creatinine - O2 to keep Spo2 >90% - daily weights - BP control - DVT prophylaxis Problem List - Problems (1) Acute on chronic diastolic (congestive) heart failure Code(s): I50.33 - ACUTE ON CHRONIC DIASTOLIC (CONGESTIVE) HEART FAILURE
--- NOTE | 2019-02-27 17:34 | PN ---
Progress Note (short form) - Note Progress Note: ID consult dictated Problem List - Problems (1) UTI (urinary tract infection) Code(s): N39.0 - URINARY TRACT INFECTION, SITE NOT SPECIFIED (2) [id number] kidney injury Code(s): N17.9 - ACUTE KIDNEY FAILURE, UNSPECIFIED; N18.9 - CHRONIC KIDNEY DISEASE, UNSPECIFIED
[2019-02-27] MEDS ORDERED: DEXTROSE 5%-WATER - 50 ML IVPB ONE (21:44)
[2019-02-27] MEDS ORDERED: cefTRIAXone SODIUM 1 GM VIAL ONE (21:44)
[2019-02-27] MEDS: CEFTRIAXONE 1 GM in DEXTROSE 5%-WATER - 50 ML IVPB SCH (21:45)
[2019-02-27] MEDS: SENNOSIDES 8.6MG TABLET (FP) PO SCH (21:46)
[2019-02-27] MEDS: ATORVASTATIN CA 10 MG TABLET (FP) PO SCH (21:46)
--- NOTE | 2019-02-27 23:10 | CONS ---
DATE OF CONSULTATION: DATE OF DICTATION: 02/27/2019 INFECTIOUS DISEASE CONSULTATION HISTORY OF PRESENT ILLNESS: This is a 73-year-old woman who was admitted on February 24 from the senior care for shortness of breath, I am asked to see her because she was noted to have pyuria and a positive urine culture. He complains of suprapubic discomfort on exam. She denies any dysuria. She was seen in the emergency room, was noted to have congestive changes. She was given Lasix with improvement in symptoms. PAST MEDICAL HISTORY: Notable for hypertension, hyperlipidemia, colon cancer resected in 2002. She has a history of gastritis and colon adenomas. She has a history of renal insufficiency, right elbow bursitis. She is status post a right ankle fracture and repair. SURGICAL HISTORY: Notable for partial colectomy, hysterectomy, tonsillectomy. SOCIAL HISTORY: She resides at the senior care. There is no history of any substance use. She quit smoking in 1984. She is retired from the [employer] industry. There is no history of any travel. She is living at [facility]. ALLERGIES: No known drug allergies. MEDICATION: Her medications as an outpatient include hydralazine, simvastatin, senna, Miralax, Protonix, Procardia, Toprol XL, albuterol, ipratropium, nebulizer, Lasix, Feosol. REVIEW OF SYSTEMS: She notes some suprapubic discomfort on exam. PHYSICAL EXAMINATION: General: She is an elderly woman in no acute distress. Vital Signs: Temperature 98.3, pulse 81, blood pressure 154/80, respiratory rate 18, she is saturating 98% on 2 L. HEENT: Normocephalic. Eyes are anicteric. Neck: Supple. Lungs: Diminished breath sounds at the bases. Heart: Regular rate and rhythm. Abdomen: Soft, nontender. Extremities: Without edema. Pelvic: She has some mild suprapubic discomfort on palpation. LABORATORY: White count on admission was 12.5, today is 8.1, hemoglobin 10, platelets are 253. BUN and creatinine are 78 and 4.4. Her LFTs are normal. She has an elevated BNP. Urinalysis shows 3+ leukocytes with 55 white cells. Urine culture is growing a lactulose fermenting gram negative juanis. Chest x-ray shows improvement in congestive changes. There are bilateral pleural effusions left greater than right with some left basilar atelectasis. IMPRESSION: 1. In summary, this is an elderly 73-year-old woman admitted from the senior care with congestive heart failure and probable urinary tract infection. Would treat her with ceftriaxone at this time while waiting for culture results. 2. Congestive heart failure. 3. History of chronic kidney disease. This is being monitored by renal and cardiology. Further recommendations to follow. Antonio [id number]
[2019-02-28] MEDS: POLYETHYLENE GLYCOL 3350 119 GM BTL PO SCH ×3 (06:19→22:23)
[2019-02-28] MEDS: hydrALAZINE HCL 25 MG TABLET (FP) PO SCH ×3 (06:19→22:22)
[2019-02-28] MEDS ORDERED: PT OWN MED DRAWER 7, Y5N ONE ×2 (09:29→21:29)
[2019-02-28] MEDS ORDERED: DEXTROSE 5%-WATER - 50 ML IVPB ONE (09:29)
[2019-02-28] MEDS ORDERED: cefTRIAXone SODIUM 1 GM VIAL ONE (09:29)
--- NOTE | 2019-02-28 09:52 | PN ---
Progress Note, Physician Chief Complaint: AWAKE ALERT DENIES FEVER OR CHILLS - Current Medication List Current Medications: Active Medications Albuterol Sulfate (Ventolin 0.083% Nebulizer Soln -) 1 amp NEB Q6H PRN PRN Reason: SHORT OF BREATH/WHEEZING Atorvastatin Calcium (Lipitor -) 10 mg PO HS [facility] Last Admin: 02/27/19 21:46 Dose: 10 mg Ferrous Sulfate (Feosol -) 325 mg PO BID [facility] Last Admin: 02/27/19 21:46 Dose: 325 mg Heparin Sodium (Porcine) (Heparin -) 5,000 unit SQ BID [facility] Last Admin: 02/27/19 22:41 Dose: 5,000 unit Hydralazine HCl (Apresoline -) 50 mg PO TID [facility] Last Admin: 02/28/19 06:19 Dose: 50 mg Ceftriaxone Sodium 1 gm/ (Dextrose) 50 mls @ 100 mls/hr IVPB DAILY [facility]; Protocol Last Admin: 02/27/19 21:45 Dose: 200 mls/hr Ipratropium [place] (Atrovent 0.02% Nebulizer -) 1 amp NEB Q6H PRN PRN Reason: WHEEZING Metoprolol Succinate (Toprol Xl -) 50 mg PO BID [facility] Last Admin: 02/27/19 21:46 Dose: 50 mg Multivitamins/Minerals/Vitamin C (Tab-A-Vit -) 1 tab PO DAILY [facility] Last Admin: 02/27/19 10:26 Dose: 1 tab Nifedipine (Procardia Xl -) 30 mg PO BID [facility] Last Admin: 02/27/19 22:41 Dose: 30 mg Pantoprazole Sodium (Protonix -) 40 mg PO DAILY [facility] Last Admin: 02/27/19 10:26 Dose: 40 mg Polyethylene Glycol (Miralax (For Daily Use) -) 17 gm PO TID [facility] Last Admin: 02/28/19 06:19 Dose: Not Given Senna (Senna -) 2 tab PO HS [facility] Last Admin: 02/27/19 21:46 Dose: 2 tab Sodium Bicarbonate (Sodium Bicarbonate -) 650 mg PO DAILY [facility] Last Admin: 02/27/19 10:26 Dose: 650 mg Torsemide (Demadex -) 40 mg PO DAILY [facility] Last Admin: 02/27/19 10:26 Dose: 40 mg - Objective Vital Signs: Vital Signs Temperature 98.1 F 02/28/19 06:07 Pulse Rate 76 02/28/19 06:07 Respiratory Rate 18 02/28/19 06:07 Blood Pressure 157/88 02/28/19 06:07 O2 Sat by Pulse Oximetry (%) 96 02/27/19 21:00 Constitutional: Yes: No Distress Cardiovascular: Yes: Regular Rate and Rhythm Respiratory: Yes: WNL Gastrointestinal: Yes: WNL Genitourinary: Yes: WNL Musculoskeletal: Yes: WNL Integumentary: Yes: WNL Wound/Incision: Yes: Clean/Dry Neurological: Yes: Pre-Existing Deficit Psychiatric: Yes: Other Labs: CBC, BMP 02/27/19 07:55 02/27/19 07:55 INR, PTT INR 0.97 (0.83-1.09) 02/24/19 05:30 Problem List - Problems (1) CHF exacerbation Code(s): I50.9 - HEART FAILURE, UNSPECIFIED Qualifiers: Heart failure type: unspecified Qualified Code(s): I50.9 - Heart failure, unspecified (2) Acute on chronic diastolic (congestive) heart failure Code(s): I50.33 - ACUTE ON CHRONIC DIASTOLIC (CONGESTIVE) HEART FAILURE (3) Iqbsd-vj-[id number] kidney injury Code(s): N17.9 - ACUTE KIDNEY FAILURE, UNSPECIFIED; N18.9 - CHRONIC KIDNEY DISEASE, UNSPECIFIED (4) Anemia Code(s): D64.9 - ANEMIA, UNSPECIFIED Qualifiers: Iron deficiency anemia type: unspecified iron deficiency (5) Asymptomatic bacteriuria Code(s): R82.71 - BACTERIURIA (6) GERD (gastroesophageal reflux disease) Code(s): K21.9 - GASTRO-ESOPHAGEAL REFLUX DISEASE WITHOUT ESOPHAGITIS (7) HLD (hyperlipidemia) Code(s): E78.5 - HYPERLIPIDEMIA, UNSPECIFIED (8) HTN (hypertension) Code(s): I10 - ESSENTIAL (PRIMARY) HYPERTENSION (9) UTI (urinary tract infection) Code(s): N39.0 - URINARY TRACT INFECTION, SITE NOT SPECIFIED Assessment/Plan IV ABX CEFTRIAXONE FOR UTI OOB TO CHAIR WITH PT ON DIURETICS FOR CHF EXACERBATION RENAL FAILURE WORKUP WITH NEPHROLOGY MONITOR BUN/CREAT AWAITING URINE C AND S
--- NOTE | 2019-02-28 09:54 | PN ---
Progress Note, Physician History of Present Illness: AWAKE, ALERT IN BED DENIES DYSURIA/ HEMATURIA NO C/O SUPRAPUBIC PAIN NO F/C URINE C/S LF - Current Medication List Current Medications: Active Medications Albuterol Sulfate (Ventolin 0.083% Nebulizer Soln -) 1 amp NEB Q6H PRN PRN Reason: SHORT OF BREATH/WHEEZING Atorvastatin Calcium (Lipitor -) 10 mg PO HS [facility] Last Admin: 02/27/19 21:46 Dose: 10 mg Ferrous Sulfate (Feosol -) 325 mg PO BID [facility] Last Admin: 02/27/19 21:46 Dose: 325 mg Heparin Sodium (Porcine) (Heparin -) 5,000 unit SQ BID [facility] Last Admin: 02/27/19 22:41 Dose: 5,000 unit Hydralazine HCl (Apresoline -) 50 mg PO TID [facility] Last Admin: 02/28/19 06:19 Dose: 50 mg Ceftriaxone Sodium 1 gm/ (Dextrose) 50 mls @ 100 mls/hr IVPB DAILY [facility]; Protocol Last Admin: 02/27/19 21:45 Dose: 200 mls/hr Ipratropium [place] (Atrovent 0.02% Nebulizer -) 1 amp NEB Q6H PRN PRN Reason: WHEEZING Metoprolol Succinate (Toprol Xl -) 50 mg PO BID [facility] Last Admin: 02/27/19 21:46 Dose: 50 mg Multivitamins/Minerals/Vitamin C (Tab-A-Vit -) 1 tab PO DAILY [facility] Last Admin: 02/27/19 10:26 Dose: 1 tab Nifedipine (Procardia Xl -) 30 mg PO BID [facility] Last Admin: 02/27/19 22:41 Dose: 30 mg Pantoprazole Sodium (Protonix -) 40 mg PO DAILY [facility] Last Admin: 02/27/19 10:26 Dose: 40 mg Polyethylene Glycol (Miralax (For Daily Use) -) 17 gm PO TID [facility] Last Admin: 02/28/19 06:19 Dose: Not Given Senna (Senna -) 2 tab PO HS [facility] Last Admin: 02/27/19 21:46 Dose: 2 tab Sodium Bicarbonate (Sodium Bicarbonate -) 650 mg PO DAILY [facility] Last Admin: 02/27/19 10:26 Dose: 650 mg Torsemide (Demadex -) 40 mg PO DAILY [facility] Last Admin: 02/27/19 10:26 Dose: 40 mg - Objective Vital Signs: Vital Signs Temperature 98.1 F 02/28/19 06:07 Pulse Rate 76 02/28/19 06:07 Respiratory Rate 18 02/28/19 06:07 Blood Pressure 157/88 02/28/19 06:07 O2 Sat by Pulse Oximetry (%) 96 02/27/19 21:00 Constitutional: Yes: No Distress Eyes: Yes: Conjunctiva Clear Cardiovascular: Yes: Regular Rate and Rhythm, S1, S2 Respiratory: Yes: CTA Bilaterally Gastrointestinal: Yes: Normal Bowel Sounds, Soft. No: Tenderness Labs: CBC, BMP 02/27/19 07:55 02/27/19 07:55 INR, PTT INR 0.97 (0.83-1.09) 02/24/19 05:30 Assessment/Plan UTI CHF CKD AWAIT C/S CONTINUE CEFTRIAXONE
[2019-02-28] MEDS: CEFTRIAXONE 1 GM in DEXTROSE 5%-WATER - 50 ML IVPB SCH (10:08)
[2019-02-28] MEDS: NIFEdipine E.R. 30 MG TABLET (FP) PO SCH ×2 (10:08→22:27)
[2019-02-28] MEDS: PANTOPRAZOLE 20 MG TABLET (FP) PO SCH (10:09)
[2019-02-28] MEDS: TORSEMIDE 20 MG TABLET (FP) PO SCH (10:09)
[2019-02-28] MEDS: FERROUS SO4 325 MG TABLET (FP) PO SCH ×2 (10:09→22:41)
[2019-02-28] MEDS: MULTIVITAMINS (DAILY MVI) TABLET (FP) PO SCH (10:09)
[2019-02-28] MEDS: SODIUM BICARBONATE 650 MG TABLET PO SCH (10:10)
[2019-02-28] MEDS: HEPARIN NA (PORCINE) 5,000 UNITS/ML 1ML VIAL SQ SCH ×2 (10:10→22:22)
--- NOTE | 2019-02-28 12:18 | PN ---
Progress Note (short form) - Note Progress Note: Resting in NAD. No CP or SOB. No acute events overnight. Intake & Output 02/25/19 02/26/19 02/27/19 02/28/19 23:59 23:59 23:59 23:59 Intake Total 640 880 50 0 Balance 640 880 50 0 Weight 95 lb 88 lb 1 oz Last Vital Signs Temp Pulse Resp BP Pulse Ox 98.1 F 76 18 157/88 96 02/28/19 06:07 02/28/19 06:07 02/28/19 06:07 02/28/19 06:07 02/27/19 21:00 Active Medications Albuterol Sulfate (Ventolin 0.083% Nebulizer Soln -) 1 amp NEB Q6H PRN PRN Reason: SHORT OF BREATH/WHEEZING Atorvastatin Calcium (Lipitor -) 10 mg PO HS [facility] Last Admin: 02/27/19 21:46 Dose: 10 mg Ferrous Sulfate (Feosol -) 325 mg PO BID [facility] Last Admin: 02/28/19 10:09 Dose: 325 mg Heparin Sodium (Porcine) (Heparin -) 5,000 unit SQ BID [facility] Last Admin: 02/28/19 10:10 Dose: 5,000 unit Hydralazine HCl (Apresoline -) 50 mg PO TID [facility] Last Admin: 02/28/19 06:19 Dose: 50 mg Ceftriaxone Sodium 1 gm/ (Dextrose) 50 mls @ 100 mls/hr IVPB DAILY [facility]; Protocol Last Admin: 02/28/19 10:08 Dose: 100 mls/hr Ipratropium [place] (Atrovent 0.02% Nebulizer -) 1 amp NEB Q6H PRN PRN Reason: WHEEZING Metoprolol Succinate (Toprol Xl -) 50 mg PO BID [facility] Last Admin: 02/28/19 10:09 Dose: 50 mg Multivitamins/Minerals/Vitamin C (Tab-A-Vit -) 1 tab PO DAILY [facility] Last Admin: 02/28/19 10:09 Dose: 1 tab Nifedipine (Procardia Xl -) 30 mg PO BID [facility] Last Admin: 02/28/19 10:08 Dose: 30 mg Pantoprazole Sodium (Protonix -) 40 mg PO DAILY [facility] Last Admin: 02/28/19 10:09 Dose: 40 mg Polyethylene Glycol (Miralax (For Daily Use) -) 17 gm PO TID [facility] Last Admin: 02/28/19 06:19 Dose: Not Given Senna (Senna -) 2 tab PO HS [facility] Last Admin: 02/27/19 21:46 Dose: 2 tab Sodium Bicarbonate (Sodium Bicarbonate -) 650 mg PO DAILY [facility] Last Admin: 02/28/19 10:10 Dose: 650 mg Torsemide (Demadex -) 40 mg PO DAILY [facility] Last Admin: 02/28/19 10:09 Dose: 40 mg Constitutional: Yes: Calm, Cachectic Eyes: Yes: WNL HENT: Yes: WNL Neck: Yes: WNL Cardiovascular: Yes: Regular Rate and Rhythm, S1, S2 Respiratory: Yes: Diminished Gastrointestinal: Yes: Normal Bowel Sounds, Soft Extremities: Yes: WNL Edema: No Labs: Problem List - Problems (1) Acute on chronic diastolic (congestive) heart failure Code(s): I50.33 - ACUTE ON CHRONIC DIASTOLIC (CONGESTIVE) HEART FAILURE (2) Seaap-ll-[id number] kidney injury Code(s): N17.9 - ACUTE KIDNEY FAILURE, UNSPECIFIED; N18.9 - CHRONIC KIDNEY DISEASE, UNSPECIFIED (3) CHF (congestive heart failure) Code(s): I50.9 - HEART FAILURE, UNSPECIFIED (4) CKD (chronic kidney disease) Code(s): N18.9 - CHRONIC KIDNEY DISEASE, UNSPECIFIED (5) Colon cancer Code(s): C18.9 - MALIGNANT NEOPLASM OF COLON, UNSPECIFIED (6) HLD (hyperlipidemia) Code(s): E78.5 - HYPERLIPIDEMIA, UNSPECIFIED (7) HTN (hypertension) Code(s): I10 - ESSENTIAL (PRIMARY) HYPERTENSION Assessment/Plan Acute on Chronic Diastolic Heart Failure improving Acute on Chronic Renal Failure +Troponins likely from above HTN Hyperlipidemia Colon CA - Demadex - monitor urine output, creatinine - O2 to keep Spo2 >90% - DVT prophylaxis - ABX per ID Dr Davis
--- NOTE | 2019-02-28 21:00 | PN ---
Progress Note (short form) - Note Progress Note: ckd chf Current Medications Albuterol Sulfate (Ventolin 0.083% Nebulizer Soln -) 1 amp NEB Q6H PRN PRN Reason: SHORT OF BREATH/WHEEZING Atorvastatin Calcium (Lipitor -) 10 mg PO HS [facility] Last Admin: 02/27/19 21:46 Dose: 10 mg Ferrous Sulfate (Feosol -) 325 mg PO BID [facility] Last Admin: 02/28/19 10:09 Dose: 325 mg Heparin Sodium (Porcine) (Heparin -) 5,000 unit SQ BID [facility] Last Admin: 02/28/19 10:10 Dose: 5,000 unit Hydralazine HCl (Apresoline -) 50 mg PO TID [facility] Last Admin: 02/28/19 14:42 Dose: 50 mg Ceftriaxone Sodium 1 gm/ (Dextrose) 50 mls @ 100 mls/hr IVPB DAILY [facility]; Protocol Last Admin: 02/28/19 10:08 Dose: 100 mls/hr Ipratropium [place] (Atrovent 0.02% Nebulizer -) 1 amp NEB Q6H PRN PRN Reason: WHEEZING Metoprolol Succinate (Toprol Xl -) 50 mg PO BID [facility] Last Admin: 02/28/19 10:09 Dose: 50 mg Multivitamins/Minerals/Vitamin C (Tab-A-Vit -) 1 tab PO DAILY [facility] Last Admin: 02/28/19 10:09 Dose: 1 tab Nifedipine (Procardia Xl -) 30 mg PO BID [facility] Last Admin: 02/28/19 10:08 Dose: 30 mg Pantoprazole Sodium (Protonix -) 40 mg PO DAILY [facility] Last Admin: 02/28/19 10:09 Dose: 40 mg Polyethylene Glycol (Miralax (For Daily Use) -) 17 gm PO TID [facility] Last Admin: 02/28/19 14:42 Dose: 17 grams Senna (Senna -) 2 tab PO HS [facility] Last Admin: 02/27/19 21:46 Dose: 2 tab Sodium Bicarbonate (Sodium Bicarbonate -) 650 mg PO DAILY [facility] Last Admin: 02/28/19 10:10 Dose: 650 mg Torsemide (Demadex -) 40 mg PO DAILY [facility] Last Admin: 02/28/19 10:09 Dose: 40 mg Last Vital Signs Temp Pulse Resp BP Pulse Ox 98.7 F 71 18 161/88 97 02/28/19 18:00 02/28/19 18:00 02/28/19 18:00 02/28/19 18:00 02/28/19 09:00 CBC, BMP 02/27/19 07:55 02/27/19 07:55 Renal function improving- not yet at baseline Plan- continue same rx
[2019-02-28] MEDS: SENNOSIDES 8.6MG TABLET (FP) PO SCH (22:22)
[2019-02-28] MEDS: ATORVASTATIN CA 10 MG TABLET (FP) PO SCH (22:22)
[2019-03-01] MEDS: hydrALAZINE HCL 25 MG TABLET (FP) PO SCH ×3 (06:30→22:34)
[2019-03-01] MEDS: POLYETHYLENE GLYCOL 3350 119 GM BTL PO SCH ×3 (06:33→22:34)
[2019-03-01 08:05] LABS: HEMATOCRIT 29.6 % (32.4-45.2); MCH 27.6 pg (25.7-33.7); MCHC 33.7 g/dl (32.0-36.0); MEAN CELL VOLUME 81.9 fl (80-96); MEAN PLT VOLUME 6.9 fl (7.5-11.1); PLATELET COUNT 248 K/MM3 (134-434); RBC 3.62 M/mm3 (3.60-5.2); RDW 18.9 % (11.6-15.6); WHITE BLOOD COUNT 7.3 K/mm3 (4.0-10.0)
[2019-03-01 08:47] LABS: BLOOD UREA NITROGEN 77.4 mg/dL (7-18); CALCIUM 8.9 mg/dL (8.5-10.1); CREATININE 4.4 mg/dL (0.55-1.3); POTASSIUM 3.3 mmol/L (3.5-5.1)
[2019-03-01] MEDS ORDERED: PT OWN MED DRAWER 7, Y5N ONE ×2 (09:37→20:23)
[2019-03-01] MEDS ORDERED: DEXTROSE 5%-WATER - 50 ML IVPB ONE (09:38)
[2019-03-01] MEDS ORDERED: cefTRIAXone SODIUM 1 GM VIAL ONE (09:38)
[2019-03-01] MEDS: TORSEMIDE 20 MG TABLET (FP) PO SCH (10:02)
[2019-03-01] MEDS: CEFTRIAXONE 1 GM in DEXTROSE 5%-WATER - 50 ML IVPB SCH (10:03)
[2019-03-01] MEDS: SODIUM BICARBONATE 650 MG TABLET PO SCH (10:03)
[2019-03-01] MEDS: MULTIVITAMINS (DAILY MVI) TABLET (FP) PO SCH (10:03)
[2019-03-01] MEDS: FERROUS SO4 325 MG TABLET (FP) PO SCH ×2 (10:03→22:34)
[2019-03-01] MEDS: PANTOPRAZOLE 20 MG TABLET (FP) PO SCH (10:03)
[2019-03-01] MEDS: HEPARIN NA (PORCINE) 5,000 UNITS/ML 1ML VIAL SQ SCH ×2 (10:03→23:00)
[2019-03-01] MEDS: NIFEdipine E.R. 30 MG TABLET (FP) PO SCH ×2 (10:04→22:34)
[2019-03-01] MEDS ORDERED: POTASSIUM CHLORIDE TABS 10 MEQ TABLET.ER (FP) PO ONE ×2 (15:07→17:15)
[2019-03-01 15:09] VITALS: BMI 15.0
--- NOTE | 2019-03-01 15:09 | PN ---
Progress Note, Physician Chief Complaint: AWAKE ALERT DENIES FEVER OR CHILLS - Current Medication List Current Medications: Active Medications Albuterol Sulfate (Ventolin 0.083% Nebulizer Soln -) 1 amp NEB Q6H PRN PRN Reason: SHORT OF BREATH/WHEEZING Atorvastatin Calcium (Lipitor -) 10 mg PO HS [facility] Last Admin: 02/28/19 22:22 Dose: 10 mg Ferrous Sulfate (Feosol -) 325 mg PO BID [facility] Last Admin: 03/01/19 10:03 Dose: 325 mg Heparin Sodium (Porcine) (Heparin -) 5,000 unit SQ BID [facility] Last Admin: 03/01/19 10:03 Dose: 5,000 unit Hydralazine HCl (Apresoline -) 50 mg PO TID [facility] Last Admin: 03/01/19 13:45 Dose: 50 mg Ceftriaxone Sodium 1 gm/ (Dextrose) 50 mls @ 100 mls/hr IVPB DAILY [facility]; Protocol Last Admin: 03/01/19 10:03 Dose: 100 mls/hr Ipratropium [place] (Atrovent 0.02% Nebulizer -) 1 amp NEB Q6H PRN PRN Reason: WHEEZING Metoprolol Succinate (Toprol Xl -) 50 mg PO BID [facility] Last Admin: 03/01/19 10:03 Dose: 50 mg Multivitamins/Minerals/Vitamin C (Tab-A-Vit -) 1 tab PO DAILY [facility] Last Admin: 03/01/19 10:03 Dose: 1 tab Nifedipine (Procardia Xl -) 30 mg PO BID [facility] Last Admin: 03/01/19 10:04 Dose: 30 mg Pantoprazole Sodium (Protonix -) 40 mg PO DAILY [facility] Last Admin: 03/01/19 10:03 Dose: 40 mg Polyethylene Glycol (Miralax (For Daily Use) -) 17 gm PO TID [facility] Last Admin: 03/01/19 13:46 Dose: 17 grams Senna (Senna -) 2 tab PO HS [facility] Last Admin: 02/28/19 22:22 Dose: 2 tab Sodium Bicarbonate (Sodium Bicarbonate -) 650 mg PO DAILY [facility] Last Admin: 03/01/19 10:03 Dose: 650 mg Torsemide (Demadex -) 40 mg PO DAILY [facility] Last Admin: 03/01/19 10:02 Dose: 40 mg - Objective Vital Signs: Vital Signs Temperature 97.9 F 03/01/19 14:27 Pulse Rate 72 03/01/19 14:27 Respiratory Rate 18 03/01/19 14:27 Blood Pressure 153/82 03/01/19 14:27 O2 Sat by Pulse Oximetry (%) 97 03/01/19 09:00 Constitutional: Yes: Mild Distress Eyes: Yes: WNL HENT: Yes: WNL Neck: Yes: WNL Cardiovascular: Yes: WNL Respiratory: Yes: WNL Genitourinary: Yes: Incontinence Musculoskeletal: Yes: Muscle Weakness Psychiatric: Yes: Other Labs: CBC, BMP 03/01/19 07:20 03/01/19 07:20 INR, PTT INR 0.97 (0.83-1.09) 02/24/19 05:30 Problem List - Problems (1) CHF exacerbation Code(s): I50.9 - HEART FAILURE, UNSPECIFIED Qualifiers: Heart failure type: unspecified Qualified Code(s): I50.9 - Heart failure, unspecified (2) Acute on chronic diastolic (congestive) heart failure Code(s): I50.33 - ACUTE ON CHRONIC DIASTOLIC (CONGESTIVE) HEART FAILURE (3) [id number] kidney injury Code(s): N17.9 - ACUTE KIDNEY FAILURE, UNSPECIFIED; N18.9 - CHRONIC KIDNEY DISEASE, UNSPECIFIED (4) Anemia Code(s): D64.9 - ANEMIA, UNSPECIFIED Qualifiers: Iron deficiency anemia type: unspecified iron deficiency (5) Asymptomatic bacteriuria Code(s): R82.71 - BACTERIURIA (6) GERD (gastroesophageal reflux disease) Code(s): K21.9 - GASTRO-ESOPHAGEAL REFLUX DISEASE WITHOUT ESOPHAGITIS (7) HLD (hyperlipidemia) Code(s): E78.5 - HYPERLIPIDEMIA, UNSPECIFIED (8) HTN (hypertension) Code(s): I10 - ESSENTIAL (PRIMARY) HYPERTENSION (9) UTI (urinary tract infection) Code(s): N39.0 - URINARY TRACT INFECTION, SITE NOT SPECIFIED Assessment/Plan IV ABX CEFTRIAXONE FOR UTI OOB TO CHAIR WITH PT ON DIURETICS FOR CHF EXACERBATION RENAL FAILURE WORKUP WITH NEPHROLOGY MONITOR BUN/CREAT AWAITING URINE C AND S
--- NOTE | 2019-03-01 22:22 | PN ---
Progress Note (short form) - Note Progress Note: ckd chf Current Medications Albuterol Sulfate (Ventolin 0.083% Nebulizer Soln -) 1 amp NEB Q6H PRN PRN Reason: SHORT OF BREATH/WHEEZING Atorvastatin Calcium (Lipitor -) 10 mg PO HS [facility] Last Admin: 02/27/19 21:46 Dose: 10 mg Ferrous Sulfate (Feosol -) 325 mg PO BID [facility] Last Admin: 02/28/19 10:09 Dose: 325 mg Heparin Sodium (Porcine) (Heparin -) 5,000 unit SQ BID [facility] Last Admin: 02/28/19 10:10 Dose: 5,000 unit Hydralazine HCl (Apresoline -) 50 mg PO TID [facility] Last Admin: 02/28/19 14:42 Dose: 50 mg Ceftriaxone Sodium 1 gm/ (Dextrose) 50 mls @ 100 mls/hr IVPB DAILY [facility]; Protocol Last Admin: 02/28/19 10:08 Dose: 100 mls/hr Ipratropium [place] (Atrovent 0.02% Nebulizer -) 1 amp NEB Q6H PRN PRN Reason: WHEEZING Metoprolol Succinate (Toprol Xl -) 50 mg PO BID [facility] Last Admin: 02/28/19 10:09 Dose: 50 mg Multivitamins/Minerals/Vitamin C (Tab-A-Vit -) 1 tab PO DAILY [facility] Last Admin: 02/28/19 10:09 Dose: 1 tab Nifedipine (Procardia Xl -) 30 mg PO BID [facility] Last Admin: 02/28/19 10:08 Dose: 30 mg Pantoprazole Sodium (Protonix -) 40 mg PO DAILY [facility] Last Admin: 02/28/19 10:09 Dose: 40 mg Polyethylene Glycol (Miralax (For Daily Use) -) 17 gm PO TID [facility] Last Admin: 02/28/19 14:42 Dose: 17 grams Senna (Senna -) 2 tab PO HS [facility] Last Admin: 02/27/19 21:46 Dose: 2 tab Sodium Bicarbonate (Sodium Bicarbonate -) 650 mg PO DAILY [facility] Last Admin: 02/28/19 10:10 Dose: 650 mg Torsemide (Demadex -) 40 mg PO DAILY [facility] Last Admin: 02/28/19 10:09 Dose: 40 mg Last Vital Signs Temp Pulse Resp BP Pulse Ox 98.7 F 71 18 161/88 97 02/28/19 18:00 02/28/19 18:00 02/28/19 18:00 02/28/19 18:00 02/28/19 09:00 Lungs clear Heart reg Abd soft Ext no edema CBC, BMP 02/27/19 07:55 02/27/19 07:55 IMP Renal function unchanged HF Anemia Plan- continue same rx
[2019-03-01] MEDS: SENNOSIDES 8.6MG TABLET (FP) PO SCH (22:34)
[2019-03-01] MEDS: ATORVASTATIN CA 10 MG TABLET (FP) PO SCH (22:34)
[2019-03-02] MEDS: hydrALAZINE HCL 25 MG TABLET (FP) PO SCH ×3 (06:59→21:43)
[2019-03-02] MEDS: POLYETHYLENE GLYCOL 3350 119 GM BTL PO SCH ×3 (07:01→21:44)
[2019-03-02 07:13] LABS: MCH 27.4 pg (25.7-33.7); MCHC 33.3 g/dl (32.0-36.0); MEAN CELL VOLUME 82.2 fl (80-96); PLATELET COUNT 240 K/MM3 (134-434); RBC 3.65 M/mm3 (3.60-5.2); RDW 18.8 % (11.6-15.6)
[2019-03-02 07:44] LABS: BLOOD UREA NITROGEN 82.5 mg/dL (7-18); CREATININE 4.6 mg/dL (0.55-1.3); POTASSIUM 3.4 mmol/L (3.5-5.1)
--- NOTE | 2019-03-02 09:38 | PN ---
Progress Note (short form) - Note Progress Note: Resting in NAD. No CP or SOB. No acute events overnight. Intake & Output 02/27/19 02/28/19 03/01/19 03/02/19 23:59 23:59 23:59 23:59 Intake Total 50 200 50 120 Balance 50 200 50 120 Weight 88 lb 1 oz Last Vital Signs Temp Pulse Resp BP Pulse Ox 97.8 F 68 18 151/100 97 03/02/19 06:00 03/02/19 06:00 03/02/19 06:00 03/02/19 06:00 03/01/19 21:00 Active Medications Albuterol Sulfate (Ventolin 0.083% Nebulizer Soln -) 1 amp NEB Q6H PRN PRN Reason: SHORT OF BREATH/WHEEZING Atorvastatin Calcium (Lipitor -) 10 mg PO HS [facility] Last Admin: 03/01/19 22:34 Dose: 10 mg Ferrous Sulfate (Feosol -) 325 mg PO BID [facility] Last Admin: 03/01/19 22:34 Dose: Not Given Heparin Sodium (Porcine) (Heparin -) 5,000 unit SQ BID [facility] Last Admin: 03/01/19 23:00 Dose: 5,000 unit Hydralazine HCl (Apresoline -) 50 mg PO TID [facility] Last Admin: 03/02/19 06:59 Dose: 50 mg Ceftriaxone Sodium 1 gm/ (Dextrose) 50 mls @ 100 mls/hr IVPB DAILY [facility]; Protocol Last Admin: 03/01/19 10:03 Dose: 100 mls/hr Ipratropium [place] (Atrovent 0.02% Nebulizer -) 1 amp NEB Q6H PRN PRN Reason: WHEEZING Metoprolol Succinate (Toprol Xl -) 50 mg PO BID [facility] Last Admin: 03/01/19 22:34 Dose: 50 mg Multivitamins/Minerals/Vitamin C (Tab-A-Vit -) 1 tab PO DAILY [facility] Last Admin: 03/01/19 10:03 Dose: 1 tab Nifedipine (Procardia Xl -) 30 mg PO BID [facility] Last Admin: 03/01/19 22:34 Dose: 30 mg Pantoprazole Sodium (Protonix -) 40 mg PO DAILY [facility] Last Admin: 03/01/19 10:03 Dose: 40 mg Polyethylene Glycol (Miralax (For Daily Use) -) 17 gm PO TID [facility] Last Admin: 03/02/19 07:01 Dose: Not Given Senna (Senna -) 2 tab PO HS [facility] Last Admin: 03/01/19 22:34 Dose: 2 tab Sodium Bicarbonate (Sodium Bicarbonate -) 650 mg PO DAILY [facility] Last Admin: 03/01/19 10:03 Dose: 650 mg Torsemide (Demadex -) 40 mg PO DAILY [facility] Last Admin: 03/01/19 10:02 Dose: 40 mg Constitutional: Yes: Calm, Cachectic Eyes: Yes: WNL HENT: Yes: WNL Neck: Yes: WNL Cardiovascular: Yes: Regular Rate and Rhythm, S1, S2 Respiratory: Yes: Diminished Gastrointestinal: Yes: Normal Bowel Sounds, Soft Extremities: Yes: WNL Edema: No Labs: Laboratory Results - last 24 hr 03/02/19 03/02/19 06:45 06:45 WBC 7.0 RBC 3.65 Hgb 10.0 L Hct 30.0 L MCV 82.2 MCH 27.4 MCHC 33.3 RDW 18.8 H Plt Count 240 MPV 7.0 L Sodium 133 L Potassium 3.4 L Chloride 95 L Carbon Dioxide 25 Anion Gap 13 BUN 82.5 H Creatinine 4.6 H Est GFR (CKD-EPI)AfAm 10.09 Est GFR (CKD-EPI)NonAf 8.70 Random Glucose 101 Calcium 9.0 Problem List - Problems (1) Acute on chronic diastolic (congestive) heart failure Code(s): I50.33 - ACUTE ON CHRONIC DIASTOLIC (CONGESTIVE) HEART FAILURE (2) [id number] kidney injury Code(s): N17.9 - ACUTE KIDNEY FAILURE, UNSPECIFIED; N18.9 - CHRONIC KIDNEY DISEASE, UNSPECIFIED (3) CHF (congestive heart failure) Code(s): I50.9 - HEART FAILURE, UNSPECIFIED (4) CKD (chronic kidney disease) Code(s): N18.9 - CHRONIC KIDNEY DISEASE, UNSPECIFIED (5) Colon cancer Code(s): C18.9 - MALIGNANT NEOPLASM OF COLON, UNSPECIFIED (6) HLD (hyperlipidemia) Code(s): E78.5 - HYPERLIPIDEMIA, UNSPECIFIED (7) HTN (hypertension) Code(s): I10 - ESSENTIAL (PRIMARY) HYPERTENSION Assessment/Plan Acute on Chronic Diastolic Heart Failure improving Acute on Chronic Renal Failure +Troponins likely from above HTN Hyperlipidemia Colon CA - Demadex - monitor urine output, creatinine - O2 to keep Spo2 >90% - DVT prophylaxis - ABX per ID Dr Davis
[2019-03-02] MEDS ORDERED: PT OWN MED DRAWER 7, Y5N ONE (09:57)
[2019-03-02] MEDS ORDERED: DEXTROSE 5%-WATER - 50 ML IVPB ONE (09:58)
[2019-03-02] MEDS ORDERED: cefTRIAXone SODIUM 1 GM VIAL ONE (09:58)
[2019-03-02] MEDS: PANTOPRAZOLE 20 MG TABLET (FP) PO SCH (10:00)
[2019-03-02] MEDS: TORSEMIDE 20 MG TABLET (FP) PO SCH (10:01)
[2019-03-02] MEDS: FERROUS SO4 325 MG TABLET (FP) PO SCH ×2 (10:01→21:43)
[2019-03-02] MEDS: CEFTRIAXONE 1 GM in DEXTROSE 5%-WATER - 50 ML IVPB SCH (10:08)
[2019-03-02] MEDS: HEPARIN NA (PORCINE) 5,000 UNITS/ML 1ML VIAL SQ SCH ×2 (10:08→21:44)
[2019-03-02] MEDS: SODIUM BICARBONATE 650 MG TABLET PO SCH (10:10)
[2019-03-02] MEDS: MULTIVITAMINS (DAILY MVI) TABLET (FP) PO SCH (10:10)
[2019-03-02] MEDS: NIFEdipine E.R. 30 MG TABLET (FP) PO SCH ×2 (10:11→21:44)
--- NOTE | 2019-03-02 11:25 | PN ---
Progress Note (short form) - Note Progress Note: Renal follow up for GENOVEVA on CKD Seen at the bedside offers no acute complaints no sob, chest pain, fever, chills, N/V/D making urine Vital Signs Temperature 98.4 F 03/02/19 10:00 Pulse Rate 68 03/02/19 10:00 Respiratory Rate 18 03/02/19 10:00 Blood Pressure 122/93 03/02/19 10:00 O2 Sat by Pulse Oximetry (%) 97 03/02/19 09:00 Intake & Output 02/27/19 02/28/19 03/01/19 03/02/19 23:59 23:59 23:59 23:59 Intake Total 50 200 50 120 Balance 50 200 50 120 Weight 39.944 kg NAD awake and alert neck supple RRR CTA soft NT/ND no LE edema CBC, BMP 03/02/19 06:45 03/02/19 06:45 Current Medications Albuterol Sulfate (Ventolin 0.083% Nebulizer Soln -) 1 amp NEB Q6H PRN PRN Reason: SHORT OF BREATH/WHEEZING Atorvastatin Calcium (Lipitor -) 10 mg PO HS [facility] Last Admin: 03/01/19 22:34 Dose: 10 mg Ferrous Sulfate (Feosol -) 325 mg PO BID [facility] Last Admin: 03/02/19 10:01 Dose: 325 mg Heparin Sodium (Porcine) (Heparin -) 5,000 unit SQ BID [facility] Last Admin: 03/02/19 10:08 Dose: 5,000 unit Hydralazine HCl (Apresoline -) 50 mg PO TID [facility] Last Admin: 03/02/19 06:59 Dose: 50 mg Ceftriaxone Sodium 1 gm/ (Dextrose) 50 mls @ 100 mls/hr IVPB DAILY [facility]; Protocol Last Admin: 03/02/19 10:08 Dose: 100 mls/hr Ipratropium [place] (Atrovent 0.02% Nebulizer -) 1 amp NEB Q6H PRN PRN Reason: WHEEZING Metoprolol Succinate (Toprol Xl -) 50 mg PO BID [facility] Last Admin: 03/02/19 10:10 Dose: 50 mg Multivitamins/Minerals/Vitamin C (Tab-A-Vit -) 1 tab PO DAILY [facility] Last Admin: 03/02/19 10:10 Dose: 1 tab Nifedipine (Procardia Xl -) 30 mg PO BID [facility] Last Admin: 10/14/19 10:11 Dose: 30 mg Pantoprazole Sodium (Protonix -) 40 mg PO DAILY [facility] Last Admin: 03/02/19 10:00 Dose: 40 mg Polyethylene Glycol (Miralax (For Daily Use) -) 17 gm PO TID [facility] Last Admin: 03/02/19 07:01 Dose: Not Given Senna (Senna -) 2 tab PO HS [facility] Last Admin: 03/01/19 22:34 Dose: 2 tab Sodium Bicarbonate (Sodium Bicarbonate -) 650 mg PO DAILY [facility] Last Admin: 03/02/19 10:10 Dose: 650 mg Torsemide (Demadex -) 40 mg PO DAILY [facility] Last Admin: 03/02/19 10:01 Dose: 40 mg 73 year old woman with history of CKD stage 4 (baseline cr as of last admission ~2.9, eGFR 16), hypertension, colon cancer presented from [place] with sob and found to have acute diastolic heart failure with Cr of 4. 1. Acute kidney injury in setting of CHF and fluid overload 2. CKD stage 4 3. Diastolic HF 4. Hypertension 5. Hypervolemic hypernatremia 6. Metabolic acidosis 7. Anemia Renal function stable, eGFR is low but no acute indication for [employer] most recent CXR shows improvement of congestion but persistence of bilateral effusions but lungs clear on examination today D/c torsemide for now, repeat CXR in AM Renal US consistent with CKD but no evidence of obstruction Trend renal function and electrolyte daily salt restriction of 2g, fluid restriction Continue sodium bicarb 650mg daily for metabolic acidosis serologic work up done in November shows negative HARSHA, Negative ANCA's, negative SPEP and negative Anti-GBM ab Thank you Thee Tse DO
--- NOTE | 2019-03-02 12:26 | PN ---
Progress Note, Physician Chief Complaint: CHF Exacerbation CKD History of Present Illness: Previous notes and events reviewed awake and alert NAD denies chest pain or SOB sts her breathing is improving - Current Medication List Current Medications: Active Medications Albuterol Sulfate (Ventolin 0.083% Nebulizer Soln -) 1 amp NEB Q6H PRN PRN Reason: SHORT OF BREATH/WHEEZING Atorvastatin Calcium (Lipitor -) 10 mg PO HS [facility] Last Admin: 03/01/19 22:34 Dose: 10 mg Ferrous Sulfate (Feosol -) 325 mg PO BID [facility] Last Admin: 03/02/19 10:01 Dose: 325 mg Heparin Sodium (Porcine) (Heparin -) 5,000 unit SQ BID [facility] Last Admin: 03/02/19 10:08 Dose: 5,000 unit Hydralazine HCl (Apresoline -) 50 mg PO TID [facility] Last Admin: 03/02/19 06:59 Dose: 50 mg Ceftriaxone Sodium 1 gm/ (Dextrose) 50 mls @ 100 mls/hr IVPB DAILY [facility]; Protocol Last Admin: 03/02/19 10:08 Dose: 100 mls/hr Ipratropium [place] (Atrovent 0.02% Nebulizer -) 1 amp NEB Q6H PRN PRN Reason: WHEEZING Metoprolol Succinate (Toprol Xl -) 50 mg PO BID [facility] Last Admin: 03/02/19 10:10 Dose: 50 mg Multivitamins/Minerals/Vitamin C (Tab-A-Vit -) 1 tab PO DAILY [facility] Last Admin: 03/02/19 10:10 Dose: 1 tab Nifedipine (Procardia Xl -) 30 mg PO BID [facility] Last Admin: 03/02/19 10:11 Dose: 30 mg Pantoprazole Sodium (Protonix -) 40 mg PO DAILY [facility] Last Admin: 03/02/19 10:00 Dose: 40 mg Polyethylene Glycol (Miralax (For Daily Use) -) 17 gm PO TID [facility] Last Admin: 03/02/19 07:01 Dose: Not Given Senna (Senna -) 2 tab PO HS [facility] Last Admin: 03/01/19 22:34 Dose: 2 tab Sodium Bicarbonate (Sodium Bicarbonate -) 650 mg PO DAILY [facility] Last Admin: 03/02/19 10:10 Dose: 650 mg - Objective Vital Signs: Vital Signs Temperature 98.4 F 03/02/19 10:00 Pulse Rate 68 03/02/19 10:00 Respiratory Rate 18 03/02/19 10:00 Blood Pressure 122/93 03/02/19 10:00 O2 Sat by Pulse Oximetry (%) 97 03/02/19 09:00 Constitutional: Yes: No Distress, Calm, Cachectic Eyes: Yes: Conjunctiva Clear HENT: Yes: Atraumatic Cardiovascular: Yes: Regular Rate and Rhythm Respiratory: Yes: Regular, Diminished, On Nasal O2 Gastrointestinal: Yes: Normal Bowel Sounds, Soft Musculoskeletal: Yes: Muscle Weakness Extremities: Yes: WNL Edema: No Neurological: Yes: Alert Psychiatric: Yes: Alert Labs: CBC, BMP 03/02/19 06:45 03/02/19 06:45 INR, PTT INR 0.97 (0.83-1.09) 02/24/19 05:30 Microbiology 02/25/19 18:30 Urine - Urine - Catheterized Urine Culture - Final Escherichia Coli Problem List - Problems (1) Acute on chronic diastolic (congestive) heart failure Assessment/Plan: -Cardiology on board -daily weights -BNP >788095 x 2, monitor for downtrend -1L fluid restriction -Strict I&Os -Echo 12/05 with EF 50-55% -Torsemide discontinued -repeat CXR in AM Code(s): I50.33 - ACUTE ON CHRONIC DIASTOLIC (CONGESTIVE) HEART FAILURE (2) CKD (chronic kidney disease) Assessment/Plan: -Renal on board -BUN/Cr 82.5/4.6 -monitor renal function daily Code(s): N18.9 - CHRONIC KIDNEY DISEASE, UNSPECIFIED (3) GERD (gastroesophageal reflux disease) Assessment/Plan: -Pantoprazole Code(s): K21.9 - GASTRO-ESOPHAGEAL REFLUX DISEASE WITHOUT ESOPHAGITIS (4) HLD (hyperlipidemia) Assessment/Plan: -Atorvastatin Code(s): E78.5 - HYPERLIPIDEMIA, UNSPECIFIED (5) HTN (hypertension) Assessment/Plan: -Metoprolol, Nifedipine, Hydralazine -low Na diet Code(s): I10 - ESSENTIAL (PRIMARY) HYPERTENSION (6) Malnourished Assessment/Plan: -Dietary consult -Ensure -daily weights Code(s): E46 - UNSPECIFIED PROTEIN-CALORIE MALNUTRITION Qualifiers: Protein-calorie malnutrition severity: severe (7) Anemia Assessment/Plan: -monitor Hg daily -Hg 10.0 -Stool OB -Iron panel -transfuse for Hg <7.0 to avoid fluid overload -Ferrous sulfate BID Code(s): D64.9 - ANEMIA, UNSPECIFIED Qualifiers: Iron deficiency anemia type: unspecified iron deficiency (8) Hyponatremia Assessment/Plan: -Na 133 -renal on board Code(s): E87.1 - HYPO-OSMOLALITY AND HYPONATREMIA Assessment/Plan see problem list dvt ppx
[2019-03-02] MEDS: POTASSIUM CHLORIDE TABS 10 MEQ TABLET.ER (FP) PO ONE ×2 (18:04→18:09)
[2019-03-02] MEDS ORDERED: ONDANSETRON 4 MG/2 ML VIAL IVPUSH ONE (18:14)
[2019-03-02] MEDS: ATORVASTATIN CA 10 MG TABLET (FP) PO SCH (21:43)
[2019-03-02] MEDS: SENNOSIDES 8.6MG TABLET (FP) PO SCH (21:43)
[2019-03-03] MEDS: hydrALAZINE HCL 25 MG TABLET (FP) PO SCH (05:51)
[2019-03-03] MEDS: POLYETHYLENE GLYCOL 3350 119 GM BTL PO SCH (05:52)
[2019-03-03 07:37] LABS: HEMATOCRIT 30.2 % (32.4-45.2); HEMOGLOBIN 10.4 GM/dL (10.7-15.3); MCH 28.1 pg (25.7-33.7); MCHC 34.3 g/dl (32.0-36.0); MEAN CELL VOLUME 81.9 fl (80-96); MEAN PLT VOLUME 7.1 fl (7.5-11.1); PLATELET COUNT 246 K/MM3 (134-434); RBC 3.69 M/mm3 (3.60-5.2); RDW 18.8 % (11.6-15.6); WHITE BLOOD COUNT 6.7 K/mm3 (4.0-10.0)
[2019-03-03 07:59] LABS: ALBUMIN 3.1 g/dl (3.4-5.0); BILIRUBIN,TOTAL 0.6 mg/dL (0.2-1); BLOOD UREA NITROGEN 80.4 mg/dL (7-18); CALCIUM 8.7 mg/dL (8.5-10.1); CREATININE 4.5 mg/dL (0.55-1.3); MAGNESIUM 2.2 mg/dL (1.8-2.4); PHOSPHOROUS 3.8 mg/dL (2.5-4.9); POTASSIUM 3.5 mmol/L (3.5-5.1); TOT PROT 6.5 g/dl (6.4-8.2)
--- NOTE | 2019-03-03 09:23 | DS ---
Physical Examination Vital Signs: Vital Signs Temperature 97.9 F 03/03/19 06:00 Pulse Rate 65 03/03/19 06:00 Respiratory Rate 20 03/03/19 08:13 Blood Pressure 148/86 03/03/19 06:00 O2 Sat by Pulse Oximetry (%) 98 03/03/19 08:13 Cardiovascular: Yes: S1, S2 Respiratory: Yes: Regular, CTA Bilaterally Gastrointestinal: Yes: Normal Bowel Sounds, Soft Labs: CBC, BMP 03/03/19 06:50 03/03/19 06:50 Discharge Summary Problems reviewed: Yes Reason For Visit: SOB,CHF,ACUTE RENAL SUPERIMPOSED CHRONIC KIDNEY DI Current Active Problems CHF exacerbation (Acute) Hyponatremia (Acute) Hospital Course: - Problems (1) Acute on chronic diastolic (congestive) heart failure Assessment/Plan: -Cardiology on board -daily weights -BNP >557745 x 2, monitor for downtrend -1L fluid restriction -Strict I&Os -Echo 12/05 with EF 50-55% -Torsemide discontinued -repeat CXR in AM Code(s): I50.33 - ACUTE ON CHRONIC DIASTOLIC (CONGESTIVE) HEART FAILURE (2) CKD (chronic kidney disease) Assessment/Plan: -Renal on board -BUN/Cr 82.5/4.6 -monitor renal function daily Code(s): N18.9 - CHRONIC KIDNEY DISEASE, UNSPECIFIED (3) GERD (gastroesophageal reflux disease) Assessment/Plan: -Pantoprazole Code(s): K21.9 - GASTRO-ESOPHAGEAL REFLUX DISEASE WITHOUT ESOPHAGITIS (4) HLD (hyperlipidemia) Assessment/Plan: -Atorvastatin Code(s): E78.5 - HYPERLIPIDEMIA, UNSPECIFIED (5) HTN (hypertension) Assessment/Plan: -Metoprolol, Nifedipine, Hydralazine -low Na diet Code(s): I10 - ESSENTIAL (PRIMARY) HYPERTENSION (6) Malnourished Assessment/Plan: -Dietary consult -Ensure -daily weights Code(s): E46 - UNSPECIFIED PROTEIN-CALORIE MALNUTRITION Qualifiers: Protein-calorie malnutrition severity: severe (7) Anemia Assessment/Plan: -monitor Hg daily -Hg 10.0 -Stool OB -Iron panel -transfuse for Hg <7.0 to avoid fluid overload -Ferrous sulfate BID Code(s): D64.9 - ANEMIA, UNSPECIFIED Qualifiers: Iron deficiency anemia type: unspecified iron deficiency (8) Hyponatremia Assessment/Plan: -Na 133 -renal on board Code(s): E87.1 - HYPO-OSMOLALITY AND HYPONATREMIA Condition: Improved - Instructions Diet, Activity, Other Instructions: DAILY WEIGHTS BMP SATURDAY AND SATURDAY CBC EVERY WEEK FOLLOW UP WITH DR HERRERA(RENAL) AND DR BENDER(CARDIOLOGY) Referrals: Jeff Vera MD [Staff Physician] - Disposition: CARE HOME FACILITY - Home Medications Comprehensive Discharge Medication List: Ambulatory Orders Simvastatin 1 tab PO HS 12/01/18 Acetaminophen [Tylenol .Regular Strength -] 650 mg PO Q6H PRN tablet 12/09/18 Ferrous Sulfate [Feosol] 325 mg PO BID [facility] 12/09/18 Metoprolol Succinate [Toprol XL -] 50 mg PO BID tab.sr.24h 12/09/18 Pantoprazole Sodium [Protonix -] 40 mg PO DAILY tablet.ec 12/09/18 Polyethylene Glycol 3350 [Miralax 119 gm Btl -] 17 gm PO TID bottle 12/09/18 Sennosides [Senna -] 2 tab PO HS tablet 12/09/18 hydrALAZINE HCL [Apresoline -] 50 mg PO TID tablet 12/09/18 Albuterol 0.083% Nebulizer [place] [Ventolin 0.083% Nebulizer Soln -] 1 amp NEB Q6H PRN amp 12/21/18 Ipratropium 0.02% Nebulizer [Atrovent 0.02% Nebulizer -] 1 amp NEB Q6H PRN amp 12/21/18 Multivitamins [Multivit ([facility] Form[facility])] 1 tab PO DAILY tab 12/21/18 Nifedipine ER [Procardia XL -] 30 mg PO BID tab.er.24 03/03/19
[2019-03-03] MEDS ORDERED: cefTRIAXone SODIUM 1 GM VIAL ONE (10:11)
[2019-03-03] MEDS ORDERED: PT OWN MED DRAWER 7, Y5N ONE (10:11)
[2019-03-03] MEDS ORDERED: DEXTROSE 5%-WATER - 50 ML IVPB ONE (10:11)
[2019-03-03] MEDS: FERROUS SO4 325 MG TABLET (FP) PO SCH (10:15)
[2019-03-03] MEDS: NIFEdipine E.R. 30 MG TABLET (FP) PO SCH (10:15)
[2019-03-03] MEDS: MULTIVITAMINS (DAILY MVI) TABLET (FP) PO SCH (10:15)
[2019-03-03] MEDS: PANTOPRAZOLE 20 MG TABLET (FP) PO SCH (10:15)
[2019-03-03] MEDS: SODIUM BICARBONATE 650 MG TABLET PO SCH (10:16)
[2019-03-03] MEDS: CEFTRIAXONE 1 GM in DEXTROSE 5%-WATER - 50 ML IVPB SCH (10:16)
[2019-03-03] MEDS: HEPARIN NA (PORCINE) 5,000 UNITS/ML 1ML VIAL SQ SCH (10:16)
--- NOTE | 2019-03-03 10:20 | PN ---
Progress Note (short form) - Note Progress Note: Resting in NAD. No CP or SOB. No acute events overnight. Intake & Output 02/28/19 03/01/19 03/02/19 03/03/19 23:59 23:59 23:59 23:59 Intake Total 200 50 470 0 Balance 200 50 470 0 Weight 84 lb 6.4 oz Last Vital Signs Temp Pulse Resp BP Pulse Ox 97.9 F 65 20 148/86 98 03/03/19 06:00 03/03/19 06:00 03/03/19 08:13 03/03/19 06:00 03/03/19 08:13 Active Medications Albuterol Sulfate (Ventolin 0.083% Nebulizer Soln -) 1 amp NEB Q6H PRN PRN Reason: SHORT OF BREATH/WHEEZING Atorvastatin Calcium (Lipitor -) 10 mg PO HS [facility] Last Admin: 03/02/19 21:43 Dose: 10 mg Ferrous Sulfate (Feosol -) 325 mg PO BID [facility] Last Admin: 03/03/19 10:15 Dose: 325 mg Heparin Sodium (Porcine) (Heparin -) 5,000 unit SQ BID [facility] Last Admin: 03/03/19 10:16 Dose: 5,000 unit Hydralazine HCl (Apresoline -) 50 mg PO TID [facility] Last Admin: 03/03/19 05:51 Dose: 50 mg Ceftriaxone Sodium 1 gm/ (Dextrose) 50 mls @ 100 mls/hr IVPB DAILY [facility]; Protocol Last Admin: 03/03/19 10:16 Dose: 100 mls/hr Ipratropium [place] (Atrovent 0.02% Nebulizer -) 1 amp NEB Q6H PRN PRN Reason: WHEEZING Metoprolol Succinate (Toprol Xl -) 50 mg PO BID [facility] Last Admin: 03/03/19 10:14 Dose: 50 mg Multivitamins/Minerals/Vitamin C (Tab-A-Vit -) 1 tab PO DAILY [facility] Last Admin: 03/03/19 10:15 Dose: 1 tab Nifedipine (Procardia Xl -) 30 mg PO BID [facility] Last Admin: 03/03/19 10:15 Dose: 30 mg Pantoprazole Sodium (Protonix -) 40 mg PO DAILY [facility] Last Admin: 03/03/19 10:15 Dose: 40 mg Polyethylene Glycol (Miralax (For Daily Use) -) 17 gm PO TID [facility] Last Admin: 03/03/19 05:52 Dose: 17 grams Senna (Senna -) 2 tab PO HS [facility] Last Admin: 03/02/19 21:43 Dose: 2 tab Sodium Bicarbonate (Sodium Bicarbonate -) 650 mg PO DAILY [facility] Last Admin: 03/03/19 10:16 Dose: 650 mg Constitutional: Yes: Calm, Cachectic Eyes: Yes: WNL HENT: Yes: WNL Neck: Yes: WNL Cardiovascular: Yes: Regular Rate and Rhythm, S1, S2 Respiratory: Yes: Diminished Gastrointestinal: Yes: Normal Bowel Sounds, Soft Extremities: Yes: WNL Edema: No Labs: Laboratory Results - last 24 hr 03/03/19 03/03/19 03/03/19 06:50 06:50 06:50 WBC 6.7 RBC 3.69 Hgb 10.4 L Hct 30.2 L MCV 81.9 MCH 28.1 MCHC 34.3 RDW 18.8 H Plt Count 246 MPV 7.1 L Sodium 132 L Potassium 3.5 Chloride 95 L Carbon Dioxide 27 Anion Gap 11 BUN 80.4 H Creatinine 4.5 H Est GFR (CKD-EPI)AfAm 10.36 Est GFR (CKD-EPI)NonAf 8.94 Random Glucose 93 Calcium 8.7 Phosphorus 3.8 Magnesium 2.2 Total Bilirubin 0.6 AST 9 L ALT 12 L Alkaline Phosphatase 77 Troponin I 0.07 H B-Natriuretic Peptide > 36543.0 H Total Protein 6.5 Albumin 3.1 L Problem List - Problems (1) Acute on chronic diastolic (congestive) heart failure Code(s): I50.33 - ACUTE ON CHRONIC DIASTOLIC (CONGESTIVE) HEART FAILURE (2) [id number] kidney injury Code(s): N17.9 - ACUTE KIDNEY FAILURE, UNSPECIFIED; N18.9 - CHRONIC KIDNEY DISEASE, UNSPECIFIED (3) CHF (congestive heart failure) Code(s): I50.9 - HEART FAILURE, UNSPECIFIED (4) CKD (chronic kidney disease) Code(s): N18.9 - CHRONIC KIDNEY DISEASE, UNSPECIFIED (5) Colon cancer Code(s): C18.9 - MALIGNANT NEOPLASM OF COLON, UNSPECIFIED (6) HLD (hyperlipidemia) Code(s): E78.5 - HYPERLIPIDEMIA, UNSPECIFIED (7) HTN (hypertension) Code(s): I10 - ESSENTIAL (PRIMARY) HYPERTENSION Assessment/Plan Acute on Chronic Diastolic Heart Failure improving Acute on Chronic Renal Failure +Troponins likely from above HTN Hyperlipidemia Colon CA - Demadex - O2 to keep Spo2 >90% - DVT prophylaxis - ABX per ID - DC planning Dr Davis
[2019-03-03 10:32] VITALS: BP 163/105; PULSE 67; TEMP 98
== END 2019-03-03 14:04 | DRG 682 ==
LOC: JER 03:38 → JERBED 07:21 → J7W 21:54
PROVIDERS: ADMIT Family Medicine; ATTEND Family Medicine
DX: N17.9 Acute kidney failure, unspecified (principal); I50.33 Acute on chronic diastolic (congestive) heart failure; E43 Unspecified severe protein-calorie malnutrition; I13.0 Hypertensive heart and chronic kidney disease with heart failure and stage 1 through stage 4 chronic kidney disease, or unspecified chronic kidney disease; R64 Cachexia; Z68.1 Body mass index [BMI] 19.9 or less, adult; E87.0 Hyperosmolality and hypernatremia; E87.2 Acidosis; N39.0 Urinary tract infection, site not specified; I24.8 Other forms of acute ischemic heart disease; E87.1 Hypo-osmolality and hyponatremia; N18.4 Chronic kidney disease, stage 4 (severe); J44.9 Chronic obstructive pulmonary disease, unspecified; N18.9 Chronic kidney disease, unspecified; E78.5 Hyperlipidemia, unspecified; D64.9 Anemia, unspecified; I36.1 Nonrheumatic tricuspid (valve) insufficiency; Z85.038 Personal history of other malignant neoplasm of large intestine; K21.9 Gastro-esophageal reflux disease without esophagitis; K59.00 Constipation, unspecified
CPT/HCPCS: 36415; 71045-TC-FY; 76775-TC; 80048; 80053; 80061; 81003; 82550; 82565; 82570; 82728; 83540; 83550; 83721; 83735; 83880; 84100; 84156; 84436; 84443; 84484; 84540; 85025; 85027; 85610; 87086; 87186; 93005; 93010; 97116-GP; 97162-GP; 99285-25; J1644